=== PATIENT | female | born 1975 | race Caucasian/White ===

== ENCOUNTER 2017-05-15 10:04 | Inpatient (IN) | payer MEDICARE, OTHER ==
[2017-05-15 10:44] VITALS: BMI 33.0
[2017-05-15 11:36] LABS: BASO % 0.3 % (0.0-2.0); EOS # 0.1 K/uL (0.0-0.7); EOS % 0.9 % (0.0-4.0); HEMATOCRIT 27.9 % (34.0-47.0); LYMPH # 0.9 K/uL (1.0-4.3); LYMPH % 6.6 % (20.0-40.0); MEAN CELL VOLUME 84.8 fL (81.0-99.0); MEAN CORPUSCULAR HEMOGLOBIN 26.3 pg (27.0-31.0); MEAN CORPUSCULAR HGB CONC 31.1 g/dL (33.0-37.0); MEAN PLATELET VOLUME 9.5 fL (7.2-11.7); MONO # 1.3 K/uL (0.0-0.8); MONO % 10.2 % (0.0-10.0); PLATELET COUNT 256 K/uL (130-400); RED CELL DISTRIBUTION WIDTH 20.5 % (11.5-14.5); WHITE BLOOD COUNT 13.1 K/uL (4.8-10.8)
[2017-05-15 11:43] LABS: BILIRUBIN,TOTAL 3.9 mg/dL (0.2-1.3)
[2017-05-15 11:44] LABS: ALB/GLOB RATIO 0.7 (1.0-2.1); TOTAL PROTEIN 8.7 g/dL (6.3-8.3)
[2017-05-15 11:45] LABS: CALCIUM 9.1 mg/dl (8.6-10.4)
[2017-05-15 12:05] LABS: NEUTROPHIL 88 % (50-75); TOTAL CELLS COUNTED 100
[2017-05-15] MEDS ORDERED: Morphine 4 MG/ML VIAL ONE (12:30)
[2017-05-15] MEDS ORDERED: Vancomycin 1 gm/NS 200 ml 1 GM/200 ML BAG IVPB STA (12:32)
--- NOTE | 2017-05-15 12:39 | C.PDOC ---
History Of Present Illness 41 year old female with Hx of end stage renal disease presents to the ED referred by Dr. Malone for evaluation and possible admission. Patients PMD is Dr. Yoo who sent her to Dr. Malone, patient presents today with an infection of the lower abdominal wall. Patient is ESRD on HD, last HD was on Monday, next is to be done today. Time Seen by Provider: 05/15/17 10:42 Chief Complaint (Nursing): Abdominal Pain History Per: Patient History/Exam Limitations: no limitations Onset/Duration Of Symptoms: Hrs Current Symptoms Are (Timing): Still Present Location Of Pain/Discomfort: Other (Lower abdominal wall) Quality Of Discomfort: "Pain" Associated Symptoms: denies: Fever, Nausea, Vomiting, Diarrhea, Loss Of Appetite , Urinary Symptoms Exacerbating Factors: None Alleviating Factors: None Recent travel outside of the [place]: No Additional History Per: Patient Past Medical History Reviewed: Historical Data, Nursing Documentation, Vital Signs Vital Signs: Last Vital Signs Temp 97.8 F 05/15/17 10:32 Pulse 84 05/15/17 15:59 Resp 18 05/15/17 15:59 BP 181/99 H 05/15/17 15:59 Pulse Ox 100 05/15/17 17:18 - Medical History PMH: HTN, End Stage Renal Disease, Chronic Kidney Disease Surgical History: No Surg Hx Family History: States: Unknown Family Hx - Social History Hx Alcohol Use: No Hx Substance Use: No - Immunization History Hx Tetanus Toxoid Vaccination: No Hx Influenza Vaccination: Yes Hx Pneumococcal Vaccination: No Review Of Systems Constitutional: Negative for: Fever, Chills Cardiovascular: Negative for: Chest Pain Respiratory: Negative for: Shortness of Breath Gastrointestinal: Positive for: Abdominal Pain (Lower wall). Negative for: Nausea, Vomiting Genitourinary: Negative for: Frequency, Incontinence, Vaginal Discharge, Vaginal Bleeding Physical Exam - Physical Exam Appears: Non-toxic, No Acute Distress Skin: Normal Color, Warm, Dry Head: Atraumatic, Normacephalic Oral Mucosa: Moist Neck: Normal ROM, Supple Chest: Symmetrical Cardiovascular: Rhythm Regular, No Murmur Respiratory: Normal Breath Sounds, No Accessory Muscle Use, No Rales, No Rhonchi , No Wheezing Gastrointestinal/Abdominal: Tenderness (endured skin lower abdomen, no discharge ) Extremity: Normal ROM, No Pedal Edema, No Deformity, No Swelling ED Course And Treatment - Laboratory Results Result Diagrams: 05/15/17 11:30 05/15/17 11:30 O2 Sat by Pulse Oximetry: 100 (On RA) Pulse Ox Interpretation: Normal Progress Note: Plan: -Blood work, UA ordered. -Morphine 4 mg IVP, Vancomycin 1 gm in 200 mL given. -Blood culture collected Disposition - Disposition Disposition: HOSPITALIZED Disposition Time: 14:44 Condition: FAIR - Clinical Impression Clinical Impression: Panniculitis, unspecified, ESRD (end stage renal disease) on dialysis - PA / TEMPERER / Resident Statement MD/DO has reviewed & agrees with the documentation as recorded. - Scribe Statement The provider has reviewed the documentation as recorded by the Scribe Manuel Valero All medical record entries made by the Scribe were at my direction and personally dictated by me. I have reviewed the chart and agree that the record accurately reflects my personal performance of the history, physical exam, medical decision making, and the department course for this patient. I have also personally directed, reviewed, and agree with the discharge instructions and disposition. Decision To Admit - Pt Status Changed To: Hospital Disposition Of: Inpatient - Admit Certification Admit to Inpatient:: After my assessment, the patient will require hospitalization for at least two midnights. This is because of the severity of symptoms shown, intensity of services needed, and/or the medical risk in this patient being treated as an outpatient. - InPatient: Physician Admission Certification:: Most likely needs OR and IV antibiotics, will need more than 48 h. - . Bed Request Type: Regular Admitting Physician: Romulo Yoo Patient Diagnosis: Panniculitis, unspecified, ESRD (end stage renal disease) on dialysis
[2017-05-15] MEDS ORDERED: DiphenhydrAMINE 50 mg/ml Inj IVP STA (14:45)
[2017-05-15] MEDS ORDERED: HYDROmorphone 1 mg/ml ISec IVP STA (14:45)
[2017-05-15] MEDS ORDERED: Piperacill/Tazo 2.25gm in Dex 2.25 GM/50 ML BAG IVPB SCH (16:00)
[2017-05-15] MEDS ORDERED: DiphenhydrAMINE 50 mg/ml Inj ONE (16:04)
[2017-05-15] MEDS ORDERED: HYDROmorphone 0.5 mg/0.5 ml ISec ONE (16:04)
[2017-05-15] MEDS ORDERED: Paricalcitol 2 mcg/ml Inj IV SCH (16:16)
[2017-05-15] MEDS: (Novolog) Insulin Aspart, Recombinant 100 u/ml 10 ml vial SC SCH ×2 (16:30→22:00)
[2017-05-15] MEDS ORDERED: Ferric Sodium Gluconat Complex 62.5 mg/5 ml Vial IVPB ONE (17:00)
[2017-05-15] MEDS: Epoetin Alfa Dialysis 20000 UNIT/ML Inj IV SCH (17:06)
[2017-05-15] MEDS: Oxycodone/Acetaminophen 5/325 mg Tab PO PRN (18:30)
--- NOTE | 2017-05-15 19:36 | CP.PCM.CON ---
History of Present Illness - History of Present Illness History of Present Illness: pt is seen and examined during hd, full consult is dictated #[id number] stable hd tx Past Patient History - Past Social History Smoking Status: Never Smoked - CARDIAC Hx Hypertension: Yes - RENAL Hx Chronic Kidney Disease: Yes - ENDOCRINE/METABOLIC Hx Endocrine Disorders: Yes Hx Diabetes Mellitus Type 2: Yes - PSYCHIATRIC Hx Substance Use: No - SURGICAL HISTORY Hx Surgeries: Yes Hx Eye Surgery: Yes (R eye retinal detachment) Hx Gastric Bypass Surgery: Yes Hx Orthopedic Surgery: Yes (l 5th toe amputation) Meds Allergies/Adverse Reactions: Allergies Allergy/AdvReac Type Severity Reaction Status Date / Time acetaminophen [From Vicodin] Allergy Verified 05/15/17 10:59 hydrocodone [From Vicodin] Allergy Verified 05/15/17 10:59 - Medications Medications: Current Medications Aspirin (Aspirin Chewable) 81 mg PO DAILY [facility] Calcium Acetate (Phoslo) 1,134 mg PO TIDCC [facility] Cinacalcet (Sensipar) 30 mg PO DAILY [facility] Epoetin Loyd (Procrit) 20,000 unit IV MWF [facility] Stop: 05/19/17 09:01 Last Admin: 05/15/17 17:06 Dose: 20,000 unit Heparin Sodium (Porcine) (Heparin) 5,000 units SC Q8 [facility] Hydralazine HCl (Apresoline) 25 mg PO Q8 [facility] Piperacillin Sod/Tazobactam Sod (Zosyn 2.25 Gm Iv Premix) 2.25 gm in 50 mls @ 100 mls/hr IVPB Q8 [facility] Insulin Aspart (Novolog) 0 unit SC ACHS [facility] PRN Reason: Protocol Metoprolol Succinate (Toprol Xl) 50 mg PO DAILY [facility] Midodrine (Proamatine) 2.5 mg PO TID [facility] Oxycodone/Acetaminophen (Percocet 5/325 Mg Tab) 2 tab PO Q4H PRN PRN Reason: Pain, moderate (4-7) Stop: 05/18/17 15:34 Last Admin: 05/15/17 18:30 Dose: 2 tab Paricalcitol (Zemplar) 2 mcg IV MWF [facility] Stop: 05/19/17 09:01 Last Admin: 05/15/17 17:07 Dose: 2 mcg Rosuvastatin Calcium (Crestor) 10 mg PO HS [facility] Vitamin B Complex/Vit C/Folic Acid (Nephro-Mandy) 1 tab PO 0800 [facility] Results - Vital Signs Recent Vital Signs: Last Vital Signs Temp 98 F 05/15/17 16:30 Pulse 79 05/15/17 19:00 Resp 16 05/15/17 19:00 BP 186/90 H 05/15/17 19:00 Pulse Ox 96 05/15/17 19:00 - Labs Result Diagrams: 05/15/17 11:30 05/15/17 11:30 Labs: Laboratory Results - last 24 hr 05/15/17 05/15/17 11:30 11:30 WBC 13.1 H RBC 3.29 L Hgb 8.7 L Hct 27.9 L MCV 84.8 MCH 26.3 L MCHC 31.1 L RDW 20.5 H Plt Count 256 MPV 9.5 Neut % (Auto) 82.0 H Lymph % (Auto) 6.6 L [place] % (Auto) 10.2 H Eos % (Auto) 0.9 Baso % (Auto) 0.3 Neut # 10.8 H Lymph # 0.9 L [place] # 1.3 H Eos # 0.1 Baso # 0.0 Neutrophils % (Manual) 88 H Band Neutrophils % 2 Lymphocytes % (Manual) 9 L Monocytes % (Manual) 1 Platelet Estimate Normal Polychromasia Slight Hypochromasia (manual) Moderate Anisocytosis (manual) Slight Target Cells Slight Sodium 134 Potassium 5.0 Chloride 91 L Carbon Dioxide 21 L Anion Gap 27 H BUN 56 H Creatinine 6.3 H Est GFR ( Amer) 9 Est GFR (Non-Af Amer) 7 Random Glucose 99 Calcium 9.1 Total Bilirubin 3.9 H AST 28 ALT 34 Alkaline Phosphatase 271 H Total Protein 8.7 H Albumin 3.6 Globulin 5.1 H Albumin/Globulin Ratio 0.7 L
[2017-05-15] MEDS ORDERED: HYDROmorphone 1 mg/ml ISec IVP PRN (21:12)
[2017-05-15] MEDS ORDERED: Piperacillin/Tazobact 3.375 GM in Sodium Chloride 100 ML IVPB SCH (21:15)
[2017-05-15] MEDS: Piperacill/Tazo 2.25gm in Dex 2.25 GM/50 ML BAG IVPB SCH (22:05)
--- NOTE | 2017-05-15 22:34 | CP.PCM.HP ---
History of Present Illness - History of Present Illness History of Present Illness: CC: anterior lower abdominal pain HPI:Young female with h/o HTN, DM, Hyperlipdemia, CAD who is on HD Three times a week patient presents today with an infection of the lower abdominal wall. she has fever, chills and rigrs was seen by bonnie in [facility] with no response and now came here Patient is ESRD on HD, last HD was on Monday , next is to be done today. Present on Admission - Present on Admission Any Indicators Present on Admission: Yes Review of Systems - Review of Systems Systems not reviewed;Unavailable: Acuity of Condition - Constitutional Constitutional: Chills, Fever, Malaise, Weakness - EENT Eyes: absent: As Per HPI, Blind Spots, Blurred Vision, Change in Vision, Decreased Night Vision, Diplopia, Discharge, Dry Eye, Exophthalmos, Floaters, Irritation, Itchy Eyes, Loss of Peripheral Vision, Pain, Photophobia, Requires Corrective Lenses, Sees Flashes, Spots in Vision, Tunnel Vision, Other Visual Disturbances, Loss of Vision, Other Nose/Mouth/Throat: absent: As Per HPI, Epistaxis, Nasal Congestion, Nasal Discharge, Nasal Obstruction, Nasal Trauma, Nose Pain, Post Nasal Drip, Sinus Pain, Sinus Pressure, Bleeding Gums, Change in Voice, Dental Pain, Dry Mouth, Dysphagia, Halitosis, Hoarsness, Lip Swelling, Mouth Lesions, Mouth Pain, Odynophagia, Sore Throat, Throat Swelling, Tongue Swelling, Facial Pain, Neck Pain, Neck Mass, Other - Cardiovascular Cardiovascular: absent: As Per HPI, Acrocyanosis, Chest Pain, Chest Pain at Rest , Chest Pain with Activity, Claudication, Diaphoresis, Dyspnea, Dyspnea on Exertion, Edema, Irregular Heart Rhythm, Pain Radiating to Arm/Neck/Jaw, Leg Edema, Leg Ulcers, Lightheadedness, Orthopnea, Palpitations, Paroxysmal Nocturnal Dyspnea, Pedal Edema, Radiating Pain, Rapid Heart Rate, Slow Heart Rate, Syncope, Other - Respiratory Respiratory: absent: As Per HPI, Cough, Dyspnea, Hemoptysis, Dyspnea on Exertion , Wheezing, Snoring, Stridor, Pain on Inspiration, Chest Congestion, Excessive Mucous Production, Change in Mucous Color, Pain with Coughing, Other - Gastrointestinal Gastrointestinal: Abdominal Pain. absent: As Per HPI, Belching, Bloating, Change in Bowel Habits, Change in Stool Character, Coffee Ground Emesis, Constipation, Cramping, Diarrhea, Dyspepsia, Dysphagia, Early Satiety, Excessive Flatus, Fecal Incontinence, Heartburn, Hematemesis, Hematochezia, Loose Stools, Melena, Nausea, Odynophagia, Temesmus, Vomiting, Other - Genitourinary Genitourinary: absent: As Per HPI, Change in Urinary Stream, Difficulty Urinating, Dysuria, Flank Pain, Hematuria, Pyuria, Nocturia, Urinary Incontinence, Urinary Frequency, Urinary Hesitance, Urinary Urgency, Voiding Freq/Small Amts, Freq UTI, Hx Renal/Bladder Calculi, Hx /Renal Surgery, Bladder Distension, Other - Integumentary Integumentary: absent: As Per HPI, Acne, Alopecia, Bleeding Lesions, Change in Hair, Change in Nails, Change in Pigmentation, Changing Lesions, Dry Skin, Erythema, Furuncle, Hirsutism, Lesions, New Lesions, Non-Healing Lesions, Photosensitivity, Pruritus, Rash, Skin Pain, Skin Ulcer, Sores, Striae, Swelling , Unusual Bruising, Wounds, Jaundice, Other - Neurological Neurological: absent: As Per HPI, Abnormal Gait, Abnormal Hearing, Abnormal Movements, Abnormal Speech, Behavioral Changes, Burning Sensations, Confusion, Convulsions, Disequilibrium, Dizziness, Numbness, Focal Weakness, Frequent Falls , Headaches, Lack of Coordination, Loss of Vision, Memory Loss, Paresthesias, Radicular Pain, Restless Legs, Sensory Deficit, Syncope, Tingling, Tremor, Vertigo, Weakness, Other Visual Disturbances, Other - Psychiatric Psychiatric: absent: As Per HPI, Abnormal Sleep Pattern, Anhedonia, Anxiety, Auditory Hallucinations, Behavioral Changes, Change in Appetite, Change in Libido, Confusion, Depression, Difficulty Concentrating, Hallucinations, Homicidal Ideation, Hopelessness, Irritability, Memory Loss, Mood Swings, Panic Attacks, Paranoia, Suicidal Ideation, Visual Hallucinations, Tactile Hallucinations, Other - Endocrine Endocrine: absent: As Per HPI, Change in Body Appearance, Change in Libido, Cold Intolorance, Deepening of Voice, Excessive Sweating, Fatigue, Flushing, Heat Intolorance, Increase in Ring/Shoe/Hat Size, Palpitations, Polydipsia, Polyphagia, Polyuria, Other Past Patient History - Past Social History Smoking Status: Never Smoked - CARDIAC Hx Hypertension: Yes - RENAL Date of Last Dialysis Treatment: 05/15/17 - ENDOCRINE/METABOLIC Hx Endocrine Disorders: Yes Hx Diabetes Mellitus Type 2: Yes - INTEGUMENTARY Other/Comment: infection left lower abdomen - MUSCULOSKELETAL/RHEUMATOLOGICAL Hx Falls: No - PSYCHIATRIC Hx Substance Use: No - SURGICAL HISTORY Hx Surgeries: Yes Hx Eye Surgery: Yes (R eye retinal detachment) Hx Gastric Bypass Surgery: Yes (1 1/2 years ago) Hx Orthopedic Surgery: Yes (l 5th toe amputation) Other/Comment: I&D LEFT LOWER ABDOMEN. - ANESTHESIA Hx Anesthesia: Yes Hx Anesthesia Reactions: No Hx Malignant Hyperthermia: No Has any member of the family had a problem w/ anesthesia?: No Meds Allergies/Adverse Reactions: Allergies Allergy/AdvReac Type Severity Reaction Status Date / Time acetaminophen [From Vicodin] Allergy Verified 05/15/17 10:59 hydrocodone [From Vicodin] Allergy Verified 05/15/17 10:59 Physical Exam - Constitutional Appears: In Acute Distress Additional comments: extreme ant abdominal pain - Eye Exam Eye Exam: EOMI, Normal appearance, PERRL Pupil Exam: NORMAL ACCOMODATION, PERRL - ENT Exam ENT Exam: Mucous Membranes Moist, Normal Exam - Cardiovascular Exam Cardiovascular Exam: REGULAR RHYTHM, +S1, +S2 - GI/Abdominal Exam GI & Abdominal Exam: Tenderness Additional comments: ant abdomen below umbilicus is opn raw wound with discharge Results - Vital Signs Recent Vital Signs: Last Vital Signs Temp 98 F 05/15/17 16:30 Pulse 85 05/15/17 20:00 Resp 16 05/15/17 20:00 BP 178/68 H 05/15/17 20:00 Pulse Ox 95 05/15/17 20:00 - Labs Result Diagrams: 05/15/17 11:30 05/15/17 11:30 Labs: Laboratory Results - last 24 hr 05/15/17 05/15/17 05/15/17 11:30 11:30 21:32 WBC 13.1 H RBC 3.29 L Hgb 8.7 L Hct 27.9 L MCV 84.8 MCH 26.3 L MCHC 31.1 L RDW 20.5 H Plt Count 256 MPV 9.5 Neut % (Auto) 82.0 H Lymph % (Auto) 6.6 L [place] % (Auto) 10.2 H Eos % (Auto) 0.9 Baso % (Auto) 0.3 Neut # 10.8 H Lymph # 0.9 L [place] # 1.3 H Eos # 0.1 Baso # 0.0 Neutrophils % (Manual) 88 H Band Neutrophils % 2 Lymphocytes % (Manual) 9 L Monocytes % (Manual) 1 Platelet Estimate Normal Polychromasia Slight Hypochromasia (manual) Moderate Anisocytosis (manual) Slight Target Cells Slight Sodium 134 Potassium 5.0 Chloride 91 L Carbon Dioxide 21 L Anion Gap 27 H BUN 56 H Creatinine 6.3 H Est GFR ( Amer) 9 Est GFR (Non-Af Amer) 7 POC Glucose (mg/dL) 96 Random Glucose 99 Calcium 9.1 Total Bilirubin 3.9 H AST 28 ALT 34 Alkaline Phosphatase 271 H Total Protein 8.7 H Albumin 3.6 Globulin 5.1 H Albumin/Globulin Ratio 0.7 L Assessment & Plan (1) Type 2 diabetes mellitus Status: Acute (2) HTN (hypertension) Status: Acute (3) ESRD (end stage renal disease) on dialysis Status: Acute (4) Panniculitis, unspecified Status: Acute
[2017-05-16] MEDS: Piperacill/Tazo 2.25gm in Dex 2.25 GM/50 ML BAG IVPB SCH ×3 (06:41→21:56)
[2017-05-16] MEDS: (Novolog) Insulin Aspart, Recombinant 100 u/ml 10 ml vial SC SCH ×4 (08:30→21:53)
[2017-05-16] MEDS: Multivitamin Vitamin B Complex (Nephro-Vite) Tab PO SCH (08:50)
--- NOTE | 2017-05-16 09:10 | CON ---
DATE: RENAL CONSULTATION LOCATION: Patient is located in room 353, bed A. REQUESTED BY: Romulo Yoo MD HISTORY OF PRESENT ILLNESS: Ms. Schmitz is a 41-year-old female with a past medical history significant for longstanding hypertension, diabetes, end-stage renal disease, diabetic retinopathy with a poor vision in one eye, status post gastric bypass, who was recently admitted to [facility] few weeks ago with severe lower abdominal pain and back pain and patient was found to have pancolitis and status post surgery and subsequently discharged to home. Now the patient was admitted with persistent pain and getting worse and also pain in both upper thigh region and expanding slowly upward from the pelvic region. Severe tenderness. Denies any headache or dizziness. Denies any chest pain or palpitation. Denies any nausea, vomiting, or diarrhea. The patient claims decreased p.o. intake. PAST MEDICAL HISTORY: Significant for longstanding hypertension, diabetes, end-stage renal disease, diabetic retinopathy, severe secondary hyperparathyroidism, hyperphosphatemia, anemia, history of GI bleed. PAST SURGICAL HISTORY: Status post right upper extremity AV fistula, gastric bypass and questionable hysterectomy. ALLERGIES: ALLERGIC TO ACETAMINOPHEN AND HYDROCODONE. SOCIAL HISTORY: No smoking. No alcohol. No drugs. FAMILY HISTORY: Not significant. CURRENT MEDICATIONS: Include as follows, hydralazine 25 mg p.o. q. 8 hours, aspirin 81 mg daily, Crestor 10 mg at bedtime, Dilaudid 2 mg IV q. 4 hours p.r.n., subcu heparin q. 12 hours, Nephro-Mandy 1 tablet daily, NovoLog, Percocet 2 tablets q. 4 hours, PhosLo 667 mg 2 tablets p.o. t.i.d., midodrine 2.5 mg p.o. t.i.d., Procrit 20,000 units 3 times a week, Sensipar 30 mg p.o. daily, Toprol-XL 50 mg p.o. daily, Zemplar 2 mcg 3 times a week, Zosyn 2.25 g IV piggyback q. 8 hours. REVIEW OF SYSTEMS: Significant for lower abdominal pain and also mid abdomen pain, and also pain in both thigh region and palpable masses. All other review of systems reviewed as per HPI. PHYSICAL EXAMINATION: VITAL SIGNS: As follows, blood pressure 178/68, pulse 85, respirations 16, temperature 97.6, saturation 95%. Height is 5 feet and 6 inches and weight is 196 pounds. GENERAL: Ms. Schmitz is an 41-year-old female, moderately built, moderate nourished, not in distress, with moderate pain in both lower extremities and lower abdomen and mid abdomen on the left side. HEENT: Pupils are normal, reactive to light and accommodation. Conjunctivae pink. Sclerae anicteric. Tongue is moist. Trachea is midline. LUNGS: Symmetric on both sides. Bilateral breath sounds present. Clear on auscultation. CARDIOVASCULAR: [place] at the fifth intercostal space, midclavicular line. S1 and S2 audible. No murmur or gallop. ABDOMEN: The patient has severe tenderness in lower abdomen and also mid abdomen area also. Bowel sounds present. CENTRAL NERVOUS SYSTEM: The patient is alert, awake and oriented x3. Nonfocal on examination. Cranial nerves II through XII grossly intact. Sensory and motor system is within normal limits. EXTREMITIES: No cyanosis, no clubbing, no edema. LABORATORY DATA: Include as follows; as of 05/15/2017, WBC 13.1, hemoglobin 8.7, hematocrit is 27.9, platelets 256. Sodium 134, potassium is 5, chloride 91, CO2 of 21, BUN 56, creatinine 6.3, glucose 99, calcium 9.1. Total bilirubin AST 28, ALT 34, alkaline phosphatase 271, total protein 8.7, albumin is 3.6. ASSESSMENT: In summary, Ms. Schmitz is 41-year-old obese female with a history of hypertension, diabetes and diabetic retinopathy, pancolitis, status post surgery in medical center about few weeks ago, status post IV antibiotics, now admitted with worsening symptoms of lower abdominal pain and pain in both thigh region. 1. End-stage renal disease. Continue hemodialysis 3 times a week, Monday, Monday and Monday. 2. Anemia secondary to end-stage renal disease, rule out iron-deficiency anemia. 3. Pancolitis. 4. Rule out calciphylaxis, rule out uremic arteriopathy. PLAN: Follow up with surgery and continue IV antibiotics. Continue analgesics and also check PTH and phosphorus level in a.m. We will follow with you. Thank you for allowing me to participate in your patient's care. The patient was seen and examined during dialysis. Marc Jarrett MD
--- NOTE | 2017-05-16 09:57 | CP.PCM.PN ---
Subjective - Date & Time of Evaluation Date of Evaluation: 05/16/17 Time of Evaluation: 09:51 - Subjective Subjective: pt is seen and examined, follow up consult is dictated #[id number] 1. ESRD 2. sec. hpth 3. Calciphylaxsis/calcific uremic arteriopathy 4. Panniculitis check po4, pth intact d/zemplar and sensipar for now f/u with surgery Objective - Vital Signs/Intake and Output Vital Signs (last 24 hours): Temp Pulse Resp BP Pulse Ox 98.5 F 80 20 163/91 H 100 05/16/17 08:00 05/16/17 08:00 05/16/17 08:00 05/16/17 08:00 05/16/17 08:00 - Medications Medications: Current Medications Aspirin (Aspirin Chewable) 81 mg PO DAILY [facility] Calcium Acetate (Phoslo) 1,334 mg PO TIDCC [facility] Last Admin: 05/16/17 08:50 Dose: 1,334 mg Epoetin Loyd (Procrit) 20,000 unit IV MWF [facility] Stop: 05/19/17 09:01 Last Admin: 05/15/17 17:06 Dose: 20,000 unit Heparin Sodium (Porcine) (Heparin) 5,000 units SC Q12 [facility] Last Admin: 05/15/17 21:58 Dose: 5,000 units Hydralazine HCl (Apresoline) 25 mg PO Q8 [facility] Last Admin: 05/16/17 06:41 Dose: 25 mg Hydromorphone HCl (Dilaudid) 2 mg IVP Q4H PRN PRN Reason: pain Last Admin: 05/16/17 06:15 Dose: 2 mg Piperacillin Sod/Tazobactam Sod (Zosyn 2.25 Gm Iv Premix) 2.25 gm in 50 mls @ 100 mls/hr IVPB Q8 [facility] Last Admin: 05/16/17 06:41 Dose: 100 mls/hr Insulin Aspart (Novolog) 0 unit SC ACHS [facility] PRN Reason: Protocol Last Admin: 05/16/17 08:30 Dose: Not Given Metoprolol Succinate (Toprol Xl) 50 mg PO DAILY [facility] Midodrine (Proamatine) 2.5 mg PO TID [facility] Last Admin: 05/15/17 22:05 Dose: 2.5 mg Oxycodone/Acetaminophen (Percocet 5/325 Mg Tab) 2 tab PO Q4H PRN PRN Reason: Pain, moderate (4-7) Stop: 05/18/17 15:34 Last Admin: 05/15/17 18:30 Dose: 2 tab Pneumococcal Polyvalent Vaccine (Pneumovax 23 Vaccine) 0.5 ml IM .ONCE ONE Stop: 05/17/17 10:01 Rosuvastatin Calcium (Crestor) 10 mg PO HS [facility] Last Admin: 05/15/17 21:57 Dose: 10 mg Vitamin B Complex/Vit C/Folic Acid (Nephro-Mandy) 1 tab PO 0800 [facility] Last Admin: 05/16/17 08:50 Dose: 1 tab - Labs Labs: 05/15/17 11:30 05/15/17 11:30
[2017-05-16] MEDS: Metoprolol Succinate 50 mg XL Tab PO SCH (10:10)
--- NOTE | 2017-05-16 11:00 | CP.PCM.CON ---
History of Present Illness - History of Present Illness History of Present Illness: 41 year old female with Hx of end stage renal disease presents to the ED referred by Dr. Malone for evaluation and possible admission. Patients PMD is Dr. Yoo who sent her to Dr. Malone, patient presents today with an infection of the lower abdominal wall. Patient is ESRD on HD, last HD was on Monday, next is to be done today. Review of Systems - Review of Systems All systems: reviewed and no additional remarkable complaints except - Constitutional Constitutional: As Per HPI - EENT Eyes: absent: As Per HPI, Blind Spots, Blurred Vision, Change in Vision, Decreased Night Vision, Diplopia, Discharge, Dry Eye, Exophthalmos, Floaters, Irritation, Itchy Eyes, Loss of Peripheral Vision, Pain, Photophobia, Requires Corrective Lenses, Sees Flashes, Spots in Vision, Tunnel Vision, Other Visual Disturbances, Loss of Vision, Other Ears: absent: As Per HPI, Decreased Hearing, Ear Discharge, Ear Pain, Tinnitus, Abnormal Hearing, Disequilibrium, Dizziness, Other Nose/Mouth/Throat: absent: As Per HPI, Epistaxis, Nasal Congestion, Nasal Discharge, Nasal Obstruction, Nasal Trauma, Nose Pain, Post Nasal Drip, Sinus Pain, Sinus Pressure, Bleeding Gums, Change in Voice, Dental Pain, Dry Mouth, Dysphagia, Halitosis, Hoarsness, Lip Swelling, Mouth Lesions, Mouth Pain, Odynophagia, Sore Throat, Throat Swelling, Tongue Swelling, Facial Pain, Neck Pain, Neck Mass, Other - Breasts Breasts: absent: As Per HPI, Change in Shape, Mass, Pain, Nipple Discharge, Nipple Inversion, Skin Changes, Swelling, Other - Cardiovascular Cardiovascular: absent: As Per HPI, Acrocyanosis, Chest Pain, Chest Pain at Rest , Chest Pain with Activity, Claudication, Diaphoresis, Dyspnea, Dyspnea on Exertion, Edema, Irregular Heart Rhythm, Pain Radiating to Arm/Neck/Jaw, Leg Edema, Leg Ulcers, Lightheadedness, Orthopnea, Palpitations, Paroxysmal Nocturnal Dyspnea, Pedal Edema, Radiating Pain, Rapid Heart Rate, Slow Heart Rate, Syncope, Other - Respiratory Respiratory: absent: As Per HPI, Cough, Dyspnea, Hemoptysis, Dyspnea on Exertion , Wheezing, Snoring, Stridor, Pain on Inspiration, Chest Congestion, Excessive Mucous Production, Change in Mucous Color, Pain with Coughing, Other - Gastrointestinal Gastrointestinal: absent: As Per HPI, Abdominal Pain, Belching, Bloating, Change in Bowel Habits, Change in Stool Character, Coffee Ground Emesis, Constipation, Cramping, Diarrhea, Dyspepsia, Dysphagia, Early Satiety, Excessive Flatus, Fecal Incontinence, Heartburn, Hematemesis, Hematochezia, Loose Stools, Melena, Nausea, Odynophagia, Temesmus, Vomiting, Other - Genitourinary Genitourinary: absent: As Per HPI, Change in Urinary Stream, Difficulty Urinating, Dysuria, Flank Pain, Hematuria, Pyuria, Nocturia, Urinary Incontinence, Urinary Frequency, Urinary Hesitance, Urinary Urgency, Voiding Freq/Small Amts, Freq UTI, Hx Renal/Bladder Calculi, Hx /Renal Surgery, Bladder Distension, Other - Reproductive: Female Reproductive:Female: absent: As Per HPI, Amenorrhea, Amenorrhea/ Control, Currently Menstual, Cycle <21 Days, Cycle >35 Days, Cycle Variable, Menses 1-7 Days, Menses >/= 8 Days, Menses Variable, Cycle > 4 Weeks Between, No Menses for 6 Months, Heavy Menses, Light Menses, Normal Menses, Spotting Between Cycles , S/P Hysterectomy, Menopausal, Post Menopausal, Premenarche, Abnormal Vaginal Bleeding, Dysmenorrhea, Dyspareunia, Genital Lesions, Genital Pruritis, Pelvic Pain, Prolapse Symptoms, Sexual Dysfunction, Vaginal Discharge, Vaginal Dryness , Vaginal Odor, Vaginal Pruritis, Other - Menstruation Menstruation: absent: As Per HPI, Amenorrhea, Amenorrhea/ Control, Currently Menstual, Cycle <21 Days, Cycle >35 Days, Cycle Variable, Menses 1-7 Days, Menses >/= 8 Days, Menses Variable, Cycle > 4 Weeks Between, No Menses for 6 Months, Heavy Menses, Light Menses, Normal Menses, Spotting Between Cycles , S/P Hysterectomy, Menopausal, Post Menopausal, Premenarche, Abnormal Vaginal Bleeding, Dysmenorrhea, Other - Integumentary Integumentary: As Per HPI, Skin Pain, Wounds - Neurological Neurological: As Per HPI - Psychiatric Psychiatric: absent: As Per HPI, Abnormal Sleep Pattern, Anhedonia, Anxiety, Auditory Hallucinations, Behavioral Changes, Change in Appetite, Change in Libido, Confusion, Depression, Difficulty Concentrating, Hallucinations, Homicidal Ideation, Hopelessness, Irritability, Memory Loss, Mood Swings, Panic Attacks, Paranoia, Suicidal Ideation, Visual Hallucinations, Tactile Hallucinations, Other - Endocrine Endocrine: absent: As Per HPI, Change in Body Appearance, Change in Libido, Cold Intolorance, Deepening of Voice, Excessive Sweating, Fatigue, Flushing, Heat Intolorance, Increase in Ring/Shoe/Hat Size, Palpitations, Polydipsia, Polyphagia, Polyuria, Other - Hematologic/Lymphatic Hematologic: absent: As Per HPI, Easy Bleeding, Easy Bruising, Lymphadenopathy, Other Past Patient History - Past Social History Smoking Status: Never Smoked - CARDIAC Hx Hypertension: Yes - RENAL Date of Last Dialysis Treatment: 05/15/17 - ENDOCRINE/METABOLIC Hx Endocrine Disorders: Yes Hx Diabetes Mellitus Type 2: Yes - INTEGUMENTARY Other/Comment: infection left lower abdomen - MUSCULOSKELETAL/RHEUMATOLOGICAL Hx Falls: No - PSYCHIATRIC Hx Substance Use: No - SURGICAL HISTORY Hx Surgeries: Yes Hx Eye Surgery: Yes (R eye retinal detachment) Hx Gastric Bypass Surgery: Yes (1 1/2 years ago) Hx Orthopedic Surgery: Yes (l 5th toe amputation) Other/Comment: I&D LEFT LOWER ABDOMEN. - ANESTHESIA Hx Anesthesia: Yes Hx Anesthesia Reactions: No Hx Malignant Hyperthermia: No Has any member of the family had a problem w/ anesthesia?: No Meds Allergies/Adverse Reactions: Allergies Allergy/AdvReac Type Severity Reaction Status Date / Time acetaminophen [From Vicodin] Allergy Verified 05/15/17 10:59 hydrocodone [From Vicodin] Allergy Verified 05/15/17 10:59 - Medications Medications: Current Medications Aspirin (Aspirin Chewable) 81 mg PO DAILY [facility] Last Admin: 05/16/17 10:10 Dose: 81 mg Calcium Acetate (Phoslo) 1,334 mg PO TIDCC [facility] Last Admin: 05/16/17 08:50 Dose: 1,334 mg Epoetin Loyd (Procrit) 20,000 unit IV MWF [facility] Stop: 05/19/17 09:01 Last Admin: 05/15/17 17:06 Dose: 20,000 unit Heparin Sodium (Porcine) (Heparin) 5,000 units SC Q12 [facility] Last Admin: 05/16/17 10:10 Dose: 5,000 units Hydralazine HCl (Apresoline) 25 mg PO Q8 [facility] Last Admin: 05/16/17 06:41 Dose: 25 mg Hydromorphone HCl (Dilaudid) 2 mg IVP Q4H PRN PRN Reason: pain Last Admin: 05/16/17 10:25 Dose: 2 mg Piperacillin Sod/Tazobactam Sod (Zosyn 2.25 Gm Iv Premix) 2.25 gm in 50 mls @ 100 mls/hr IVPB Q8 [facility] Last Admin: 05/16/17 06:41 Dose: 100 mls/hr Insulin Aspart (Novolog) 0 unit SC ACHS [facility] PRN Reason: Protocol Last Admin: 05/16/17 08:30 Dose: Not Given Metoprolol Succinate (Toprol Xl) 50 mg PO DAILY [facility] Last Admin: 05/16/17 10:10 Dose: 50 mg Midodrine (Proamatine) 2.5 mg PO TID [facility] Last Admin: 05/16/17 10:14 Dose: Not Given Oxycodone/Acetaminophen (Percocet 5/325 Mg Tab) 2 tab PO Q4H PRN PRN Reason: Pain, moderate (4-7) Stop: 05/18/17 15:34 Last Admin: 05/15/17 18:30 Dose: 2 tab Pneumococcal Polyvalent Vaccine (Pneumovax 23 Vaccine) 0.5 ml IM .ONCE ONE Stop: 05/17/17 10:01 Rosuvastatin Calcium (Crestor) 10 mg PO HS [facility] Last Admin: 05/15/17 21:57 Dose: 10 mg Vitamin B Complex/Vit C/Folic Acid (Nephro-Mandy) 1 tab PO 0800 [facility] Last Admin: 05/16/17 08:50 Dose: 1 tab Physical Exam - Constitutional Appears: Non-toxic, Chronically Ill - Head Exam Head Exam: NORMOCEPHALIC - Eye Exam Eye Exam: PERRL. absent: Scleral icterus - ENT Exam ENT Exam: Mucous Membranes Dry, Normal External Ear Exam - Neck Exam Neck exam: Negative for: Lymphadenopathy - Respiratory Exam Respiratory Exam: Decreased Breath Sounds - Cardiovascular Exam Cardiovascular Exam: REGULAR RHYTHM, +S1, +S2 - GI/Abdominal Exam GI & Abdominal Exam: Diminished Bowel Sounds, Distended, Soft, Tenderness Additional comments: wiunds noted back lower abd and left thigh with induration - Rectal Exam Rectal Exam: Deferred - Exam Exam: NORMAL INSPECTION - Extremities Exam Extremities exam: Positive for: pedal pulses present. Negative for: calf tenderness, pedal edema - Back Exam Back exam: absent: CVA tenderness (L), CVA tenderness (R) - Neurological Exam Neurological exam: Alert, CN II-XII Intact, Oriented x3, Reflexes Normal - Psychiatric Exam Psychiatric exam: Depressed - Skin Skin Exam: Dry Results - Vital Signs Recent Vital Signs: Last Vital Signs Temp 98.5 F 05/16/17 08:00 Pulse 80 05/16/17 08:00 Resp 20 05/16/17 08:00 BP 163/91 H 05/16/17 08:00 Pulse Ox 100 05/16/17 08:00 - Labs Result Diagrams: 05/15/17 11:30 05/15/17 11:30 Labs: Laboratory Results - last 24 hr 05/15/17 05/15/17 05/15/17 11:30 11:30 21:32 WBC 13.1 H RBC 3.29 L Hgb 8.7 L Hct 27.9 L MCV 84.8 MCH 26.3 L MCHC 31.1 L RDW 20.5 H Plt Count 256 MPV 9.5 Neut % (Auto) 82.0 H Lymph % (Auto) 6.6 L Bonner % (Auto) 10.2 H Eos % (Auto) 0.9 Baso % (Auto) 0.3 Neut # 10.8 H Lymph # 0.9 L Bonner # 1.3 H Eos # 0.1 Baso # 0.0 Neutrophils % (Manual) 88 H Band Neutrophils % 2 Lymphocytes % (Manual) 9 L Monocytes % (Manual) 1 Platelet Estimate Normal Polychromasia Slight Hypochromasia (manual) Moderate Anisocytosis (manual) Slight Target Cells Slight Sodium 134 Potassium 5.0 Chloride 91 L Carbon Dioxide 21 L Anion Gap 27 H BUN 56 H Creatinine 6.3 H Est GFR ( Amer) 9 Est GFR (Non-Af Amer) 7 POC Glucose (mg/dL) 96 Random Glucose 99 Calcium 9.1 Total Bilirubin 3.9 H AST 28 ALT 34 Alkaline Phosphatase 271 H Total Protein 8.7 H Albumin 3.6 Globulin 5.1 H Albumin/Globulin Ratio 0.7 L 05/16/17 07:26 WBC RBC Hgb Hct MCV MCH MCHC RDW Plt Count MPV Neut % (Auto) Lymph % (Auto) Bonner % (Auto) Eos % (Auto) Baso % (Auto) Neut # Lymph # Bonner # Eos # Baso # Neutrophils % (Manual) Band Neutrophils % Lymphocytes % (Manual) Monocytes % (Manual) Platelet Estimate Polychromasia Hypochromasia (manual) Anisocytosis (manual) Target Cells Sodium Potassium Chloride Carbon Dioxide Anion Gap BUN Creatinine Est GFR ( Amer) Est GFR (Non-Af Amer) POC Glucose (mg/dL) 88 Random Glucose Calcium Total Bilirubin AST ALT Alkaline Phosphatase Total Protein Albumin Globulin Albumin/Globulin Ratio Assessment & Plan (1) Cellulitis Status: Acute (2) Cellulitis Status: Acute (3) ESRD (end stage renal disease) on dialysis Status: Acute (4) HTN (hypertension) Status: Acute (5) Panniculitis, unspecified Status: Acute (6) Type 2 diabetes mellitus Status: Acute - Assessment and Plan (Free Text) Assessment: cont wound care, debridement , gycemic control, IV antibiotics
[2017-05-16] MEDS ORDERED: Desmopressin 20 MCG in Sodium Chloride 0.9% 50 ML IV PRN (16:42)
[2017-05-16] MEDS: Oxycodone/Acetaminophen 5/325 mg Tab PO PRN (19:14)
--- NOTE | 2017-05-16 23:10 | CP.PCM.PN ---
Subjective - Date & Time of Evaluation Date of Evaluation: 05/16/17 Time of Evaluation: 20:00 - Subjective Subjective: Pt is for Or tommorow, still c/o extreme abdominal pain due to open wounds ( pannicullitis) Hb has been corrected pt is stable Objective - Vital Signs/Intake and Output Vital Signs (last 24 hours): Temp Pulse Resp BP Pulse Ox 98.4 F 82 20 168/72 H 100 05/16/17 23:00 05/16/17 23:00 05/16/17 22:05 05/16/17 23:00 05/16/17 15:00 Intake and Output: 05/16/17 05/17/17 18:59 06:59 Intake Total 450 50 Balance 450 50 - Medications Medications: Current Medications Aspirin (Aspirin Chewable) 81 mg PO DAILY [facility] Last Admin: 05/16/17 10:10 Dose: 81 mg Calcium Acetate (Phoslo) 1,334 mg PO TIDCC [facility] Last Admin: 05/16/17 17:23 Dose: 1,334 mg Epoetin Loyd (Procrit) 20,000 unit IV [facility] Stop: 05/19/17 09:01 Last Admin: 05/15/17 17:06 Dose: 20,000 unit Heparin Sodium (Porcine) (Heparin) 5,000 units SC Q12 [facility] Last Admin: 05/16/17 21:51 Dose: 5,000 units Hydralazine HCl (Apresoline) 25 mg PO Q8 [facility] Last Admin: 05/16/17 21:52 Dose: 25 mg Hydromorphone HCl (Dilaudid) 2 mg IVP Q4H PRN PRN Reason: pain Last Admin: 05/16/17 22:31 Dose: 2 mg Piperacillin Sod/Tazobactam Sod (Zosyn 2.25 Gm Iv Premix) 2.25 gm in 50 mls @ 100 mls/hr IVPB Q8 [facility] Last Admin: 05/16/17 21:56 Dose: 100 mls/hr Vancomycin/Sodium Chloride (Vancomycin 1 Gm/Ns 200 Ml) 1 gm in 200 mls @ 166.7 mls/hr IVPB [facility] Stop: 05/22/17 09:01 Desmopressin Acetate 20 mcg/ (Sodium Chloride) 55 mls @ 100 mls/hr IV ONCE PRN PRN 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 05/17 Insulin Aspart (Novolog) 0 unit SC ACHS [facility] PRN Reason: Protocol Last Admin: 05/16/17 21:53 Dose: Not Given Metoprolol Succinate (Toprol Xl) 50 mg PO DAILY [facility] Last Admin: 05/16/17 10:10 Dose: 50 mg Midodrine (Proamatine) 2.5 mg PO TID [facility] Last Admin: 05/16/17 17:24 Dose: 2.5 mg Oxycodone/Acetaminophen (Percocet 5/325 Mg Tab) 2 tab PO Q4H PRN PRN Reason: Pain, moderate (4-7) Stop: 05/18/17 15:34 Last Admin: 05/16/17 19:14 Dose: 2 tab Pneumococcal Polyvalent Vaccine (Pneumovax 23 Vaccine) 0.5 ml IM .ONCE ONE Stop: 05/17/17 10:01 Rosuvastatin Calcium (Crestor) 10 mg PO HS [facility] Last Admin: 05/16/17 21:52 Dose: 10 mg Sevelamer Carbonate (Renvela) 0.8 gm PO TIDCC [facility] Vitamin B Complex/Vit C/Folic Acid (Nephro-Mandy) 1 tab PO 0800 [facility] Last Admin: 05/16/17 08:50 Dose: 1 tab - Labs Labs: 05/15/17 11:30 05/15/17 11:30 - Constitutional Appears: No Acute Distress - Head Exam Head Exam: ATRAUMATIC, NORMAL INSPECTION, NORMOCEPHALIC - Eye Exam Eye Exam: EOMI, Normal appearance, PERRL Pupil Exam: NORMAL ACCOMODATION, PERRL - Respiratory Exam Respiratory Exam: Clear to Ausculation Bilateral, NORMAL BREATHING PATTERN - Cardiovascular Exam Cardiovascular Exam: REGULAR RHYTHM, +S1, +S2. absent: Murmur - GI/Abdominal Exam GI & Abdominal Exam: Tenderness Additional comments: open wound below umbilicius - Rectal Exam Rectal Exam: Deferred Assessment and Plan (1) Type 2 diabetes mellitus Status: Acute (2) HTN (hypertension) Status: Acute (3) ESRD (end stage renal disease) on dialysis Status: Acute (4) Panniculitis, unspecified Assessment & Plan: for OR debribement tommorow morning Status: Acute
--- NOTE | 2017-05-16 23:11 | CON ---
RENAL CONSULTATION LOCATION: Patient is located in room 353, bed #A. REQUESTED BY: Romulo Yoo MD REASON FOR FOLLOWUP: End-stage renal disease and for continuation of the hemodialysis. HISTORY OF PRESENT ILLNESS: Mrs. Schmitz is a 41-year-old young female with past medical history significant for longstanding hypertension, diabetes, diabetic retinopathy, end-stage renal disease on hemodialysis 3 times a week, hyperphosphatemia, noncompliance with phosphate binder, secondary hyperparathyroidism, who was recently [facility] to the [facility] with lower abdominal swelling and pain severe and patient was found to have pancolitis, status post surgery and then patient was discharged home. Now, the patient was admitted with lower abdominal pain and also extending from the lower abdomen and also pain in the both thigh region and swelling. The patient is scheduled for possible surgery tomorrow. The patient is not in distress. Denies any chest pain or palpitation. Denies any fever or cough. The patient does complains of lower abdominal pain and pain in the both thighs. PHYSICAL EXAMINATION: VITAL SIGNS: As follows: Blood pressure is 163/91, pulse 80, respirations 20, temperature 98.5 and saturation 100%. Height is 5 feet 6 inches and weight is 196 pounds. GENERAL: Mrs. Schmitz is a 41 years old female, moderately built, moderate nourished, not in distress. HEENT: Pupils are normal, reactive to light and accommodation. Conjunctivae pink. Sclerae anicteric. Tongue is moist. Trachea is midline. LUNGS: Symmetric on both sides. Bilateral breath sounds present. Clear on auscultation. CARDIOVASCULAR: [place] at the fifth intercostal space, midclavicular line. S1 and S2 audible. No murmur or gallop. ABDOMEN: Normal in appearance. The patient has a [id number] pain in lower abdomen and also left upper quadrant area. Bowel sounds present. No guarding. No rigidity. CENTRAL NERVOUS SYSTEM: The patient is alert, awake and oriented x3. Nonfocal on examination. Cranial nerves II through XII grossly intact. Sensory and motor system is within normal limits. EXTREMITIES: No cyanosis, no clubbing, no edema. CURRENT MEDICATIONS: Include as follows, hydralazine 25 mg p.o. q.8 hours; aspirin 81 mg daily; Crestor 10 mg p.o. at bedtime; desmopressin 20 mcg; IV piggyback x1 p.r.n.; Dilaudid 2 mg IV q.4 hours p.r.n.; Nephro-Mandy 1 tablet daily; NovoLog; Percocet 2 tablets p.o. q.4 hours p.r.n.; PhosLo 667 mg 2 tablets p.o. t.i.d.; midodrine 2.5 mg p.o. t.i.d. on hold; Procrit 20,000 units 3 times a week Monday, Monday, Monday; metoprolol 50 mg p.o. daily; vancomycin 1 g 3 times a week Monday, Monday and Monday and Zosyn 2.25 g IV q.8 hours. LABORATORY DATA: Include as follows; Accu-Cheks this morning 88 and 144 and phosphorus is 6.2. PTH is pending. ASSESSMENT: In summary, Mrs. Schmitz is a 41-year-old female with history of hypertension, diabetes, ends-stage renal disease, secondary hyperparathyroidism, hyperphosphatemia with severe lower abdominal pain and swelling and pain in thigh regions and pancolitis with worsening symptoms. 1. End-stage renal disease, continue hemodialysis 3 times a week Monday, Monday and Monday. 2. Hypertension. 3. Hyperphosphatemia secondary to secondary hyperparathyroidism, secondary to renal failure. PLAN: Continue hemodialysis 3 times a week, continue PhosLo 667 mg p.o. t.i.d. with food and we will also add Renvela powder 800 mg p.o. t.i.d. The patient claims she feels nauseous in the past with the tablet. Also, we will continue Procrit 20,000 units 3 times a week. We will hold Zemplar at this time. We will hold Sensipar at this time and wait for the PTH intact level. Follow with Surgery. We will follow with you. Thank you for allowing me to participate in your patient's care. Marc Jarrett MD
--- NOTE | 2017-05-17 00:31 | CON ---
DATE: 05/16/2017 REASON FOR CONSULTATION: Chronic panniculitis with intractable pain. HISTORY OF PRESENT ILLNESS: This is a 41-year-old female, dialysis dependent with end-stage renal failure with a history of having had weight loss surgery and 50 pounds weight loss. She developed panniculitis approximately one month ago, treated at [facility], underwent incision and drainage along with antibiotics treatment. She was discharged from the hospital and was seen here in the emergency room a few times and discharged with chronic pain recurrent infection. She was seen in my office last week where she was found to have basically resolved cellulitis, but intractable pain and tenderness of the lower abdominal area secondary to chronic panniculitis. Pain is gone worse and she is in need of narcotics to control her pain symptoms. Treatment options were discussed and it was felt that she could be admitted to the hospital and undergo lower abdominal panniculectomy for treatment of her chronic intractable pain and infection. PAST MEDICAL HISTORY: As noted above, it is also significant for hypertension and diabetes. PAST SURGICAL HISTORY: As noted above, and also significant for placement of an arteriovenous fistula. FAMILY HISTORY AND REVIEW OF SYSTEMS: Noncontributory. PHYSICAL EXAMINATION GENERAL: She is well developed female, in no acute distress. SKIN: Pertinent physical findings includes lower abdomen which revealed a 6 cm wide strip of panniculitis going from flank to flank. There is no redness or cellulitis, however, it is just chronically indurated, very tender to palpation, measures approximately 6 cm x 20 in size. The remainder of physical exam is unremarkable. Treatment options have been extensively discussed with the patient. Surgery is an option and the patient wishes to have this performed. Risk including excessive blood loss resulting in myocardial infarction, stroke or shock, have been discussed with the patient as well as chronic infection afterwards. The patient is aware of the risk of the surgery, but still wishes to undergo it. In my estimation, the benefits of this procedure outweighs the risk as the panniculitis appears to be intractable as the cellulitis has resolved, yet the pain continues to worsen. Also, despite being a dialysis dependent, she appears fairly healthy for her age. She will be typed and crossed 2 units of blood tonight to treat a hemoglobin of 8 preoperatively. She will have 2 units on hold for the OR. She will undergo a lower abdominal panniculectomy in the operating room tomorrow. Once again, thank you for this consultation. José Luis Holland MD
[2017-05-17] MEDS: Oxycodone/Acetaminophen 5/325 mg Tab PO PRN ×2 (00:47→05:18)
[2017-05-17] MEDS: Piperacill/Tazo 2.25gm in Dex 2.25 GM/50 ML BAG IVPB SCH ×3 (05:14→22:15)
[2017-05-17 07:16] LABS: HEMATOCRIT 28.3 % (34.0-47.0); MEAN CELL VOLUME 83.7 fL (81.0-99.0); MEAN CORPUSCULAR HEMOGLOBIN 27.2 pg (27.0-31.0); MEAN CORPUSCULAR HGB CONC 32.6 g/dL (33.0-37.0); MEAN PLATELET VOLUME 9.7 fL (7.2-11.7); RED CELL DISTRIBUTION WIDTH 19.1 % (11.5-14.5); WHITE BLOOD COUNT 19.3 K/uL (4.8-10.8)
[2017-05-17] MEDS ORDERED: Desmopressin 20 MCG in Sodium Chloride 0.9% 50 ML IV PRN (07:30)
[2017-05-17 07:41] LABS: ALB/GLOB RATIO 0.9 (1.0-2.1); BILIRUBIN,TOTAL 3.2 mg/dL (0.2-1.3); CALCIUM 9.3 mg/dl (8.6-10.4); POTASSIUM 4.5 mmol/L (3.6-5.2); TOTAL PROTEIN 7.6 g/dL (6.3-8.3)
[2017-05-17] MEDS: (Novolog) Insulin Aspart, Recombinant 100 u/ml 10 ml vial SC SCH ×4 (08:02→22:00)
[2017-05-17] MEDS: Multivitamin Vitamin B Complex (Nephro-Vite) Tab PO SCH (08:08)
[2017-05-17] MEDS: Sevelamer Carb 0.8 gm/Packet PO SCH ×3 (08:09→17:34)
[2017-05-17] MEDS ORDERED: HYDROmorphone 1 mg/ml ISec IVP STA (08:43)
[2017-05-17] MEDS ORDERED: Paricalcitol 2 mcg/ml Inj IV SCH (09:00)
[2017-05-17] MEDS ORDERED: Epoetin Alfa 20000 UNIT/ML Inj IV SCH (09:00)
[2017-05-17] MEDS: Metoprolol Succinate 50 mg XL Tab PO SCH ×2 (09:19→12:30)
[2017-05-17] MEDS ORDERED: Pneumococcal 23-Valent Vaccine IM ONE (10:00)
[2017-05-17] MEDS: Vancomycin 1 gm/NS 200 ml 1 GM/200 ML BAG IVPB SCH (12:31)
[2017-05-17] MEDS ORDERED: Lidocaine Hydrochloride 5 ML INJ ONE (14:22)
[2017-05-17] MEDS ORDERED: Propofol 10 mg/ml Inj (20 ML) ONE (14:22)
[2017-05-17] MEDS ORDERED: Midazolam 2 MG/2 ML VIAL ONE ×2 (14:22→15:57)
[2017-05-17] MEDS ORDERED: Etomidate 20 mg/10ml Inj IV ONE (14:28)
[2017-05-17 14:36] LABS: INR 1.4
[2017-05-17] MEDS ORDERED: HYDROmorphone 0.5 mg/0.5 ml ISec IVP PRN (14:56)
[2017-05-17] MEDS ORDERED: Neostigmine Methylsulfate 3mg/3ml Syringe IV ONE (15:43)
[2017-05-17] MEDS ORDERED: Bacitracin 500 Units/gm Oint Foilpak UD ONE (15:51)
[2017-05-17] MEDS ORDERED: Sodium Chloride 0.9% 1,000 ML IV ONE (17:10)
--- NOTE | 2017-05-17 17:33 | CP.PCM.CON ---
History of Present Illness - History of Present Illness History of Present Illness: Patient is a 41 y/o F with pmhx of HTN, DM, hyperlipidemia, CAD, ESRD on HD MWF who was admitted to the hospital for an infection of the lower abdominal wall. Patient taken to OR for panniculitis with Dr. Holland. Radical panniculectomy was performed with 100ml estimated blood loss. Patient admitted to ICU after surgery for monitoring. Past Patient History - Past Social History Smoking Status: Never Smoked - CARDIAC Hx Hypertension: Yes - RENAL Date of Last Dialysis Treatment: 05/15/17 - ENDOCRINE/METABOLIC Hx Endocrine Disorders: Yes Hx Diabetes Mellitus Type 2: Yes - INTEGUMENTARY Other/Comment: infection left lower abdomen - MUSCULOSKELETAL/RHEUMATOLOGICAL Hx Falls: No - PSYCHIATRIC Hx Substance Use: No - SURGICAL HISTORY Hx Surgeries: Yes Hx Eye Surgery: Yes (R eye retinal detachment) Hx Gastric Bypass Surgery: Yes (1 1/2 years ago) Hx Orthopedic Surgery: Yes (l 5th toe amputation) Other/Comment: I&D LEFT LOWER ABDOMEN. - ANESTHESIA Hx Anesthesia: Yes Hx Anesthesia Reactions: No Hx Malignant Hyperthermia: No Has any member of the family had a problem w/ anesthesia?: No Meds Allergies/Adverse Reactions: Allergies Allergy/AdvReac Type Severity Reaction Status Date / Time acetaminophen [From Vicodin] Allergy Verified 05/15/17 10:59 hydrocodone [From Vicodin] Allergy Verified 05/15/17 10:59 - Medications Medications: Current Medications Aspirin (Aspirin Chewable) 81 mg PO DAILY [facility] Last Admin: 05/17/17 09:19 Dose: Not Given Calcium Acetate (Phoslo) 1,334 mg PO TIDCC [facility] Last Admin: 05/17/17 12:25 Dose: Not Given Epoetin Loyd (Procrit) 20,000 unit IV MWF [facility] Stop: 05/19/17 09:01 Last Admin: 05/15/17 17:06 Dose: 20,000 unit Heparin Sodium (Porcine) (Heparin) 5,000 units SC Q12 [facility] Last Admin: 05/17/17 09:19 Dose: Not Given Hydralazine HCl (Apresoline) 25 mg PO Q8 [facility] Last Admin: 05/17/17 14:32 Dose: Not Given Hydromorphone HCl (Dilaudid) 2 mg IVP Q4H PRN PRN Reason: pain Last Admin: 05/17/17 08:25 Dose: 2 mg Piperacillin Sod/Tazobactam Sod (Zosyn 2.25 Gm Iv Premix) 2.25 gm in 50 mls @ 100 mls/hr IVPB Q8 [facility] Last Admin: 05/17/17 13:51 Dose: Not Given Vancomycin/Sodium Chloride (Vancomycin 1 Gm/Ns 200 Ml) 1 gm in 200 mls @ 166.7 mls/hr IVPB MWF [facility] Stop: 05/22/17 09:01 Last Admin: 05/17/17 12:31 Dose: 166.7 mls/hr Desmopressin Acetate 20 mcg/ (Sodium Chloride) 55 mls @ 100 mls/hr IV ONCE PRN PRN Reason: give compressor station engineer to OR 05/17 Last Admin: 05/17/17 13:39 Dose: 100 mls/hr Insulin Aspart (Novolog) 0 unit SC ACHS TG PRN Reason: Protocol Last Admin: 05/17/17 12:30 Dose: Not Given Metoprolol Succinate (Toprol Xl) 50 mg PO DAILY [facility] Last Admin: 05/17/17 12:30 Dose: 50 mg Midodrine (Proamatine) 2.5 mg PO TID [facility] Last Admin: 05/17/17 13:51 Dose: Not Given Oxycodone/Acetaminophen (Percocet 5/325 Mg Tab) 2 tab PO Q4H PRN PRN Reason: Pain, moderate (4-7) Stop: 05/18/17 15:34 Last Admin: 05/17/17 05:18 Dose: 2 tab Rosuvastatin Calcium (Crestor) 10 mg PO HS [facility] Last Admin: 05/16/17 21:52 Dose: 10 mg Sevelamer Carbonate (Renvela) 0.8 gm PO TIDCC [facility] Last Admin: 05/17/17 12:24 Dose: Not Given Vitamin B Complex/Vit C/Folic Acid (Nephro-Mandy) 1 tab PO 0800 [facility] Last Admin: 05/17/17 08:08 Dose: Not Given Results - Vital Signs Recent Vital Signs: Last Vital Signs Temp 98.9 F 05/17/17 16:12 Pulse 86 05/17/17 16:12 Resp 14 05/17/17 16:12 BP 185/95 H 05/17/17 16:12 Pulse Ox 100 05/17/17 16:12 - Labs Result Diagrams: 05/17/17 07:05 05/17/17 07:05 Labs: Laboratory Results - last 24 hr 05/16/17 05/16/17 05/16/17 11:09 16:43 21:00 WBC RBC Hgb Hct MCV MCH MCHC RDW Plt Count MPV PT INR APTT Sodium Potassium Chloride Carbon Dioxide Anion Gap BUN Creatinine Est GFR ( Amer) Est GFR (Non-Af Amer) POC Glucose (mg/dL) 120 H Random Glucose Calcium Total Bilirubin AST ALT Alkaline Phosphatase Total Protein Albumin Globulin Albumin/Globulin Ratio Beta HCG, Quant PTH Intact Whole Molec 163 H Blood Type O POSITIVE Blood Type Confirm O POSITIVE Antibody Screen Negative 05/17/17 05/17/17 05/17/17 01:55 07:05 07:05 WBC 19.3 H RBC 3.38 L Hgb 9.2 L Hct 28.3 L MCV 83.7 MCH 27.2 MCHC 32.6 L RDW 19.1 H Plt Count 247 MPV 9.7 PT INR APTT Sodium 133 Potassium 4.5 Chloride 90 L Carbon Dioxide 25 Anion Gap 22 H BUN 44 H Creatinine 5.5 H Est GFR ( Amer) 10 Est GFR (Non-Af Amer) 9 POC Glucose (mg/dL) 122 H Random Glucose 96 Calcium 9.3 Total Bilirubin 3.2 H AST 23 ALT 22 Alkaline Phosphatase 256 H Total Protein 7.6 Albumin 3.5 Globulin 4.0 H Albumin/Globulin Ratio 0.9 L Beta HCG, Quant PTH Intact Whole Molec Blood Type Blood Type Confirm Antibody Screen 05/17/17 05/17/17 05/17/17 07:05 07:14 14:10 WBC RBC Hgb Hct MCV MCH MCHC RDW Plt Count MPV PT 15.5 H INR 1.4 APTT 31 Sodium Potassium Chloride Carbon Dioxide Anion Gap BUN Creatinine Est GFR ( Amer) Est GFR (Non-Af Amer) POC Glucose (mg/dL) 103 Random Glucose Calcium Total Bilirubin AST ALT Alkaline Phosphatase Total Protein Albumin Globulin Albumin/Globulin Ratio Beta HCG, Quant < 2.39 PTH Intact Whole Molec Blood Type Blood Type Confirm Antibody Screen 05/17/17 16:45 WBC RBC Hgb Hct MCV MCH MCHC RDW Plt Count MPV PT INR APTT Sodium Potassium Chloride Carbon Dioxide Anion Gap BUN Creatinine Est GFR ( Amer) Est GFR (Non-Af Amer) POC Glucose (mg/dL) 95 Random Glucose Calcium Total Bilirubin AST ALT Alkaline Phosphatase Total Protein Albumin Globulin Albumin/Globulin Ratio Beta HCG, Quant PTH Intact Whole Molec Blood Type Blood Type Confirm Antibody Screen Assessment & Plan - Assessment and Plan (Free Text) Assessment: Patient is a 41 y/o F with pmhx of HTN, DM, hyperlipidemia, CAD, ESRD on HD MWF POD #0 s/p radical panniculectomy 2/2 panniculitis. Neuro: no acute issues at this time Cardio: ASA 81mg po daily Desmopressin Hydralazine 25mg po q8h Metoprolol 50 mg po daily Crestor 10 mg po HS on admission to ICU BP: 191/92, Hydralazine 5mg ivp - continue to monitor Nephro: ESRD on HD Dr. Jarrett consulted, help appreciated HD MWF Phoslo TIDCC Midodrine 2.5mg po TID Procrit 20,000 MWF Renvela .8gm po TIDCC Nephro Mandy 1 tab daily Endo: DM -ISS ACHS -accuchecks ID: POD # 0 s/p radical panniculectomy 2/[address] Gaffney consulted, help appreciated Zosyn 2.25gm ivpb q8h Vanco 1 gm MWF wound and blood cultures- negative Prophylaxis: DVT: SCDs, Heparin 5,000 u sc q12h
--- NOTE | 2017-05-17 18:05 | CP.PCM.PN ---
Subjective - Date & Time of Evaluation Date of Evaluation: 05/17/17 Time of Evaluation: 09:00 - Subjective Subjective: Patient taken to OR for panniculitis with Dr. Holland. Radical panniculectomy was performed with 100ml estimated blood loss. Patient admitted to ICU after surgery for monitoring. Objective - Vital Signs/Intake and Output Vital Signs (last 24 hours): Temp Pulse Resp BP Pulse Ox 97.7 F 79 21 191/92 H 95 05/17/17 17:40 05/17/17 17:30 05/17/17 17:30 05/17/17 17:19 05/17/17 17:30 Intake and Output: 05/17/17 05/17/17 06:59 18:59 Intake Total 775 1105 Output Total 50 Balance 775 1055 - Medications Medications: Current Medications Aspirin (Aspirin Chewable) 81 mg PO DAILY [facility] Last Admin: 05/17/17 09:19 Dose: Not Given Calcium Acetate (Phoslo) 1,334 mg PO TIDCC [facility] Last Admin: 05/17/17 17:33 Dose: Not Given Epoetin Loyd (Procrit) 20,000 unit IV [facility] [place] Stop: 05/19/17 09:01 Last Admin: 05/15/17 17:06 Dose: 20,000 unit Heparin Sodium (Porcine) (Heparin) 5,000 units SC Q12 [facility] Last Admin: 05/17/17 09:19 Dose: Not Given Hydralazine HCl (Apresoline) 25 mg PO Q8 [facility] Last Admin: 05/17/17 14:32 Dose: Not Given Hydromorphone HCl (Dilaudid) 2 mg IVP Q4H PRN PRN Reason: pain Last Admin: 05/17/17 08:25 Dose: 2 mg Piperacillin Sod/Tazobactam Sod (Zosyn 2.25 Gm Iv Premix) 2.25 gm in 50 mls @ 100 mls/hr IVPB Q8 [facility] Last Admin: 05/17/17 13:51 Dose: Not Given Vancomycin/Sodium Chloride (Vancomycin 1 Gm/Ns 200 Ml) 1 gm in 200 mls @ 166.7 mls/hr IVPB MWF [facility] Stop: 05/22/17 09:01 Last Admin: 05/17/17 12:31 Dose: 166.7 mls/hr Desmopressin Acetate 20 mcg/ (Sodium Chloride) 55 mls @ 100 mls/hr IV ONCE PRN PRN Reason: give adult education teacher to OR 05/17 Last Admin: 05/17/17 13:39 Dose: 100 mls/hr Insulin Aspart (Novolog) 0 unit SC ACHS [facility] PRN Reason: Protocol Last Admin: 05/17/17 17:32 Dose: Not Given Metoprolol Succinate (Toprol Xl) 50 mg PO DAILY [facility] Last Admin: 05/17/17 12:30 Dose: 50 mg Midodrine (Proamatine) 2.5 mg PO TID [facility] Last Admin: 05/17/17 17:34 Dose: Not Given Oxycodone/Acetaminophen (Percocet 5/325 Mg Tab) 2 tab PO Q4H PRN PRN Reason: Pain, moderate (4-7) Stop: 05/18/17 15:34 Last Admin: 05/17/17 05:18 Dose: 2 tab Rosuvastatin Calcium (Crestor) 10 mg PO HS [facility] Last Admin: 05/16/17 21:52 Dose: 10 mg Sevelamer Carbonate (Renvela) 0.8 gm PO TIDCC [facility] Last Admin: 05/17/17 17:34 Dose: Not Given Vitamin B Complex/Vit C/Folic Acid (Nephro-Mandy) 1 tab PO 0800 [facility] Last Admin: 05/17/17 08:08 Dose: Not Given - Labs Labs: 05/17/17 07:05 05/17/17 07:05 PT 15.5 SECONDS (9.7-12.2) H 05/17/17 14:10 INR 1.4 05/17/17 14:10 APTT 31 SECONDS (21-34) 05/17/17 14:10 - Constitutional Appears: Non-toxic - Head Exam Head Exam: NORMOCEPHALIC - Eye Exam Eye Exam: absent: Scleral icterus - ENT Exam ENT Exam: Normal External Ear Exam - Neck Exam Neck Exam: absent: Lymphadenopathy - Respiratory Exam Respiratory Exam: Decreased Breath Sounds, Rhonchi - Cardiovascular Exam Cardiovascular Exam: REGULAR RHYTHM, +S1, +S2 - GI/Abdominal Exam GI & Abdominal Exam: Distended Assessment and Plan (1) Cellulitis Status: Acute (2) Cellulitis Status: Acute (3) ESRD (end stage renal disease) on dialysis Status: Acute (4) HTN (hypertension) Status: Acute (5) Panniculitis, unspecified Status: Acute (6) Type 2 diabetes mellitus Status: Acute
--- NOTE | 2017-05-17 18:59 | CP.PCM.PN ---
Subjective - Date & Time of Evaluation Date of Evaluation: 05/17/17 Time of Evaluation: 18:58 - Subjective Subjective: pt is seen and examined, follow up consult is dictated #[id number] s/p hd today, uf about 1 .8 lit Objective - Vital Signs/Intake and Output Vital Signs (last 24 hours): Temp Pulse Resp BP Pulse Ox 97.7 F 77 23 174/72 H 92 L 05/17/17 17:40 05/17/17 18:00 05/17/17 18:00 05/17/17 18:49 05/17/17 18:00 Intake and Output: 05/17/17 05/17/17 06:59 18:59 Intake Total 775 1105 Output Total 70 Balance 775 1035 - Medications Medications: Current Medications Aspirin (Aspirin Chewable) 81 mg PO DAILY [facility] Last Admin: 05/17/17 09:19 Dose: Not Given Calcium Acetate (Phoslo) 1,334 mg PO TIDCC [facility] Last Admin: 05/17/17 17:33 Dose: Not Given Epoetin Loyd (Procrit) 20,000 unit IV [facility] [facility] Stop: 05/19/17 09:01 Last Admin: 05/15/17 17:06 Dose: 20,000 unit Heparin Sodium (Porcine) (Heparin) 5,000 units SC Q12 [facility] Last Admin: 05/17/17 09:19 Dose: Not Given Hydralazine HCl (Apresoline) 25 mg PO Q8 [facility] Last Admin: 05/17/17 14:32 Dose: Not Given Hydromorphone HCl (Dilaudid) 2 mg IVP Q4H PRN PRN Reason: pain Last Admin: 05/17/17 08:25 Dose: 2 mg Piperacillin Sod/Tazobactam Sod (Zosyn 2.25 Gm Iv Premix) 2.25 gm in 50 mls @ 100 mls/hr IVPB Q8 [facility] Last Admin: 05/17/17 13:51 Dose: Not Given Vancomycin/Sodium Chloride (Vancomycin 1 Gm/Ns 200 Ml) 1 gm in 200 mls @ 166.7 mls/hr IVPB [facility] Stop: 05/22/17 09:01 Last Admin: 05/17/17 12:31 Dose: 166.7 mls/hr Desmopressin Acetate 20 mcg/ (Sodium Chloride) 55 mls @ 100 mls/hr IV ONCE PRN PRN Reason: give classifications officer cc/cm to OR 05/17 Last Admin: 05/17/17 13:39 Dose: 100 mls/hr Gentamicin Sulfate/Sodium Chloride (Gentamicin Iv 80 Mg Premix) 80 mg in 100 mls @ 100 mls/hr IVPB ONCE ONE Stop: 05/17/17 19:59 Last Admin: 05/17/17 18:15 Dose: 100 mls/hr Insulin Aspart (Novolog) 0 unit SC ACHS TG PRN Reason: Protocol Last Admin: 05/17/17 17:32 Dose: Not Given Metoprolol Succinate (Toprol Xl) 50 mg PO DAILY [facility] Last Admin: 05/17/17 12:30 Dose: 50 mg Midodrine (Proamatine) 2.5 mg PO TID [facility] Last Admin: 05/17/17 17:34 Dose: Not Given Oxycodone/Acetaminophen (Percocet 5/325 Mg Tab) 2 tab PO Q4H PRN PRN Reason: Pain, moderate (4-7) Stop: 05/18/17 15:34 Last Admin: 05/17/17 05:18 Dose: 2 tab Rosuvastatin Calcium (Crestor) 10 mg PO HS [facility] Last Admin: 05/16/17 21:52 Dose: 10 mg Sevelamer Carbonate (Renvela) 0.8 gm PO TIDCC [facility] Last Admin: 05/17/17 17:34 Dose: Not Given Vitamin B Complex/Vit C/Folic Acid (Nephro-Mandy) 1 tab PO 0800 [facility] Last Admin: 05/17/17 08:08 Dose: Not Given - Labs Labs: 05/17/17 07:05 05/17/17 07:05 PT 15.5 SECONDS (9.7-12.2) H 05/17/17 14:10 INR 1.4 05/17/17 14:10 APTT 31 SECONDS (21-34) 05/17/17 14:10
[2017-05-17] MEDS ORDERED: Gentamicin 80 mg in 0.9% NS 80 MG/100 ML BAG IVPB ONE (19:00)
[2017-05-17 22:57] LABS: CALCIUM 8.3 mg/dl (8.6-10.4); POTASSIUM 4.7 mmol/L (3.6-5.2)
--- NOTE | 2017-05-17 23:10 | CP.PCM.PN ---
Subjective - Date & Time of Evaluation Date of Evaluation: 05/17/17 Time of Evaluation: 19:00 - Subjective Subjective: Patient seen and examined today, awake, more alert today , denies any chest pain , sob , abdominal pain, N/V/D less cough, less shortness of breath Objective - Vital Signs/Intake and Output Vital Signs (last 24 hours): Temp Pulse Resp BP Pulse Ox 98.3 F 80 17 158/78 H 99 05/17/17 20:00 05/17/17 22:01 05/17/17 22:01 05/17/17 22:01 05/17/17 22:01 Intake and Output: 05/17/17 05/18/17 18:59 06:59 Intake Total 1105 270 Output Total 151 Balance 954 270 - Medications Medications: Current Medications Aspirin (Aspirin Chewable) 81 mg PO DAILY [facility] Last Admin: 05/17/17 09:19 Dose: Not Given Calcium Acetate (Phoslo) 1,334 mg PO TIDCC [facility] Last Admin: 05/17/17 17:33 Dose: Not Given Epoetin Loyd (Procrit) 20,000 unit IV [facility] Stop: 05/19/17 09:01 Last Admin: 05/15/17 17:06 Dose: 20,000 unit Heparin Sodium (Porcine) (Heparin) 5,000 units SC Q12 [facility] Last Admin: 05/17/17 21:45 Dose: 5,000 units Hydralazine HCl (Apresoline) 25 mg PO Q8 [facility] Last Admin: 05/17/17 21:45 Dose: 25 mg Hydromorphone HCl (Dilaudid) 2 mg IVP Q4H PRN PRN Reason: pain Last Admin: 05/17/17 19:18 Dose: 2 mg Piperacillin Sod/Tazobactam Sod (Zosyn 2.25 Gm Iv Premix) 2.25 gm in 50 mls @ 100 mls/hr IVPB Q8 [facility] Last Admin: 05/17/17 22:15 Dose: 100 mls/hr Vancomycin/Sodium Chloride (Vancomycin 1 Gm/Ns 200 Ml) 1 gm in 200 mls @ 166.7 mls/hr IVPB [facility] Stop: 05/22/17 09:01 Last Admin: 05/17/17 12:31 Dose: 166.7 mls/hr Desmopressin Acetate 20 mcg/ (Sodium Chloride) 55 mls @ 100 mls/hr IV ONCE PRN PRN Reason: give curriculum consultant to OR 05/17 Last Admin: 05/17/17 13:39 Dose: 100 mls/hr Insulin Aspart (Novolog) 0 unit SC ACHS [facility] PRN Reason: Protocol Last Admin: 05/17/17 22:00 Dose: Not Given Metoprolol Succinate (Toprol Xl) 50 mg PO DAILY [facility] Last Admin: 05/17/17 12:30 Dose: 50 mg Midodrine (Proamatine) 2.5 mg PO TID [facility] Last Admin: 05/17/17 17:34 Dose: Not Given Oxycodone/Acetaminophen (Percocet 5/325 Mg Tab) 2 tab PO Q4H PRN PRN Reason: Pain, moderate (4-7) Stop: 05/18/17 15:34 Last Admin: 05/17/17 05:18 Dose: 2 tab Rosuvastatin Calcium (Crestor) 10 mg PO HS [facility] Last Admin: 05/17/17 21:45 Dose: 10 mg Sevelamer Carbonate (Renvela) 0.8 gm PO TIDCC [facility] Last Admin: 05/17/17 17:34 Dose: Not Given Vitamin B Complex/Vit C/Folic Acid (Nephro-Mandy) 1 tab PO 0800 [facility] Last Admin: 05/17/17 08:08 Dose: Not Given - Labs Labs: 05/17/17 07:05 05/17/17 22:22 PT 15.5 SECONDS (9.7-12.2) H 05/17/17 14:10 INR 1.4 05/17/17 14:10 APTT 31 SECONDS (21-34) 05/17/17 14:10 - Constitutional Appears: No Acute Distress - Head Exam Head Exam: ATRAUMATIC, NORMAL INSPECTION, NORMOCEPHALIC - Eye Exam Eye Exam: EOMI, Normal appearance, PERRL Pupil Exam: NORMAL ACCOMODATION, PERRL - Respiratory Exam Respiratory Exam: Decreased Breath Sounds, Rales, Rhonchi - Cardiovascular Exam Cardiovascular Exam: REGULAR RHYTHM, +S1, +S2. absent: Murmur Assessment and Plan (1) Type 2 diabetes mellitus Status: Acute (2) HTN (hypertension) Status: Acute (3) ESRD (end stage renal disease) on dialysis Status: Acute (4) Panniculitis, unspecified Status: Acute
[2017-05-18] MEDS: Piperacill/Tazo 2.25gm in Dex 2.25 GM/50 ML BAG IVPB SCH ×3 (05:30→21:45)
[2017-05-18 06:25] LABS: BASO # 0.1 K/uL (0.0-0.2); BASO % 0.4 % (0.0-2.0); EOS # 0.1 K/uL (0.0-0.7); EOS % 0.4 % (0.0-4.0); HEMATOCRIT 23.5 % (34.0-47.0); LYMPH # 3.5 K/uL (1.0-4.3); LYMPH % 17.1 % (20.0-40.0); MEAN CELL VOLUME 84.7 fL (81.0-99.0); MEAN CORPUSCULAR HEMOGLOBIN 26.8 pg (27.0-31.0); MEAN CORPUSCULAR HGB CONC 31.6 g/dL (33.0-37.0); MONO # 1.1 K/uL (0.0-0.8); MONO % 5.2 % (0.0-10.0); NRBC % 0.1 % (0.0-2.0); RED CELL DISTRIBUTION WIDTH 19.3 % (11.5-14.5); WHITE BLOOD COUNT 20.3 K/uL (4.8-10.8)
[2017-05-18 06:51] LABS: ALB/GLOB RATIO 0.7 (1.0-2.1); BILIRUBIN,TOTAL 1.6 mg/dL (0.2-1.3); CALCIUM 8.3 mg/dl (8.6-10.4); PHOSPHOROUS 6.7 mg/dL (2.5-4.5); POTASSIUM 4.5 mmol/L (3.6-5.2); TOTAL PROTEIN 7.2 g/dL (6.3-8.3)
[2017-05-18] MEDS: (Novolog) Insulin Aspart, Recombinant 100 u/ml 10 ml vial SC SCH ×5 (07:48→23:42)
[2017-05-18] MEDS: Multivitamin Vitamin B Complex (Nephro-Vite) Tab PO SCH (07:48)
[2017-05-18] MEDS: Sevelamer Carb 0.8 gm/Packet PO SCH ×3 (07:49→17:26)
--- NOTE | 2017-05-18 09:15 | CP.PCM.PN ---
Subjective - Date & Time of Evaluation Date of Evaluation: 05/18/17 Time of Evaluation: 09:15 - Subjective Subjective: pt is seen and examined, follow up consult is dictated #[id number] Objective - Vital Signs/Intake and Output Vital Signs (last 24 hours): Temp Pulse Resp BP Pulse Ox 98.5 F 82 16 144/72 98 05/18/17 08:00 05/18/17 08:01 05/18/17 08:01 05/18/17 08:01 05/18/17 08:01 Intake and Output: 05/18/17 05/18/17 06:59 18:59 Intake Total 440 0 Output Total 50 0 Balance 390 0 - Medications Medications: Current Medications Aspirin (Aspirin Chewable) 81 mg PO DAILY [facility] Last Admin: 05/17/17 09:19 Dose: Not Given Calcium Acetate (Phoslo) 1,334 mg PO TIDCC [facility] Last Admin: 05/18/17 07:49 Dose: Not Given Epoetin Loyd (Procrit) 20,000 unit IV [facility] Stop: 05/19/17 09:01 Last Admin: 05/15/17 17:06 Dose: 20,000 unit Heparin Sodium (Porcine) (Heparin) 5,000 units SC Q12 [facility] Last Admin: 05/17/17 21:45 Dose: 5,000 units Hydralazine HCl (Apresoline) 25 mg PO Q8 [facility] Last Admin: 05/18/17 06:00 Dose: Not Given Hydromorphone HCl (Dilaudid) 2 mg IVP Q4H PRN PRN Reason: pain Last Admin: 05/18/17 06:05 Dose: 2 mg Piperacillin Sod/Tazobactam Sod (Zosyn 2.25 Gm Iv Premix) 2.25 gm in 50 mls @ 100 mls/hr IVPB Q8 [facility] Last Admin: 05/18/17 05:30 Dose: 100 mls/hr Vancomycin/Sodium Chloride (Vancomycin 1 Gm/Ns 200 Ml) 1 gm in 200 mls @ 166.7 mls/hr IVPB [facility] Stop: 05/22/17 09:01 Last Admin: 05/17/17 12:31 Dose: 166.7 mls/hr Desmopressin Acetate 20 mcg/ (Sodium Chloride) 55 mls @ 100 mls/hr IV ONCE PRN PRN Reason: give procurement professional logistics to OR 05/17 Last Admin: 05/17/17 13:39 Dose: 100 mls/hr Insulin Aspart (Novolog) 0 unit SC Q6 [facility] PRN Reason: Protocol Last Admin: 05/18/17 08:25 Dose: Not Given Metoprolol Succinate (Toprol Xl) 50 mg PO DAILY [facility] Last Admin: 05/17/17 12:30 Dose: 50 mg Midodrine (Proamatine) 2.5 mg PO TID [facility] Last Admin: 05/17/17 17:34 Dose: Not Given Oxycodone/Acetaminophen (Percocet 5/325 Mg Tab) 2 tab PO Q4H PRN PRN Reason: Pain, moderate (4-7) Stop: 05/18/17 15:34 Last Admin: 05/17/17 05:18 Dose: 2 tab Rosuvastatin Calcium (Crestor) 10 mg PO HS [facility] Last Admin: 05/17/17 21:45 Dose: 10 mg Sevelamer Carbonate (Renvela) 0.8 gm PO TIDCC [facility] Last Admin: 05/18/17 07:49 Dose: Not Given Vitamin B Complex/Vit C/Folic Acid (Nephro-Mandy) 1 tab PO 0800 [facility] Last Admin: 05/18/17 07:48 Dose: Not Given - Labs Labs: 05/18/17 06:15 05/18/17 06:15 PT 15.5 SECONDS (9.7-12.2) H 05/17/17 14:10 INR 1.4 05/17/17 14:10 APTT 31 SECONDS (21-34) 05/17/17 14:10
[2017-05-18] MEDS: Metoprolol Succinate 50 mg XL Tab PO SCH (09:23)
[2017-05-18] MEDS ORDERED: Metoprolol 1 mg/ml Inj IVP ONE (09:50)
--- NOTE | 2017-05-18 12:36 | CP.CCUPN ---
<Arcelia Rockwell - Last Filed: 05/18/17 12:33> CCU Subjective - Physician Review Subjective (Free Text): Patient seen and examined at bedside. Patient still having lower abdominal pain POD#1 s/p radical panniculectomy. Patient denies shortness of breath, chest pain , nausea, vomiting. Patient NPO for debridement of left thigh wound. CCU Objective - Vital Signs / Intake & Output Vital Signs (Last 4 hours): Vital Signs Pulse Resp BP Pulse Ox 05/18/17 11:01 134/77 05/18/17 11:00 84 8 L 05/18/17 10:01 85 13 138/72 96 05/18/17 10:00 86 16 97 05/18/17 09:01 85 22 143/77 94 L 05/18/17 09:00 86 17 92 L Intake and Output (Last 8hrs): Intake & Output 05/17/17 05/18/17 05/18/17 22:59 06:59 14:59 Intake Total 620 170 0 Output Total 151 50 10 Balance 469 120 -10 Weight 212 lb 212 lb Intake: IV 350 Intake, IV Amount 150 50 0 Left Forearm 150 50 0 Oral 120 120 0 Output: Drainage 151 30 10 Left Abdomen 43 15 5 Right Abdomen 38 15 5 Urine 20 0 Urethral (Amezquita) 20 0 Other: # Voids Urine, Voided 0 # Bowel Movements 0 0 - Physical Exam Head: Positive for: Atraumatic, Normocephalic Pupils: Positive for: PERRL Extroacular Muscles: Positive for: EOMI Conjunctiva: Positive for: Normal Mouth: Positive for: Dry Respiratory/Chest: Positive for: Clear to Auscultation, Good Air Exchange Cardiovascular: Positive for: Normal S1, S2 Upper Extremity: Positive for: Normal Inspection Lower Extremity: Positive for: Edema, Other (left thigh necrotic wound ) Psychiatric: Positive for: Alert, Oriented x 3 - Medications Active Medications: Active Medications Generic Name Dose Route Start Last Admin Trade Name Freq PRN Reason Stop Dose Admin Aspirin 81 mg 05/16/17 10:00 05/18/17 09:23 Aspirin Chewable PO Not Given DAILY [facility] Calcium Acetate 1,334 mg 05/16/17 08:00 05/18/17 11:32 Phoslo PO Not Given TIDCC [facility] Epoetin Loyd 20,000 unit 05/15/17 16:15 05/15/17 17:06 Procrit IV 05/19/17 09:01 20,000 unit [facility] [place] Administration Heparin Sodium (Porcine) 5,000 units 05/15/17 22:00 05/18/17 09:23 Heparin SC Not Given Q12 [facility] Hydralazine HCl 25 mg 05/15/17 22:00 05/18/17 06:00 Apresoline PO Not Given Q8 [facility] Hydromorphone HCl 2 mg 05/15/17 21:30 05/18/17 06:05 Dilaudid IVP 2 mg Q4H PRN Administration pain Piperacillin Sod/Tazobactam Sod 2.25 gm in 50 mls @ 100 mls/hr 05/15/17 22:00 05/18/17 05:30 Zosyn 2.25 Gm Iv Premix IVPB 100 mls/hr Q8 [facility] Administration Vancomycin/Sodium Chloride 1 gm in 200 mls @ 166.7 mls/hr 05/17/17 09:00 12:31 Vancomycin 1 Gm/Ns 200 Ml IVPB 05/22/17 09:01 166.7 mls/hr [facility] [place] Administration Desmopressin Acetate 20 mcg/ 55 mls @ 100 mls/hr 05/17/17 07:30 05/17/17 13: 39 Sodium Chloride IV 100 mls/hr ONCE PRN Administration give information systems auditor to OR 05/17 Insulin Aspart 0 unit 05/18/17 08:30 05/18/17 08:25 Novolog SC Not Given Q6 [facility] Protocol Metoprolol Succinate 50 mg 05/16/17 10:00 05/18/17 09:23 Toprol Xl PO Not Given DAILY [facility] Oxycodone/Acetaminophen 2 tab 05/15/17 15:33 05/17/17 05:18 Percocet 5/325 Mg Tab PO 05/18/17 15:34 2 tab Q4H PRN Administration Pain, moderate (4-7) Rosuvastatin Calcium 10 mg 05/15/17 22:00 05/17/17 21:45 Crestor PO 10 mg HS [facility] Administration Sevelamer Carbonate 0.8 gm 05/17/17 08:00 05/18/17 11:32 Renvela PO Not Given TIDCC [facility] Vitamin B Complex/Vit C/Folic Acid 1 tab 05/16/17 08:00 05/18/17 07:48 Nephro-Mandy PO Not Given 0800 TG - Patient Studies Lab Studies: Microbiology Studies 05/15/17 22:41 Gram Stain - Final Back Wound Culture - Preliminary 05/17/17 16:00 Gram Stain - Final Abdomen Wound Culture - Preliminary NO GROWTH AFTER 24 HOURS 05/15/17 11:00 Blood Culture - Preliminary Blood NO GROWTH AFTER 48 HOURS 05/15/17 11:30 Blood Culture - Preliminary Blood NO GROWTH AFTER 48 HOURS Lab Studies 05/18/17 05/18/17 05/18/17 Range/Units 11:57 07:27 06:15 WBC (4.8-10.8) K/uL RBC (3.80-5.20) Mil/uL Hgb (11.0-16.0) g/dL Hct (34.0-47.0) % MCV (81.0-99.0) fL MCH (27.0-31.0) pg MCHC (33.0-37.0) g/dL RDW (11.5-14.5) % Plt Count (130-400) K/uL MPV (7.2-11.7) fL Neut % (Auto) (50.0-75.0) % Lymph % (Auto) (20.0-40.0) % Randall % (Auto) (0.0-10.0) % Eos % (Auto) (0.0-4.0) % Baso % (Auto) (0.0-2.0) % Neut # (1.8-7.0) K/uL Lymph # (1.0-4.3) K/uL Randall # (0.0-0.8) K/uL Eos # (0.0-0.7) K/uL Baso # (0.0-0.2) K/uL PT (9.7-12.2) SECONDS INR APTT (21-34) SECONDS Sodium (132-148) mmol/L Potassium (3.6-5.2) mmol/L Chloride (98-107) mmol/L Carbon Dioxide (22-30) mmol/L Anion Gap (10-20) BUN (7-17) mg/dL Creatinine (0.7-1.2) mg/dL Est GFR ( Amer) Est GFR (Non-Af Amer) POC Glucose (mg/dL) 105 94 (65-110) mg/dL Random Glucose (65-105) mg/dL Lactic Acid (0.7-2.1) mmol/L Calcium (8.6-10.4) mg/dl Phosphorus (2.5-4.5) mg/dL Magnesium (1.6-2.3) mg/dL Total Bilirubin (0.2-1.3) mg/dL AST (14-36) U/L ALT (9-52) U/L Alkaline Phosphatase (38-126) U/L Total Protein (6.3-8.3) g/dL Albumin (3.5-5.0) g/dL Globulin (2.2-3.9) gm/dL Albumin/Globulin Ratio (1.0-2.1) PTH Intact Whole Molec (14-64) pg/mL Random Vancomycin 14.28 ug/mL 05/18/17 05/18/17 05/17/17 Range/Units 06:15 06:15 22:22 WBC 20.3 H (4.8-10.8) K/uL RBC 2.77 L (3.80-5.20) Mil/uL Hgb 7.4 L (11.0-16.0) g/dL Hct 23.5 L (34.0-47.0) % MCV 84.7 (81.0-99.0) fL MCH 26.8 L (27.0-31.0) pg MCHC 31.6 L (33.0-37.0) g/dL RDW 19.3 H (11.5-14.5) % Plt Count 279 (130-400) K/uL MPV 10.0 (7.2-11.7) fL Neut % (Auto) 76.9 H (50.0-75.0) % Lymph % (Auto) 17.1 L (20.0-40.0) % Randall % (Auto) 5.2 (0.0-10.0) % Eos % (Auto) 0.4 (0.0-4.0) % Baso % (Auto) 0.4 (0.0-2.0) % Neut # 15.6 H (1.8-7.0) K/uL Lymph # 3.5 (1.0-4.3) K/uL Randall # 1.1 H (0.0-0.8) K/uL Eos # 0.1 (0.0-0.7) K/uL Baso # 0.1 (0.0-0.2) K/uL PT (9.7-12.2) SECONDS INR APTT (21-34) SECONDS Sodium 136 133 (132-148) mmol/L Potassium 4.5 4.7 (3.6-5.2) mmol/L Chloride 94 L 94 L (98-107) mmol/L Carbon Dioxide 27 26 (22-30) mmol/L Anion Gap 20 18 (10-20) BUN 33 H 33 H (7-17) mg/dL Creatinine 4.5 H 3.8 H (0.7-1.2) mg/dL Est GFR ( Amer) 13 16 Est GFR (Non-Af Amer) 11 13 POC Glucose (mg/dL) (65-110) mg/dL Random Glucose 89 90 (65-105) mg/dL Lactic Acid (0.7-2.1) mmol/L Calcium 8.3 L 8.3 L (8.6-10.4) mg/dl Phosphorus 6.7 H (2.5-4.5) mg/dL Magnesium 2.0 (1.6-2.3) mg/dL Total Bilirubin 1.6 H (0.2-1.3) mg/dL AST 23 (14-36) U/L ALT 28 (9-52) U/L Alkaline Phosphatase 186 H D (38-126) U/L Total Protein 7.2 (6.3-8.3) g/dL Albumin 2.9 L (3.5-5.0) g/dL Globulin 4.3 H (2.2-3.9) gm/dL Albumin/Globulin Ratio 0.7 L (1.0-2.1) PTH Intact Whole Molec (14-64) pg/mL Random Vancomycin ug/mL 05/17/17 05/17/17 05/17/17 Range/Units 21:17 18:34 16:45 WBC (4.8-10.8) K/uL RBC (3.80-5.20) Mil/uL Hgb (11.0-16.0) g/dL Hct (34.0-47.0) % MCV (81.0-99.0) fL MCH (27.0-31.0) pg MCHC (33.0-37.0) g/dL RDW (11.5-14.5) % Plt Count (130-400) K/uL MPV (7.2-11.7) fL Neut % (Auto) (50.0-75.0) % Lymph % (Auto) (20.0-40.0) % Randall % (Auto) (0.0-10.0) % Eos % (Auto) (0.0-4.0) % Baso % (Auto) (0.0-2.0) % Neut # (1.8-7.0) K/uL Lymph # (1.0-4.3) K/uL Randall # (0.0-0.8) K/uL Eos # (0.0-0.7) K/uL Baso # (0.0-0.2) K/uL PT (9.7-12.2) SECONDS INR APTT (21-34) SECONDS Sodium (132-148) mmol/L Potassium (3.6-5.2) mmol/L Chloride (98-107) mmol/L Carbon Dioxide (22-30) mmol/L Anion Gap (10-20) BUN (7-17) mg/dL Creatinine (0.7-1.2) mg/dL Est GFR ( Amer) Est GFR (Non-Af Amer) POC Glucose (mg/dL) 71 95 (65-110) mg/dL Random Glucose (65-105) mg/dL Lactic Acid 0.7 (0.7-2.1) mmol/L Calcium (8.6-10.4) mg/dl Phosphorus (2.5-4.5) mg/dL Magnesium (1.6-2.3) mg/dL Total Bilirubin (0.2-1.3) mg/dL AST (14-36) U/L ALT (9-52) U/L Alkaline Phosphatase (38-126) U/L Total Protein (6.3-8.3) g/dL Albumin (3.5-5.0) g/dL Globulin (2.2-3.9) gm/dL Albumin/Globulin Ratio (1.0-2.1) PTH Intact Whole Molec (14-64) pg/mL Random Vancomycin ug/mL 05/17/17 05/17/17 05/16/17 Range/Units 14:10 11:27 11:09 WBC (4.8-10.8) K/uL RBC (3.80-5.20) Mil/uL Hgb (11.0-16.0) g/dL Hct (34.0-47.0) % MCV (81.0-99.0) fL MCH (27.0-31.0) pg MCHC (33.0-37.0) g/dL RDW (11.5-14.5) % Plt Count (130-400) K/uL MPV (7.2-11.7) fL Neut % (Auto) (50.0-75.0) % Lymph % (Auto) (20.0-40.0) % Randall % (Auto) (0.0-10.0) % Eos % (Auto) (0.0-4.0) % Baso % (Auto) (0.0-2.0) % Neut # (1.8-7.0) K/uL Lymph # (1.0-4.3) K/uL Randall # (0.0-0.8) K/uL Eos # (0.0-0.7) K/uL Baso # (0.0-0.2) K/uL PT 15.5 H (9.7-12.2) SECONDS INR 1.4 APTT 31 (21-34) SECONDS Sodium (132-148) mmol/L Potassium (3.6-5.2) mmol/L Chloride (98-107) mmol/L Carbon Dioxide (22-30) mmol/L Anion Gap (10-20) BUN (7-17) mg/dL Creatinine (0.7-1.2) mg/dL Est GFR ( Amer) Est GFR (Non-Af Amer) POC Glucose (mg/dL) 89 (65-110) mg/dL Random Glucose (65-105) mg/dL Lactic Acid (0.7-2.1) mmol/L Calcium (8.6-10.4) mg/dl Phosphorus (2.5-4.5) mg/dL Magnesium (1.6-2.3) mg/dL Total Bilirubin (0.2-1.3) mg/dL AST (14-36) U/L ALT (9-52) U/L Alkaline Phosphatase (38-126) U/L Total Protein (6.3-8.3) g/dL Albumin (3.5-5.0) g/dL Globulin (2.2-3.9) gm/dL Albumin/Globulin Ratio (1.0-2.1) PTH Intact Whole Molec 163 H (14-64) pg/mL Random Vancomycin ug/mL Laboratory Results - last 24 hr 05/16/17 05/17/17 05/17/17 11:09 11:27 14:10 WBC RBC Hgb Hct MCV MCH MCHC RDW Plt Count MPV Neut % (Auto) Lymph % (Auto) Randall % (Auto) Eos % (Auto) Baso % (Auto) Neut # Lymph # Randall # Eos # Baso # PT 15.5 H INR 1.4 APTT 31 Sodium Potassium Chloride Carbon Dioxide Anion Gap BUN Creatinine Est GFR ( Amer) Est GFR (Non-Af Amer) POC Glucose (mg/dL) 89 Random Glucose Lactic Acid Calcium Phosphorus Magnesium Total Bilirubin AST ALT Alkaline Phosphatase Total Protein Albumin Globulin Albumin/Globulin Ratio PTH Intact Whole Molec 163 H Random Vancomycin 05/17/17 05/17/17 05/17/17 16:45 18:34 21:17 WBC RBC Hgb Hct MCV MCH MCHC RDW Plt Count MPV Neut % (Auto) Lymph % (Auto) Randall % (Auto) Eos % (Auto) Baso % (Auto) Neut # Lymph # Randall # Eos # Baso # PT INR APTT Sodium Potassium Chloride Carbon Dioxide Anion Gap BUN Creatinine Est GFR ( Amer) Est GFR (Non-Af Amer) POC Glucose (mg/dL) 95 71 Random Glucose Lactic Acid 0.7 Calcium Phosphorus Magnesium Total Bilirubin AST ALT Alkaline Phosphatase Total Protein Albumin Globulin Albumin/Globulin Ratio PTH Intact Whole Molec Random Vancomycin 05/17/17 05/18/17 05/18/17 22:22 06:15 06:15 WBC 20.3 H RBC 2.77 L Hgb 7.4 L Hct 23.5 L MCV 84.7 MCH 26.8 L MCHC 31.6 L RDW 19.3 H Plt Count 279 MPV 10.0 Neut % (Auto) 76.9 H Lymph % (Auto) 17.1 L Randall % (Auto) 5.2 Eos % (Auto) 0.4 Baso % (Auto) 0.4 Neut # 15.6 H Lymph # 3.5 Randall # 1.1 H Eos # 0.1 Baso # 0.1 PT INR APTT Sodium 133 136 Potassium 4.7 4.5 Chloride 94 L 94 L Carbon Dioxide 26 27 Anion Gap 18 20 BUN 33 H 33 H Creatinine 3.8 H 4.5 H Est GFR ( Amer) 16 13 Est GFR (Non-Af Amer) 13 11 POC Glucose (mg/dL) Random Glucose 90 89 Lactic Acid Calcium 8.3 L 8.3 L Phosphorus 6.7 H Magnesium 2.0 Total Bilirubin 1.6 H AST 23 ALT 28 Alkaline Phosphatase 186 H D Total Protein 7.2 Albumin 2.9 L Globulin 4.3 H Albumin/Globulin Ratio 0.7 L PTH Intact Whole Molec Random Vancomycin 05/18/17 05/18/17 05/18/17 06:15 07:27 11:57 WBC RBC Hgb Hct MCV MCH MCHC RDW Plt Count MPV Neut % (Auto) Lymph % (Auto) Randall % (Auto) Eos % (Auto) Baso % (Auto) Neut # Lymph # Randall # Eos # Baso # PT INR APTT Sodium Potassium Chloride Carbon Dioxide Anion Gap BUN Creatinine Est GFR ( Amer) Est GFR (Non-Af Amer) POC Glucose (mg/dL) 94 105 Random Glucose Lactic Acid Calcium Phosphorus Magnesium Total Bilirubin AST ALT Alkaline Phosphatase Total Protein Albumin Globulin Albumin/Globulin Ratio PTH Intact Whole Molec Random Vancomycin 14.28 Fingerstick Blood Sugar Results: 94 Review of Systems - Constitutional Constitutional: absent: Fever, Chills, Sweats, Weakness - Cardiovascular Cardiovascular: Leg Edema. absent: Chest Pain, Dyspnea - Respiratory Respiratory: absent: Dyspnea, Wheezing - Gastrointestinal Gastrointestinal: Abdominal Pain. absent: Nausea, Vomiting Critical Care Progress Note - Nutrition Nutrition: Nutrition Category Date Time Status NPO Diet [DIET] Diets 05/18/17 Breakfast Active Assessment/Plan - Assessment and Plan (Free Text) Assessment: Patient is a 41 y/o F with pmhx of HTN, DM, hyperlipidemia, CAD, ESRD on HD MWF POD #0 s/p radical panniculectomy 2/2 panniculitis. Neuro: no acute issues at this time Cardio: ASA 81mg po daily Desmopressin Hydralazine 25mg po q8h Metoprolol 50 mg po daily Crestor 10 mg po HS on admission to ICU BP: 191/92, Hydralazine 5mg ivp - continue to monitor Metoprolol 5mg ivp given on 05/18 since patient NPO for wound debridement Nephro: ESRD on HD Dr. Jarrett consulted, help appreciated HD MWF Phoslo TIDCC Midodrine 2.5mg po TID Procrit 20,000 MWF Renvela .8gm po TIDCC Nephro Mandy 1 tab daily Endo: DM -ISS ACHS -accuchecks Skin: left thigh wound -Patient to go for debridement today ID: POD # 0 s/p radical panniculectomy 2/[address] Gaffney consulted, help appreciated Zosyn 2.25gm ivpb q8h Vanco 1 gm MWF wound and blood cultures- negative Prophylaxis: DVT: SCDs, Heparin 5,000 u sc q12h <Jason Ziegler - Last Filed: 05/18/17 14:22> CCU Objective - Vital Signs / Intake & Output Vital Signs (Last 4 hours): Vital Signs Temp Pulse Resp BP Pulse Ox 05/18/17 13:01 88 15 130/70 96 05/18/17 13:00 90 16 96 05/18/17 12:01 90 11 L 130/67 91 L 05/18/17 12:00 98.3 F 90 12 73 L 05/18/17 11:01 84 8 L 134/77 100 05/18/17 11:00 84 8 L Intake and Output (Last 8hrs): Intake & Output 05/17/17 05/18/17 05/18/17 22:59 06:59 14:59 Intake Total 620 170 0 Output Total 151 50 10 Balance 469 120 -10 Weight 212 lb 212 lb Intake: IV 350 Intake, IV Amount 150 50 0 Left Forearm 150 50 0 Oral 120 120 0 Output: Drainage 151 30 10 Left Abdomen 43 15 5 Right Abdomen 38 15 5 Urine 20 0 Urethral (Amezquita) 20 0 Other: # Voids Urine, Voided 0 # Bowel Movements 0 0 - Medications Active Medications: Active Medications Generic Name Dose Route Start Last Admin Trade Name Freq PRN Reason Stop Dose Admin Aspirin 81 mg 05/16/17 10:00 05/18/17 09:23 Aspirin Chewable PO Not Given DAILY [facility] Calcium Acetate 1,334 mg 05/16/17 08:00 05/18/17 11:32 Phoslo PO Not Given TIDCC [facility] Epoetin Loyd 20,000 unit 05/15/17 16:15 05/15/17 17:06 Procrit IV 05/19/17 09:01 20,000 unit [facility] [place] Administration Heparin Sodium (Porcine) 5,000 units 05/15/17 22:00 05/18/17 09:23 Heparin SC Not Given Q12 [facility] Hydralazine HCl 25 mg 05/15/17 22:00 05/18/17 13:33 Apresoline PO Not Given Q8 [facility] Hydromorphone HCl 2 mg 05/15/17 21:30 05/18/17 06:05 Dilaudid IVP 2 mg Q4H PRN Administration pain Piperacillin Sod/Tazobactam Sod 2.25 gm in 50 mls @ 100 mls/hr 05/15/17 22:00 05/18/17 13:32 Zosyn 2.25 Gm Iv Premix IVPB 100 mls/hr Q8 [facility] Administration Vancomycin/Sodium Chloride 1 gm in 200 mls @ 166.7 mls/hr 05/17/17 09:00 12:31 Vancomycin 1 Gm/Ns 200 Ml IVPB 05/22/17 09:01 166.7 mls/hr [facility] [place] Administration Desmopressin Acetate 20 mcg/ 55 mls @ 100 mls/hr 05/17/17 07:30 05/17/17 13: 39 Sodium Chloride IV 100 mls/hr ONCE PRN Administration give information systems auditor to OR 05/17 Insulin Aspart 0 unit 05/18/17 08:30 05/18/17 12:30 Novolog SC Not Given Q6 [facility] Protocol Metoprolol Succinate 50 mg 05/16/17 10:00 05/18/17 09:23 Toprol Xl PO Not Given DAILY [facility] Oxycodone/Acetaminophen 2 tab 05/15/17 15:33 05/17/17 05:18 Percocet 5/325 Mg Tab PO 05/18/17 15:34 2 tab Q4H PRN Administration Pain, moderate (4-7) Rosuvastatin Calcium 10 mg 05/15/17 22:00 05/17/17 21:45 Crestor PO 10 mg HS TG Administration Sevelamer Carbonate 0.8 gm 05/17/17 08:00 05/18/17 11:32 Renvela PO Not Given TIDCC TG Vitamin B Complex/Vit C/Folic Acid 1 tab 05/16/17 08:00 05/18/17 07:48 Nephro-Mandy PO Not Given 0800 [facility] - Patient Studies Lab Studies: Microbiology Studies 05/15/17 22:41 Gram Stain - Final Back Wound Culture - Preliminary 05/17/17 16:00 Gram Stain - Final Abdomen Wound Culture - Preliminary NO GROWTH AFTER 24 HOURS 05/15/17 11:00 Blood Culture - Preliminary Blood NO GROWTH AFTER 48 HOURS 05/15/17 11:30 Blood Culture - Preliminary Blood NO GROWTH AFTER 48 HOURS Lab Studies 05/18/17 05/18/17 05/18/17 Range/Units 11:57 07:27 06:15 WBC (4.8-10.8) K/uL RBC (3.80-5.20) Mil/uL Hgb (11.0-16.0) g/dL Hct (34.0-47.0) % MCV (81.0-99.0) fL MCH (27.0-31.0) pg MCHC (33.0-37.0) g/dL RDW (11.5-14.5) % Plt Count (130-400) K/uL MPV (7.2-11.7) fL Neut % (Auto) (50.0-75.0) % Lymph % (Auto) (20.0-40.0) % Randall % (Auto) (0.0-10.0) % Eos % (Auto) (0.0-4.0) % Baso % (Auto) (0.0-2.0) % Neut # (1.8-7.0) K/uL Lymph # (1.0-4.3) K/uL Randall # (0.0-0.8) K/uL Eos # (0.0-0.7) K/uL Baso # (0.0-0.2) K/uL PT (9.7-12.2) SECONDS INR APTT (21-34) SECONDS Sodium (132-148) mmol/L Potassium (3.6-5.2) mmol/L Chloride (98-107) mmol/L Carbon Dioxide (22-30) mmol/L Anion Gap (10-20) BUN (7-17) mg/dL Creatinine (0.7-1.2) mg/dL Est GFR ( Amer) Est GFR (Non-Af Amer) POC Glucose (mg/dL) 105 94 (65-110) mg/dL Random Glucose (65-105) mg/dL Lactic Acid (0.7-2.1) mmol/L Calcium (8.6-10.4) mg/dl Phosphorus (2.5-4.5) mg/dL Magnesium (1.6-2.3) mg/dL Total Bilirubin (0.2-1.3) mg/dL AST (14-36) U/L ALT (9-52) U/L Alkaline Phosphatase (38-126) U/L Total Protein (6.3-8.3) g/dL Albumin (3.5-5.0) g/dL Globulin (2.2-3.9) gm/dL Albumin/Globulin Ratio (1.0-2.1) Procalcitonin (0.19-0.49) NG/ML PTH Intact Whole Molec (14-64) pg/mL Random Vancomycin 14.28 ug/mL 05/18/17 05/18/17 05/18/17 Range/Units 06:15 06:15 06:15 WBC 20.3 H (4.8-10.8) K/uL RBC 2.77 L (3.80-5.20) Mil/uL Hgb 7.4 L (11.0-16.0) g/dL Hct 23.5 L (34.0-47.0) % MCV 84.7 (81.0-99.0) fL MCH 26.8 L (27.0-31.0) pg MCHC 31.6 L (33.0-37.0) g/dL RDW 19.3 H (11.5-14.5) % Plt Count 279 (130-400) K/uL MPV 10.0 (7.2-11.7) fL Neut % (Auto) 76.9 H (50.0-75.0) % Lymph % (Auto) 17.1 L (20.0-40.0) % Randall % (Auto) 5.2 (0.0-10.0) % Eos % (Auto) 0.4 (0.0-4.0) % Baso % (Auto) 0.4 (0.0-2.0) % Neut # 15.6 H (1.8-7.0) K/uL Lymph # 3.5 (1.0-4.3) K/uL Randall # 1.1 H (0.0-0.8) K/uL Eos # 0.1 (0.0-0.7) K/uL Baso # 0.1 (0.0-0.2) K/uL PT (9.7-12.2) SECONDS INR APTT (21-34) SECONDS Sodium 136 (132-148) mmol/L Potassium 4.5 (3.6-5.2) mmol/L Chloride 94 L (98-107) mmol/L Carbon Dioxide 27 (22-30) mmol/L Anion Gap 20 (10-20) BUN 33 H (7-17) mg/dL Creatinine 4.5 H (0.7-1.2) mg/dL Est GFR ( Amer) 13 Est GFR (Non-Af Amer) 11 POC Glucose (mg/dL) (65-110) mg/dL Random Glucose 89 (65-105) mg/dL Lactic Acid (0.7-2.1) mmol/L Calcium 8.3 L (8.6-10.4) mg/dl Phosphorus 6.7 H (2.5-4.5) mg/dL Magnesium 2.0 (1.6-2.3) mg/dL Total Bilirubin 1.6 H (0.2-1.3) mg/dL AST 23 (14-36) U/L ALT 28 (9-52) U/L Alkaline Phosphatase 186 H D (38-126) U/L Total Protein 7.2 (6.3-8.3) g/dL Albumin 2.9 L (3.5-5.0) g/dL Globulin 4.3 H (2.2-3.9) gm/dL Albumin/Globulin Ratio 0.7 L (1.0-2.1) Procalcitonin 5.70 H (0.19-0.49) NG/ML PTH Intact Whole Molec (14-64) pg/mL Random Vancomycin ug/mL 05/17/17 05/17/17 05/17/17 Range/Units 22:22 21:17 18:34 WBC (4.8-10.8) K/uL RBC (3.80-5.20) Mil/uL Hgb (11.0-16.0) g/dL Hct (34.0-47.0) % MCV (81.0-99.0) fL MCH (27.0-31.0) pg MCHC (33.0-37.0) g/dL RDW (11.5-14.5) % Plt Count (130-400) K/uL MPV (7.2-11.7) fL Neut % (Auto) (50.0-75.0) % Lymph % (Auto) (20.0-40.0) % Randall % (Auto) (0.0-10.0) % Eos % (Auto) (0.0-4.0) % Baso % (Auto) (0.0-2.0) % Neut # (1.8-7.0) K/uL Lymph # (1.0-4.3) K/uL Randall # (0.0-0.8) K/uL Eos # (0.0-0.7) K/uL Baso # (0.0-0.2) K/uL PT (9.7-12.2) SECONDS INR APTT (21-34) SECONDS Sodium 133 (132-148) mmol/L Potassium 4.7 (3.6-5.2) mmol/L Chloride 94 L (98-107) mmol/L Carbon Dioxide 26 (22-30) mmol/L Anion Gap 18 (10-20) BUN 33 H (7-17) mg/dL Creatinine 3.8 H (0.7-1.2) mg/dL Est GFR ( Amer) 16 Est GFR (Non-Af Amer) 13 POC Glucose (mg/dL) 71 (65-110) mg/dL Random Glucose 90 (65-105) mg/dL Lactic Acid 0.7 (0.7-2.1) mmol/L Calcium 8.3 L (8.6-10.4) mg/dl Phosphorus (2.5-4.5) mg/dL Magnesium (1.6-2.3) mg/dL Total Bilirubin (0.2-1.3) mg/dL AST (14-36) U/L ALT (9-52) U/L Alkaline Phosphatase (38-126) U/L Total Protein (6.3-8.3) g/dL Albumin (3.5-5.0) g/dL Globulin (2.2-3.9) gm/dL Albumin/Globulin Ratio (1.0-2.1) Procalcitonin (0.19-0.49) NG/ML PTH Intact Whole Molec (14-64) pg/mL Random Vancomycin ug/mL 05/17/17 05/17/17 05/17/17 Range/Units 16:45 14:10 11:27 WBC (4.8-10.8) K/uL RBC (3.80-5.20) Mil/uL Hgb (11.0-16.0) g/dL Hct (34.0-47.0) % MCV (81.0-99.0) fL MCH (27.0-31.0) pg MCHC (33.0-37.0) g/dL RDW (11.5-14.5) % Plt Count (130-400) K/uL MPV (7.2-11.7) fL Neut % (Auto) (50.0-75.0) % Lymph % (Auto) (20.0-40.0) % Randall % (Auto) (0.0-10.0) % Eos % (Auto) (0.0-4.0) % Baso % (Auto) (0.0-2.0) % Neut # (1.8-7.0) K/uL Lymph # (1.0-4.3) K/uL Randall # (0.0-0.8) K/uL Eos # (0.0-0.7) K/uL Baso # (0.0-0.2) K/uL PT 15.5 H (9.7-12.2) SECONDS INR 1.4 APTT 31 (21-34) SECONDS Sodium (132-148) mmol/L Potassium (3.6-5.2) mmol/L Chloride (98-107) mmol/L Carbon Dioxide (22-30) mmol/L Anion Gap (10-20) BUN (7-17) mg/dL Creatinine (0.7-1.2) mg/dL Est GFR ( Amer) Est GFR (Non-Af Amer) POC Glucose (mg/dL) 95 89 (65-110) mg/dL Random Glucose (65-105) mg/dL Lactic Acid (0.7-2.1) mmol/L Calcium (8.6-10.4) mg/dl Phosphorus (2.5-4.5) mg/dL Magnesium (1.6-2.3) mg/dL Total Bilirubin (0.2-1.3) mg/dL AST (14-36) U/L ALT (9-52) U/L Alkaline Phosphatase (38-126) U/L Total Protein (6.3-8.3) g/dL Albumin (3.5-5.0) g/dL Globulin (2.2-3.9) gm/dL Albumin/Globulin Ratio (1.0-2.1) Procalcitonin (0.19-0.49) NG/ML PTH Intact Whole Molec (14-64) pg/mL Random Vancomycin ug/mL 05/16/17 Range/Units 11:09 WBC (4.8-10.8) K/uL RBC (3.80-5.20) Mil/uL Hgb (11.0-16.0) g/dL Hct (34.0-47.0) % MCV (81.0-99.0) fL MCH (27.0-31.0) pg MCHC (33.0-37.0) g/dL RDW (11.5-14.5) % Plt Count (130-400) K/uL MPV (7.2-11.7) fL Neut % (Auto) (50.0-75.0) % Lymph % (Auto) (20.0-40.0) % Randall % (Auto) (0.0-10.0) % Eos % (Auto) (0.0-4.0) % Baso % (Auto) (0.0-2.0) % Neut # (1.8-7.0) K/uL Lymph # (1.0-4.3) K/uL Randall # (0.0-0.8) K/uL Eos # (0.0-0.7) K/uL Baso # (0.0-0.2) K/uL PT (9.7-12.2) SECONDS INR APTT (21-34) SECONDS Sodium (132-148) mmol/L Potassium (3.6-5.2) mmol/L Chloride (98-107) mmol/L Carbon Dioxide (22-30) mmol/L Anion Gap (10-20) BUN (7-17) mg/dL Creatinine (0.7-1.2) mg/dL Est GFR ( Amer) Est GFR (Non-Af Amer) POC Glucose (mg/dL) (65-110) mg/dL Random Glucose (65-105) mg/dL Lactic Acid (0.7-2.1) mmol/L Calcium (8.6-10.4) mg/dl Phosphorus (2.5-4.5) mg/dL Magnesium (1.6-2.3) mg/dL Total Bilirubin (0.2-1.3) mg/dL AST (14-36) U/L ALT (9-52) U/L Alkaline Phosphatase (38-126) U/L Total Protein (6.3-8.3) g/dL Albumin (3.5-5.0) g/dL Globulin (2.2-3.9) gm/dL Albumin/Globulin Ratio (1.0-2.1) Procalcitonin (0.19-0.49) NG/ML PTH Intact Whole Molec 163 H (14-64) pg/mL Random Vancomycin ug/mL Laboratory Results - last 24 hr 05/16/17 05/17/17 05/17/17 11:09 11:27 14:10 WBC RBC Hgb Hct MCV MCH MCHC RDW Plt Count MPV Neut % (Auto) Lymph % (Auto) Randall % (Auto) Eos % (Auto) Baso % (Auto) Neut # Lymph # Randall # Eos # Baso # PT 15.5 H INR 1.4 APTT 31 Sodium Potassium Chloride Carbon Dioxide Anion Gap BUN Creatinine Est GFR ( Amer) Est GFR (Non-Af Amer) POC Glucose (mg/dL) 89 Random Glucose Lactic Acid Calcium Phosphorus Magnesium Total Bilirubin AST ALT Alkaline Phosphatase Total Protein Albumin Globulin Albumin/Globulin Ratio Procalcitonin PTH Intact Whole Molec 163 H Random Vancomycin 05/17/17 05/17/17 05/17/17 16:45 18:34 21:17 WBC RBC Hgb Hct MCV MCH MCHC RDW Plt Count MPV Neut % (Auto) Lymph % (Auto) Randall % (Auto) Eos % (Auto) Baso % (Auto) Neut # Lymph # Randall # Eos # Baso # PT INR APTT Sodium Potassium Chloride Carbon Dioxide Anion Gap BUN Creatinine Est GFR ( Amer) Est GFR (Non-Af Amer) POC Glucose (mg/dL) 95 71 Random Glucose Lactic Acid 0.7 Calcium Phosphorus Magnesium Total Bilirubin AST ALT Alkaline Phosphatase Total Protein Albumin Globulin Albumin/Globulin Ratio Procalcitonin PTH Intact Whole Molec Random Vancomycin 05/17/17 05/18/17 05/18/17 22:22 06:15 06:15 WBC 20.3 H RBC 2.77 L Hgb 7.4 L Hct 23.5 L MCV 84.7 MCH 26.8 L MCHC 31.6 L RDW 19.3 H Plt Count 279 MPV 10.0 Neut % (Auto) 76.9 H Lymph % (Auto) 17.1 L Randall % (Auto) 5.2 Eos % (Auto) 0.4 Baso % (Auto) 0.4 Neut # 15.6 H Lymph # 3.5 Randall # 1.1 H Eos # 0.1 Baso # 0.1 PT INR APTT Sodium 133 136 Potassium 4.7 4.5 Chloride 94 L 94 L Carbon Dioxide 26 27 Anion Gap 18 20 BUN 33 H 33 H Creatinine 3.8 H 4.5 H Est GFR ( Amer) 16 13 Est GFR (Non-Af Amer) 13 11 POC Glucose (mg/dL) Random Glucose 90 89 Lactic Acid Calcium 8.3 L 8.3 L Phosphorus 6.7 H Magnesium 2.0 Total Bilirubin 1.6 H AST 23 ALT 28 Alkaline Phosphatase 186 H D Total Protein 7.2 Albumin 2.9 L Globulin 4.3 H Albumin/Globulin Ratio 0.7 L Procalcitonin PTH Intact Whole Molec Random Vancomycin 05/18/17 05/18/17 05/18/17 06:15 06:15 07:27 WBC RBC Hgb Hct MCV MCH MCHC RDW Plt Count MPV Neut % (Auto) Lymph % (Auto) Randall % (Auto) Eos % (Auto) Baso % (Auto) Neut # Lymph # Randall # Eos # Baso # PT INR APTT Sodium Potassium Chloride Carbon Dioxide Anion Gap BUN Creatinine Est GFR ( Amer) Est GFR (Non-Af Amer) POC Glucose (mg/dL) 94 Random Glucose Lactic Acid Calcium Phosphorus Magnesium Total Bilirubin AST ALT Alkaline Phosphatase Total Protein Albumin Globulin Albumin/Globulin Ratio Procalcitonin 5.70 H PTH Intact Whole Molec Random Vancomycin 14.28 05/18/17 11:57 WBC RBC Hgb Hct MCV MCH MCHC RDW Plt Count MPV Neut % (Auto) Lymph % (Auto) Randall % (Auto) Eos % (Auto) Baso % (Auto) Neut # Lymph # Randall # Eos # Baso # PT INR APTT Sodium Potassium Chloride Carbon Dioxide Anion Gap BUN Creatinine Est GFR ( Amer) Est GFR (Non-Af Amer) POC Glucose (mg/dL) 105 Random Glucose Lactic Acid Calcium Phosphorus Magnesium Total Bilirubin AST ALT Alkaline Phosphatase Total Protein Albumin Globulin Albumin/Globulin Ratio Procalcitonin PTH Intact Whole Molec Random Vancomycin Critical Care Progress Note - Nutrition Nutrition: Nutrition Category Date Time Status NPO Diet [DIET] Diets 05/18/17 Breakfast Active Assessment/Plan - Assessment and Plan (Free Text) Plan: Addendum: 41 y/o F with pmhx of HTN, DM, hyperlipidemia, CAD, ESRD on HD MWF s/p radical panniculectomy 2/2 panniculitis -My clinical findings and management are are documented by above resident. I have reviewed her note and agree with her documentation. -Patient remains hemodynamically stable.
--- NOTE | 2017-05-18 13:03 | OP ---
PROCEDURE DATE: 05/15/2017 PREOPERATIVE DIAGNOSIS: Chronic lower abdominal panniculitis and intractable pain. POSTOPERATIVE DIAGNOSIS: Chronic lower abdominal panniculitis and intractable pain. PROCEDURE PERFORMED: Radical panniculectomy. SURGEON: Dr. José Luis Holland. ANESTHESIA: General. ESTIMATED BLOOD LOSS: 150 mL. POSTOPERATIVE CONDITION: Stable. INDICATIONS FOR SURGERY: A 41-year-old female with history of diabetes, hypertension and chronic renal failure who is currently on hemodialysis. She underwent weight loss surgery and has developed a lower abdominal panniculitis which has been intractable and not responding to antibiotics. She is now in need of narcotics due to the severe pain and was seen in a surgical consultation. After exam and treatment options were discussed, she elected to undergo a panniculectomy. Please refer to my hospital consultation as to my reasons for performing this. GROSS FINDING: The affected portion of the panniculus, mentioned approximately 20 x 20 x 5 cm. A wide and excision of this area was performed where a large advancement flap closure of greater then a 100 sq cm. The wound was able to be closed primarily by loosely in some areas of chronic infection. Small abscesses was encountered during the procedure and small abdominal abscesses were drained and cultured. PROCEDURE: The patient was taken to the operating room, general anesthesia was administered and the abdomen was prepped and draped. A generous elliptical incision was made surrounding the indurated area of the panniculus and careful dissection was carried out superiorly and inferiorly in the subcutaneous space. Bleeders were encountered and either ligated between clamps or controlled using the Bovie. A large epigastric blood vessel was repaired with Prolene. Once the specimen had been completely excised using the Bovie, generous tissue flaps were raised both superiorly and inferiorly. The wound was aggressively irrigated using saline and Kantrex solution and also a special new product the name of which escapes me. The advancement flap closure of greater then 100 sq cm was performed using multiple layers heavy Vicryl, subcuticular Vicryl and clips. The area overlying the mons pubis was closed closely due to some induration within the mons pubis. The wound was dressed sterilely. Prior to closure Harvey drains were laid in the wound and brought out through lateral stab wounds bilaterally. The patient tolerated the procedure well and returned to the recovery room in stable condition. José Luis Holland MD
[2017-05-18] MEDS ORDERED: Bupivacaine HCl 0.25% PF (10 ml) Inj ONE (13:51)
[2017-05-18] MEDS ORDERED: Lidocaine 1% Inj (20ml) ONE (13:51)
[2017-05-18] MEDS ORDERED: Midazolam 2 MG/2 ML VIAL ONE (14:16)
[2017-05-18] MEDS ORDERED: Propofol 10 mg/ml Inj (20 ML) ONE (14:16)
[2017-05-18] MEDS ORDERED: Sodium Chloride 0.9% 500 ML IV ONE (14:16)
--- NOTE | 2017-05-18 15:23 | CON ---
FOLLOWUP RENAL CONSULTATION DATE: LOCATION: The patient is located in ICU, bed 2. REQUESTED BY: Romulo Yoo MD REASON FOR FOLLOWUP: End-stage renal disease, continuation of hemodialysis. SUBJECTIVE: Mrs. Schmitz is a 41 years old female, obese, with a past medical history significant for longstanding hypertension, diabetes, diabetic retinopathy, end-stage renal disease status post gastric bypass, who was recently admitted to [facility] for lower abdominal panniculitis and also the bilateral thigh status post surgery. Now, the patient was admitted again to [facility] with a similar complaint with worsening symptoms of abdominal pain, which is gradually getting worse and pain in the right and left hypochondriac area also. Patient underwent hemodialysis today and had ultrafiltration about 1.8 liters status post transfusion of packed RBC of 2 units last night and patient was examined in the ICU status post radical panniculectomy this afternoon, patient is complaining of severe abdominal pain. PHYSICAL EXAMINATION: GENERAL: Mrs. Schmitz is 41 years old obese female with hypertension and diabetes, moderately built, moderately nourished, not in any distress. VITAL SIGNS: Blood pressure 159/76, pulse 75, respirations 19, saturation 97% and temperature is 97.7. HEENT: Pupils are normal and reactive to light and accommodation. Conjunctivae are pink. Sclerae are anicteric. Tongue is moist. Trachea is midline. LUNGS: Symmetric on both sides. Bilateral breath sounds present. Clear on auscultation. CARDIOVASCULAR SYSTEM: [place] at the fifth intercostal space, midclavicular line. S1 and S2 audible. No murmur or gallop. ABDOMEN: Normal in appearance. Complaining of lower abdominal pain. Abdomen is soft and tympanic. Bowel sounds present. No guarding. No rigidity. The patient has a dressing to the lower abdomen. CENTRAL NERVOUS SYSTEM: Patient is arousable, following commands appropriately. EXTREMITIES: No cyanosis, no clubbing, no edema. Swelling and redness of both thighs. CURRENT MEDICATIONS: Include hydralazine 25 mg p.o. q.8 hours, aspirin 81 mg daily, Crestor 10 mg at bedtime, and Dilaudid 2 mg IV q.4 hours p.r.n. subcutaneous heparin 5000 q.12 hours, Nephro-Mandy 1 tablet daily, insulin per sliding scale, Percocet 2 tablets p.o. q.4 hours p.r.n., PhosLo 667 mg two tablets p.o. t.i.d. and midodrine 2.5 mg p.o. t.i.d., Epogen 20,000 three times a week and Renvela 0.8 gm p.o. t.i.d. and metoprolol 50 mg p.o. daily, vancomycin 1 gm three times a week and Zosyn 2.25 gm IV q.8 hours. LABORATORY DATA: As of 05/17/2017; WBC 19.3, hemoglobin 9.0, hematocrit 28.3, platelets 247. Sodium 133, potassium 4.5, chloride 90, CO2 of 25, BUN 44, creatinine 5.5, glucose 96, calcium 9.3, total bili 3.2. AST 23, ALT 22, alkaline phosphatase 256, total protein 7.6, albumin is 3.5 and beta-hCG is less than 2.39. PT 15.5, INR is 1.4, PTT 31. As of 05/16/2017; phosphorus level is 6.2 and PTH intact level is 163 now. ASSESSMENT: In summary, Mrs. Schmitz is 41 years old obese female with a history of hypertension, diabetes, diabetic retinopathy, end-stage renal disease, status post gastric bypass, was admitted with lower abdominal pain and swelling in the lower abdomen and also bilateral thighs pain and swelling, found to have severe panniculitis and patient underwent transfusion of 2 units of packed RBC and underwent hemodialysis this morning and then underwent surgery, radical panniculectomy this afternoon by Dr. Holland. 1. End-stage renal disease. Continue hemodialysis 3 times a week, Monday, Monday and Monday. Patient underwent hemodialysis this morning and had ultrafiltration about 1.8 liters with early termination with the patient's request. 2. Hypertension. Continue her current medications and discontinue midodrine. 3. Diabetes. 4. Panniculitis. 5. Anemia secondary to renal failure. I will continue her current medications and analgesics as needed. Overall prognosis is guarded. We will follow with you. Thank you for allowing me to participate in your patient's care. Marc Jarrett MD [facility] # [id number]
--- NOTE | 2017-05-18 17:27 | OP ---
PROCEDURE DATE: 05/15/2017 PREOPERATIVE DIAGNOSIS: Left thigh and pelvic abscess. POSTOPERATIVE DIAGNOSIS: Left thigh and pelvic abscess. PROCEDURE PERFORMED: Wide and deep excision of a 6 cm inflammatory mass of the pelvis with drainage of deep pelvic abscess and debridement. SURGEON: José Luis Holland MD ANESTHESIA: General. ESTIMATED BLOOD LOSS: 50 mL. POSTOPERATIVE CONDITION: Stable. INDICATIONS FOR SURGERY: A 41-year-old female with multiple soft tissue issues including a severe panniculitis when she underwent panniculectomy yesterday. She also has a severe soft tissue infection on the left groin and thigh area which she now want to go debridement today. PROCEDURE: The patient was taken to the operating room, general anesthesia was administered in left thigh. The left thigh and pelvis were prepped and draped. A generous elliptical incision was made surrounding the inflammatory infection. It was dissected into the fascia layer and removed, any pus was drained, was cultured. A pelvic blood vessel was repaired. The wound was irrigated with copious amounts of saline solution. A partial adjacent tissue transfer closure was performed by widely using multiple layers of Monocryl. Central portion of the wound was packed open with wet saline gauze and dressed sterilely. The patient tolerated procedure well. Returned to recovery room in stable condition. José Luis Holland MD
--- NOTE | 2017-05-18 17:49 | CP.PCM.PN ---
Subjective - Date & Time of Evaluation Date of Evaluation: 05/18/17 Time of Evaluation: 07:00 - Subjective Subjective: Patient still having lower abdominal pain POD#1 s/p radical panniculectomy denies fever cough or chest pain Objective - Vital Signs/Intake and Output Vital Signs (last 24 hours): Temp Pulse Resp BP Pulse Ox 97.6 F 87 16 129/71 99 05/18/17 16:00 05/18/17 17:02 05/18/17 17:02 05/18/17 17:02 05/18/17 16:50 Intake and Output: 05/18/17 05/18/17 06:59 18:59 Intake Total 440 170 Output Total 50 10 Balance 390 160 - Medications Medications: Current Medications Aspirin (Aspirin Chewable) 81 mg PO DAILY [facility] Last Admin: 05/18/17 09:23 Dose: Not Given Calcium Acetate (Phoslo) 1,334 mg PO TIDCC [facility] Last Admin: 05/18/17 17:26 Dose: Not Given Epoetin Loyd (Procrit) 20,000 unit IV [facility] Stop: 05/19/17 09:01 Last Admin: 05/15/17 17:06 Dose: 20,000 unit Heparin Sodium (Porcine) (Heparin) 5,000 units SC Q12 [facility] Last Admin: 05/18/17 09:23 Dose: Not Given Hydralazine HCl (Apresoline) 25 mg PO Q8 [facility] Last Admin: 05/18/17 13:33 Dose: Not Given Hydralazine HCl (Apresoline) 10 mg IVP Q6 PRN PRN Reason: Systolic Blood Pressure Last Admin: 05/18/17 15:33 Dose: 10 mg Hydromorphone HCl (Dilaudid) 2 mg IVP Q4H PRN PRN Reason: pain Last Admin: 05/18/17 15:36 Dose: 2 mg Piperacillin Sod/Tazobactam Sod (Zosyn 2.25 Gm Iv Premix) 2.25 gm in 50 mls @ 100 mls/hr IVPB Q8 [facility] Last Admin: 05/18/17 13:32 Dose: 100 mls/hr Vancomycin/Sodium Chloride (Vancomycin 1 Gm/Ns 200 Ml) 1 gm in 200 mls @ 166.7 mls/hr IVPB MWF [facility] Stop: 05/22/17 09:01 Last Admin: 05/17/17 12:31 Dose: 166.7 mls/hr Desmopressin Acetate 20 mcg/ (Sodium Chloride) 55 mls @ 100 mls/hr IV ONCE PRN PRN 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 05/17 Last Admin: 05/17/17 13:39 Dose: 100 mls/hr Insulin Aspart (Novolog) 0 unit SC Q6 TG PRN Reason: Protocol Last Admin: 05/18/17 17:27 Dose: Not Given Metoprolol Succinate (Toprol Xl) 50 mg PO DAILY [facility] Last Admin: 05/18/17 09:23 Dose: Not Given Rosuvastatin Calcium (Crestor) 10 mg PO HS [facility] Last Admin: 05/17/17 21:45 Dose: 10 mg Sevelamer Carbonate (Renvela) 0.8 gm PO TIDCC [facility] Last Admin: 05/18/17 17:26 Dose: Not Given Vitamin B Complex/Vit C/Folic Acid (Nephro-Mandy) 1 tab PO 0800 [facility] Last Admin: 05/18/17 07:48 Dose: Not Given - Labs Labs: 05/18/17 06:15 05/18/17 06:15 PT 15.5 SECONDS (9.7-12.2) H 05/17/17 14:10 INR 1.4 05/17/17 14:10 APTT 31 SECONDS (21-34) 05/17/17 14:10 - Constitutional Appears: Non-toxic, Chronically Ill - Head Exam Head Exam: NORMOCEPHALIC - Eye Exam Eye Exam: PERRL - ENT Exam ENT Exam: Mucous Membranes Dry - Neck Exam Neck Exam: absent: Lymphadenopathy - Respiratory Exam Respiratory Exam: Decreased Breath Sounds - Cardiovascular Exam Cardiovascular Exam: REGULAR RHYTHM - GI/Abdominal Exam GI & Abdominal Exam: Distended, Soft - Rectal Exam Rectal Exam: Deferred - Exam Exam: NORMAL INSPECTION - Back Exam Back Exam: absent: CVA tenderness (L), CVA tenderness (R) - Neurological Exam Neurological Exam: Alert, Awake, Oriented x3 - Psychiatric Exam Psychiatric exam: Normal Mood - Skin Skin Exam: Dry Assessment and Plan (1) Cellulitis Status: Acute (2) Cellulitis Status: Acute (3) ESRD (end stage renal disease) on dialysis Status: Acute (4) HTN (hypertension) Status: Acute (5) Panniculitis, unspecified Status: Acute (6) Type 2 diabetes mellitus Status: Acute
--- NOTE | 2017-05-18 22:45 | CP.PCM.PN ---
Subjective - Date & Time of Evaluation Date of Evaluation: 05/18/17 Time of Evaluation: 17:40 - Subjective Subjective: Pt is improving. c/o pain but decreased s/p surgery Objective - Vital Signs/Intake and Output Vital Signs (last 24 hours): Temp Pulse Resp BP Pulse Ox 98.2 F 97 H 16 136/69 98 05/18/17 20:00 05/18/17 20:00 05/18/17 20:00 05/18/17 19:02 05/18/17 19:34 Intake and Output: 05/18/17 05/19/17 18:59 06:59 Intake Total 170 150 Output Total 20 Balance 150 150 - Medications Medications: Current Medications Aspirin (Aspirin Chewable) 81 mg PO DAILY [facility] Last Admin: 05/18/17 09:23 Dose: Not Given Calcium Acetate (Phoslo) 1,334 mg PO TIDCC [facility] Last Admin: 05/18/17 17:26 Dose: Not Given Epoetin Loyd (Procrit) 20,000 unit IV [facility] Stop: 05/19/17 09:01 Last Admin: 05/15/17 17:06 Dose: 20,000 unit Heparin Sodium (Porcine) (Heparin) 5,000 units SC Q12 [facility] Last Admin: 05/18/17 21:45 Dose: 5,000 units Hydralazine HCl (Apresoline) 25 mg PO Q8 [facility] Last Admin: 05/18/17 21:45 Dose: 25 mg Hydralazine HCl (Apresoline) 10 mg IVP Q6 PRN PRN Reason: Systolic Blood Pressure Last Admin: 05/18/17 15:33 Dose: 10 mg Hydromorphone HCl (Dilaudid) 2 mg IVP Q4H PRN PRN Reason: pain Last Admin: 05/18/17 19:58 Dose: 2 mg Piperacillin Sod/Tazobactam Sod (Zosyn 2.25 Gm Iv Premix) 2.25 gm in 50 mls @ 100 mls/hr IVPB Q8 [facility] Last Admin: 05/18/17 21:45 Dose: 100 mls/hr Vancomycin/Sodium Chloride (Vancomycin 1 Gm/Ns 200 Ml) 1 gm in 200 mls @ 166.7 mls/hr IVPB [facility] Stop: 05/22/17 09:01 Last Admin: 05/17/17 12:31 Dose: 166.7 mls/hr Desmopressin Acetate 20 mcg/ (Sodium Chloride) 55 mls @ 100 mls/hr IV ONCE PRN PRN 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: 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 05/17 Last Admin: 05/17/17 13:39 Dose: 100 mls/hr Insulin Aspart (Novolog) 0 unit SC Q6 TG PRN Reason: Protocol Last Admin: 05/18/17 17:27 Dose: Not Given Metoprolol Succinate (Toprol Xl) 50 mg PO DAILY [facility] Last Admin: 05/18/17 09:23 Dose: Not Given Rosuvastatin Calcium (Crestor) 10 mg PO HS [facility] Last Admin: 05/18/17 21:45 Dose: 10 mg Sevelamer Carbonate (Renvela) 0.8 gm PO TIDCC [facility] Last Admin: 05/18/17 17:26 Dose: Not Given Vitamin B Complex/Vit C/Folic Acid (Nephro-Mandy) 1 tab PO 0800 [facility] Last Admin: 05/18/17 07:48 Dose: Not Given - Labs Labs: 05/18/17 06:15 05/18/17 06:15 PT 15.5 SECONDS (9.7-12.2) H 05/17/17 14:10 INR 1.4 05/17/17 14:10 APTT 31 SECONDS (21-34) 05/17/17 14:10 - Constitutional Appears: No Acute Distress - Head Exam Head Exam: ATRAUMATIC, NORMAL INSPECTION, NORMOCEPHALIC - Eye Exam Eye Exam: EOMI, Normal appearance, PERRL Pupil Exam: NORMAL ACCOMODATION, PERRL - Respiratory Exam Respiratory Exam: Clear to Ausculation Bilateral, NORMAL BREATHING PATTERN - Cardiovascular Exam Cardiovascular Exam: REGULAR RHYTHM, +S1, +S2. absent: Murmur - GI/Abdominal Exam GI & Abdominal Exam: Tenderness Assessment and Plan (1) Type 2 diabetes mellitus Status: Acute (2) HTN (hypertension) Status: Acute (3) ESRD (end stage renal disease) on dialysis Status: Acute (4) Panniculitis, unspecified Status: Acute
[2017-05-19] MEDS: (Novolog) Insulin Aspart, Recombinant 100 u/ml 10 ml vial SC SCH ×3 (06:17→20:00)
[2017-05-19] MEDS: Piperacill/Tazo 2.25gm in Dex 2.25 GM/50 ML BAG IVPB SCH ×3 (06:33→22:24)
[2017-05-19 06:56] LABS: BASO # 0.1 K/uL (0.0-0.2); BASO % 0.2 % (0.0-2.0); EOS % 0.1 % (0.0-4.0); HEMATOCRIT 18.3 % (34.0-47.0); LYMPH # 2.4 K/uL (1.0-4.3); LYMPH % 10.9 % (20.0-40.0); MEAN CELL VOLUME 85.7 fL (81.0-99.0); MEAN CORPUSCULAR HGB CONC 31.5 g/dL (33.0-37.0); MEAN PLATELET VOLUME 10.2 fL (7.2-11.7); MONO # 1.5 K/uL (0.0-0.8); MONO % 7.1 % (0.0-10.0); NRBC % 0.2 % (0.0-2.0); RED CELL DISTRIBUTION WIDTH 19.1 % (11.5-14.5); WHITE BLOOD COUNT 21.9 K/uL (4.8-10.8)
[2017-05-19 07:02] LABS: ALB/GLOB RATIO 0.7 (1.0-2.1); BILIRUBIN,TOTAL 1.5 mg/dL (0.2-1.3); CALCIUM 7.7 mg/dl (8.6-10.4); MAGNESIUM 1.9 mg/dL (1.6-2.3); PHOSPHOROUS 6.9 mg/dL (2.5-4.5); POTASSIUM 4.3 mmol/L (3.6-5.2); TOTAL PROTEIN 6.7 g/dL (6.3-8.3)
[2017-05-19] MEDS: Multivitamin Vitamin B Complex (Nephro-Vite) Tab PO SCH (07:40)
[2017-05-19] MEDS: Sevelamer Carb 0.8 gm/Packet PO SCH ×3 (07:40→17:10)
--- NOTE | 2017-05-19 08:33 | PN ---
DATE: LOCATION: Patient is located in ICU bed 2. REQUESTED BY: Dr. Romulo Yoo. REASON FOR FOLLOWUP: End-stage renal disease, continuation of hemodialysis. HISTORY OF PRESENT ILLNESS: This is a 41 years old female, , with a past medical history significant for longstanding hypertension, diabetes, end-stage renal disease, status post gastric bypass, who was admitted with severe panniculitis. The patient underwent radical panniculectomy yesterday by Dr. Holland. The patient is feeling better today, still complains of pain. No shortness of breath. No nausea, vomiting, diarrhea. PHYSICAL EXAMINATION: VITAL SIGNS: This morning as follows. Blood pressure 144/72, pulse 82, respirations 16, temperature 98.5, saturation 98%. Height 5 feet 6 inches, weight is 212 pounds. GENERAL: Ms. Schmitz is a 41 years young female, moderately built, moderately nourished, not in acute distress. HEENT: Pupils normal, and reactive to light and accommodation. Conjunctivae pink. Sclerae anicteric. Tongue is moist. Trachea is midline. LUNGS: Symmetric on both sides. Bilateral breath sounds present. Clear on auscultation. CARDIOVASCULAR: [place] at the fifth intercostal space, midclavicular line. S1 and S2 audible. No murmur or gallop. ABDOMEN: Normal in appearance, status post surgery. Bowel sounds present. No guarding. No rigidity. CENTRAL NERVOUS SYSTEM: The patient is alert, awake and oriented x3. Nonfocal neuro examination. Cranial nerves II through XII grossly intact. Sensory and motor system is within normal limits. EXTREMITIES: No cyanosis, no clubbing, no edema. The patient has tenderness in both thigh regions and also some slight swelling present. CURRENT MEDICATIONS: Include as follows, hydralazine 25 mg p.o. q. 8 hours, aspirin 81 mg daily, Crestor 10 mg at bedtime, Dilaudid 2 mg IV q. 4 hours p.r.n., subcu heparin 5000 units q. 12 hours, Nephro-Mandy 1 tablet daily, NovoLog insulin per sliding scale, PhosLo 667 mg p.o. t.i.d., Procrit 20,000 units 3 times a week, Renvela 800 mg p.o. t.i.d., Toprol-XL 50 mg p.o. daily, vancomycin 1 g 3 times a week, and Zosyn 2.25 g IV q. 8 hours. LABORATORY DATA: Include as follows; as of 05/18/2017, WBC 20.3; hemoglobin 7.4, hematocrit is 23.5, platelets 279. Sodium 136, potassium 4.5, chloride 94, CO2 of 27, BUN 33, creatinine 4.5, glucose 89, calcium is 8.3, phosphorus 6.7, magnesium is 2, total bili 1.6, AST 23, ALT 28, alkaline phosphatase 186, total protein 7.2, albumin is 2.9, and procalcitonin is 5.7. Vancomycin level is 14.28. Blood cultures as of 05/15/2017, negative day three x2. Wound cultures, no growth after 48 hours from 05/15/2017, and abdominal wound culture no growth after 24 hours. MRSA screening negative, and wound culture from the left thigh is pending. ASSESSMENT AND PLAN: In summary, Ms. Schmitz is a 41 years old female with history of hypertension, diabetes, end-stage renal disease, status post gastric bypass few years ago status post D&C who was admitted with panniculitis and severe abdominal pain, and pain in both thighs, status post radical panniculectomy done yesterday, that is on 05/17/2017. 1. End-stage renal disease, continue hemodialysis 3 times a week, Monday, Monday, and Monday. 2. Anemia secondary to postop bleeding. 3. Hypertension. 4. Diabetes. 5. Panniculitis status post surgery yesterday. Continue antibiotics as per infectious disease recommendations and also continue Epogen during dialysis. Continue phosphate binders, Renvela and PhosLo, and Nephro-Mandy. We will check iron, TIBC, ferritin level during dialysis in the a.m. and also we will give Ferrlecit 125 mg IV piggyback x1 dose during dialysis. Continue analgesics as needed. Discontinue midodrine. Thank you for allowing me to participate in your patient's care. Marc Jarrett MD [facility] # [phone]
--- NOTE | 2017-05-19 10:29 | CP.CCUPN ---
<MoizArcelia L. - Last Filed: 05/19/17 10:26> CCU Subjective - Physician Review Subjective (Free Text): Patient seen and examined at bedside. Patient still having lower abdominal pain POD#2 s/p radical panniculectomy. Patient POD#1 s/p excision of left thigh mass and debridement of thigh abscess. Patient says she is having lower abdominal pain. Patient denies shortness of breath, chest pain, nausea, vomiting. Patient has had no BM for 2 days but is passing gas. Patient to go to OR today for packing change of left thigh. CCU Objective - Vital Signs / Intake & Output Vital Signs (Last 4 hours): Vital Signs Temp Pulse Pulse Resp BP BP Pulse Ox 05/19/17 10:05 137/72 05/19/17 09:50 140/77 05/19/17 09:35 140/75 05/19/17 09:20 97.4 F L 80 13 135/70 100 05/19/17 09:15 97.4 F L 80 13 137/75 05/19/17 09:02 85 11 L 137/75 93 L 05/19/17 09:00 85 9 L 97 05/19/17 08:02 84 17 134/74 100 05/19/17 08:00 97.4 F L 81 23 100 05/19/17 07:02 83 25 H 134/65 05/19/17 07:00 81 29 H Intake and Output (Last 8hrs): Intake & Output 05/18/17 05/19/17 05/19/17 22:59 06:59 14:59 Intake Total 320 100 50 Output Total 10 5 Balance 310 95 50 Intake: Intake, IV Amount 50 Left Forearm 50 Oral 270 100 0 Blood Product 0 Red Blood Cells Cpd As1 0 Lr Unit [id number] Other 50 Red Blood Cells Cpd As1 50 Lr Unit [id number] Output: Drainage 10 5 Left Abdomen 5 3 Right Abdomen 5 2 Other: # Voids Urine, Voided 0 0 0 # Bowel Movements 0 0 - Physical Exam Head: Positive for: Atraumatic, Normocephalic Pupils: Positive for: PERRL Extroacular Muscles: Positive for: EOMI Conjunctiva: Positive for: Normal Mouth: Positive for: Dry Respiratory/Chest: Positive for: Clear to Auscultation, Good Air Exchange Cardiovascular: Positive for: Normal S1, S2 Upper Extremity: Positive for: Normal Inspection Lower Extremity: Positive for: Edema, Other (left thigh necrotic wound ) Psychiatric: Positive for: Alert, Oriented x 3 - Medications Active Medications: Active Medications Generic Name Dose Route Start Last Admin Trade Name Freq PRN Reason Stop Dose Admin Aspirin 81 mg 05/16/17 10:00 05/18/17 09:23 Aspirin Chewable PO Not Given DAILY [facility] Calcium Acetate 1,334 mg 05/16/17 08:00 05/19/17 07:40 Phoslo PO Not Given TIDCC [facility] Heparin Sodium (Porcine) 5,000 units 05/15/17 22:00 05/18/17 21:45 Heparin SC 5,000 units Q12 TG Administration Hydralazine HCl 25 mg 05/15/17 22:00 05/19/17 06:17 Apresoline PO Not Given Q8 TG Hydralazine HCl 10 mg 05/18/17 15:31 05/18/17 15:33 Apresoline IVP 10 mg Q6 PRN Administration Systolic Blood Pressure Hydromorphone HCl 2 mg 05/18/17 23:25 05/19/17 09:33 Dilaudid IVP 2 mg Q3H PRN Administration pain Piperacillin Sod/Tazobactam Sod 2.25 gm in 50 mls @ 100 mls/hr 05/15/17 22:00 05/19/17 06:33 Zosyn 2.25 Gm Iv Premix IVPB 100 mls/hr Q8 TG Administration Vancomycin/Sodium Chloride 1 gm in 200 mls @ 166.7 mls/hr 05/17/17 09:00 12:31 Vancomycin 1 Gm/Ns 200 Ml IVPB 05/22/17 09:01 166.7 mls/hr MWF TG Administration Desmopressin Acetate 20 mcg/ 55 mls @ 100 mls/hr 05/17/17 07:30 05/17/17 13: 39 Sodium Chloride IV 100 mls/hr ONCE PRN Administration give contract associate to OR 05/17 Insulin Aspart 0 unit 05/18/17 08:30 05/19/17 06:17 Novolog SC Not Given Q6 [facility] Protocol Metoprolol Succinate 50 mg 05/16/17 10:00 05/18/17 09:23 Toprol Xl PO Not Given DAILY TG Rosuvastatin Calcium 10 mg 05/15/17 22:00 05/18/17 21:45 Crestor PO 10 mg HS TG Administration Sevelamer Carbonate 0.8 gm 05/17/17 08:00 05/19/17 07:40 Renvela PO Not Given TIDCC TG Vitamin B Complex/Vit C/Folic Acid 1 tab 05/16/17 08:00 05/19/17 07:40 Nephro-Mandy PO Not Given 0800 TG - Patient Studies Lab Studies: Microbiology Studies 05/18/17 15:32 Gram Stain - Final Thigh - Left 05/15/17 11:00 Blood Culture - Preliminary Blood NO GROWTH AFTER 3 DAYS 05/15/17 11:30 Blood Culture - Preliminary Blood NO GROWTH AFTER 3 DAYS 05/17/17 20:00 MRSA Culture (Admit) - Final Naris MRSA NOT DETECTED 05/15/17 22:41 Gram Stain - Final Back Wound Culture - Preliminary 05/17/17 16:00 Gram Stain - Final Abdomen Wound Culture - Preliminary NO GROWTH AFTER 24 HOURS Lab Studies 05/19/17 05/19/17 05/19/17 Range/Units 06:44 06:44 05:53 WBC 21.9 H (4.8-10.8) K/uL RBC 2.14 L (3.80-5.20) Mil/uL Hgb 5.8 L* (11.0-16.0) g/dL Hct 18.3 L (34.0-47.0) % MCV 85.7 (81.0-99.0) fL MCH 27.0 (27.0-31.0) pg MCHC 31.5 L (33.0-37.0) g/dL RDW 19.1 H (11.5-14.5) % Plt Count 274 (130-400) K/uL MPV 10.2 (7.2-11.7) fL Neut % (Auto) 81.7 H (50.0-75.0) % Lymph % (Auto) 10.9 L (20.0-40.0) % Bandera % (Auto) 7.1 (0.0-10.0) % Eos % (Auto) 0.1 (0.0-4.0) % Baso % (Auto) 0.2 (0.0-2.0) % Neut # 17.8 H (1.8-7.0) K/uL Lymph # 2.4 (1.0-4.3) K/uL Bandera # 1.5 H (0.0-0.8) K/uL Eos # 0.0 (0.0-0.7) K/uL Baso # 0.1 (0.0-0.2) K/uL Sodium 136 (132-148) mmol/L Potassium 4.3 (3.6-5.2) mmol/L Chloride 96 L (98-107) mmol/L Carbon Dioxide 25 (22-30) mmol/L Anion Gap 19 (10-20) BUN 40 H (7-17) mg/dL Creatinine 5.2 H (0.7-1.2) mg/dL Est GFR ( Amer) 11 Est GFR (Non-Af Amer) 9 POC Glucose (mg/dL) 139 H (65-110) mg/dL Random Glucose 95 (65-105) mg/dL Calcium 7.7 L (8.6-10.4) mg/dl Phosphorus 6.9 H (2.5-4.5) mg/dL Magnesium 1.9 (1.6-2.3) mg/dL Total Bilirubin 1.5 H (0.2-1.3) mg/dL AST 20 (14-36) U/L ALT 26 (9-52) U/L Alkaline Phosphatase 150 H (38-126) U/L Total Protein 6.7 (6.3-8.3) g/dL Albumin 2.7 L (3.5-5.0) g/dL Globulin 4.1 H (2.2-3.9) gm/dL Albumin/Globulin Ratio 0.7 L (1.0-2.1) Procalcitonin (0.19-0.49) NG/ML Blood Type Blood Type Confirm Antibody Screen 05/18/17 05/18/17 05/18/17 Range/Units 23:40 17:27 11:57 WBC (4.8-10.8) K/uL RBC (3.80-5.20) Mil/uL Hgb (11.0-16.0) g/dL Hct (34.0-47.0) % MCV (81.0-99.0) fL MCH (27.0-31.0) pg MCHC (33.0-37.0) g/dL RDW (11.5-14.5) % Plt Count (130-400) K/uL MPV (7.2-11.7) fL Neut % (Auto) (50.0-75.0) % Lymph % (Auto) (20.0-40.0) % Band[place] % (Auto) (0.0-10.0) % Eos % (Auto) (0.0-4.0) % Baso % (Auto) (0.0-2.0) % Neut # (1.8-7.0) K/uL Lymph # (1.0-4.3) K/uL Bandera # (0.0-0.8) K/uL Eos # (0.0-0.7) K/uL Baso # (0.0-0.2) K/uL Sodium (132-148) mmol/L Potassium (3.6-5.2) mmol/L Chloride (98-107) mmol/L Carbon Dioxide (22-30) mmol/L Anion Gap (10-20) BUN (7-17) mg/dL Creatinine (0.7-1.2) mg/dL Est GFR ( Amer) Est GFR (Non-Af Amer) POC Glucose (mg/dL) 295 H 128 H 105 (65-110) mg/dL Random Glucose (65-105) mg/dL Calcium (8.6-10.4) mg/dl Phosphorus (2.5-4.5) mg/dL Magnesium (1.6-2.3) mg/dL Total Bilirubin (0.2-1.3) mg/dL AST (14-36) U/L ALT (9-52) U/L Alkaline Phosphatase (38-126) U/L Total Protein (6.3-8.3) g/dL Albumin (3.5-5.0) g/dL Globulin (2.2-3.9) gm/dL Albumin/Globulin Ratio (1.0-2.1) Procalcitonin (0.19-0.49) NG/ML Blood Type Blood Type Confirm Antibody Screen 05/18/17 05/17/17 05/16/17 Range/Units 06:15 11:27 16:43 WBC (4.8-10.8) K/uL RBC (3.80-5.20) Mil/uL Hgb (11.0-16.0) g/dL Hct (34.0-47.0) % MCV (81.0-99.0) fL MCH (27.0-31.0) pg MCHC (33.0-37.0) g/dL RDW (11.5-14.5) % Plt Count (130-400) K/uL MPV (7.2-11.7) fL Neut % (Auto) (50.0-75.0) % Lymph % (Auto) (20.0-40.0) % Bandera % (Auto) (0.0-10.0) % Eos % (Auto) (0.0-4.0) % Baso % (Auto) (0.0-2.0) % Neut # (1.8-7.0) K/uL Lymph # (1.0-4.3) K/uL Bandera # (0.0-0.8) K/uL Eos # (0.0-0.7) K/uL Baso # (0.0-0.2) K/uL Sodium (132-148) mmol/L Potassium (3.6-5.2) mmol/L Chloride (98-107) mmol/L Carbon Dioxide (22-30) mmol/L Anion Gap (10-20) BUN (7-17) mg/dL Creatinine (0.7-1.2) mg/dL Est GFR ( Amer) Est GFR (Non-Af Amer) POC Glucose (mg/dL) 89 (65-110) mg/dL Random Glucose (65-105) mg/dL Calcium (8.6-10.4) mg/dl Phosphorus (2.5-4.5) mg/dL Magnesium (1.6-2.3) mg/dL Total Bilirubin (0.2-1.3) mg/dL AST (14-36) U/L ALT (9-52) U/L Alkaline Phosphatase (38-126) U/L Total Protein (6.3-8.3) g/dL Albumin (3.5-5.0) g/dL Globulin (2.2-3.9) gm/dL Albumin/Globulin Ratio (1.0-2.1) Procalcitonin 5.70 H (0.19-0.49) NG/ML Blood Type O POSITIVE Blood Type Confirm O POSITIVE Antibody Screen Negative Laboratory Results - last 24 hr 05/16/17 05/17/17 05/18/17 16:43 11:27 06:15 WBC RBC Hgb Hct MCV MCH MCHC RDW Plt Count MPV Neut % (Auto) Lymph % (Auto) Bandera % (Auto) Eos % (Auto) Baso % (Auto) Neut # Lymph # Bandera # Eos # Baso # Sodium Potassium Chloride Carbon Dioxide Anion Gap BUN Creatinine Est GFR ( Amer) Est GFR (Non-Af Amer) POC Glucose (mg/dL) 89 Random Glucose Calcium Phosphorus Magnesium Total Bilirubin AST ALT Alkaline Phosphatase Total Protein Albumin Globulin Albumin/Globulin Ratio Procalcitonin 5.70 H Blood Type O POSITIVE Blood Type Confirm O POSITIVE Antibody Screen Negative 05/18/17 05/18/17 05/18/17 11:57 17:27 23:40 WBC RBC Hgb Hct MCV MCH MCHC RDW Plt Count MPV Neut % (Auto) Lymph % (Auto) Bandera % (Auto) Eos % (Auto) Baso % (Auto) Neut # Lymph # Bandera # Eos # Baso # Sodium Potassium Chloride Carbon Dioxide Anion Gap BUN Creatinine Est GFR ( Amer) Est GFR (Non-Af Amer) POC Glucose (mg/dL) 105 128 H 295 H Random Glucose Calcium Phosphorus Magnesium Total Bilirubin AST ALT Alkaline Phosphatase Total Protein Albumin Globulin Albumin/Globulin Ratio Procalcitonin Blood Type Blood Type Confirm Antibody Screen 05/19/17 05/19/17 05/19/17 05:53 06:44 06:44 WBC 21.9 H RBC 2.14 L Hgb 5.8 L* Hct 18.3 L MCV 85.7 MCH 27.0 MCHC 31.5 L RDW 19.1 H Plt Count 274 MPV 10.2 Neut % (Auto) 81.7 H Lymph % (Auto) 10.9 L Bandera % (Auto) 7.1 Eos % (Auto) 0.1 Baso % (Auto) 0.2 Neut # 17.8 H Lymph # 2.4 Bandera # 1.5 H Eos # 0.0 Baso # 0.1 Sodium 136 Potassium 4.3 Chloride 96 L Carbon Dioxide 25 Anion Gap 19 BUN 40 H Creatinine 5.2 H Est GFR ( Amer) 11 Est GFR (Non-Af Amer) 9 POC Glucose (mg/dL) 139 H Random Glucose 95 Calcium 7.7 L Phosphorus 6.9 H Magnesium 1.9 Total Bilirubin 1.5 H AST 20 ALT 26 Alkaline Phosphatase 150 H Total Protein 6.7 Albumin 2.7 L Globulin 4.1 H Albumin/Globulin Ratio 0.7 L Procalcitonin Blood Type Blood Type Confirm Antibody Screen Fingerstick Blood Sugar Results: 139 Review of Systems - Constitutional Constitutional: absent: Fever, Chills, Sweats - Cardiovascular Cardiovascular: Leg Edema. absent: Chest Pain, Dyspnea - Respiratory Respiratory: absent: Cough, Dyspnea, Wheezing - Gastrointestinal Gastrointestinal: absent: Abdominal Pain, Constipation, Diarrhea, Nausea, Vomiting - Genitourinary Genitourinary: absent: Difficulty Urinating - Integumentary Integumentary: absent: Rash Additional comments: left leg wound with dressing c/d/i Critical Care Progress Note - Nutrition Nutrition: Nutrition Category Date Time Status NPO Diet [DIET] Diets 05/19/17 Breakfast Active Assessment/Plan - Assessment and Plan (Free Text) Assessment: Patient is a 41 y/o F with pmhx of HTN, DM, hyperlipidemia, CAD, ESRD on HD MWF POD #2s/p radical panniculectomy 2/2 panniculitis, POD#1 s/p excision of left thigh mass and debridement of thigh abscess. Neuro: no acute issues at this time Cardio: ASA 81mg po daily, hold due to decreased hemoglobin Desmopressin Hydralazine 25mg po q8h Hydralazine 10mg ivp q6h prn Metoprolol 50 mg po daily Crestor 10 mg po HS on admission to ICU BP: 191/92, Hydralazine 5mg ivp - continue to monitor Metoprolol 5mg ivp given on 05/18 since patient NPO for wound debridement Nephro: ESRD on HD Dr. Jarrett consulted, help appreciated HD MWF Phoslo TIDCC Midodrine 2.5mg po TID Procrit 20,000 MWF Renvela .8gm po TIDCC Nephro Mandy 1 tab daily Dialysis today Endo: DM -ISS ACHS -accuchecks Heme: acute anemia 05/19: H/H: 5.8/18.3 patient to be transfused 2 u prbc during hemodialysis Skin: s/p excision of left thigh mass and debridement of thigh abscess -Patient to go to OR for wound packing change today ID: POD # 2 s/p radical panniculectomy 08/[address] Gaffney consulted, help appreciated Zosyn 2.25gm ivpb q8h Vanco 1 gm MWF wound and blood cultures- negative Prophylaxis: DVT: SCDs, Heparin 5,000 u sc q12h held due to decreased hemoglobin <Jason Ziegler M - Last Filed: 05/19/17 13:50> CCU Objective - Vital Signs / Intake & Output Vital Signs (Last 4 hours): Vital Signs Temp Pulse Pulse Resp BP BP Pulse Ox 05/19/17 13:31 156/61 H 05/19/17 13:10 169/84 H 05/19/17 13:09 95 H 11 L 05/19/17 13:00 107 H 19 05/19/17 12:55 99 H 12 161/83 H 05/19/17 12:43 112 H 17 149/84 05/19/17 12:40 97.6 F 112 H 108 H 12 119/79 119/79 98 05/19/17 12:26 111 H 11 L 118/65 05/19/17 12:25 118/65 05/19/17 12:10 97.5 F L 96 H 96 H 8 L 154/84 H 154/84 H 05/19/17 12:00 97.5 F L 94 H 13 05/19/17 11:55 103 H 16 161/86 H 161/86 H 05/19/17 11:47 97.6 F 96 H 96 H 18 166/84 H 166/84 H 98 05/19/17 11:40 96 H 15 159/80 H 100 05/19/17 11:32 97.5 F L 93 H 93 H 16 155/84 H 155/84 H 100 05/19/17 11:25 93 H 16 159/84 H 97 05/19/17 11:17 97.6 F 92 H 94 H 10 L 175/84 H 175/84 H 100 05/19/17 11:10 92 H 11 L 162/82 H 05/19/17 11:05 97.6 F 91 H 89 12 173/88 H 173/88 H 100 05/19/17 11:00 93 H 13 100 05/19/17 10:55 91 H 17 167/79 H 100 05/19/17 10:49 97.6 F 91 H 89 14 158/82 H 158/82 H 100 05/19/17 10:40 93 H 13 157/72 H 05/19/17 10:34 97.8 F 90 91 H 18 148/78 148/78 100 05/19/17 10:25 89 17 150/76 99 05/19/17 10:19 97.3 F L 89 89 15 151/74 H 151/74 H 100 05/19/17 10:10 87 15 137/72 100 05/19/17 10:05 137/72 05/19/17 10:00 86 16 99 05/19/17 09:55 86 16 140/77 97 05/19/17 09:50 140/77 Intake and Output (Last 8hrs): Intake & Output 05/18/17 05/19/17 05/19/17 22:59 06:59 14:59 Intake Total 320 100 975 Output Total 10 5 Balance 310 95 975 Weight 209 lb Intake: Intake, IV Amount 50 200 Left Forearm 50 200 Oral 270 100 0 Blood Product 650 Red Blood Cells Cpd As1 325 Lr Unit [id number] Red Blood Cells Cpd As1 325 Lr Unit [id number] Other 125 Red Blood Cells Cpd As1 100 Lr Unit [id number] Red Blood Cells Cpd As1 25 Lr Unit [id number] Output: Drainage 10 5 Left Abdomen 5 3 Right Abdomen 5 2 Other: # Voids Urine, Voided 0 0 0 # Bowel Movements 0 0 - Medications Active Medications: Active Medications Generic Name Dose Route Start Last Admin Trade Name Freq PRN Reason Stop Dose Admin Aspirin 81 mg 05/16/17 10:00 05/18/17 09:23 Aspirin Chewable PO Not Given DAILY [facility] Calcium Acetate 1,334 mg 05/16/17 08:00 05/19/17 12:34 Phoslo PO Not Given TIDCC [facility] Heparin Sodium (Porcine) 5,000 units 05/15/17 22:00 05/18/17 21:45 Heparin SC 5,000 units Q12 [facility] Administration Hydralazine HCl 25 mg 05/15/17 22:00 05/19/17 06:17 Apresoline PO Not Given Q8 TG Hydralazine HCl 10 mg 05/18/17 15:31 05/18/17 15:33 Apresoline IVP 10 mg Q6 PRN Administration Systolic Blood Pressure Hydromorphone HCl 2 mg 05/18/17 23:25 05/19/17 12:31 Dilaudid IVP 2 mg Q3H PRN Administration pain Hydromorphone/Sodium Chloride 6 mg 05/19/17 12:25 Dilaudid Dipper And Drier IV Q4H PRN Pain, severe (8-10) Protocol Piperacillin Sod/Tazobactam Sod 2.25 gm in 50 mls @ 100 mls/hr 05/15/17 22:00 05/19/17 13:36 Zosyn 2.25 Gm Iv Premix IVPB 100 mls/hr Q8 TG Administration Vancomycin/Sodium Chloride 1 gm in 200 mls @ 166.7 mls/hr 05/17/17 09:00 12:46 Vancomycin 1 Gm/Ns 200 Ml IVPB 05/22/17 09:01 166.7 mls/hr MWF [facility] Administration Desmopressin Acetate 20 mcg/ 55 mls @ 100 mls/hr 05/17/17 07:30 05/17/17 13: 39 Sodium Chloride IV 100 mls/hr ONCE PRN Administration give contract associate to OR 05/17 Insulin Aspart 0 unit 05/18/17 08:30 05/19/17 11:58 Novolog SC Not Given Q6 [facility] Protocol Metoprolol Succinate 50 mg 05/16/17 10:00 05/18/17 09:23 Toprol Xl PO Not Given DAILY [facility] Rosuvastatin Calcium 10 mg 05/15/17 22:00 05/18/17 21:45 Crestor PO 10 mg HS [facility] Administration Sevelamer Carbonate 0.8 gm 05/17/17 08:00 05/19/17 12:34 Renvela PO Not Given TIDCC [facility] Vitamin B Complex/Vit C/Folic Acid 1 tab 05/16/17 08:00 05/19/17 07:40 Nephro-Mandy PO Not Given 0800 [facility] - Patient Studies Lab Studies: Microbiology Studies 05/17/17 16:00 Gram Stain - Final Abdomen Wound Culture - Preliminary No growth. 05/15/17 22:41 Gram Stain - Final Back Wound Culture - Final No growth. 05/18/17 15:32 Gram Stain - Final Thigh - Left Wound Culture - Preliminary NO GROWTH AFTER 24 HOURS 05/15/17 11:00 Blood Culture - Preliminary Blood NO GROWTH AFTER 3 DAYS 05/15/17 11:30 Blood Culture - Preliminary Blood NO GROWTH AFTER 3 DAYS 05/17/17 20:00 MRSA Culture (Admit) - Final Naris MRSA NOT DETECTED Lab Studies 05/19/17 05/19/17 05/19/17 Range/Units 11:35 06:44 06:44 WBC 21.9 H (4.8-10.8) K/uL RBC 2.14 L (3.80-5.20) Mil/uL Hgb 5.8 L* (11.0-16.0) g/dL Hct 18.3 L (34.0-47.0) % MCV 85.7 (81.0-99.0) fL MCH 27.0 (27.0-31.0) pg MCHC 31.5 L (33.0-37.0) g/dL RDW 19.1 H (11.5-14.5) % Plt Count 274 (130-400) K/uL MPV 10.2 (7.2-11.7) fL Neut % (Auto) 81.7 H (50.0-75.0) % Lymph % (Auto) 10.9 L (20.0-40.0) % Band[place] % (Auto) 7.1 (0.0-10.0) % Eos % (Auto) 0.1 (0.0-4.0) % Baso % (Auto) 0.2 (0.0-2.0) % Neut # 17.8 H (1.8-7.0) K/uL Lymph # 2.4 (1.0-4.3) K/uL Bandera # 1.5 H (0.0-0.8) K/uL Eos # 0.0 (0.0-0.7) K/uL Baso # 0.1 (0.0-0.2) K/uL Sodium 136 (132-148) mmol/L Potassium 4.3 (3.6-5.2) mmol/L Chloride 96 L (98-107) mmol/L Carbon Dioxide 25 (22-30) mmol/L Anion Gap 19 (10-20) BUN 40 H (7-17) mg/dL Creatinine 5.2 H (0.7-1.2) mg/dL Est GFR ( Amer) 11 Est GFR (Non-Af Amer) 9 POC Glucose (mg/dL) 100 (65-110) mg/dL Random Glucose 95 (65-105) mg/dL Calcium 7.7 L (8.6-10.4) mg/dl Phosphorus 6.9 H (2.5-4.5) mg/dL Magnesium 1.9 (1.6-2.3) mg/dL Total Bilirubin 1.5 H (0.2-1.3) mg/dL AST 20 (14-36) U/L ALT 26 (9-52) U/L Alkaline Phosphatase 150 H (38-126) U/L Total Protein 6.7 (6.3-8.3) g/dL Albumin 2.7 L (3.5-5.0) g/dL Globulin 4.1 H (2.2-3.9) gm/dL Albumin/Globulin Ratio 0.7 L (1.0-2.1) Procalcitonin (0.19-0.49) NG/ML Blood Type Blood Type Confirm Antibody Screen 05/19/17 05/18/17 05/18/17 Range/Units 05:53 23:40 17:27 WBC (4.8-10.8) K/uL RBC (3.80-5.20) Mil/uL Hgb (11.0-16.0) g/dL Hct (34.0-47.0) % MCV (81.0-99.0) fL MCH (27.0-31.0) pg MCHC (33.0-37.0) g/dL RDW (11.5-14.5) % Plt Count (130-400) K/uL MPV (7.2-11.7) fL Neut % (Auto) (50.0-75.0) % Lymph % (Auto) (20.0-40.0) % Bandera % (Auto) (0.0-10.0) % Eos % (Auto) (0.0-4.0) % Baso % (Auto) (0.0-2.0) % Neut # (1.8-7.0) K/uL Lymph # (1.0-4.3) K/uL Band[place] # (0.0-0.8) K/uL Eos # (0.0-0.7) K/uL Baso # (0.0-0.2) K/uL Sodium (132-148) mmol/L Potassium (3.6-5.2) mmol/L Chloride (98-107) mmol/L Carbon Dioxide (22-30) mmol/L Anion Gap (10-20) BUN (7-17) mg/dL Creatinine (0.7-1.2) mg/dL Est GFR ( Amer) Est GFR (Non-Af Amer) POC Glucose (mg/dL) 139 H 295 H 128 H (65-110) mg/dL Random Glucose (65-105) mg/dL Calcium (8.6-10.4) mg/dl Phosphorus (2.5-4.5) mg/dL Magnesium (1.6-2.3) mg/dL Total Bilirubin (0.2-1.3) mg/dL AST (14-36) U/L ALT (9-52) U/L Alkaline Phosphatase (38-126) U/L Total Protein (6.3-8.3) g/dL Albumin (3.5-5.0) g/dL Globulin (2.2-3.9) gm/dL Albumin/Globulin Ratio (1.0-2.1) Procalcitonin (0.19-0.49) NG/ML Blood Type Blood Type Confirm Antibody Screen 05/18/17 05/16/17 Range/Units 06:15 16:43 WBC (4.8-10.8) K/uL RBC (3.80-5.20) Mil/uL Hgb (11.0-16.0) g/dL Hct (34.0-47.0) % MCV (81.0-99.0) fL MCH (27.0-31.0) pg MCHC (33.0-37.0) g/dL RDW (11.5-14.5) % Plt Count (130-400) K/uL MPV (7.2-11.7) fL Neut % (Auto) (50.0-75.0) % Lymph % (Auto) (20.0-40.0) % Bandera % (Auto) (0.0-10.0) % Eos % (Auto) (0.0-4.0) % Baso % (Auto) (0.0-2.0) % Neut # (1.8-7.0) K/uL Lymph # (1.0-4.3) K/uL Bandera # (0.0-0.8) K/uL Eos # (0.0-0.7) K/uL Baso # (0.0-0.2) K/uL Sodium (132-148) mmol/L Potassium (3.6-5.2) mmol/L Chloride (98-107) mmol/L Carbon Dioxide (22-30) mmol/L Anion Gap (10-20) BUN (7-17) mg/dL Creatinine (0.7-1.2) mg/dL Est GFR ( Amer) Est GFR (Non-Af Amer) POC Glucose (mg/dL) (65-110) mg/dL Random Glucose (65-105) mg/dL Calcium (8.6-10.4) mg/dl Phosphorus (2.5-4.5) mg/dL Magnesium (1.6-2.3) mg/dL Total Bilirubin (0.2-1.3) mg/dL AST (14-36) U/L ALT (9-52) U/L Alkaline Phosphatase (38-126) U/L Total Protein (6.3-8.3) g/dL Albumin (3.5-5.0) g/dL Globulin (2.2-3.9) gm/dL Albumin/Globulin Ratio (1.0-2.1) Procalcitonin 5.70 H (0.19-0.49) NG/ML Blood Type O POSITIVE Blood Type Confirm O POSITIVE Antibody Screen Negative Laboratory Results - last 24 hr 05/16/17 05/18/17 05/18/17 16:43 06:15 17:27 WBC RBC Hgb Hct MCV MCH MCHC RDW Plt Count MPV Neut % (Auto) Lymph % (Auto) [place] % (Auto) Eos % (Auto) Baso % (Auto) Neut # Lymph # [place] # Eos # Baso # Sodium Potassium Chloride Carbon Dioxide Anion Gap BUN Creatinine Est GFR ( Amer) Est GFR (Non-Af Amer) POC Glucose (mg/dL) 128 H Random Glucose Calcium Phosphorus Magnesium Total Bilirubin AST ALT Alkaline Phosphatase Total Protein Albumin Globulin Albumin/Globulin Ratio Procalcitonin 5.70 H Blood Type O POSITIVE Blood Type Confirm O POSITIVE Antibody Screen Negative 05/18/17 05/19/17 05/19/17 23:40 05:53 06:44 WBC 21.9 H RBC 2.14 L Hgb 5.8 L* Hct 18.3 L MCV 85.7 MCH 27.0 MCHC 31.5 L RDW 19.1 H Plt Count 274 MPV 10.2 Neut % (Auto) 81.7 H Lymph % (Auto) 10.9 L [place] % (Auto) 7.1 Eos % (Auto) 0.1 Baso % (Auto) 0.2 Neut # 17.8 H Lymph # 2.4 [place] # 1.5 H Eos # 0.0 Baso # 0.1 Sodium Potassium Chloride Carbon Dioxide Anion Gap BUN Creatinine Est GFR ( Amer) Est GFR (Non-Af Amer) POC Glucose (mg/dL) 295 H 139 H Random Glucose Calcium Phosphorus Magnesium Total Bilirubin AST ALT Alkaline Phosphatase Total Protein Albumin Globulin Albumin/Globulin Ratio Procalcitonin Blood Type Blood Type Confirm Antibody Screen 05/19/17 05/19/17 06:44 11:35 WBC RBC Hgb Hct MCV MCH MCHC RDW Plt Count MPV Neut % (Auto) Lymph % (Auto) [place] % (Auto) Eos % (Auto) Baso % (Auto) Neut # Lymph # [place] # Eos # Baso # Sodium 136 Potassium 4.3 Chloride 96 L Carbon Dioxide 25 Anion Gap 19 BUN 40 H Creatinine 5.2 H Est GFR ( Amer) 11 Est GFR (Non-Af Amer) 9 POC Glucose (mg/dL) 100 Random Glucose 95 Calcium 7.7 L Phosphorus 6.9 H Magnesium 1.9 Total Bilirubin 1.5 H AST 20 ALT 26 Alkaline Phosphatase 150 H Total Protein 6.7 Albumin 2.7 L Globulin 4.1 H Albumin/Globulin Ratio 0.7 L Procalcitonin Blood Type Blood Type Confirm Antibody Screen Critical Care Progress Note - Nutrition Nutrition: Nutrition Category Date Time Status NPO Diet [DIET] Diets 05/19/17 Breakfast Active Assessment/Plan - Assessment and Plan (Free Text) Assessment: Patient seen and examine at bedside. My clinical findings and managment are documeted above by above resident. I have reviewed and verififed above note. Patient awaiting HD today with 2 units of blood transfusion. Patient c/o pain at site, will continue opoids [employer] if available. -Soft tissue infection -cultures pending -currently on vanco + zosyn -ESR on HD continue HD -Patient remains hemodynamically stable.
--- NOTE | 2017-05-19 11:19 | CP.PCM.PN ---
Subjective - Date & Time of Evaluation Date of Evaluation: 05/19/17 Time of Evaluation: 11:18 - Subjective Subjective: seen in hd uf goal is increased to 3. 5 lit but pt could not tolerate, uf is 2400 ml receiving 2 units prbc follow up consult is dictated #[phone] Objective - Vital Signs/Intake and Output Vital Signs (last 24 hours): Temp Pulse Resp BP Pulse Ox 97.6 F 89 12 173/88 H 100 05/19/17 11:05 05/19/17 11:05 05/19/17 11:05 05/19/17 11:05 05/19/17 09:20 Intake and Output: 05/19/17 05/19/17 06:59 18:59 Intake Total 300 425 Output Total 5 Balance 295 425 - Medications Medications: Current Medications Aspirin (Aspirin Chewable) 81 mg PO DAILY [facility] Last Admin: 05/18/17 09:23 Dose: Not Given Calcium Acetate (Phoslo) 1,334 mg PO TIDCC [facility] Last Admin: 05/19/17 07:40 Dose: Not Given Heparin Sodium (Porcine) (Heparin) 5,000 units SC Q12 [facility] Last Admin: 05/18/17 21:45 Dose: 5,000 units Hydralazine HCl (Apresoline) 25 mg PO Q8 [facility] Last Admin: 05/19/17 06:17 Dose: Not Given Hydralazine HCl (Apresoline) 10 mg IVP Q6 PRN PRN Reason: Systolic Blood Pressure Last Admin: 05/18/17 15:33 Dose: 10 mg Hydromorphone HCl (Dilaudid) 2 mg IVP Q3H PRN PRN Reason: pain Last Admin: 05/19/17 09:33 Dose: 2 mg Piperacillin Sod/Tazobactam Sod (Zosyn 2.25 Gm Iv Premix) 2.25 gm in 50 mls @ 100 mls/hr IVPB Q8 [facility] Last Admin: 05/19/17 06:33 Dose: 100 mls/hr Vancomycin/Sodium Chloride (Vancomycin 1 Gm/Ns 200 Ml) 1 gm in 200 mls @ 166.7 mls/hr IVPB MWF [facility] Stop: 05/22/17 09:01 Last Admin: 05/17/17 12:31 Dose: 166.7 mls/hr Desmopressin Acetate 20 mcg/ (Sodium Chloride) 55 mls @ 100 mls/hr IV ONCE PRN PRN Reason: give sonography technologist to OR 05/17 Last Admin: 05/17/17 13:39 Dose: 100 mls/hr Insulin Aspart (Novolog) 0 unit SC Q6 [facility] PRN Reason: Protocol Last Admin: 05/19/17 06:17 Dose: Not Given Metoprolol Succinate (Toprol Xl) 50 mg PO DAILY [facility] Last Admin: 05/18/17 09:23 Dose: Not Given Rosuvastatin Calcium (Crestor) 10 mg PO HS [facility] Last Admin: 05/18/17 21:45 Dose: 10 mg Sevelamer Carbonate (Renvela) 0.8 gm PO TIDCC [facility] Last Admin: 05/19/17 07:40 Dose: Not Given Vitamin B Complex/Vit C/Folic Acid (Nephro-Mandy) 1 tab PO 0800 [facility] Last Admin: 05/19/17 07:40 Dose: Not Given - Labs Labs: 05/19/17 06:44 05/19/17 06:44 PT 15.5 SECONDS (9.7-12.2) H 05/17/17 14:10 INR 1.4 05/17/17 14:10 APTT 31 SECONDS (21-34) 05/17/17 14:10
[2017-05-19] MEDS ORDERED: Epoetin Alfa Dialysis 20000 UNIT/ML Inj IV SCH (12:30)
[2017-05-19] MEDS: Vancomycin 1 gm/NS 200 ml 1 GM/200 ML BAG IVPB SCH (12:46)
[2017-05-19] MEDS: Epoetin Alfa Dialysis 20000 UNIT/ML Inj IV SCH (13:03)
[2017-05-19] MEDS: Metoprolol Succinate 50 mg XL Tab PO SCH (14:11)
--- NOTE | 2017-05-19 14:50 | CP.PCM.PN ---
Subjective - Date & Time of Evaluation Date of Evaluation: 05/19/17 Time of Evaluation: 09:00 - Subjective Subjective: events noted iv rx in progress Objective - Vital Signs/Intake and Output Vital Signs (last 24 hours): Temp Pulse Resp BP Pulse Ox 97.6 F 94 H 18 155/77 H 98 05/19/17 12:40 05/19/17 14:09 05/19/17 14:09 05/19/17 14:10 05/19/17 14:09 Intake and Output: 05/19/17 05/19/17 06:59 18:59 Intake Total 300 975 Output Total 5 Balance 295 975 - Medications Medications: Current Medications Aspirin (Aspirin Chewable) 81 mg PO DAILY [facility] Last Admin: 05/18/17 09:23 Dose: Not Given Calcium Acetate (Phoslo) 1,334 mg PO TIDCC [facility] Last Admin: 05/19/17 12:34 Dose: Not Given Heparin Sodium (Porcine) (Heparin) 5,000 units SC Q12 [facility] Last Admin: 05/18/17 21:45 Dose: 5,000 units Hydralazine HCl (Apresoline) 25 mg PO Q8 [facility] Last Admin: 05/19/17 14:10 Dose: Not Given Hydralazine HCl (Apresoline) 10 mg IVP Q6 PRN PRN Reason: Systolic Blood Pressure Last Admin: 05/18/17 15:33 Dose: 10 mg Hydromorphone HCl (Dilaudid) 2 mg IVP Q3H PRN PRN Reason: pain Last Admin: 05/19/17 12:31 Dose: 2 mg Hydromorphone/Sodium Chloride (Dilaudid Equity Structurer) 6 mg IV Q4H PRN; Protocol PRN Reason: Pain, severe (8-10) Piperacillin Sod/Tazobactam Sod (Zosyn 2.25 Gm Iv Premix) 2.25 gm in 50 mls @ 100 mls/hr IVPB Q8 [facility] Last Admin: 05/19/17 13:36 Dose: 100 mls/hr Vancomycin/Sodium Chloride (Vancomycin 1 Gm/Ns 200 Ml) 1 gm in 200 mls @ 166.7 mls/hr IVPB MWF [facility] Stop: 05/22/17 09:01 Last Admin: 05/19/17 12:46 Dose: 166.7 mls/hr Desmopressin Acetate 20 mcg/ (Sodium Chloride) 55 mls @ 100 mls/hr IV ONCE PRN PRN Reason: give scientific publications editor to OR 05/17 Last Admin: 05/17/17 13:39 Dose: 100 mls/hr Insulin Aspart (Novolog) 0 unit SC Q6 [facility] PRN Reason: Protocol Last Admin: 05/19/17 11:58 Dose: Not Given Metoprolol Succinate (Toprol Xl) 50 mg PO DAILY [facility] Last Admin: 05/19/17 14:11 Dose: Not Given Rosuvastatin Calcium (Crestor) 10 mg PO HS [facility] Last Admin: 05/18/17 21:45 Dose: 10 mg Sevelamer Carbonate (Renvela) 0.8 gm PO TIDCC [facility] Last Admin: 05/19/17 12:34 Dose: Not Given Vitamin B Complex/Vit C/Folic Acid (Nephro-Mandy) 1 tab PO 0800 [facility] Last Admin: 05/19/17 07:40 Dose: Not Given - Labs Labs: 05/19/17 06:44 05/19/17 06:44 PT 15.5 SECONDS (9.7-12.2) H 05/17/17 14:10 INR 1.4 05/17/17 14:10 APTT 31 SECONDS (21-34) 05/17/17 14:10 - Constitutional Appears: Non-toxic, Chronically Ill - Head Exam Head Exam: NORMOCEPHALIC - Eye Exam Eye Exam: PERRL - ENT Exam ENT Exam: Mucous Membranes Dry - Neck Exam Neck Exam: absent: Lymphadenopathy - Respiratory Exam Respiratory Exam: Decreased Breath Sounds - Cardiovascular Exam Cardiovascular Exam: REGULAR RHYTHM - GI/Abdominal Exam GI & Abdominal Exam: Distended, Soft - Rectal Exam Rectal Exam: Deferred - Exam Exam: NORMAL INSPECTION Assessment and Plan (1) Cellulitis Status: Acute (2) Cellulitis Status: Acute (3) ESRD (end stage renal disease) on dialysis Status: Acute (4) HTN (hypertension) Status: Acute (5) Panniculitis, unspecified Status: Acute (6) Type 2 diabetes mellitus Status: Acute
[2017-05-19] MEDS ORDERED: Lactated Ringer's 1,000 ML IV ONE (17:07)
[2017-05-19] MEDS ORDERED: Propofol 10 mg/ml Inj (20 ML) ONE (17:20)
[2017-05-19] MEDS ORDERED: Midazolam 2 MG/2 ML VIAL ONE (17:20)
[2017-05-19] MEDS ORDERED: Lidocaine Hydrochloride 5 ML INJ ONE (17:33)
[2017-05-19 20:01] LABS: BASO % 0.1 % (0.0-2.0); HEMATOCRIT 26.4 % (34.0-47.0); LYMPH # 1.9 K/uL (1.0-4.3); LYMPH % 6.2 % (20.0-40.0); MEAN CELL VOLUME 84.9 fL (81.0-99.0); MEAN CORPUSCULAR HEMOGLOBIN 27.6 pg (27.0-31.0); MEAN CORPUSCULAR HGB CONC 32.5 g/dL (33.0-37.0); MEAN PLATELET VOLUME 9.7 fL (7.2-11.7); MONO % 6.4 % (0.0-10.0); NRBC % 0.1 % (0.0-2.0); PLATELET COUNT 323 K/uL (130-400); RED CELL DISTRIBUTION WIDTH 17.4 % (11.5-14.5)
[2017-05-19 21:34] LABS: NEUTROPHIL 93 % (50-75); TOTAL CELLS COUNTED 100
[2017-05-19 21:35] LABS: LARGE PLATELETS PRESENT
--- NOTE | 2017-05-19 22:03 | OP ---
PROCEDURE DATE: 05/19/2017 PREOPERATIVE DIAGNOSES: A large open wound and abscess in the left pelvic region. POSTOPERATIVE DIAGNOSES: A large open wound and abscess in the left pelvic region. PROCEDURE PERFORMED: Re-drainage of pelvic abscess with debridement, partial closure and repair of blood vessel. SURGEON: José Luis Holland MD. TYPE OF ANESTHESIA: General. ESTIMATED BLOOD LOSS: 40 mL. POSTOPERATIVE CONDITION: Stable. INDICATIONS FOR SURGERY: This is a 41-year-old female who is status post a radical panniculectomy for a necrotic panniculus, which was causing her sepsis. She also underwent removal of a necrotic mass of her pelvic area, which also is associated with an abscess portion. The wound was then left open. Seen back to the OR for pulse irrigation, change of packing and possible closure. DESCRIPTION OF PROCEDURE: The patient was taken to the operating room. General anesthesia was administered and the left pelvic and groin area were prepped and draped. The wound was explored, aggressively debrided and any remaining collections were drained. A bleeding pelvic vessel was repaired. The wound was pulse irrigated with saline and Kantrex solution. Partial tissue transfer closure was performed of the periphery. Central portion was packed open with wet saline gauze. The patient tolerated the procedure well, returned to recovery room in stable condition. José Luis Holland MD
--- NOTE | 2017-05-19 23:37 | CP.PCM.PN ---
Subjective - Date & Time of Evaluation Date of Evaluation: 05/19/17 Time of Evaluation: 18:35 - Subjective Subjective: pt seen and examined at bedside, is improving Objective - Vital Signs/Intake and Output Vital Signs (last 24 hours): Temp Pulse Resp BP Pulse Ox 98.7 F 91 H 19 145/77 100 05/19/17 22:00 05/19/17 23:10 05/19/17 23:10 05/19/17 23:10 05/19/17 23:10 Intake and Output: 05/19/17 05/20/17 18:59 06:59 Intake Total 1150 70 Output Total 2426 0 Balance -1276 70 - Medications Medications: Current Medications Aspirin (Aspirin Chewable) 81 mg PO DAILY [facility] Last Admin: 05/18/17 09:23 Dose: Not Given Calcium Acetate (Phoslo) 1,334 mg PO TIDCC [facility] Last Admin: 05/19/17 17:09 Dose: Not Given Heparin Sodium (Porcine) (Heparin) 5,000 units SC Q12 [facility] Last Admin: 05/18/17 21:45 Dose: 5,000 units Hydralazine HCl (Apresoline) 25 mg PO Q8 [facility] Last Admin: 05/19/17 14:10 Dose: Not Given Hydralazine HCl (Apresoline) 10 mg IVP Q6 PRN PRN Reason: Systolic Blood Pressure Last Admin: 05/19/17 19:13 Dose: 10 mg Hydromorphone HCl (Dilaudid) 2 mg IVP Q3H PRN PRN Reason: pain Last Admin: 05/19/17 15:17 Dose: 2 mg Hydromorphone/Sodium Chloride (Dilaudid Help Desk Engineer) 6 mg IV Q4H PRN; Protocol PRN Reason: Pain, severe (8-10) Last Admin: 05/19/17 18:45 Dose: 6 mg Piperacillin Sod/Tazobactam Sod (Zosyn 2.25 Gm Iv Premix) 2.25 gm in 50 mls @ 100 mls/hr IVPB Q8 [facility] Last Admin: 05/19/17 22:24 Dose: 100 mls/hr Vancomycin/Sodium Chloride (Vancomycin 1 Gm/Ns 200 Ml) 1 gm in 200 mls @ 166.7 mls/hr IVPB MWF [facility] Stop: 05/22/17 09:01 Last Admin: 05/19/17 12:46 Dose: 166.7 mls/hr Desmopressin Acetate 20 mcg/ (Sodium Chloride) 55 mls @ 100 mls/hr IV ONCE PRN PRN Reason: give slot key person to OR 05/17 Last Admin: 05/17/17 13:39 Dose: 100 mls/hr Insulin Aspart (Novolog) 0 unit SC Q6 [facility] PRN Reason: Protocol Last Admin: 05/19/17 20:00 Dose: Not Given Metoprolol Succinate (Toprol Xl) 50 mg PO DAILY [facility] Last Admin: 05/19/17 14:11 Dose: Not Given Rosuvastatin Calcium (Crestor) 10 mg PO HS [facility] Last Admin: 05/19/17 22:23 Dose: 10 mg Sevelamer Carbonate (Renvela) 0.8 gm PO TIDCC [facility] Last Admin: 05/19/17 17:10 Dose: Not Given Vitamin B Complex/Vit C/Folic Acid (Nephro-Mandy) 1 tab PO 0800 [facility] Last Admin: 05/19/17 07:40 Dose: Not Given - Labs Labs: 05/19/17 19:57 05/19/17 06:44 PT 15.5 SECONDS (9.7-12.2) H 05/17/17 14:10 INR 1.4 05/17/17 14:10 APTT 31 SECONDS (21-34) 05/17/17 14:10 Assessment and Plan (1) Type 2 diabetes mellitus Status: Acute (2) HTN (hypertension) Status: Acute (3) ESRD (end stage renal disease) on dialysis Status: Acute (4) Panniculitis, unspecified Status: Acute - Assessment and Plan (Free Text) Plan: Patient in no distress and able to tolerate feeding.
--- NOTE | 2017-05-19 23:53 | PN ---
FOLLOWUP RENAL CONSULTATION LOCATION: The patient is located in ICU, bed 2. REQUESTING PHYSICIAN: Romulo Yoo MD REASON FOR FOLLOWUP: End-stage renal disease, continuation of hemodialysis. HISTORY OF PRESENT ILLNESS: Mrs. Schmitz is a 41 years old young female obese with history of hypertension, diabetes, end-stage renal disease, diabetic retinopathy, status post gastric bypass who was admitted recently to [place] with panic colitis of the lower abdomen and both eyes, subsequently the patient underwent panniculectomy and subsequently discharged home. Now, the patient was readmitted with worsening symptoms and extending panic colitis and the patient underwent surgery on 05/17 and 05/18. The patient was seen and examined during dialysis this morning, still complains of severe pain in both legs and also in the lower abdomen. The patient is also receiving 2 units of packed RBC during hemodialysis. No nausea, no vomiting. PHYSICAL EXAMINATION: GENERAL: Mrs. Schmitz is 41 years old obese female, well-built, well-nourished, not in distress. VITAL SIGNS: This morning as follows; blood pressure 155/84, pulse 93, respirations 16, temperature 97.5, saturation 100%. Height 5 feet 6 inches and weight is 209 pounds. HEENT: Pupils normal, reactive to light and accommodation. Conjunctivae slightly pale. Sclerae anicteric. Tongue is moist. Trachea is midline. LUNGS: Symmetric on both sides. Bilateral breath sounds present. Clear on auscultation. CARDIOVASCULAR SYSTEM: [place] at the fifth intercostal space, midclavicular line. S1 and S2 audible. No murmur or gallop. ABDOMEN: Severe lower abdominal tenderness present. Bowel sounds present. Mild guarding. No rigidity. CENTRAL NERVOUS SYSTEM: The patient is alert, awake, oriented x3. Nonfocal neuro examination. Cranial nerves II through XII grossly intact. Sensory and motor system is within normal limits. EXTREMITIES: No cyanosis, no clubbing. Trace edema in both lower extremities. CURRENT MEDICATIONS: Include as follows; hydralazine 25 mg p.o. q.8 hours, 10 mg IV push q.6 hours p.r.n., aspirin on hold, Crestor 10 mg at bedtime, Dilaudid 2 mg IV q.3 hours. p.r.n., also Dilaudid 6 mg q.4 hours p.r.n., heparin on hold, Nephro-Mandy 1 tablet daily, NovoLog for sliding scale, PhosLo 667 mg 2 tablets t.i.d., Renvela 800 mg p.o. t.i.d., metoprolol 50 mg p.o. daily, vancomycin 1 g three times a week and Zosyn 2.25 g IV q.8 hours. LABORATORY DATA: Include as follows as of 05/19/2017; WBC 21.9, hemoglobin 5.8, hematocrit is 18.3, platelets 274. Sodium 136, potassium 4.3, chloride 96, CO2 of 25, BUN 40, creatinine 5.2, glucose 139, calcium 7.7, phosphorus 6.9 and magnesium 1.9. Total bili 1.5, AST 20, ALT 26, alkaline phosphatase 150, total protein 6.7, albumin is 2.7. Wound culture of left thigh as of 05/18/2017, no growth after 24 hours and MRSA screening was negative. Abdominal wound culture as of 05/17/2017, no growth. As of 05/15/2017 back wound culture, no growth. Blood culture x2 negative day four. ASSESSMENT: In summary, Mrs. Schmitz is a 41 years old young female, obese with history of hypertension, diabetes, diabetic retinopathy, end-stage renal disease, status post gastric bypass, was admitted recently few weeks ago with lower abdominal pain and found to have a panic [facility] in [facility] status post surgery, subsequently discharged home. Now, the patient was readmitted to [facility] with similar complaints and severe abdominal pain and worsening symptoms and increasing panic colitis. The patient underwent surgery on 05/17 and 05/18. Severe panic pancolitis status post panniculectomy. Status post surgery yesterday, the patient was found to have anemia and received 2 units of packed RBC during hemodialysis. 1. End-stage renal disease. Continue hemodialysis 3 times a week. The patient underwent hemodialysis this morning and ultrafiltration about 2.4 L and also received 2 units of packed RBC during dialysis. 2. Hypertension. 3. Anemia secondary to recent surgery yesterday and also on , cannot rule out blood loss during surgery and also dilution, rule out gastrointestinal loss. 3. Status post panniculectomy for severe panniculitis and drainage of questionable pelvic abscess. PLAN: Repeat CBC tonight and continue analgesics as per the surgery and continue antihypertensive medication, continue PhosLo and Renvela. We will follow with you. Thank you for allowing me to participate in your patient's care. Marc Jarrett MD
[2017-05-20] MEDS: (Novolog) Insulin Aspart, Recombinant 100 u/ml 10 ml vial SC SCH ×4 (06:02→18:21)
[2017-05-20] MEDS: Piperacill/Tazo 2.25gm in Dex 2.25 GM/50 ML BAG IVPB SCH ×3 (06:12→21:37)
[2017-05-20 06:40] LABS: BASO # 0.1 K/uL (0.0-0.2); BASO % 0.2 % (0.0-2.0); EOS % 0.1 % (0.0-4.0); HEMATOCRIT 24.3 % (34.0-47.0); LYMPH % 6.8 % (20.0-40.0); MEAN CELL VOLUME 85.2 fL (81.0-99.0); MEAN CORPUSCULAR HEMOGLOBIN 27.8 pg (27.0-31.0); MEAN CORPUSCULAR HGB CONC 32.7 g/dL (33.0-37.0); MEAN PLATELET VOLUME 9.9 fL (7.2-11.7); MONO # 2.1 K/uL (0.0-0.8); MONO % 7.3 % (0.0-10.0); NRBC % 0.1 % (0.0-2.0); PLATELET COUNT 322 K/uL (130-400); RED CELL DISTRIBUTION WIDTH 17.8 % (11.5-14.5)
[2017-05-20 07:23] LABS: CALCIUM 8.6 mg/dl (8.6-10.4); POTASSIUM 4.2 mmol/L (3.6-5.2)
[2017-05-20 07:24] LABS: ALB/GLOB RATIO 0.8 (1.0-2.1); PHOSPHOROUS 6.6 mg/dL (2.5-4.5); TOTAL PROTEIN 6.8 g/dL (6.3-8.3)
[2017-05-20] MEDS: Sevelamer Carb 0.8 gm/Packet PO SCH ×3 (08:00→18:21)
[2017-05-20] MEDS: Multivitamin Vitamin B Complex (Nephro-Vite) Tab PO SCH ×3 (08:00→14:15)
[2017-05-20 08:40] LABS: NEUTROPHIL 88 % (50-75); TOTAL CELLS COUNTED 100
[2017-05-20 08:41] LABS: GIANT PLATELETS PRESENT; LARGE PLATELETS PRESENT
--- NOTE | 2017-05-20 09:54 | CP.CCUPN ---
CCU Subjective - Physician Review Events Since Last Encounter (Free Text): 05/20/17 09:51 41-year-old female end-stage renal disease on dialysis. Patient is having right-sided hemodialysis access. The right upper extremity. Admitted to the hospital with diffuse infected, bleeding necrotic fatty tissueinvolving the lower abdomen, bilateral thigh, as well as left leg extended. Patient underwent multiple intervention. Today she is also going for IND. Patient is in increasing pain. iV diludid Vital signs stable otherwise. Blood pressure stable Temp Pulse Resp BP Pulse Ox 97.8 F 95 H 17 160/69 H 100 05/20/17 08:00 05/20/17 09:00 05/20/17 09:00 05/20/17 09:00 05/20/17 09:00 Vital signs reviewed No neck vein distention noted Chest good air entry bilaterally, no wheezing or rales noted CVS regular heart sound, no murmur noted lower abdominal tenderness, involving the subcutaneous tissue, indurated skin involving the upper study bilaterally, and the lower abdomen area. 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 patient is currently on multiple antibiotic Assessment and recommendation: 41-year-old female with a history of end-stage renal disease on dialysis, necrotic subcutaneous skin tissue, bleeding, and panniculitis infected. on antibiotic. Please continue to monitor in the intensive care unit. patient at high risk for sepsis. follow-up the patient CCU Objective - Vital Signs / Intake & Output Vital Signs (Last 4 hours): Vital Signs Temp Pulse Resp BP BP Pulse Ox 05/20/17 09:00 95 H 17 160/69 H 100 05/20/17 08:00 97.8 F 89 18 169/62 H 169/62 H 100 05/20/17 06:00 80 18 162/84 H 100 Intake and Output (Last 8hrs): Intake & Output 05/19/17 05/20/17 05/20/17 22:59 06:59 14:59 Intake Total 145 135 15 Output Total 2426 107 Balance -2281 28 15 Intake: Intake, IV Amount 25 85 15 Left Forearm 55 Left Hand 25 30 15 Oral 120 50 Output: Drainage 1 7 Left Abdomen 0 5 Right Abdomen 1 2 Urine 0 100 Urine, Voided 0 100 Other 2425 Other: # Voids Urine, Voided 0 # Bowel Movements 0 - Physical Exam Head: Positive for: Atraumatic, Normocephalic Pupils: Positive for: PERRL Extroacular Muscles: Positive for: EOMI Conjunctiva: Positive for: Normal Mouth: Positive for: Dry Respiratory/Chest: Positive for: Clear to Auscultation, Good Air Exchange Cardiovascular: Positive for: Normal S1, S2 Upper Extremity: Positive for: Normal Inspection Lower Extremity: Positive for: Edema, Other (left thigh necrotic wound ) Psychiatric: Positive for: Alert, Oriented x 3 - Medications Active Medications: Active Medications Generic Name Dose Route Start Last Admin Trade Name Freq PRN Reason Stop Dose Admin Aspirin 81 mg 05/16/17 10:00 05/18/17 09:23 Aspirin Chewable PO Not Given DAILY [facility] Calcium Acetate 1,334 mg 05/16/17 08:00 05/19/17 17:09 Phoslo PO Not Given TIDCC [facility] Heparin Sodium (Porcine) 5,000 units 05/15/17 22:00 05/18/17 21:45 Heparin SC 5,000 units Q12 TG Administration Hydralazine HCl 25 mg 05/15/17 22:00 05/20/17 07:35 Apresoline PO Not Given Q8 [facility] Hydralazine HCl 10 mg 05/18/17 15:31 05/20/17 06:05 Apresoline IVP 10 mg Q6 PRN Administration Systolic Blood Pressure Hydromorphone HCl 2 mg 05/18/17 23:25 05/19/17 15:17 Dilaudid IVP 2 mg Q3H PRN Administration pain Hydromorphone/Sodium Chloride 6 mg 05/19/17 18:54 05/20/17 06:00 Dilaudid Cathode Builder IV 6 mg Q4H PRN Administration Pain, severe (8-10) Protocol Piperacillin Sod/Tazobactam Sod 2.25 gm in 50 mls @ 100 mls/hr 05/15/17 22:00 05/20/17 06:12 Zosyn 2.25 Gm Iv Premix IVPB 100 mls/hr Q8 TG Administration Vancomycin/Sodium Chloride 1 gm in 200 mls @ 166.7 mls/hr 05/17/17 09:00 12:46 Vancomycin 1 Gm/Ns 200 Ml IVPB 05/22/17 09:01 166.7 mls/hr MWF TG Administration Desmopressin Acetate 20 mcg/ 55 mls @ 100 mls/hr 05/17/17 07:30 05/17/17 13: 39 Sodium Chloride IV 100 mls/hr ONCE PRN Administration 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 05/17 Insulin Aspart 0 unit 05/18/17 08:30 05/20/17 06:12 Novolog SC Not Given Q6 [facility] Protocol Metoprolol Succinate 50 mg 05/16/17 10:00 05/19/17 14:11 Toprol Xl PO Not Given DAILY [facility] Rosuvastatin Calcium 10 mg 05/15/17 22:00 05/19/17 22:23 Crestor PO 10 mg HS [facility] Administration Sevelamer Carbonate 0.8 gm 05/17/17 08:00 05/19/17 17:10 Renvela PO Not Given TIDCC [facility] Vitamin B Complex/Vit C/Folic Acid 1 tab 05/16/17 08:00 05/19/17 07:40 Nephro-Mandy PO Not Given 0800 [facility] - Patient Studies Lab Studies: Microbiology Studies 05/15/17 11:00 Blood Culture - Preliminary Blood NO GROWTH AFTER 4 DAYS 05/15/17 11:30 Blood Culture - Preliminary Blood NO GROWTH AFTER 4 DAYS 05/17/17 16:00 Gram Stain - Final Abdomen Wound Culture - Preliminary No growth. 05/15/17 22:41 Gram Stain - Final Back Wound Culture - Final No growth. 05/18/17 15:32 Gram Stain - Final Thigh - Left Wound Culture - Preliminary NO GROWTH AFTER 24 HOURS Lab Studies 05/20/17 05/20/17 05/20/17 Range/Units 06:35 06:35 06:35 WBC 29.0 H (4.8-10.8) K/uL RBC 2.86 L (3.80-5.20) Mil/uL Hgb 8.0 L (11.0-16.0) g/dL Hct 24.3 L (34.0-47.0) % MCV 85.2 (81.0-99.0) fL MCH 27.8 (27.0-31.0) pg MCHC 32.7 L (33.0-37.0) g/dL RDW 17.8 H (11.5-14.5) % Plt Count 322 (130-400) K/uL MPV 9.9 (7.2-11.7) fL Neut % (Auto) 85.6 H (50.0-75.0) % Lymph % (Auto) 6.8 L (20.0-40.0) % Banner % (Auto) 7.3 (0.0-10.0) % Eos % (Auto) 0.1 (0.0-4.0) % Baso % (Auto) 0.2 (0.0-2.0) % Neut # 24.8 H (1.8-7.0) K/uL Lymph # 2.0 (1.0-4.3) K/uL Banner # 2.1 H (0.0-0.8) K/uL Eos # 0.0 (0.0-0.7) K/uL Baso # 0.1 (0.0-0.2) K/uL Neutrophils % (Manual) 88 H (50-75) % Lymphocytes % (Manual) 5 L (20-40) % Monocytes % (Manual) 7 (0-10) % Toxic Granulation Present Platelet Estimate Normal (NORMAL) Large Platelets Present Giant Platelets Present Polychromasia Slight Hypochromasia (manual) Slight Poikilocytosis (manual Anisocytosis (manual) Slight Ovalocytes Sodium 134 (132-148) mmol/L Potassium 4.2 (3.6-5.2) mmol/L Chloride 93 L (98-107) mmol/L Carbon Dioxide 25 (22-30) mmol/L Anion Gap 20 (10-20) BUN 29 H (7-17) mg/dL Creatinine 4.2 H (0.7-1.2) mg/dL Est GFR ( Amer) 14 Est GFR (Non-Af Amer) 12 POC Glucose (mg/dL) (65-110) mg/dL Random Glucose 117 H (65-105) mg/dL Calcium 8.6 (8.6-10.4) mg/dl Phosphorus 6.6 H (2.5-4.5) mg/dL Magnesium 2.0 (1.6-2.3) mg/dL Total Bilirubin 2.0 H (0.2-1.3) mg/dL AST 27 (14-36) U/L ALT 23 (9-52) U/L Alkaline Phosphatase 203 H D (38-126) U/L Total Protein 6.8 (6.3-8.3) g/dL Albumin 3.1 L (3.5-5.0) g/dL Globulin 3.7 (2.2-3.9) gm/dL Albumin/Globulin Ratio 0.8 L (1.0-2.1) Random Vancomycin 17.86 ug/mL Blood Type Blood Type Confirm Antibody Screen 05/19/17 05/19/17 05/19/17 Range/Units 23:49 21:33 19:57 WBC 31.0 H (4.8-10.8) K/uL RBC 3.11 L (3.80-5.20) Mil/uL Hgb 8.6 L D (11.0-16.0) g/dL Hct 26.4 L (34.0-47.0) % MCV 84.9 (81.0-99.0) fL MCH 27.6 (27.0-31.0) pg MCHC 32.5 L (33.0-37.0) g/dL RDW 17.4 H (11.5-14.5) % Plt Count 323 (130-400) K/uL MPV 9.7 (7.2-11.7) fL Neut % (Auto) 87.3 H (50.0-75.0) % Lymph % (Auto) 6.2 L (20.0-40.0) % Banner % (Auto) 6.4 (0.0-10.0) % Eos % (Auto) 0.0 (0.0-4.0) % Baso % (Auto) 0.1 (0.0-2.0) % Neut # 27.1 H (1.8-7.0) K/uL Lymph # 1.9 (1.0-4.3) K/uL Banner # 2.0 H (0.0-0.8) K/uL Eos # 0.0 (0.0-0.7) K/uL Baso # 0.0 (0.0-0.2) K/uL Neutrophils % (Manual) 93 H (50-75) % Lymphocytes % (Manual) 4 L (20-40) % Monocytes % (Manual) 3 (0-10) % Toxic Granulation Platelet Estimate Normal (NORMAL) Large Platelets Present Giant Platelets Polychromasia Hypochromasia (manual) Poikilocytosis (manual Slight Anisocytosis (manual) Slight Ovalocytes Slight Sodium (132-148) mmol/L Potassium (3.6-5.2) mmol/L Chloride (98-107) mmol/L Carbon Dioxide (22-30) mmol/L Anion Gap (10-20) BUN (7-17) mg/dL Creatinine (0.7-1.2) mg/dL Est GFR ( Amer) Est GFR (Non-Af Amer) POC Glucose (mg/dL) 139 H 169 H (65-110) mg/dL Random Glucose (65-105) mg/dL Calcium (8.6-10.4) mg/dl Phosphorus (2.5-4.5) mg/dL Magnesium (1.6-2.3) mg/dL Total Bilirubin (0.2-1.3) mg/dL AST (14-36) U/L ALT (9-52) U/L Alkaline Phosphatase (38-126) U/L Total Protein (6.3-8.3) g/dL Albumin (3.5-5.0) g/dL Globulin (2.2-3.9) gm/dL Albumin/Globulin Ratio (1.0-2.1) Random Vancomycin ug/mL Blood Type Blood Type Confirm Antibody Screen 05/19/17 05/19/17 05/16/17 Range/Units 18:11 11:35 16:43 WBC (4.8-10.8) K/uL RBC (3.80-5.20) Mil/uL Hgb (11.0-16.0) g/dL Hct (34.0-47.0) % MCV (81.0-99.0) fL MCH (27.0-31.0) pg MCHC (33.0-37.0) g/dL RDW (11.5-14.5) % Plt Count (130-400) K/uL MPV (7.2-11.7) fL Neut % (Auto) (50.0-75.0) % Lymph % (Auto) (20.0-40.0) % Banner % (Auto) (0.0-10.0) % Eos % (Auto) (0.0-4.0) % Baso % (Auto) (0.0-2.0) % Neut # (1.8-7.0) K/uL Lymph # (1.0-4.3) K/uL Banner # (0.0-0.8) K/uL Eos # (0.0-0.7) K/uL Baso # (0.0-0.2) K/uL Neutrophils % (Manual) (50-75) % Lymphocytes % (Manual) (20-40) % Monocytes % (Manual) (0-10) % Toxic Granulation Platelet Estimate (NORMAL) Large Platelets Giant Platelets Polychromasia Hypochromasia (manual) Poikilocytosis (manual Anisocytosis (manual) Ovalocytes Sodium (132-148) mmol/L Potassium (3.6-5.2) mmol/L Chloride (98-107) mmol/L Carbon Dioxide (22-30) mmol/L Anion Gap (10-20) BUN (7-17) mg/dL Creatinine (0.7-1.2) mg/dL Est GFR ( Amer) Est GFR (Non-Af Amer) POC Glucose (mg/dL) 104 100 (65-110) mg/dL Random Glucose (65-105) mg/dL Calcium (8.6-10.4) mg/dl Phosphorus (2.5-4.5) mg/dL Magnesium (1.6-2.3) mg/dL Total Bilirubin (0.2-1.3) mg/dL AST (14-36) U/L ALT (9-52) U/L Alkaline Phosphatase (38-126) U/L Total Protein (6.3-8.3) g/dL Albumin (3.5-5.0) g/dL Globulin (2.2-3.9) gm/dL Albumin/Globulin Ratio (1.0-2.1) Random Vancomycin ug/mL Blood Type O POSITIVE Blood Type Confirm O POSITIVE Antibody Screen Negative Laboratory Results - last 24 hr 05/16/17 05/19/17 05/19/17 16:43 11:35 18:11 WBC RBC Hgb Hct MCV MCH MCHC RDW Plt Count MPV Neut % (Auto) Lymph % (Auto) Banner % (Auto) Eos % (Auto) Baso % (Auto) Neut # Lymph # Banner # Eos # Baso # Neutrophils % (Manual) Lymphocytes % (Manual) Monocytes % (Manual) Toxic Granulation Platelet Estimate Large Platelets Giant Platelets Polychromasia Hypochromasia (manual) Poikilocytosis (manual Anisocytosis (manual) Ovalocytes Sodium Potassium Chloride Carbon Dioxide Anion Gap BUN Creatinine Est GFR ( Amer) Est GFR (Non-Af Amer) POC Glucose (mg/dL) 100 104 Random Glucose Calcium Phosphorus Magnesium Total Bilirubin AST ALT Alkaline Phosphatase Total Protein Albumin Globulin Albumin/Globulin Ratio Random Vancomycin Blood Type O POSITIVE Blood Type Confirm O POSITIVE Antibody Screen Negative 05/19/17 05/19/17 05/19/17 19:57 21:33 23:49 WBC 31.0 H RBC 3.11 L Hgb 8.6 L D Hct 26.4 L MCV 84.9 MCH 27.6 MCHC 32.5 L RDW 17.4 H Plt Count 323 MPV 9.7 Neut % (Auto) 87.3 H Lymph % (Auto) 6.2 L Banner % (Auto) 6.4 Eos % (Auto) 0.0 Baso % (Auto) 0.1 Neut # 27.1 H Lymph # 1.9 Banner # 2.0 H Eos # 0.0 Baso # 0.0 Neutrophils % (Manual) 93 H Lymphocytes % (Manual) 4 L Monocytes % (Manual) 3 Toxic Granulation Platelet Estimate Normal Large Platelets Present Giant Platelets Polychromasia Hypochromasia (manual) Poikilocytosis (manual Slight Anisocytosis (manual) Slight Ovalocytes Slight Sodium Potassium Chloride Carbon Dioxide Anion Gap BUN Creatinine Est GFR ( Amer) Est GFR (Non-Af Amer) POC Glucose (mg/dL) 169 H 139 H Random Glucose Calcium Phosphorus Magnesium Total Bilirubin AST ALT Alkaline Phosphatase Total Protein Albumin Globulin Albumin/Globulin Ratio Random Vancomycin Blood Type Blood Type Confirm Antibody Screen 05/20/17 05/20/17 05/20/17 06:35 06:35 06:35 WBC 29.0 H RBC 2.86 L Hgb 8.0 L Hct 24.3 L MCV 85.2 MCH 27.8 MCHC 32.7 L RDW 17.8 H Plt Count 322 MPV 9.9 Neut % (Auto) 85.6 H Lymph % (Auto) 6.8 L Banner % (Auto) 7.3 Eos % (Auto) 0.1 Baso % (Auto) 0.2 Neut # 24.8 H Lymph # 2.0 Banner # 2.1 H Eos # 0.0 Baso # 0.1 Neutrophils % (Manual) 88 H Lymphocytes % (Manual) 5 L Monocytes % (Manual) 7 Toxic Granulation Present Platelet Estimate Normal Large Platelets Present Giant Platelets Present Polychromasia Slight Hypochromasia (manual) Slight Poikilocytosis (manual Anisocytosis (manual) Slight Ovalocytes Sodium 134 Potassium 4.2 Chloride 93 L Carbon Dioxide 25 Anion Gap 20 BUN 29 H Creatinine 4.2 H Est GFR ( Amer) 14 Est GFR (Non-Af Amer) 12 POC Glucose (mg/dL) Random Glucose 117 H Calcium 8.6 Phosphorus 6.6 H Magnesium 2.0 Total Bilirubin 2.0 H AST 27 ALT 23 Alkaline Phosphatase 203 H D Total Protein 6.8 Albumin 3.1 L Globulin 3.7 Albumin/Globulin Ratio 0.8 L Random Vancomycin 17.86 Blood Type Blood Type Confirm Antibody Screen Fingerstick Blood Sugar Results: 100 Critical Care Progress Note - Nutrition Nutrition: Nutrition Category Date Time Status NPO Diet [DIET] Diets 05/20/17 Breakfast Active
[2017-05-20] MEDS: Metoprolol Succinate 50 mg XL Tab PO SCH ×2 (10:18→13:58)
[2017-05-20] MEDS ORDERED: Sodium Chloride 0.9% 500 ML IV ONE ×2 (10:54)
[2017-05-20] MEDS ORDERED: Propofol 10 mg/ml Inj (20 ML) ONE (12:03)
[2017-05-20] MEDS ORDERED: Midazolam 2 MG/2 ML VIAL ONE (12:03)
--- NOTE | 2017-05-20 14:45 | CP.PCM.PN ---
Subjective - Date & Time of Evaluation Date of Evaluation: 05/20/17 Time of Evaluation: 14:44 - Subjective Subjective: pt is seen and examined, follow up consult is dictated #[id number] Objective - Vital Signs/Intake and Output Vital Signs (last 24 hours): Temp Pulse Resp BP Pulse Ox 97.8 F 82 18 153/57 H 100 05/20/17 08:00 05/20/17 10:00 05/20/17 10:00 05/20/17 10:00 05/20/17 10:00 Intake and Output: 05/20/17 05/20/17 06:59 18:59 Intake Total 155 20 Output Total 107 Balance 48 20 - Medications Medications: Current Medications Aspirin (Aspirin Chewable) 81 mg PO DAILY [facility] Last Admin: 05/18/17 09:23 Dose: Not Given Calcium Acetate (Phoslo) 1,334 mg PO TIDCC [facility] Last Admin: 05/20/17 13:55 Dose: 1,334 mg Heparin Sodium (Porcine) (Heparin) 5,000 units SC Q12 [facility] Last Admin: 05/18/17 21:45 Dose: 5,000 units Hydralazine HCl (Apresoline) 25 mg PO Q8 [facility] Last Admin: 05/20/17 13:56 Dose: 25 mg Hydralazine HCl (Apresoline) 10 mg IVP Q6 PRN PRN Reason: Systolic Blood Pressure Last Admin: 05/20/17 06:05 Dose: 10 mg Hydromorphone HCl (Dilaudid) 2 mg IVP Q3H PRN PRN Reason: pain Last Admin: 05/19/17 15:17 Dose: 2 mg Hydromorphone/Sodium Chloride (Dilaudid [employer]) 6 mg IV Q4H PRN; Protocol PRN Reason: Pain, severe (8-10) Last Admin: 05/20/17 06:00 Dose: 6 mg Piperacillin Sod/Tazobactam Sod (Zosyn 2.25 Gm Iv Premix) 2.25 gm in 50 mls @ 100 mls/hr IVPB Q8 [facility] Last Admin: 05/20/17 13:58 Dose: 100 mls/hr Vancomycin/Sodium Chloride (Vancomycin 1 Gm/Ns 200 Ml) 1 gm in 200 mls @ 166.7 mls/hr IVPB MWF [facility] Stop: 05/22/17 09:01 Last Admin: 05/19/17 12:46 Dose: 166.7 mls/hr Desmopressin Acetate 20 mcg/ (Sodium Chloride) 55 mls @ 100 mls/hr IV ONCE PRN PRN Reason: give personal care aide to OR 05/17 Last Admin: 05/17/17 13:39 Dose: 100 mls/hr Insulin Aspart (Novolog) 0 unit SC Q6 TG PRN Reason: Protocol Last Admin: 05/20/17 13:56 Dose: 1 unit Metoprolol Succinate (Toprol Xl) 50 mg PO DAILY [facility] Last Admin: 05/20/17 13:58 Dose: 50 mg Rosuvastatin Calcium (Crestor) 10 mg PO HS [facility] Last Admin: 05/19/17 22:23 Dose: 10 mg Sevelamer Carbonate (Renvela) 0.8 gm PO TIDCC [facility] Last Admin: 05/20/17 13:55 Dose: 0.8 gm Vitamin B Complex/Vit C/Folic Acid (Nephro-Mandy) 1 tab PO 0800 [facility] Last Admin: 05/20/17 14:15 Dose: Not Given - Labs Labs: 05/20/17 06:35 05/20/17 06:35 PT 15.5 SECONDS (9.7-12.2) H 05/17/17 14:10 INR 1.4 05/17/17 14:10 APTT 31 SECONDS (21-34) 05/17/17 14:10
--- NOTE | 2017-05-20 21:55 | PN ---
FOLLOWUP RENAL CONSULTATION LOCATION: The patient is located in ICU, bed 2. REQUESTING PHYSICIAN: Romulo Yoo MD REASON FOR FOLLOWUP: End-stage renal disease, continuation of hemodialysis. HISTORY OF PRESENT ILLNESS: Mrs. Schmitz is a 41 years old female with history of longstanding hypertension, diabetes, obesity, end-stage renal disease, diabetic retinopathy with gastric bypass who was admitted recently to [facility] [place] with lower abdominal pain and found to have a panic colitis and underwent surgery, subsequently the patient was admitted to [facility] after evaluated by Dr. Holland for worsening panic colitis and the patient underwent surgery x2 since admission and also underwent again surgery this morning and also removal of the drains. The patient is feeling slightly better, not in acute distress. Denies any abdominal pain. Denies any chest pain or palpitation. Denies any fever, cough. The patient has complaints of abdominal pain. Tolerating p.o. intake. PHYSICAL EXAMINATION: VITAL SIGNS: As follows; blood pressure 172/75, pulse 91, respirations 18, saturation 100% and temperature 97.9. Height 5 feet 6 inches, weight is 209 pounds. GENERAL: Mrs. Schmitz is a 41 years old female, moderately-built, moderately-nourished, not in acute distress. HEENT: Pupils normal, reactive to light and accommodation. Conjunctivae pink. Sclerae anicteric. Tongue is moist, trachea is midline. LUNGS: Symmetric on both sides. Bilateral breath sounds present. Clear on auscultation. CARDIOVASCULAR SYSTEM: [place] at the fifth intercostal space, midclavicular line. S1 and S2 audible. No murmur or gallop. ABDOMEN: Normal in appearance, soft, tympanic. The patient has moderate tenderness in lower abdomen and also dressing present. Bowel sounds present. No guarding, no rigidity. CENTRAL NERVOUS SYSTEM: The patient is alert, awake and oriented x3. Nonfocal neuro examination. Cranial nerves II through XII grossly intact. Sensory and motor system is within normal limits. EXTREMITIES: No cyanosis, no clubbing, no edema. CURRENT MEDICATIONS: Include as follows; hydralazine 25 mg p.o. q.8 hours, 10 mg IV q.6 hours, aspirin on hold, Crestor 10 mg p.o. at bedtime, Dilaudid 2 mg IV q.3 hours p.r.n., 6 mg IV q.4 hours p.r.n., Nephro-Mandy 1 tablet p.o. daily, NovoLog for sliding scale, calcium acetate 667 mg 2 tablets p.o. t.i.d. with food, Renvela 800 mg p.o. t.i.d., metoprolol 50 mg p.o. daily, vancomycin 1 g three times a week and Zosyn 2.25 g IV q.8 hours. LABORATORY DATA: Include as follows as of 05/20/2017; WBC 29, hemoglobin 8, hematocrit is 24.3, platelets 322, neutrophils 88, lymph is 5, monos 7. Sodium 134, potassium 4.2, chloride 93, CO2 of 25, BUN is 29, creatinine 4.2, glucose is 117, calcium 8.6, phosphorus is 6.6, magnesium 2. Total bili is 2, AST 27, ALT 23, alkaline phosphatase 203, total protein 6.8, albumin is 3.1. Vancomycin random level is 17.8. Microbiology; blood cultures as of 05/15/2017 x2 negative day 5. Wound cultures from the back and abdomen and also from the left thigh are negative, and MRSA screening was negative. ASSESSMENT: In summary, Mrs. Schmitz is a 41 years old female with history of hypertension, diabetes, obesity, status post gastric bypass, end-stage renal disease who was admitted with lower abdominal pain, panic colitis status post surgery about few weeks ago, was admitted with worsening symptoms and underwent panniculectomy again and also incision and drainage of the left thigh and drainage of the pelvic abscess with questionable multiple surgeries since admission x3, and anemia status post transfusion of 3 units of packed red blood cells. 1. End-stage renal disease. Continue hemodialysis three times a week Monday, Monday, Monday. 2. Hypertension, most likely secondary to pain. Continue her current medications hydralazine and metoprolol. 3. Secondary hyperparathyroidism, continue Renvela and calcium acetate. 4. Panic colitis, status post multiple surgeries, continue to follow with Dr. Holland. We will follow with you. Thank you for allowing me to participate in your patient's care and continue analgesics as needed. Marc Jarrett MD
--- NOTE | 2017-05-20 21:56 | OP ---
PROCEDURE DATE: 05/15/2017 PREOPERATIVE DIAGNOSES: An open wound abscess cavity in the left pelvis and thigh. POSTOPERATIVE DIAGNOSES: An open wound and abscess cavity in the left pelvis and thigh. PROCEDURE PERFORMED: Redebridement and redrainage of left pelvic abscess with adjacent tissue transfer closure wound. SURGEON: José Luis Holland MD ANESTHESIA: General. ESTIMATED BLOOD LOSS: 30 mL. POSTOPERATIVE CONDITION: Stable. INDICATIONS FOR SURGERY: A 41-year-old female, taken back to the operating room today with an open wound in her left pelvic and thigh region, which resulted from excision of an infected phlegmon in this area. She was scheduled for possible placement of a wound VAC. DESCRIPTION OF PROCEDURE: The patient was taken to the operating room. The previous dressings were removed. General anesthesia was administered, and the left pelvis and thigh were prepped and draped. The large open wound was again aggressively bleeding. Bleeding was controlled using the Bovie and remaining collections were drained. The larger blood vessel was repaired. It was felt that the wound was pliable enough to perform a tissue transfer closure and also an advancement flap closure was performed by widely undermining and using heavy Monocryl. Remaining open area of the wound was packed with saline-soaked Kerlix gauze and dressed sterilely. The Wellington-Pandya drain which were in the abdomen were noted not to be draining much and they also were removed at the time of surgery. The patient tolerated the procedure well, returned to recovery room in stable condition. José Luis Holland MD
--- NOTE | 2017-05-20 23:14 | CP.PCM.PN ---
Subjective - Date & Time of Evaluation Date of Evaluation: 05/20/17 Time of Evaluation: 18:05 - Subjective Subjective: Pt seen and evaluated at bedside, she is cormfortable with BUSINESS UNIT DIRECTOR pump, she has decreased abdominal pain, i disciiussed the case at large with , pt received blood transfusion, her H and H are stable. she is cormfortable, afebrile, no shortness of breath Objective - Vital Signs/Intake and Output Vital Signs (last 24 hours): Temp Pulse Resp BP Pulse Ox 98.6 F 82 19 145/74 100 05/20/17 19:52 05/20/17 23:00 05/20/17 23:00 05/20/17 23:00 05/20/17 23:00 Intake and Output: 05/20/17 05/21/17 18:59 06:59 Intake Total 1065 20 Output Total 50 Balance 1065 -30 - Medications Medications: Current Medications Aspirin (Aspirin Chewable) 81 mg PO DAILY [facility] Last Admin: 05/18/17 09:23 Dose: Not Given Calcium Acetate (Phoslo) 1,334 mg PO TIDCC [facility] Last Admin: 05/20/17 18:21 Dose: 1,334 mg Heparin Sodium (Porcine) (Heparin) 5,000 units SC Q12 [facility] Last Admin: 05/18/17 21:45 Dose: 5,000 units Hydralazine HCl (Apresoline) 25 mg PO Q8 [facility] Last Admin: 05/20/17 13:56 Dose: 25 mg Hydralazine HCl (Apresoline) 10 mg IVP Q6 PRN PRN Reason: Systolic Blood Pressure Last Admin: 05/20/17 06:05 Dose: 10 mg Hydromorphone HCl (Dilaudid) 2 mg IVP Q3H PRN PRN Reason: pain Last Admin: 05/19/17 15:17 Dose: 2 mg Hydromorphone/Sodium Chloride (Dilaudid Senior Sharepoint Developer) 6 mg IV Q4H PRN; Protocol PRN Reason: Pain, severe (8-10) Last Admin: 05/20/17 15:43 Dose: 6 mg Piperacillin Sod/Tazobactam Sod (Zosyn 2.25 Gm Iv Premix) 2.25 gm in 50 mls @ 100 mls/hr IVPB Q8 [facility] Last Admin: 05/20/17 21:37 Dose: 100 mls/hr Vancomycin/Sodium Chloride (Vancomycin 1 Gm/Ns 200 Ml) 1 gm in 200 mls @ 166.7 mls/hr IVPB MWF [facility] Stop: 05/22/17 09:01 Last Admin: 05/19/17 12:46 Dose: 166.7 mls/hr Desmopressin Acetate 20 mcg/ (Sodium Chloride) 55 mls @ 100 mls/hr IV ONCE PRN PRN Reason: give contractor broomcorn threshing to OR 05/17 Last Admin: 05/17/17 13:39 Dose: 100 mls/hr Insulin Aspart (Novolog) 0 unit SC Q6 [facility] PRN Reason: Protocol Last Admin: 05/20/17 18:21 Dose: 2 unit Metoprolol Succinate (Toprol Xl) 50 mg PO DAILY [facility] Last Admin: 05/20/17 13:58 Dose: 50 mg Rosuvastatin Calcium (Crestor) 10 mg PO HS [facility] Last Admin: 05/19/17 22:23 Dose: 10 mg Sevelamer Carbonate (Renvela) 0.8 gm PO TIDCC [facility] Last Admin: 05/20/17 18:21 Dose: 0.8 gm Vitamin B Complex/Vit C/Folic Acid (Nephro-Mandy) 1 tab PO 0800 [facility] Last Admin: 05/20/17 14:15 Dose: Not Given - Labs Labs: 05/20/17 06:35 05/20/17 06:35 PT 15.5 SECONDS (9.7-12.2) H 05/17/17 14:10 INR 1.4 05/17/17 14:10 APTT 31 SECONDS (21-34) 05/17/17 14:10 - Constitutional Appears: No Acute Distress - Head Exam Head Exam: ATRAUMATIC, NORMAL INSPECTION, NORMOCEPHALIC - Eye Exam Eye Exam: EOMI, Normal appearance, PERRL Pupil Exam: NORMAL ACCOMODATION, PERRL - Cardiovascular Exam Cardiovascular Exam: REGULAR RHYTHM, +S1, +S2. absent: Murmur - GI/Abdominal Exam GI & Abdominal Exam: Soft, Normal Bowel Sounds Additional comments: post op Assessment and Plan (1) Type 2 diabetes mellitus Status: Acute (2) HTN (hypertension) Status: Acute (3) ESRD (end stage renal disease) on dialysis Status: Acute (4) Panniculitis, unspecified Status: Acute
[2017-05-21] MEDS: (Novolog) Insulin Aspart, Recombinant 100 u/ml 10 ml vial SC SCH ×4 (01:01→18:30)
[2017-05-21] MEDS: Piperacill/Tazo 2.25gm in Dex 2.25 GM/50 ML BAG IVPB SCH ×3 (05:39→21:50)
[2017-05-21 06:36] LABS: BASO % 0.2 % (0.0-2.0); EOS # 0.4 K/uL (0.0-0.7); EOS % 1.2 % (0.0-4.0); HEMATOCRIT 23.2 % (34.0-47.0); LYMPH # 1.6 K/uL (1.0-4.3); LYMPH % 5.6 % (20.0-40.0); MEAN CELL VOLUME 87.7 fL (81.0-99.0); MEAN CORPUSCULAR HEMOGLOBIN 26.8 pg (27.0-31.0); MEAN CORPUSCULAR HGB CONC 30.5 g/dL (33.0-37.0); MEAN PLATELET VOLUME 9.7 fL (7.2-11.7); MONO # 1.9 K/uL (0.0-0.8); MONO % 6.7 % (0.0-10.0); PLATELET COUNT 347 K/uL (130-400); WHITE BLOOD COUNT 28.7 K/uL (4.8-10.8)
[2017-05-21 06:48] LABS: ALB/GLOB RATIO 0.7 (1.0-2.1); BILIRUBIN,TOTAL 1.6 mg/dL (0.2-1.3); MAGNESIUM 2.2 mg/dL (1.6-2.3); PHOSPHOROUS 6.2 mg/dL (2.5-4.5); POTASSIUM 4.7 mmol/L (3.6-5.2); TOTAL PROTEIN 7.8 g/dL (6.3-8.3)
[2017-05-21] MEDS: Sevelamer Carb 0.8 gm/Packet PO SCH ×3 (08:32→18:30)
[2017-05-21] MEDS: Multivitamin Vitamin B Complex (Nephro-Vite) Tab PO SCH ×2 (08:41→08:44)
[2017-05-21 08:57] LABS: NEUTROPHIL 90 % (50-75); TOTAL CELLS COUNTED 100
[2017-05-21 08:58] LABS: LARGE PLATELETS PRESENT
[2017-05-21 08:59] LABS: GIANT PLATELETS PRESENT
[2017-05-21] MEDS: Metoprolol Succinate 50 mg XL Tab PO SCH (12:19)
--- NOTE | 2017-05-21 12:51 | CP.PCM.PN ---
Subjective - Date & Time of Evaluation Date of Evaluation: 05/21/17 Time of Evaluation: 08:00 - Subjective Subjective: denies fever or chills sitting up in bed in NAD IV antibiotics renewed Objective - Vital Signs/Intake and Output Vital Signs (last 24 hours): Temp Pulse Resp BP Pulse Ox 98.3 F 79 16 149/77 98 05/21/17 00:00 05/21/17 12:00 05/21/17 12:00 05/21/17 11:59 05/21/17 12:00 Intake and Output: 05/21/17 05/21/17 06:59 18:59 Intake Total 110 38 Output Total 50 Balance 60 38 - Medications Medications: Current Medications Aspirin (Aspirin Chewable) 81 mg PO DAILY [facility] Last Admin: 05/18/17 09:23 Dose: Not Given Calcium Acetate (Phoslo) 1,334 mg PO TIDCC [facility] Last Admin: 05/21/17 12:19 Dose: 1,334 mg Heparin Sodium (Porcine) (Heparin) 5,000 units SC Q12 [facility] Last Admin: 05/18/17 21:45 Dose: 5,000 units Hydralazine HCl (Apresoline) 25 mg PO Q8 [facility] Last Admin: 05/21/17 05:39 Dose: 25 mg Hydralazine HCl (Apresoline) 10 mg IVP Q6 PRN PRN Reason: Systolic Blood Pressure Last Admin: 05/20/17 06:05 Dose: 10 mg Hydromorphone HCl (Dilaudid) 2 mg IVP Q3H PRN PRN Reason: pain Last Admin: 05/19/17 15:17 Dose: 2 mg Hydromorphone/Sodium Chloride (Dilaudid Lead Web Developer) 6 mg IV Q4H PRN; Protocol PRN Reason: Pain, severe (8-10) Last Admin: 05/21/17 10:23 Dose: 6 mg Piperacillin Sod/Tazobactam Sod (Zosyn 2.25 Gm Iv Premix) 2.25 gm in 50 mls @ 100 mls/hr IVPB Q8 [facility] Last Admin: 05/21/17 05:39 Dose: 100 mls/hr Vancomycin/Sodium Chloride (Vancomycin 1 Gm/Ns 200 Ml) 1 gm in 200 mls @ 166.7 mls/hr IVPB MWF [facility] Stop: 05/22/17 09:01 Last Admin: 05/19/17 12:46 Dose: 166.7 mls/hr Desmopressin Acetate 20 mcg/ (Sodium Chloride) 55 mls @ 100 mls/hr IV ONCE PRN PRN Reason: give pupil personnel services director to OR 05/17 Last Admin: 05/17/17 13:39 Dose: 100 mls/hr Insulin Aspart (Novolog) 0 unit SC Q6 [facility] PRN Reason: Protocol Last Admin: 05/21/17 12:19 Dose: 2 unit Metoprolol Succinate (Toprol Xl) 50 mg PO DAILY [facility] Last Admin: 05/21/17 12:19 Dose: 50 mg Rosuvastatin Calcium (Crestor) 10 mg PO HS [facility] Last Admin: 05/20/17 22:00 Dose: 10 mg Sevelamer Carbonate (Renvela) 0.8 gm PO TIDCC [facility] Last Admin: 05/21/17 12:18 Dose: 0.8 gm Vitamin B Complex/Vit C/Folic Acid (Nephro-Mandy) 1 tab PO 0800 [facility] Last Admin: 05/21/17 08:44 Dose: Not Given - Labs Labs: 05/21/17 06:24 05/21/17 06:24 PT 15.5 SECONDS (9.7-12.2) H 05/17/17 14:10 INR 1.4 05/17/17 14:10 APTT 31 SECONDS (21-34) 05/17/17 14:10 - Constitutional Appears: Well - Head Exam Head Exam: ATRAUMATIC, NORMAL INSPECTION, NORMOCEPHALIC - Eye Exam Eye Exam: EOMI, Normal appearance, PERRL Pupil Exam: NORMAL ACCOMODATION, PERRL - ENT Exam ENT Exam: Mucous Membranes Moist, Normal Exam - Neck Exam Neck Exam: Full ROM, Normal Inspection. absent: Lymphadenopathy - Respiratory Exam Respiratory Exam: Clear to Ausculation Bilateral, NORMAL BREATHING PATTERN - Cardiovascular Exam Cardiovascular Exam: REGULAR RHYTHM, +S1, +S2. absent: Murmur - GI/Abdominal Exam GI & Abdominal Exam: Soft, Diminished Bowel Sounds, Normal Bowel Sounds. absent : Organomegaly - Rectal Exam Rectal Exam: NORMAL INSPECTION - Exam Exam: Circumcision, NORMAL INSPECTION External exam: NORMAL EXTERNAL EXAM Speculum exam: NORMAL SPECULUM EXAM Bimanual exam: NORMAL BIMANUAL EXAM - Extremities Exam Extremities Exam: Full ROM, Normal Capillary Refill, Normal Inspection. absent : Joint Swelling, Pedal Edema - Back Exam Back Exam: NORMAL INSPECTION - Neurological Exam Neurological Exam: Alert, Awake, CN II-XII Intact, Normal Gait, Oriented x3 - Psychiatric Exam Psychiatric exam: Normal Affect, Normal Mood - Skin Skin Exam: Dry, Intact, Normal Color, Warm Assessment and Plan (1) Cellulitis Status: Acute (2) Cellulitis Status: Acute (3) ESRD (end stage renal disease) on dialysis Status: Acute (4) HTN (hypertension) Status: Acute (5) Panniculitis, unspecified Status: Acute (6) Type 2 diabetes mellitus Status: Acute - Assessment and Plan (Free Text) Assessment: cont iv rx for panniculitis await final culture reports
--- NOTE | 2017-05-21 16:56 | CP.CCUPN ---
CCU Subjective - Physician Review Events Since Last Encounter (Free Text): 05/21/17 16:54 Patient seen and examined. 41-year-old female with end-stage renal disease on hemodialysis was admitted with infected, bleeding necrotic tissue involving the lower abdomen status post panniculectomy. Patient in no distress and able to tolerate feeding. CCU Objective - Vital Signs / Intake & Output Vital Signs (Last 4 hours): Vital Signs Temp Pulse Resp BP Pulse Ox 05/21/17 13:00 98.2 F 82 19 100 05/21/17 12:59 83 20 137/72 100 Intake and Output (Last 8hrs): Intake & Output 05/21/17 05/21/17 05/21/17 06:59 14:59 22:59 Intake Total 90 543 Balance 90 543 Weight 212 lb 210 lb Intake: Intake, IV Amount 90 43 Left Antecubital 13 Left Hand 90 30 Oral 500 - Physical Exam Head: Positive for: Atraumatic, Normocephalic Pupils: Positive for: PERRL Extroacular Muscles: Positive for: EOMI Conjunctiva: Positive for: Normal Mouth: Positive for: Dry Respiratory/Chest: Positive for: Clear to Auscultation, Good Air Exchange Cardiovascular: Positive for: Normal S1, S2 Upper Extremity: Positive for: Normal Inspection Lower Extremity: Positive for: Edema, Other (left thigh necrotic wound ) Psychiatric: Positive for: Alert, Oriented x 3 - Medications Active Medications: Active Medications Generic Name Dose Route Start Last Admin Trade Name Freq PRN Reason Stop Dose Admin Aspirin 81 mg 05/16/17 10:00 05/18/17 09:23 Aspirin Chewable PO Not Given DAILY [facility] Calcium Acetate 1,334 mg 05/16/17 08:00 05/21/17 12:19 Phoslo PO 1,334 mg TIDCC [facility] Administration Heparin Sodium (Porcine) 5,000 units 05/15/17 22:00 05/18/17 21:45 Heparin SC 5,000 units Q12 [facility] Administration Hydralazine HCl 25 mg 05/15/17 22:00 05/21/17 14:18 Apresoline PO 25 mg Q8 [facility] Administration Hydralazine HCl 10 mg 05/18/17 15:31 05/20/17 06:05 Apresoline IVP 10 mg Q6 PRN Administration Systolic Blood Pressure Hydromorphone HCl 2 mg 05/18/17 23:25 05/19/17 15:17 Dilaudid IVP 2 mg Q3H PRN Administration pain Hydromorphone/Sodium Chloride 6 mg 05/19/17 18:54 05/21/17 10:23 Dilaudid Shelving Supervisor IV 6 mg Q4H PRN Administration Pain, severe (8-10) Protocol Piperacillin Sod/Tazobactam Sod 2.25 gm in 50 mls @ 100 mls/hr 05/15/17 22:00 05/21/17 14:17 Zosyn 2.25 Gm Iv Premix IVPB 100 mls/hr Q8 [facility] Administration Vancomycin/Sodium Chloride 1 gm in 200 mls @ 166.7 mls/hr 05/17/17 09:00 12:46 Vancomycin 1 Gm/Ns 200 Ml IVPB 05/22/17 09:01 166.7 mls/hr MWF [facility] Administration Desmopressin Acetate 20 mcg/ 55 mls @ 100 mls/hr 05/17/17 07:30 05/17/17 13: 39 Sodium Chloride IV 100 mls/hr ONCE PRN Administration give recreation therapy teacher to OR 05/17 Insulin Aspart 0 unit 05/18/17 08:30 05/21/17 12:19 Novolog SC 2 unit Q6 [facility] Administration Protocol Metoprolol Succinate 50 mg 05/16/17 10:00 05/21/17 12:19 Toprol Xl PO 50 mg DAILY [facility] Administration Rosuvastatin Calcium 10 mg 05/15/17 22:00 05/20/17 22:00 Crestor PO 10 mg HS [facility] Administration Sevelamer Carbonate 0.8 gm 05/17/17 08:00 05/21/17 12:18 Renvela PO 0.8 gm TIDCC [facility] Administration Vitamin B Complex/Vit C/Folic Acid 1 tab 05/16/17 08:00 05/21/17 08:44 Nephro-Mandy PO Not Given 0800 [facility] - Patient Studies Lab Studies: Microbiology Studies 05/18/17 15:32 Gram Stain - Final Thigh - Left Wound Culture - Preliminary No growth. 05/17/17 16:00 Gram Stain - Final Abdomen Wound Culture - Final No growth. 05/20/17 12:46 Gram Stain - Final Thigh - Left Wound Culture - Preliminary NO GROWTH AFTER 24 HOURS 05/15/17 11:00 Blood Culture - Final Blood NO GROWTH AFTER 5 DAYS Gram Stain - Final TEST NOT PERFORMED 05/15/17 11:30 Blood Culture - Final Blood NO GROWTH AFTER 5 DAYS Gram Stain - Final TEST NOT PERFORMED Lab Studies 05/21/17 05/21/17 05/21/17 Range/Units 11:34 06:24 06:24 WBC 28.7 H (4.8-10.8) K/uL RBC 2.64 L (3.80-5.20) Mil/uL Hgb 7.1 L (11.0-16.0) g/dL Hct 23.2 L (34.0-47.0) % MCV 87.7 D (81.0-99.0) fL MCH 26.8 L (27.0-31.0) pg MCHC 30.5 L (33.0-37.0) g/dL RDW 19.0 H (11.5-14.5) % Plt Count 347 (130-400) K/uL MPV 9.7 (7.2-11.7) fL Neut % (Auto) 86.3 H (50.0-75.0) % Lymph % (Auto) 5.6 L (20.0-40.0) % Wilkinson % (Auto) 6.7 (0.0-10.0) % Eos % (Auto) 1.2 (0.0-4.0) % Baso % (Auto) 0.2 (0.0-2.0) % Neut # 24.8 H (1.8-7.0) K/uL Lymph # 1.6 (1.0-4.3) K/uL Wilkinson # 1.9 H (0.0-0.8) K/uL Eos # 0.4 (0.0-0.7) K/uL Baso # 0.0 (0.0-0.2) K/uL Neutrophils % (Manual) 90 H (50-75) % Lymphocytes % (Manual) 5 L (20-40) % Monocytes % (Manual) 5 (0-10) % Toxic Granulation Present Platelet Estimate Normal (NORMAL) Large Platelets Present Giant Platelets Present Polychromasia Slight Hypochromasia (manual) Moderate Anisocytosis (manual) Moderate Sodium 131 L (132-148) mmol/L Potassium 4.7 (3.6-5.2) mmol/L Chloride 94 L (98-107) mmol/L Carbon Dioxide 22 (22-30) mmol/L Anion Gap 20 (10-20) BUN 43 H (7-17) mg/dL Creatinine 4.9 H (0.7-1.2) mg/dL Est GFR ( Amer) 12 Est GFR (Non-Af Amer) 10 POC Glucose (mg/dL) 208 H (65-110) mg/dL Random Glucose 121 H (65-105) mg/dL Calcium 8.0 L (8.6-10.4) mg/dl Phosphorus 6.2 H (2.5-4.5) mg/dL Magnesium 2.2 (1.6-2.3) mg/dL Total Bilirubin 1.6 H (0.2-1.3) mg/dL AST 32 (14-36) U/L ALT 34 (9-52) U/L Alkaline Phosphatase 169 H (38-126) U/L Total Protein 7.8 (6.3-8.3) g/dL Albumin 3.1 L (3.5-5.0) g/dL Globulin 4.6 H (2.2-3.9) gm/dL Albumin/Globulin Ratio 0.7 L (1.0-2.1) 05/21/17 05/21/17 05/20/17 Range/Units 05:36 00:05 17:52 WBC (4.8-10.8) K/uL RBC (3.80-5.20) Mil/uL Hgb (11.0-16.0) g/dL Hct (34.0-47.0) % MCV (81.0-99.0) fL MCH (27.0-31.0) pg MCHC (33.0-37.0) g/dL RDW (11.5-14.5) % Plt Count (130-400) K/uL MPV (7.2-11.7) fL Neut % (Auto) (50.0-75.0) % Lymph % (Auto) (20.0-40.0) % Wilkinson % (Auto) (0.0-10.0) % Eos % (Auto) (0.0-4.0) % Baso % (Auto) (0.0-2.0) % Neut # (1.8-7.0) K/uL Lymph # (1.0-4.3) K/uL Wilkinson # (0.0-0.8) K/uL Eos # (0.0-0.7) K/uL Baso # (0.0-0.2) K/uL Neutrophils % (Manual) (50-75) % Lymphocytes % (Manual) (20-40) % Monocytes % (Manual) (0-10) % Toxic Granulation Platelet Estimate (NORMAL) Large Platelets Giant Platelets Polychromasia Hypochromasia (manual) Anisocytosis (manual) Sodium (132-148) mmol/L Potassium (3.6-5.2) mmol/L Chloride (98-107) mmol/L Carbon Dioxide (22-30) mmol/L Anion Gap (10-20) BUN (7-17) mg/dL Creatinine (0.7-1.2) mg/dL Est GFR ( Amer) Est GFR (Non-Af Amer) POC Glucose (mg/dL) 171 H 139 H 232 H (65-110) mg/dL Random Glucose (65-105) mg/dL Calcium (8.6-10.4) mg/dl Phosphorus (2.5-4.5) mg/dL Magnesium (1.6-2.3) mg/dL Total Bilirubin (0.2-1.3) mg/dL AST (14-36) U/L ALT (9-52) U/L Alkaline Phosphatase (38-126) U/L Total Protein (6.3-8.3) g/dL Albumin (3.5-5.0) g/dL Globulin (2.2-3.9) gm/dL Albumin/Globulin Ratio (1.0-2.1) Laboratory Results - last 24 hr 05/20/17 05/21/17 05/21/17 17:52 00:05 05:36 WBC RBC Hgb Hct MCV MCH MCHC RDW Plt Count MPV Neut % (Auto) Lymph % (Auto) Wilkinson % (Auto) Eos % (Auto) Baso % (Auto) Neut # Lymph # Wilkinson # Eos # Baso # Neutrophils % (Manual) Lymphocytes % (Manual) Monocytes % (Manual) Toxic Granulation Platelet Estimate Large Platelets Giant Platelets Polychromasia Hypochromasia (manual) Anisocytosis (manual) Sodium Potassium Chloride Carbon Dioxide Anion Gap BUN Creatinine Est GFR ( Amer) Est GFR (Non-Af Amer) POC Glucose (mg/dL) 232 H 139 H 171 H Random Glucose Calcium Phosphorus Magnesium Total Bilirubin AST ALT Alkaline Phosphatase Total Protein Albumin Globulin Albumin/Globulin Ratio 05/21/17 05/21/17 05/21/17 06:24 06:24 11:34 WBC 28.7 H RBC 2.64 L Hgb 7.1 L Hct 23.2 L MCV 87.7 D MCH 26.8 L MCHC 30.5 L RDW 19.0 H Plt Count 347 MPV 9.7 Neut % (Auto) 86.3 H Lymph % (Auto) 5.6 L Wilkinson % (Auto) 6.7 Eos % (Auto) 1.2 Baso % (Auto) 0.2 Neut # 24.8 H Lymph # 1.6 Wilkinson # 1.9 H Eos # 0.4 Baso # 0.0 Neutrophils % (Manual) 90 H Lymphocytes % (Manual) 5 L Monocytes % (Manual) 5 Toxic Granulation Present Platelet Estimate Normal Large Platelets Present Giant Platelets Present Polychromasia Slight Hypochromasia (manual) Moderate Anisocytosis (manual) Moderate Sodium 131 L Potassium 4.7 Chloride 94 L Carbon Dioxide 22 Anion Gap 20 BUN 43 H Creatinine 4.9 H Est GFR ( Amer) 12 Est GFR (Non-Af Amer) 10 POC Glucose (mg/dL) 208 H Random Glucose 121 H Calcium 8.0 L Phosphorus 6.2 H Magnesium 2.2 Total Bilirubin 1.6 H AST 32 ALT 34 Alkaline Phosphatase 169 H Total Protein 7.8 Albumin 3.1 L Globulin 4.6 H Albumin/Globulin Ratio 0.7 L Fingerstick Blood Sugar Results: 208 Critical Care Progress Note - Nutrition Nutrition: Nutrition Category Date Time Status Renal Diet [DIET] Diets 05/20/17 Lunch Active Assessment/Plan (1) Panniculitis, unspecified Current Visit: Yes Status: Acute Comment: Continue IV antibiotics as per infectious disease (2) ESRD (end stage renal disease) on dialysis Current Visit: Yes Status: Acute
--- NOTE | 2017-05-21 18:10 | CP.PCM.PN ---
Subjective - Date & Time of Evaluation Date of Evaluation: 05/21/17 Time of Evaluation: 18:09 - Subjective Subjective: pt is seen and examined, follow up consult is dictated #[id number] Objective - Vital Signs/Intake and Output Vital Signs (last 24 hours): Temp Pulse Resp BP Pulse Ox 98.3 F 96 H 19 197/90 H 100 05/21/17 17:00 05/21/17 17:04 05/21/17 17:04 05/21/17 17:04 05/21/17 16:00 Intake and Output: 05/21/17 05/21/17 06:59 18:59 Intake Total 110 813 Output Total 50 50 Balance 60 763 - Medications Medications: Current Medications Aspirin (Aspirin Chewable) 81 mg PO DAILY [facility] Last Admin: 05/18/17 09:23 Dose: Not Given Calcium Acetate (Phoslo) 1,334 mg PO TIDCC [facility] Last Admin: 05/21/17 12:19 Dose: 1,334 mg Heparin Sodium (Porcine) (Heparin) 5,000 units SC Q12 [facility] Last Admin: 05/18/17 21:45 Dose: 5,000 units Hydralazine HCl (Apresoline) 25 mg PO Q8 [facility] Last Admin: 05/21/17 14:18 Dose: 25 mg Hydralazine HCl (Apresoline) 10 mg IVP Q6 PRN PRN Reason: Systolic Blood Pressure Last Admin: 05/20/17 06:05 Dose: 10 mg Hydromorphone HCl (Dilaudid) 2 mg IVP Q3H PRN PRN Reason: pain Last Admin: 05/19/17 15:17 Dose: 2 mg Hydromorphone/Sodium Chloride (Dilaudid Lay Out Inspector) 6 mg IV Q4H PRN; Protocol PRN Reason: Pain, severe (8-10) Last Admin: 05/21/17 10:23 Dose: 6 mg Piperacillin Sod/Tazobactam Sod (Zosyn 2.25 Gm Iv Premix) 2.25 gm in 50 mls @ 100 mls/hr IVPB Q8 [facility] Last Admin: 05/21/17 14:17 Dose: 100 mls/hr Vancomycin/Sodium Chloride (Vancomycin 1 Gm/Ns 200 Ml) 1 gm in 200 mls @ 166.7 mls/hr [facility] Stop: 05/22/17 09:01 Last Admin: 05/19/17 12:46 Dose: 166.7 mls/hr Desmopressin Acetate 20 mcg/ (Sodium Chloride) 55 mls @ 100 mls/hr IV ONCE PRN PRN Reason: give international coordinator to [place] 05/17 Last Admin: 05/17/17 13:39 Dose: 100 mls/hr Insulin Aspart (Novolog) 0 unit SC Q6 TG PRN Reason: Protocol Last Admin: 05/21/17 12:19 Dose: 2 unit Metoprolol Succinate (Toprol Xl) 50 mg PO DAILY [facility] Last Admin: 05/21/17 12:19 Dose: 50 mg Rosuvastatin Calcium (Crestor) 10 mg PO HS [facility] Last Admin: 05/20/17 22:00 Dose: 10 mg Sevelamer Carbonate (Renvela) 0.8 gm PO TIDCC [facility] Last Admin: 05/21/17 12:18 Dose: 0.8 gm Vitamin B Complex/Vit C/Folic Acid (Nephro-Mandy) 1 tab PO 0800 [facility] Last Admin: 05/21/17 08:44 Dose: Not Given - Labs Labs: 05/21/17 06:24 05/21/17 06:24 PT 15.5 SECONDS (9.7-12.2) H 05/17/17 14:10 INR 1.4 05/17/17 14:10 APTT 31 SECONDS (21-34) 05/17/17 14:10
--- NOTE | 2017-05-21 20:32 | CP.PCM.PN ---
Subjective - Date & Time of Evaluation Date of Evaluation: 05/21/17 Time of Evaluation: 18:20 - Subjective Subjective: pt seen and examined, sitting in chair, in no distress and able to tolerate feeding.Pt with end-stage renal disease on hemodialysis was admitted with infected, bleeding necrotic tissue involving the lower abdomen status post panniculectomy. Objective - Vital Signs/Intake and Output Vital Signs (last 24 hours): Temp Pulse Resp BP Pulse Ox 98.3 F 83 17 161/76 H 100 05/21/17 17:00 05/21/17 19:00 05/21/17 19:00 05/21/17 18:59 05/21/17 18:00 Intake and Output: 05/21/17 05/22/17 18:59 06:59 Intake Total 1018 10 Output Total 50 50 Balance 968 -40 - Medications Medications: Current Medications Aspirin (Aspirin Chewable) 81 mg PO DAILY [facility] Last Admin: 05/18/17 09:23 Dose: Not Given Calcium Acetate (Phoslo) 1,334 mg PO TIDCC [facility] Last Admin: 05/21/17 18:30 Dose: 1,334 mg Heparin Sodium (Porcine) (Heparin) 5,000 units SC Q12 [facility] Last Admin: 05/18/17 21:45 Dose: 5,000 units Hydralazine HCl (Apresoline) 25 mg PO Q8 [facility] Last Admin: 05/21/17 14:18 Dose: 25 mg Hydralazine HCl (Apresoline) 10 mg IVP Q6 PRN PRN Reason: Systolic Blood Pressure Last Admin: 05/20/17 06:05 Dose: 10 mg Hydromorphone HCl (Dilaudid) 2 mg IVP Q3H PRN PRN Reason: pain Last Admin: 05/19/17 15:17 Dose: 2 mg Hydromorphone/Sodium Chloride (Dilaudid Stained Glass Artist) 6 mg IV Q4H PRN; Protocol PRN Reason: Pain, severe (8-10) Last Admin: 05/21/17 20:05 Dose: 6 mg Piperacillin Sod/Tazobactam Sod (Zosyn 2.25 Gm Iv Premix) 2.25 gm in 50 mls @ 100 mls/hr IVPB Q8 [facility] Last Admin: 05/21/17 14:17 Dose: 100 mls/hr Vancomycin/Sodium Chloride (Vancomycin 1 Gm/Ns 200 Ml) 1 gm in 200 mls @ 166.7 mls/hr IVPB MWF [facility] Stop: 05/22/17 09:01 Last Admin: 05/19/17 12:46 Dose: 166.7 mls/hr Desmopressin Acetate 20 mcg/ (Sodium Chloride) 55 mls @ 100 mls/hr IV ONCE PRN PRN Reason: give propulsion systems engineer to [place] 05/17 Last Admin: 05/17/17 13:39 Dose: 100 mls/hr Insulin Aspart (Novolog) 0 unit SC Q6 [facility] PRN Reason: Protocol Last Admin: 05/21/17 18:30 Dose: 2 unit Metoprolol Succinate (Toprol Xl) 50 mg PO DAILY [facility] Last Admin: 05/21/17 12:19 Dose: 50 mg Rosuvastatin Calcium (Crestor) 10 mg PO HS [facility] Last Admin: 05/20/17 22:00 Dose: 10 mg Sevelamer Carbonate (Renvela) 0.8 gm PO TIDCC [facility] Last Admin: 05/21/17 18:30 Dose: 0.8 gm Vitamin B Complex/Vit C/Folic Acid (Nephro-Mandy) 1 tab PO 0800 [facility] Last Admin: 05/21/17 08:44 Dose: Not Given - Labs Labs: 05/21/17 06:24 05/21/17 06:24 PT 15.5 SECONDS (9.7-12.2) H 05/17/17 14:10 INR 1.4 05/17/17 14:10 APTT 31 SECONDS (21-34) 05/17/17 14:10 - Constitutional Appears: No Acute Distress - Head Exam Head Exam: ATRAUMATIC, NORMAL INSPECTION, NORMOCEPHALIC - Eye Exam Eye Exam: EOMI, Normal appearance, PERRL Pupil Exam: NORMAL ACCOMODATION, PERRL - Respiratory Exam Respiratory Exam: Clear to Ausculation Bilateral, NORMAL BREATHING PATTERN - Cardiovascular Exam Cardiovascular Exam: REGULAR RHYTHM, +S1, +S2. absent: Murmur - GI/Abdominal Exam GI & Abdominal Exam: Soft, Normal Bowel Sounds. absent: Tenderness Assessment and Plan (1) Type 2 diabetes mellitus Status: Acute (2) HTN (hypertension) Status: Acute (3) ESRD (end stage renal disease) on dialysis Status: Acute (4) Panniculitis, unspecified Status: Acute
--- NOTE | 2017-05-22 01:43 | PN ---
DATE: FOLLOWUP RENAL CONSULTATION LOCATION: The patient is located in ICU bed 2. REQUESTED BY: Romulo Yoo MD REASON FOR FOLLOWUP: End-stage renal disease, for continuation of hemodialysis, panniculitis. HISTORY OF PRESENT ILLNESS: Ms. Schmitz is a 41 years old young obese female with a past medical history significant for longstanding hypertension, diabetes, end-stage renal disease, status post gastric bypass, secondary hyperparathyroidism, was admitted recently to the [facility] about 3 to 4 weeks ago with severe lower abdominal pain and lower extremity pain mostly in the thigh region and found to have panniculitis status post panniculectomy and now the patient was admitted with worsening symptoms and the patient underwent panniculectomy again by Dr. Holland. The patient is out of bed to chair, feeling slightly better today. Less abdominal pain. No fever. No cough. No chest pain. No nausea, vomiting, diarrhea. PHYSICAL EXAMINATION: VITAL SIGNS: As follows, blood pressure 162/79, pulse 78, respirations 14, temperature 98.2, saturation 100%. Height 5 feet 6 inches, weight is 210 pounds. GENERAL: Ms. Schmitz is a 41 years old female, moderately built, moderate nourished, not in acute distress. HEENT: Pupils normal, reactive to light and accommodation. Conjunctivae pink. Sclerae anicteric. Tongue is moist. Trachea is midline. LUNGS: Symmetric on both sides. Bilateral breath sounds present. Clear on auscultation. CARDIOVASCULAR: [place] at the fifth intercostal space, midclavicular line. S1 and S2 audible. No murmur or gallop. ABDOMEN: Soft, tympanic, [id number] tenderness in the lower abdomen. Bowel sounds present. No guarding. No rigidity. CENTRAL NERVOUS SYSTEMS: The patient is alert, awake and oriented x3. Nonfocal neuro examination. Cranial nerves II through XII grossly intact. Sensory and motor system is within normal limits. EXTREMITIES: No cyanosis, no clubbing, no edema. MEDICATIONS: Include as follows, hydralazine 25 mg p.o. q. 8 hours, hydralazine 10 mg IV q. 6 hours, aspirin 81 mg daily on hold, Crestor 10 mg at bedtime, hydromorphone PATIENT CARRIER, Nephro-Mandy 1 tablet daily, insulin Novolin R for sliding scale and calcium acetate 667 mg 2 tablets p.o. t.i.d., Renvela 800 mg p.o. t.i.d., metoprolol 50 mg p.o. daily, and vancomycin 1 g 3 times a week, and Zosyn 2.25 g IV q. 8 hours. LABORATORY DATA: Include as follows; as of 05/21/2017, WBC 28.7, hemoglobin 7.1, hematocrit 23.2, and platelets 347. Sodium 131, potassium 4.7, chloride 94, CO2 of 22, BUN 43, creatinine 4.9, glucose 171, calcium 8.0, phosphorus 6.2, magnesium 2.2. Total bili 1.6. AST 32, ALT 34, alkaline phosphatase 169. Total protein 7.8, albumin is 3.1. ASSESSMENT AND PLAN: In summary, Ms. Schmitz is 41 years old female with a history of hypertension, diabetes and diabetic retinopathy, end-stage renal disease, obesity, status post gastric bypass, was admitted with severe panniculitis status post surgery, and status post multiple transfusions, about 4 packed RBC transfusions since admission. 1. End-stage renal disease. Continue hemodialysis 3 times a week, Monday, Monday, and Monday. 2. Severe panniculitis status post panniculectomy, continue to follow up with surgery. 3. Hypertension. Blood pressure is improving. Continue her current medication and will titrate as needed. 4. Secondary hyperparathyroidism. Continue phosphate binders. We will follow with you. Thank you for allowing me to participate in your patient's care. Follow up BMP in a.m. and CBC in a.m. Marc Jarrett MD
[2017-05-22] MEDS: Piperacill/Tazo 2.25gm in Dex 2.25 GM/50 ML BAG IVPB SCH (05:48)
[2017-05-22 06:32] LABS: BASO % 0.1 % (0.0-2.0); EOS # 0.7 K/uL (0.0-0.7); EOS % 2.2 % (0.0-4.0); LYMPH # 1.6 K/uL (1.0-4.3); LYMPH % 5.5 % (20.0-40.0); MEAN CELL VOLUME 88.3 fL (81.0-99.0); MEAN CORPUSCULAR HEMOGLOBIN 27.9 pg (27.0-31.0); MEAN CORPUSCULAR HGB CONC 31.6 g/dL (33.0-37.0); MEAN PLATELET VOLUME 9.8 fL (7.2-11.7); MONO # 2.1 K/uL (0.0-0.8); MONO % 7.1 % (0.0-10.0); NRBC % 0.1 % (0.0-2.0); PLATELET COUNT 407 K/uL (130-400); RED CELL DISTRIBUTION WIDTH 18.5 % (11.5-14.5); WHITE BLOOD COUNT 29.2 K/uL (4.8-10.8)
[2017-05-22 06:50] LABS: ALB/GLOB RATIO 0.8 (1.0-2.1); BILIRUBIN,TOTAL 1.8 mg/dL (0.2-1.3); CALCIUM 7.9 mg/dl (8.6-10.4); MAGNESIUM 2.1 mg/dL (1.6-2.3); POTASSIUM 4.9 mmol/L (3.6-5.2); TOTAL PROTEIN 7.1 g/dL (6.3-8.3)
[2017-05-22] MEDS: Multivitamin Vitamin B Complex (Nephro-Vite) Tab PO SCH (08:23)
[2017-05-22] MEDS: (Novolin R) Insulin Human Regular 100 units/ml vial SC SCH ×4 (08:24→21:39)
[2017-05-22] MEDS: Sevelamer Carb 0.8 gm/Packet PO SCH ×3 (08:24→16:38)
[2017-05-22] MEDS: Vancomycin 1 gm/NS 200 ml 1 GM/200 ML BAG IVPB SCH (08:27)
[2017-05-22 08:30] LABS: EOSINOPHIL 4 % (0-4); NEUTROPHIL 83 % (50-75); TOTAL CELLS COUNTED 100
[2017-05-22 08:32] LABS: GIANT PLATELETS PRESENT; LARGE PLATELETS PRESENT
--- NOTE | 2017-05-22 10:54 | CP.CCUPN ---
CCU Subjective - Physician Review Subjective (Free Text): 05/22/17 10:46 Patient seen and examined at bedside this morning. Patient is sitting up in the chair next to her bed. She states that her pain is currently well controlled. She is able to eat but has a decreased appetite. She does not get nauseous or vomit, she just does not feel hungry. Surgery had just seen the patient and changed her dressing. Patient reports two normal BMs yesterday. Denies fevers, chills, diarrhea, constipation, shortness of breath or chest pain. CCU Objective - Vital Signs / Intake & Output Vital Signs (Last 4 hours): Vital Signs Pulse Resp BP Pulse Ox 05/22/17 07:00 79 15 100 05/22/17 06:59 82 9 L 156/80 H 100 Intake and Output (Last 8hrs): Intake & Output 05/21/17 05/22/17 05/22/17 22:59 06:59 14:59 Intake Total 490 210 450 Output Total 100 0 Balance 390 210 450 Intake: Intake, IV Amount 40 90 200 Left Hand 40 90 200 Oral 450 120 250 Output: Urine 100 Urine, Voided 100 Stool 0 Other: # Bowel Movements 1 - Physical Exam Head: Positive for: Atraumatic, Normocephalic Pupils: Positive for: PERRL Extroacular Muscles: Positive for: EOMI Conjunctiva: Positive for: Normal Mouth: Positive for: Dry Respiratory/Chest: Positive for: Clear to Auscultation, Good Air Exchange Cardiovascular: Positive for: Regular Rate and Rhythm, Normal S1, S2 Abdomen: Positive for: Tenderness (diffuse), Other (dried blood accross lower abdomen. New dressing placed by surgery, c/d/i) Upper Extremity: Positive for: Normal Inspection Lower Extremity: Positive for: Edema, Other (left thigh necrotic wound ). Negative for: CALF TENDERNESS Neurological: Positive for: Speech Normal Psychiatric: Positive for: Alert, Oriented x 3 - Medications Active Medications: Active Medications Generic Name Dose Route Start Last Admin Trade Name Freq PRN Reason Stop Dose Admin Aspirin 81 mg 05/16/17 10:00 05/18/17 09:23 Aspirin Chewable PO Not Given DAILY TG Calcium Acetate 1,334 mg 05/16/17 08:00 05/22/17 08:23 Phoslo PO 1,334 mg TIDCC TG Administration Heparin Sodium (Porcine) 5,000 units 05/15/17 22:00 05/18/17 21:45 Heparin SC 5,000 units Q12 TG Administration Hydralazine HCl 25 mg 05/15/17 22:00 05/22/17 05:48 Apresoline PO 25 mg Q8 TG Administration Hydralazine HCl 10 mg 05/18/17 15:31 05/22/17 02:42 Apresoline IVP 10 mg Q6 PRN Administration Systolic Blood Pressure Hydromorphone HCl 2 mg 05/18/17 23:25 05/21/17 22:59 Dilaudid IVP 2 mg Q3H PRN Administration pain Hydromorphone/Sodium Chloride 6 mg 05/19/17 18:54 05/22/17 04:37 Dilaudid Dress Finisher IV 6 mg Q4H PRN Administration Pain, severe (8-10) Protocol Piperacillin Sod/Tazobactam Sod 2.25 gm in 50 mls @ 100 mls/hr 05/15/17 22:00 05/22/17 05:48 Zosyn 2.25 Gm Iv Premix IVPB 100 mls/hr Q8 [facility] Administration Desmopressin Acetate 20 mcg/ 55 mls @ 100 mls/hr 05/17/17 07:30 05/17/17 13: 39 Sodium Chloride IV 100 mls/hr ONCE PRN Administration give pss delivery professional to OR 05/17 Insulin Human Regular 0 unit 05/22/17 07:30 05/22/17 08:24 Novolin R SC Not Given ACHS [facility] Protocol Metoprolol Succinate 50 mg 05/16/17 10:00 05/21/17 12:19 Toprol Xl PO 50 mg DAILY TG Administration Rosuvastatin Calcium 10 mg 05/15/17 22:00 05/21/17 21:49 Crestor PO 10 mg HS TG Administration Sevelamer Carbonate 0.8 gm 05/17/17 08:00 05/22/17 08:24 Renvela PO 0.8 gm TIDCC TG Administration Vitamin B Complex/Vit C/Folic Acid 1 tab 05/16/17 08:00 05/22/17 08:23 Nephro-Mandy PO 1 tab 0800 TG Administration - Patient Studies Lab Studies: Microbiology Studies 05/18/17 15:32 Gram Stain - Final Thigh - Left Wound Culture - Preliminary No growth. 05/17/17 16:00 Gram Stain - Final Abdomen Wound Culture - Final No growth. 05/20/17 12:46 Gram Stain - Final Thigh - Left Wound Culture - Preliminary NO GROWTH AFTER 24 HOURS Lab Studies 05/22/17 05/22/17 05/22/17 Range/Units 07:29 06:24 06:23 WBC 29.2 H (4.8-10.8) K/uL RBC 2.72 L (3.80-5.20) Mil/uL Hgb 7.6 L (11.0-16.0) g/dL Hct 24.0 L (34.0-47.0) % MCV 88.3 (81.0-99.0) fL MCH 27.9 (27.0-31.0) pg MCHC 31.6 L (33.0-37.0) g/dL RDW 18.5 H (11.5-14.5) % Plt Count 407 H (130-400) K/uL MPV 9.8 (7.2-11.7) fL Neut % (Auto) 85.1 H (50.0-75.0) % Lymph % (Auto) 5.5 L (20.0-40.0) % Mellette % (Auto) 7.1 (0.0-10.0) % Eos % (Auto) 2.2 (0.0-4.0) % Baso % (Auto) 0.1 (0.0-2.0) % Neut # 24.8 H (1.8-7.0) K/uL Lymph # 1.6 (1.0-4.3) K/uL Mellette # 2.1 H (0.0-0.8) K/uL Eos # 0.7 (0.0-0.7) K/uL Baso # 0.0 (0.0-0.2) K/uL Neutrophils % (Manual) 83 H (50-75) % Lymphocytes % (Manual) 6 L (20-40) % Monocytes % (Manual) 7 (0-10) % Eosinophils % (Manual) 4 (0-4) % Toxic Granulation Present Platelet Estimate Normal (NORMAL) Large Platelets Present Giant Platelets Present Hypochromasia (manual) Moderate Poikilocytosis (manual Slight Anisocytosis (manual) Slight Microcytosis (manual) Slight Macrocytosis (manual) Slight Target Cells Slight Tear Drop Cells Slight Sodium 131 L (132-148) mmol/L Potassium 4.9 (3.6-5.2) mmol/L Chloride 91 L (98-107) mmol/L Carbon Dioxide 21 L (22-30) mmol/L Anion Gap 23 H (10-20) BUN 55 H (7-17) mg/dL Creatinine 5.7 H (0.7-1.2) mg/dL Est GFR ( Amer) 10 Est GFR (Non-Af Amer) 8 POC Glucose (mg/dL) 149 H (65-110) mg/dL Random Glucose 149 H (65-105) mg/dL Calcium 7.9 L (8.6-10.4) mg/dl Phosphorus 6.0 H (2.5-4.5) mg/dL Magnesium 2.1 (1.6-2.3) mg/dL Total Bilirubin 1.8 H (0.2-1.3) mg/dL AST 33 (14-36) U/L ALT 27 (9-52) U/L Alkaline Phosphatase 209 H D (38-126) U/L Total Protein 7.1 (6.3-8.3) g/dL Albumin 3.3 L (3.5-5.0) g/dL Globulin 3.9 (2.2-3.9) gm/dL Albumin/Globulin Ratio 0.8 L (1.0-2.1) 05/21/17 05/21/17 Range/Units 17:51 11:34 WBC (4.8-10.8) K/uL RBC (3.80-5.20) Mil/uL Hgb (11.0-16.0) g/dL Hct (34.0-47.0) % MCV (81.0-99.0) fL MCH (27.0-31.0) pg MCHC (33.0-37.0) g/dL RDW (11.5-14.5) % Plt Count (130-400) K/uL MPV (7.2-11.7) fL Neut % (Auto) (50.0-75.0) % Lymph % (Auto) (20.0-40.0) % Mellette % (Auto) (0.0-10.0) % Eos % (Auto) (0.0-4.0) % Baso % (Auto) (0.0-2.0) % Neut # (1.8-7.0) K/uL Lymph # (1.0-4.3) K/uL Mellette # (0.0-0.8) K/uL Eos # (0.0-0.7) K/uL Baso # (0.0-0.2) K/uL Neutrophils % (Manual) (50-75) % Lymphocytes % (Manual) (20-40) % Monocytes % (Manual) (0-10) % Eosinophils % (Manual) (0-4) % Toxic Granulation Platelet Estimate (NORMAL) Large Platelets Giant Platelets Hypochromasia (manual) Poikilocytosis (manual Anisocytosis (manual) Microcytosis (manual) Macrocytosis (manual) Target Cells Tear Drop Cells Sodium (132-148) mmol/L Potassium (3.6-5.2) mmol/L Chloride (98-107) mmol/L Carbon Dioxide (22-30) mmol/L Anion Gap (10-20) BUN (7-17) mg/dL Creatinine (0.7-1.2) mg/dL Est GFR ( Amer) Est GFR (Non-Af Amer) POC Glucose (mg/dL) 205 H 208 H (65-110) mg/dL Random Glucose (65-105) mg/dL Calcium (8.6-10.4) mg/dl Phosphorus (2.5-4.5) mg/dL Magnesium (1.6-2.3) mg/dL Total Bilirubin (0.2-1.3) mg/dL AST (14-36) U/L ALT (9-52) U/L Alkaline Phosphatase (38-126) U/L Total Protein (6.3-8.3) g/dL Albumin (3.5-5.0) g/dL Globulin (2.2-3.9) gm/dL Albumin/Globulin Ratio (1.0-2.1) Laboratory Results - last 24 hr 05/21/17 05/21/17 05/22/17 11:34 17:51 06:23 WBC 29.2 H RBC 2.72 L Hgb 7.6 L Hct 24.0 L MCV 88.3 MCH 27.9 MCHC 31.6 L RDW 18.5 H Plt Count 407 H MPV 9.8 Neut % (Auto) 85.1 H Lymph % (Auto) 5.5 L Mellette % (Auto) 7.1 Eos % (Auto) 2.2 Baso % (Auto) 0.1 Neut # 24.8 H Lymph # 1.6 Mellette # 2.1 H Eos # 0.7 Baso # 0.0 Neutrophils % (Manual) 83 H Lymphocytes % (Manual) 6 L Monocytes % (Manual) 7 Eosinophils % (Manual) 4 Toxic Granulation Present Platelet Estimate Normal Large Platelets Present Giant Platelets Present Hypochromasia (manual) Moderate Poikilocytosis (manual Slight Anisocytosis (manual) Slight Microcytosis (manual) Slight Macrocytosis (manual) Slight Target Cells Slight Tear Drop Cells Slight Sodium Potassium Chloride Carbon Dioxide Anion Gap BUN Creatinine Est GFR ( Amer) Est GFR (Non-Af Amer) POC Glucose (mg/dL) 208 H 205 H Random Glucose Calcium Phosphorus Magnesium Total Bilirubin AST ALT Alkaline Phosphatase Total Protein Albumin Globulin Albumin/Globulin Ratio 05/22/17 05/22/17 06:24 07:29 WBC RBC Hgb Hct MCV MCH MCHC RDW Plt Count MPV Neut % (Auto) Lymph % (Auto) Mellette % (Auto) Eos % (Auto) Baso % (Auto) Neut # Lymph # Mellette # Eos # Baso # Neutrophils % (Manual) Lymphocytes % (Manual) Monocytes % (Manual) Eosinophils % (Manual) Toxic Granulation Platelet Estimate Large Platelets Giant Platelets Hypochromasia (manual) Poikilocytosis (manual Anisocytosis (manual) Microcytosis (manual) Macrocytosis (manual) Target Cells Tear Drop Cells Sodium 131 L Potassium 4.9 Chloride 91 L Carbon Dioxide 21 L Anion Gap 23 H BUN 55 H Creatinine 5.7 H Est GFR ( Amer) 10 Est GFR (Non-Af Amer) 8 POC Glucose (mg/dL) 149 H Random Glucose 149 H Calcium 7.9 L Phosphorus 6.0 H Magnesium 2.1 Total Bilirubin 1.8 H AST 33 ALT 27 Alkaline Phosphatase 209 H D Total Protein 7.1 Albumin 3.3 L Globulin 3.9 Albumin/Globulin Ratio 0.8 L Fingerstick Blood Sugar Results: 145 Review of Systems - Constitutional Constitutional: absent: Fever, Chills - EENT Nose/Mouth/Throat: UNREMARKABLE. absent: Nasal Congestion, Nasal Discharge, Sore Throat - Cardiovascular Cardiovascular: absent: Chest Pain, Chest Pain at Rest, Diaphoresis, Palpitations - Respiratory Respiratory: absent: Cough, Dyspnea - Gastrointestinal Gastrointestinal: Abdominal Pain (pain with movement). absent: Constipation, Diarrhea, Loose Stools, Melena, Nausea, Vomiting - Genitourinary Genitourinary: absent: Dysuria - Neurological Neurological: UNREMARKABLE - Psychiatric Psychiatric: UNREMARKABLE - Endocrine Endocrine: UNREMARKABLE Critical Care Progress Note - Nutrition Nutrition: Nutrition Category Date Time Status Renal Diet [DIET] Diets 05/20/17 Lunch Active Assessment/Plan - Assessment and Plan (Free Text) Assessment: 41 year old female with ESRD and Panniculitis s/p radical panniculectomy POD#2 Plan: Skin: Panniculitis - dressings changes per surgery, on Zosyn 2.25 Left thigh wound - packing changes per surgery, no growth on wound cultures. Abx per ID Renal: ESRD on HD, continue HD MWF HTN - Metoprolol Succ 50mg PO daily, hydralazine 25mg PO q8 Endo: DM2 - ISS Secondary Hyperparathyroidism - continue phosphate binders Case discussed with Dr. Lucho Gutiérrez Francisco PGY1
[2017-05-22] MEDS: Metoprolol Succinate 50 mg XL Tab PO SCH (11:42)
--- NOTE | 2017-05-22 12:52 | CP.PCM.PN ---
Subjective - Date & Time of Evaluation Date of Evaluation: 05/22/17 Time of Evaluation: 12:51 - Subjective Subjective: pt is seen and examined, follow up consult is dictated #[id number] s/p hd today, uf 2.6 lit Objective - Vital Signs/Intake and Output Vital Signs (last 24 hours): Temp Pulse Resp BP Pulse Ox 98.2 F 77 17 167/80 H 100 05/22/17 01:00 05/22/17 11:00 05/22/17 11:00 05/22/17 10:59 05/22/17 11:00 Intake and Output: 05/22/17 05/22/17 06:59 18:59 Intake Total 230 570 Output Total 50 0 Balance 180 570 - Medications Medications: Current Medications Aspirin (Aspirin Chewable) 81 mg PO DAILY [facility] Last Admin: 05/18/17 09:23 Dose: Not Given Calcium Acetate (Phoslo) 1,334 mg PO TIDCC [facility] Last Admin: 05/22/17 11:43 Dose: 1,334 mg Heparin Sodium (Porcine) (Heparin) 5,000 units SC Q12 [facility] Last Admin: 05/18/17 21:45 Dose: 5,000 units Hydralazine HCl (Apresoline) 25 mg PO Q8 [facility] Last Admin: 05/22/17 05:48 Dose: 25 mg Hydralazine HCl (Apresoline) 10 mg IVP Q6 PRN PRN Reason: Systolic Blood Pressure Last Admin: 05/22/17 02:42 Dose: 10 mg Hydromorphone HCl (Dilaudid) 2 mg IVP Q3H PRN PRN Reason: pain Last Admin: 05/21/17 22:59 Dose: 2 mg Hydromorphone/Sodium Chloride (Dilaudid 7Th Grade Teacher) 6 mg IV Q4H PRN; Protocol PRN Reason: Pain, severe (8-10) Last Admin: 05/22/17 04:37 Dose: 6 mg Piperacillin Sod/Tazobactam Sod (Zosyn 2.25 Gm Iv Premix) 2.25 gm in 50 mls @ 100 mls/hr IVPB Q8 [facility] Last Admin: 05/22/17 05:48 Dose: 100 mls/hr Desmopressin Acetate 20 mcg/ (Sodium Chloride) 55 mls @ 100 mls/hr IV ONCE PRN PRN Reason: give fiction writer to OR 05/17 Last Admin: 05/17/17 13:39 Dose: 100 mls/hr Insulin Human Regular (Novolin R) 0 unit SC ACHS [facility] PRN Reason: Protocol Last Admin: 05/22/17 11:42 Dose: 3 unit Metoprolol Succinate (Toprol Xl) 50 mg PO DAILY [facility] Last Admin: 05/22/17 11:42 Dose: 50 mg Rosuvastatin Calcium (Crestor) 10 mg PO HS [facility] Last Admin: 05/21/17 21:49 Dose: 10 mg Sevelamer Carbonate (Renvela) 0.8 gm PO TIDCC [facility] Last Admin: 05/22/17 11:43 Dose: 0.8 gm Vitamin B Complex/Vit C/Folic Acid (Nephro-Mandy) 1 tab PO 0800 [facility] Last Admin: 05/22/17 08:23 Dose: 1 tab - Labs Labs: 05/22/17 06:23 05/22/17 06:24 PT 15.5 SECONDS (9.7-12.2) H 05/17/17 14:10 INR 1.4 05/17/17 14:10 APTT 31 SECONDS (21-34) 05/17/17 14:10
--- NOTE | 2017-05-22 13:35 | CP.PCM.PN ---
Subjective - Date & Time of Evaluation Date of Evaluation: 05/22/17 Time of Evaluation: 05:00 - Subjective Subjective: awake alert oob to chair no fever WBC elevated- reactive ? Objective - Vital Signs/Intake and Output Vital Signs (last 24 hours): Temp Pulse Resp BP Pulse Ox 98.2 F 77 17 167/80 H 100 05/22/17 01:00 05/22/17 11:00 05/22/17 11:00 05/22/17 10:59 05/22/17 11:00 Intake and Output: 05/22/17 05/22/17 06:59 18:59 Intake Total 230 570 Output Total 50 0 Balance 180 570 - Medications Medications: Current Medications Aspirin (Aspirin Chewable) 81 mg PO DAILY [facility] Last Admin: 05/18/17 09:23 Dose: Not Given Calcium Acetate (Phoslo) 1,334 mg PO TIDCC [facility] Last Admin: 05/22/17 11:43 Dose: 1,334 mg Heparin Sodium (Porcine) (Heparin) 5,000 units SC Q12 [facility] Last Admin: 05/18/17 21:45 Dose: 5,000 units Hydralazine HCl (Apresoline) 25 mg PO Q8 [facility] Last Admin: 05/22/17 05:48 Dose: 25 mg Hydralazine HCl (Apresoline) 10 mg IVP Q6 PRN PRN Reason: Systolic Blood Pressure Last Admin: 05/22/17 02:42 Dose: 10 mg Hydromorphone HCl (Dilaudid) 2 mg IVP Q3H PRN PRN Reason: pain Last Admin: 05/21/17 22:59 Dose: 2 mg Hydromorphone/Sodium Chloride (Dilaudid Natural Gas Basis Trader) 6 mg IV Q4H PRN; Protocol PRN Reason: Pain, severe (8-10) Last Admin: 05/22/17 04:37 Dose: 6 mg Piperacillin Sod/Tazobactam Sod (Zosyn 2.25 Gm Iv Premix) 2.25 gm in 50 mls @ 100 mls/hr IVPB Q8 [facility] Last Admin: 05/22/17 05:48 Dose: 100 mls/hr Desmopressin Acetate 20 mcg/ (Sodium Chloride) 55 mls @ 100 mls/hr IV ONCE PRN PRN Reason: give sap payroll consultant to OR 05/17 Last Admin: 05/17/17 13:39 Dose: 100 mls/hr Insulin Human Regular (Novolin R) 0 unit SC ACHS [facility] PRN Reason: Protocol Last Admin: 05/22/17 11:42 Dose: 3 unit Metoprolol Succinate (Toprol Xl) 50 mg PO DAILY [facility] Last Admin: 05/22/17 11:42 Dose: 50 mg Rosuvastatin Calcium (Crestor) 10 mg PO HS [facility] Last Admin: 05/21/17 21:49 Dose: 10 mg Sevelamer Carbonate (Renvela) 0.8 gm PO TIDCC [facility] Last Admin: 05/22/17 11:43 Dose: 0.8 gm Vitamin B Complex/Vit C/Folic Acid (Nephro-Mandy) 1 tab PO 0800 [facility] Last Admin: 05/22/17 08:23 Dose: 1 tab - Labs Labs: 05/22/17 06:23 05/22/17 06:24 PT 15.5 SECONDS (9.7-12.2) H 05/17/17 14:10 INR 1.4 05/17/17 14:10 APTT 31 SECONDS (21-34) 05/17/17 14:10 - Constitutional Appears: Non-toxic, Chronically Ill - Head Exam Head Exam: NORMOCEPHALIC - Eye Exam Eye Exam: PERRL - ENT Exam ENT Exam: Mucous Membranes Dry - Cardiovascular Exam Cardiovascular Exam: absent: REGULAR RHYTHM Assessment and Plan (1) Cellulitis Status: Acute (2) Cellulitis Status: Acute (3) ESRD (end stage renal disease) on dialysis Status: Acute (4) HTN (hypertension) Status: Acute (5) Panniculitis, unspecified Status: Acute (6) Type 2 diabetes mellitus Status: Acute
[2017-05-22] MEDS ORDERED: Cefepime IV 1 gm in Dextrose 1 GM/50 ML BAG IVPB SCH (13:45)
[2017-05-22] MEDS: Cefepime IV 1 gm in Dextrose 1 GM/50 ML BAG IVPB SCH (16:39)
--- NOTE | 2017-05-22 23:36 | CP.PCM.PN ---
Subjective - Date & Time of Evaluation Date of Evaluation: 05/22/17 Time of Evaluation: 17:50 - Subjective Subjective: Pt seen and examined at bedside, she is improving, wound is undergoing daily irrigation and debribement, pt is able to stand and walk, nutritional stats are better Objective - Vital Signs/Intake and Output Vital Signs (last 24 hours): Temp Pulse Resp BP Pulse Ox 97.8 F 86 15 181/122 H 84 L 05/22/17 20:43 05/22/17 23:17 05/22/17 23:17 05/22/17 23:17 05/22/17 23:17 Intake and Output: 05/22/17 05/23/17 18:59 06:59 Intake Total 885 35.0 Output Total 2600 Balance -1715 35.0 - Medications Medications: Current Medications Aspirin (Aspirin Chewable) 81 mg PO DAILY [facility] Last Admin: 05/18/17 09:23 Dose: Not Given Calcium Acetate (Phoslo) 1,334 mg PO TIDCC [facility] Last Admin: 05/22/17 16:38 Dose: 1,334 mg Heparin Sodium (Porcine) (Heparin) 5,000 units SC Q12 [facility] Last Admin: 05/18/17 21:45 Dose: 5,000 units Hydralazine HCl (Apresoline) 25 mg PO Q8 [facility] Last Admin: 05/22/17 21:37 Dose: 25 mg Hydralazine HCl (Apresoline) 10 mg IVP Q6 PRN PRN Reason: Systolic Blood Pressure Last Admin: 05/22/17 02:42 Dose: 10 mg Hydromorphone HCl (Dilaudid) 2 mg IVP Q3H PRN PRN Reason: pain Last Admin: 05/22/17 22:05 Dose: 2 mg Hydromorphone/Sodium Chloride (Dilaudid Medical Research Assistant) 6 mg IV Q4H PRN; Protocol PRN Reason: pain,severe(8-10) Last Admin: 05/22/17 22:24 Dose: 6 mg Desmopressin Acetate 20 mcg/ (Sodium Chloride) 55 mls @ 100 mls/hr IV ONCE PRN PRN Reason: give industrial education teacher to OR 05/17 Last Admin: 05/17/17 13:39 Dose: 100 mls/hr Vancomycin HCl 500 mg/ Sodium (Chloride) 100 mls @ 100 mls/hr IVPB [place] Cefepime HCl (Maxipime Iv 1 Gm Premix) 1 gm in 50 mls @ 100 mls/hr IVPB 1700 [facility] Last Admin: 05/22/17 16:39 Dose: 100 mls/hr Insulin Human Regular (Novolin R) 0 unit SC ACHS [facility] PRN Reason: Protocol Last Admin: 05/22/17 21:39 Dose: Not Given Metoprolol Succinate (Toprol Xl) 50 mg PO DAILY [facility] Last Admin: 05/22/17 11:42 Dose: 50 mg Rosuvastatin Calcium (Crestor) 10 mg PO HS [facility] Last Admin: 05/22/17 21:37 Dose: 10 mg Sevelamer Carbonate (Renvela) 0.8 gm PO TIDCC [facility] Last Admin: 05/22/17 16:38 Dose: 0.8 gm Vitamin B Complex/Vit C/Folic Acid (Nephro-Mandy) 1 tab PO 0800 [facility] Last Admin: 05/22/17 08:23 Dose: 1 tab - Labs Labs: 05/22/17 06:23 05/22/17 06:24 PT 15.5 SECONDS (9.7-12.2) H 05/17/17 14:10 INR 1.4 05/17/17 14:10 APTT 31 SECONDS (21-34) 05/17/17 14:10 Assessment and Plan (1) Type 2 diabetes mellitus Status: Acute (2) HTN (hypertension) Status: Acute (3) ESRD (end stage renal disease) on dialysis Status: Acute (4) Panniculitis, unspecified Status: Acute
--- NOTE | 2017-05-23 03:26 | PN ---
DATE: FOLLOWUP RENAL CONSULTATION LOCATION: The patient is located in ICU bed 2. REQUESTED BY: Dr. Romulo Yoo. REASON FOR FOLLOWUP: End-stage renal disease, for continuation of hemodialysis, and panniculitis status post panniculectomy and anemia. HISTORY OF PRESENT ILLNESS: Ms. Schmitz is a 41 years old obese female with a past medical history significant for longstanding hypertension, diabetes, obesity, hyperlipidemia and status post gastric bypass, who was admitted to [facility] about few weeks ago with severe panniculitis, abdominal pain, sepsis. Subsequently the patient underwent panniculectomy and discharged home. Subsequently after a few weeks, the patient admitted to [facility] with severe abdominal pain, panniculitis, worsening symptoms and the patient underwent surgery by Dr. Hollnad. The patient still complains of moderate lower abdominal pain. No chest pain, no palpitation. No fever. No cough. The patient is being dialyzed, UF goal is 2 to 3 L as tolerated. PHYSICAL EXAMINATION: VITAL SIGNS: This morning as follows: blood pressure 166/77, pulse 78, respirations 13, temperature 97.4, saturation 100%. Height 5 feet 6 inches, weight is 210 pounds. GENERAL: Ms. Schmitz is a 41 years old obese female, moderately built, moderate nourished, not in acute distress. HEENT: Pupils normal, reactive to light and accommodation. Conjunctivae slightly pale. Sclerae anicteric. Tongue is moist. Trachea is midline. LUNGS: Symmetric on both sides. Bilateral breath sounds present. Clear on auscultation. CARDIOVASCULAR: [place] at the fifth intercostal space, midclavicular line. S1 and S2 audible. No murmur or gallop. ABDOMEN: Normal in appearance, status post surgery in the lower abdomen for panniculitis, status post panniculectomy. No guarding. No rigidity. No abdominal bruit. No hepatosplenomegaly. CENTRAL NERVOUS SYSTEMS: The patient is alert, awake and oriented x3, nonfocal neuro examination. Cranial nerves II through XII grossly intact. Sensory and motor system is within normal limits. EXTREMITIES: No cyanosis, no clubbing, no edema. CURRENT MEDICATIONS: Include as follows, hydralazine 25 mg p.o. q. 8 hours, hydralazine 10 mg IV q. 6 hours p.r.n., Crestor 10 mg at bedtime, hydromorphone p.r.n., cefepime 1 g daily, Nephro-Mandy 1 tablet daily, PhosLo 667 mg 2 tablets p.o. t.i.d., Renvela 800 mg p.o. t.i.d., Toprol XL 50 mg p.o. daily, and vancomycin 1 g 3 times a week. LABORATORY DATA: Include as follows; as of 05/22/2017, WBC 29.2, hemoglobin 7.6, hematocrit is 24, platelets 407. Sodium 131, potassium 4.9, chloride 91, CO2 of 21, BUN 55, creatinine 5.7, glucose 149, calcium 7.9, phosphorus 6.0, magnesium 2.1. Total bilirubin 1.8, AST 33, ALT 27, alkaline phosphatase 209. Total protein 7.1, albumin is 3.3, and procalcitonin is 6.97. Blood culture x2 negative from 05/15/2017. Wound cultures are negative x4. MRSA screening was negative. ASSESSMENT AND PLAN: In summary, Ms. Schmitz is a 41 years old obese female with a history of hypertension, diabetes, end-stage renal disease, obesity, status post gastric bypass, panniculitis, was admitted with severe abdominal pain and bilateral thigh pain, and status post panniculectomy, status post incision and drainage of the pelvic abscess and multiple blood transfusions, about 4 units since admission with low H and H seen in dialysis. 1. End-stage renal disease. Continue hemodialysis 3 times a week, Monday, Monday, Monday. 2. Hypertension. 3. Diabetes. 4. Anemia secondary to multiple surgeries. 5. Panniculitis status post panniculectomy and incision and drainage of the left thigh swelling. Continue analgesics as per surgery and continue antibiotics as per ID recommendations. Stable hemodialysis, had ultrafiltration about 2.6 L and the patient terminated early dialysis due to abdominal pain. Check iron, TIBC, ferritin in a.m. Follow up electrolytes and follow up CBC. Continue Epogen during dialysis. Continue Renvela and PhosLo. We will follow with you. Thank you for allowing me to participate in your patient's care. Marc Jarrett MD
[2017-05-23 06:50] LABS: BASO # 0.1 K/uL (0.0-0.2); BASO % 0.3 % (0.0-2.0); EOS # 0.4 K/uL (0.0-0.7); EOS % 1.7 % (0.0-4.0); HEMATOCRIT 24.9 % (34.0-47.0); LYMPH % 4.3 % (20.0-40.0); MEAN CELL VOLUME 86.9 fL (81.0-99.0); MEAN CORPUSCULAR HEMOGLOBIN 28.1 pg (27.0-31.0); MEAN CORPUSCULAR HGB CONC 32.3 g/dL (33.0-37.0); MEAN PLATELET VOLUME 9.6 fL (7.2-11.7); MONO # 1.9 K/uL (0.0-0.8); MONO % 8.3 % (0.0-10.0); PLATELET COUNT 429 K/uL (130-400); RED CELL DISTRIBUTION WIDTH 18.9 % (11.5-14.5); WHITE BLOOD COUNT 23.3 K/uL (4.8-10.8)
[2017-05-23 06:59] LABS: ALB/GLOB RATIO 0.7 (1.0-2.1); BILIRUBIN,TOTAL 1.2 mg/dL (0.2-1.3); CALCIUM 8.7 mg/dl (8.6-10.4); MAGNESIUM 2.1 mg/dL (1.6-2.3); PHOSPHOROUS 5.7 mg/dL (2.5-4.5); POTASSIUM 4.4 mmol/L (3.6-5.2); TOTAL PROTEIN 8.5 g/dL (6.3-8.3)
[2017-05-23] MEDS: Multivitamin Vitamin B Complex (Nephro-Vite) Tab PO SCH ×2 (08:00→08:12)
[2017-05-23] MEDS: Sevelamer Carb 0.8 gm/Packet PO SCH ×3 (08:12→16:37)
[2017-05-23] MEDS: (Novolin R) Insulin Human Regular 100 units/ml vial SC SCH ×4 (08:12→21:24)
[2017-05-23 08:32] LABS: EOSINOPHIL 1 % (0-4); GIANT PLATELETS PRESENT; LARGE PLATELETS PRESENT; MYELOCYTE 1 % (0-0); NEUTROPHIL 86 % (50-75); TOTAL CELLS COUNTED 100
--- NOTE | 2017-05-23 08:36 | CP.CCUPN ---
CCU Objective - Vital Signs / Intake & Output Vital Signs (Last 4 hours): Vital Signs Temp Pulse Resp BP Pulse Ox 05/23/17 08:00 97.7 F 90 14 99 05/23/17 07:44 83 12 156/78 H 99 05/23/17 07:00 84 7 L 99 05/23/17 06:44 81 18 149/77 99 05/23/17 06:00 82 13 99 05/23/17 05:44 105 H 17 167/78 H 05/23/17 05:00 86 17 100 05/23/17 04:44 84 11 L 160/80 H 100 Intake and Output (Last 8hrs): Intake & Output 05/22/17 05/23/17 05/23/17 22:59 06:59 14:59 Intake Total 247.5 450.0 7.5 Output Total 2600 0 Balance -2352.5 450.0 7.5 Intake: Intake, IV Amount 97.5 60.0 7.5 Left Antecubital 50 Left Hand 47.5 60.0 7.5 Oral 150 390 Output: Stool 0 Other 2600 - Physical Exam Head: Positive for: Atraumatic, Normocephalic Pupils: Positive for: PERRL Extroacular Muscles: Positive for: EOMI Conjunctiva: Positive for: Normal Mouth: Positive for: Dry Respiratory/Chest: Positive for: Clear to Auscultation, Good Air Exchange Cardiovascular: Positive for: Regular Rate and Rhythm, Normal S1, S2 Abdomen: Positive for: Tenderness (diffuse), Other (dried blood accross lower abdomen. New dressing placed by surgery, c/d/i) Upper Extremity: Positive for: Normal Inspection Lower Extremity: Positive for: Edema, Other (left thigh necrotic wound ). Negative for: CALF TENDERNESS Neurological: Positive for: Speech Normal Psychiatric: Positive for: Alert, Oriented x 3 - Medications Active Medications: Active Medications Generic Name Dose Route Start Last Admin Trade Name Freq PRN Reason Stop Dose Admin Aspirin 81 mg 05/16/17 10:00 05/18/17 09:23 Aspirin Chewable PO Not Given DAILY TG Calcium Acetate 1,334 mg 05/16/17 08:00 05/23/17 08:12 Phoslo PO 1,334 mg TIDCC TG Administration Heparin Sodium (Porcine) 5,000 units 05/15/17 22:00 05/18/17 21:45 Heparin SC 5,000 units Q12 TG Administration Hydralazine HCl 25 mg 05/15/17 22:00 05/23/17 05:32 Apresoline PO 25 mg Q8 TG Administration Hydralazine HCl 10 mg 05/18/17 15:31 05/23/17 02:53 Apresoline IVP 10 mg Q6 PRN Administration Systolic Blood Pressure Hydromorphone HCl 2 mg 05/18/17 23:25 05/22/17 22:05 Dilaudid IVP 2 mg Q3H PRN Administration pain Hydromorphone/Sodium Chloride 6 mg 05/22/17 22:17 05/23/17 06:29 Dilaudid House Parent IV 6 mg Q4H PRN Administration pain,severe(8-10) Protocol Desmopressin Acetate 20 mcg/ 55 mls @ 100 mls/hr 05/17/17 07:30 05/17/17 13: 39 Sodium Chloride IV 100 mls/hr ONCE PRN Administration give neurological surgeon to OR 05/17 Vancomycin HCl 500 mg/ Sodium 100 mls @ 100 mls/hr 05/24/17 09:00 Chloride IVPB MWF TG Cefepime HCl 1 gm in 50 mls @ 100 mls/hr 05/22/17 17:00 05/22/17 16:39 Maxipime Iv 1 Gm Premix IVPB 100 mls/hr 1700 TG Administration Insulin Human Regular 0 unit 05/22/17 07:30 05/23/17 08:12 Novolin R SC 2 unit ACHS TG Administration Protocol Metoprolol Succinate 50 mg 05/16/17 10:00 05/22/17 11:42 Toprol Xl PO 50 mg DAILY TG Administration Rosuvastatin Calcium 10 mg 05/15/17 22:00 05/22/17 21:37 Crestor PO 10 mg HS TG Administration Sevelamer Carbonate 0.8 gm 05/17/17 08:00 05/23/17 08:12 Renvela PO 0.8 gm TIDCC TG Administration Vitamin B Complex/Vit C/Folic Acid 1 tab 05/16/17 08:00 05/23/17 08:12 Nephro-Mandy PO 1 tab 0800 TG Administration - Patient Studies Lab Studies: Microbiology Studies 05/20/17 12:46 Gram Stain - Final Thigh - Left Wound Culture - Preliminary No growth. 05/18/17 15:32 Gram Stain - Final Thigh - Left Wound Culture - Final No growth. Lab Studies 05/23/17 05/23/17 05/23/17 Range/Units 07:15 06:43 06:36 WBC 23.3 H (4.8-10.8) K/uL RBC 2.86 L (3.80-5.20) Mil/uL Hgb 8.0 L (11.0-16.0) g/dL Hct 24.9 L (34.0-47.0) % MCV 86.9 (81.0-99.0) fL MCH 28.1 (27.0-31.0) pg MCHC 32.3 L (33.0-37.0) g/dL RDW 18.9 H (11.5-14.5) % Plt Count 429 H (130-400) K/uL MPV 9.6 (7.2-11.7) fL Neut % (Auto) 85.4 H (50.0-75.0) % Lymph % (Auto) 4.3 L (20.0-40.0) % [place] % (Auto) 8.3 (0.0-10.0) % Eos % (Auto) 1.7 (0.0-4.0) % Baso % (Auto) 0.3 (0.0-2.0) % Neut # 19.9 H (1.8-7.0) K/uL Lymph # 1.0 (1.0-4.3) K/uL [place] # 1.9 H (0.0-0.8) K/uL Eos # 0.4 (0.0-0.7) K/uL Baso # 0.1 (0.0-0.2) K/uL Neutrophils % (Manual) 86 H (50-75) % Band Neutrophils % 1 (0-2) % Lymphocytes % (Manual) 8 L (20-40) % Monocytes % (Manual) 3 (0-10) % Eosinophils % (Manual) 1 (0-4) % Myelocytes % 1 H (0-0) % Toxic Granulation Present Platelet Estimate Slightly increased H (NORMAL) Large Platelets Present Giant Platelets Present Hypochromasia (manual) Slight Anisocytosis (manual) Moderate Sodium 130 L (132-148) mmol/L Potassium 4.4 (3.6-5.2) mmol/L Chloride 90 L (98-107) mmol/L Carbon Dioxide 27 (22-30) mmol/L Anion Gap 17 (10-20) BUN 38 H (7-17) mg/dL Creatinine 4.5 H (0.7-1.2) mg/dL Est GFR ( Amer) 13 Est GFR (Non-Af Amer) 11 POC Glucose (mg/dL) 167 H (65-110) mg/dL Random Glucose 146 H (65-105) mg/dL Calcium 8.7 (8.6-10.4) mg/dl Phosphorus 5.7 H (2.5-4.5) mg/dL Magnesium 2.1 (1.6-2.3) mg/dL Total Bilirubin 1.2 (0.2-1.3) mg/dL AST 22 (14-36) U/L ALT 24 (9-52) U/L Alkaline Phosphatase 196 H (38-126) U/L Total Protein 8.5 H (6.3-8.3) g/dL Albumin 3.4 L (3.5-5.0) g/dL Globulin 5.1 H (2.2-3.9) gm/dL Albumin/Globulin Ratio 0.7 L (1.0-2.1) Procalcitonin (0.19-0.49) NG/ML 05/22/17 05/22/17 05/22/17 Range/Units 21:28 16:20 15:53 WBC (4.8-10.8) K/uL RBC (3.80-5.20) Mil/uL Hgb (11.0-16.0) g/dL Hct (34.0-47.0) % MCV (81.0-99.0) fL MCH (27.0-31.0) pg MCHC (33.0-37.0) g/dL RDW (11.5-14.5) % Plt Count (130-400) K/uL MPV (7.2-11.7) fL Neut % (Auto) (50.0-75.0) % Lymph % (Auto) (20.0-40.0) % [place] % (Auto) (0.0-10.0) % Eos % (Auto) (0.0-4.0) % Baso % (Auto) (0.0-2.0) % Neut # (1.8-7.0) K/uL Lymph # (1.0-4.3) K/uL [place] # (0.0-0.8) K/uL Eos # (0.0-0.7) K/uL Baso # (0.0-0.2) K/uL Neutrophils % (Manual) (50-75) % Band Neutrophils % (0-2) % Lymphocytes % (Manual) (20-40) % Monocytes % (Manual) (0-10) % Eosinophils % (Manual) (0-4) % Myelocytes % (0-0) % Toxic Granulation Platelet Estimate (NORMAL) Large Platelets Giant Platelets Hypochromasia (manual) Anisocytosis (manual) Sodium (132-148) mmol/L Potassium (3.6-5.2) mmol/L Chloride (98-107) mmol/L Carbon Dioxide (22-30) mmol/L Anion Gap (10-20) BUN (7-17) mg/dL Creatinine (0.7-1.2) mg/dL Est GFR ( Amer) Est GFR (Non-Af Amer) POC Glucose (mg/dL) 173 H 94 (65-110) mg/dL Random Glucose (65-105) mg/dL Calcium (8.6-10.4) mg/dl Phosphorus (2.5-4.5) mg/dL Magnesium (1.6-2.3) mg/dL Total Bilirubin (0.2-1.3) mg/dL AST (14-36) U/L ALT (9-52) U/L Alkaline Phosphatase (38-126) U/L Total Protein (6.3-8.3) g/dL Albumin (3.5-5.0) g/dL Globulin (2.2-3.9) gm/dL Albumin/Globulin Ratio (1.0-2.1) Procalcitonin 6.97 H (0.19-0.49) NG/ML 05/22/17 Range/Units 11:38 WBC (4.8-10.8) K/uL RBC (3.80-5.20) Mil/uL Hgb (11.0-16.0) g/dL Hct (34.0-47.0) % MCV (81.0-99.0) fL MCH (27.0-31.0) pg MCHC (33.0-37.0) g/dL RDW (11.5-14.5) % Plt Count (130-400) K/uL MPV (7.2-11.7) fL Neut % (Auto) (50.0-75.0) % Lymph % (Auto) (20.0-40.0) % [place] % (Auto) (0.0-10.0) % Eos % (Auto) (0.0-4.0) % Baso % (Auto) (0.0-2.0) % Neut # (1.8-7.0) K/uL Lymph # (1.0-4.3) K/uL [place] # (0.0-0.8) K/uL Eos # (0.0-0.7) K/uL Baso # (0.0-0.2) K/uL Neutrophils % (Manual) (50-75) % Band Neutrophils % (0-2) % Lymphocytes % (Manual) (20-40) % Monocytes % (Manual) (0-10) % Eosinophils % (Manual) (0-4) % Myelocytes % (0-0) % Toxic Granulation Platelet Estimate (NORMAL) Large Platelets Giant Platelets Hypochromasia (manual) Anisocytosis (manual) Sodium (132-148) mmol/L Potassium (3.6-5.2) mmol/L Chloride (98-107) mmol/L Carbon Dioxide (22-30) mmol/L Anion Gap (10-20) BUN (7-17) mg/dL Creatinine (0.7-1.2) mg/dL Est GFR ( Amer) Est GFR (Non-Af Amer) POC Glucose (mg/dL) 248 H (65-110) mg/dL Random Glucose (65-105) mg/dL Calcium (8.6-10.4) mg/dl Phosphorus (2.5-4.5) mg/dL Magnesium (1.6-2.3) mg/dL Total Bilirubin (0.2-1.3) mg/dL AST (14-36) U/L ALT (9-52) U/L Alkaline Phosphatase (38-126) U/L Total Protein (6.3-8.3) g/dL Albumin (3.5-5.0) g/dL Globulin (2.2-3.9) gm/dL Albumin/Globulin Ratio (1.0-2.1) Procalcitonin (0.19-0.49) NG/ML Laboratory Results - last 24 hr 05/22/17 05/22/17 05/22/17 11:38 15:53 16:20 WBC RBC Hgb Hct MCV MCH MCHC RDW Plt Count MPV Neut % (Auto) Lymph % (Auto) [place] % (Auto) Eos % (Auto) Baso % (Auto) Neut # Lymph # [place] # Eos # Baso # Neutrophils % (Manual) Band Neutrophils % Lymphocytes % (Manual) Monocytes % (Manual) Eosinophils % (Manual) Myelocytes % Toxic Granulation Platelet Estimate Large Platelets Giant Platelets Hypochromasia (manual) Anisocytosis (manual) Sodium Potassium Chloride Carbon Dioxide Anion Gap BUN Creatinine Est GFR ( Amer) Est GFR (Non-Af Amer) POC Glucose (mg/dL) 248 H 94 Random Glucose Calcium Phosphorus Magnesium Total Bilirubin AST ALT Alkaline Phosphatase Total Protein Albumin Globulin Albumin/Globulin Ratio Procalcitonin 6.97 H 05/22/17 05/23/17 05/23/17 21:28 06:36 06:43 WBC 23.3 H RBC 2.86 L Hgb 8.0 L Hct 24.9 L MCV 86.9 MCH 28.1 MCHC 32.3 L RDW 18.9 H Plt Count 429 H MPV 9.6 Neut % (Auto) 85.4 H Lymph % (Auto) 4.3 L [place] % (Auto) 8.3 Eos % (Auto) 1.7 Baso % (Auto) 0.3 Neut # 19.9 H Lymph # 1.0 [place] # 1.9 H Eos # 0.4 Baso # 0.1 Neutrophils % (Manual) 86 H Band Neutrophils % 1 Lymphocytes % (Manual) 8 L Monocytes % (Manual) 3 Eosinophils % (Manual) 1 Myelocytes % 1 H Toxic Granulation Present Platelet Estimate Slightly increased H Large Platelets Present Giant Platelets Present Hypochromasia (manual) Slight Anisocytosis (manual) Moderate Sodium 130 L Potassium 4.4 Chloride 90 L Carbon Dioxide 27 Anion Gap 17 BUN 38 H Creatinine 4.5 H Est GFR ( Amer) 13 Est GFR (Non-Af Amer) 11 POC Glucose (mg/dL) 173 H Random Glucose 146 H Calcium 8.7 Phosphorus 5.7 H Magnesium 2.1 Total Bilirubin 1.2 AST 22 ALT 24 Alkaline Phosphatase 196 H Total Protein 8.5 H Albumin 3.4 L Globulin 5.1 H Albumin/Globulin Ratio 0.7 L Procalcitonin 05/23/17 07:15 WBC RBC Hgb Hct MCV MCH MCHC RDW Plt Count MPV Neut % (Auto) Lymph % (Auto) [place] % (Auto) Eos % (Auto) Baso % (Auto) Neut # Lymph # [place] # Eos # Baso # Neutrophils % (Manual) Band Neutrophils % Lymphocytes % (Manual) Monocytes % (Manual) Eosinophils % (Manual) Myelocytes % Toxic Granulation Platelet Estimate Large Platelets Giant Platelets Hypochromasia (manual) Anisocytosis (manual) Sodium Potassium Chloride Carbon Dioxide Anion Gap BUN Creatinine Est GFR ( Amer) Est GFR (Non-Af Amer) POC Glucose (mg/dL) 167 H Random Glucose Calcium Phosphorus Magnesium Total Bilirubin AST ALT Alkaline Phosphatase Total Protein Albumin Globulin Albumin/Globulin Ratio Procalcitonin Fingerstick Blood Sugar Results: 167 Critical Care Progress Note - Nutrition Nutrition: Nutrition Category Date Time Status Renal Diet [DIET] Diets 05/20/17 Lunch Active
[2017-05-23] MEDS: Metoprolol Succinate 50 mg XL Tab PO SCH (09:56)
--- NOTE | 2017-05-23 10:17 | CP.PCM.PN ---
Subjective - Date & Time of Evaluation Date of Evaluation: 05/23/17 Time of Evaluation: 10:16 - Subjective Subjective: pt is seen and examined, follow up consult is dictated #[id number] Objective - Vital Signs/Intake and Output Vital Signs (last 24 hours): Temp Pulse Resp BP Pulse Ox 97.7 F 90 14 156/78 H 98 05/23/17 08:00 05/23/17 08:00 05/23/17 08:00 05/23/17 07:44 05/23/17 08:00 Intake and Output: 05/23/17 05/23/17 06:59 18:59 Intake Total 477.5 7.5 Output Total 0 Balance 477.5 7.5 - Medications Medications: Current Medications Aspirin (Aspirin Chewable) 81 mg PO DAILY [facility] Last Admin: 05/18/17 09:23 Dose: Not Given Calcium Acetate (Phoslo) 1,334 mg PO TIDCC [facility] Last Admin: 05/23/17 08:12 Dose: 1,334 mg Heparin Sodium (Porcine) (Heparin) 5,000 units SC Q12 [facility] Last Admin: 05/18/17 21:45 Dose: 5,000 units Hydralazine HCl (Apresoline) 25 mg PO Q8 [facility] Last Admin: 05/23/17 05:32 Dose: 25 mg Hydralazine HCl (Apresoline) 10 mg IVP Q6 PRN PRN Reason: Systolic Blood Pressure Last Admin: 05/23/17 02:53 Dose: 10 mg Hydromorphone HCl (Dilaudid) 2 mg IVP Q3H PRN PRN Reason: pain Last Admin: 05/22/17 22:05 Dose: 2 mg Hydromorphone/Sodium Chloride (Dilaudid [employer]) 6 mg IV Q4H PRN; Protocol PRN Reason: pain,severe(8-10) Last Admin: 05/23/17 06:29 Dose: 6 mg Desmopressin Acetate 20 mcg/ (Sodium Chloride) 55 mls @ 100 mls/hr IV ONCE PRN PRN Reason: give nurse practitioner to OR 05/17 Last Admin: 05/17/17 13:39 Dose: 100 mls/hr Vancomycin HCl 500 mg/ Sodium (Chloride) 100 [facility]ls [facility] (Maxipime Iv 1 Gm Premix) 1 gm in 50 mls @ 100 mls/hr IVPB 1700 [facility] Last Admin: 05/22/17 16:39 Dose: 100 mls/hr Insulin Human Regular (Novolin R) 0 unit SC ACHS [facility] PRN Reason: Protocol Last Admin: 05/23/17 08:12 Dose: 2 unit Metoprolol Succinate (Toprol Xl) 50 mg PO DAILY [facility] Last Admin: 05/23/17 09:56 Dose: 50 mg Rosuvastatin Calcium (Crestor) 10 mg PO HS [facility] Last Admin: 05/22/17 21:37 Dose: 10 mg Sevelamer Carbonate (Renvela) 0.8 gm PO TIDCC [facility] Last Admin: 05/23/17 08:12 Dose: 0.8 gm Vitamin B Complex/Vit C/Folic Acid (Nephro-Mandy) 1 tab PO 0800 [facility] Last Admin: 05/23/17 08:12 Dose: 1 tab - Labs Labs: 05/23/17 06:43 05/23/17 06:36 PT 15.5 SECONDS (9.7-12.2) H 05/17/17 14:10 INR 1.4 05/17/17 14:10 APTT 31 SECONDS (21-34) 05/17/17 14:10
--- NOTE | 2017-05-23 11:43 | CP.PCM.PN ---
Subjective - Date & Time of Evaluation Date of Evaluation: 05/23/17 Time of Evaluation: 09:00 - Subjective Subjective: iv rx in progress c/o epistaxis rx in pprogress Objective - Vital Signs/Intake and Output Vital Signs (last 24 hours): Temp Pulse Resp BP Pulse Ox 97.7 F 81 14 161/79 H 100 05/23/17 08:00 05/23/17 11:00 05/23/17 11:00 05/23/17 10:44 05/23/17 11:00 Intake and Output: 05/23/17 05/23/17 06:59 18:59 Intake Total 477.5 142.5 Output Total 0 50 Balance 477.5 92.5 - Medications Medications: Current Medications Aspirin (Aspirin Chewable) 81 mg PO DAILY [facility] Last Admin: 05/18/17 09:23 Dose: Not Given Calcium Acetate (Phoslo) 1,334 mg PO TIDCC [facility] Last Admin: 05/23/17 11:18 Dose: 1,334 mg Heparin Sodium (Porcine) (Heparin) 5,000 units SC Q12 [facility] Last Admin: 05/18/17 21:45 Dose: 5,000 units Hydralazine HCl (Apresoline) 25 mg PO Q8 [facility] Last Admin: 05/23/17 05:32 Dose: 25 mg Hydralazine HCl (Apresoline) 10 mg IVP Q6 PRN PRN Reason: Systolic Blood Pressure Last Admin: 05/23/17 02:53 Dose: 10 mg Hydromorphone HCl (Dilaudid) 2 mg IVP Q3H PRN PRN Reason: pain Last Admin: 05/22/17 22:05 Dose: 2 mg Hydromorphone/Sodium Chloride (Dilaudid [employer]) 6 mg IV Q4H PRN; Protocol PRN Reason: pain,severe(8-10) Last Admin: 05/23/17 06:29 Dose: 6 mg Desmopressin Acetate 20 mcg/ (Sodium Chloride) 55 mls @ 100 mls/hr IV ONCE PRN PRN Reason: give pony ride attendant to OR 05/17 Last Admin: 05/17/17 13:39 Dose: 100 mls/hr Vancomycin HCl 500 mg/ Sodium (Chloride) 100 mls [facility] (Maxipime Iv 1 Gm Premix) 1 gm in 50 mls @ 100 mls/hr IVPB 1700 [facility] Last Admin: 05/22/17 16:39 Dose: 100 mls/hr Insulin Human Regular (Novolin R) 0 unit SC ACHS [facility] PRN Reason: Protocol Last Admin: 05/23/17 11:18 Dose: 2 unit Metoprolol Succinate (Toprol Xl) 50 mg PO DAILY [facility] Last Admin: 05/23/17 09:56 Dose: 50 mg Rosuvastatin Calcium (Crestor) 10 mg PO HS [facility] Last Admin: 05/22/17 21:37 Dose: 10 mg Sevelamer Carbonate (Renvela) 0.8 gm PO TIDCC [facility] Last Admin: 05/23/17 11:18 Dose: 0.8 gm Vitamin B Complex/Vit C/Folic Acid (Nephro-Mandy) 1 tab PO 0800 [facility] Last Admin: 05/23/17 08:00 Dose: Not Given - Labs Labs: 05/23/17 06:43 05/23/17 06:36 PT 15.5 SECONDS (9.7-12.2) H 05/17/17 14:10 INR 1.4 05/17/17 14:10 APTT 31 SECONDS (21-34) 05/17/17 14:10 - Constitutional Appears: Non-toxic, Chronically Ill - Head Exam Head Exam: NORMOCEPHALIC - Eye Exam Eye Exam: PERRL - ENT Exam ENT Exam: Mucous Membranes Dry - Neck Exam Neck Exam: absent: Lymphadenopathy - Respiratory Exam Respiratory Exam: Decreased Breath Sounds - Cardiovascular Exam Cardiovascular Exam: REGULAR RHYTHM - GI/Abdominal Exam GI & Abdominal Exam: Distended - Rectal Exam Rectal Exam: Deferred - Exam Exam: NORMAL INSPECTION - Extremities Exam Extremities Exam: absent: Pedal Edema - Back Exam Back Exam: absent: CVA tenderness (L), CVA tenderness (R) - Neurological Exam Neurological Exam: Alert, Awake, Oriented x3 - Psychiatric Exam Psychiatric exam: Depressed Assessment and Plan (1) Cellulitis Status: Acute (2) Cellulitis Status: Acute (3) ESRD (end stage renal disease) on dialysis Status: Acute (4) HTN (hypertension) Status: Acute (5) Panniculitis, unspecified Status: Acute (6) Type 2 diabetes mellitus Status: Acute
[2017-05-23] MEDS: Cefepime IV 1 gm in Dextrose 1 GM/50 ML BAG IVPB SCH (16:37)
--- NOTE | 2017-05-23 23:15 | CP.PCM.PN ---
Subjective - Date & Time of Evaluation Date of Evaluation: 05/23/17 Time of Evaluation: 09:30 - Subjective Subjective: Pt was seen and evaluated at bedside this morning, s/p surgery panniculitis, improving, she is afebrile, standing, having irrigation of wound daily Objective - Vital Signs/Intake and Output Vital Signs (last 24 hours): Temp Pulse Resp BP Pulse Ox 97.3 F L 75 17 171/75 H 98 05/23/17 20:00 05/23/17 20:00 05/23/17 20:00 05/23/17 20:00 05/23/17 20:00 Intake and Output: 05/23/17 05/24/17 18:59 06:59 Intake Total 512.5 7.5 Output Total 200 Balance 312.5 7.5 - Medications Medications: Current Medications Aspirin (Aspirin Chewable) 81 mg PO DAILY [facility] Last Admin: 05/18/17 09:23 Dose: Not Given Calcium Acetate (Phoslo) 1,334 mg PO TIDCC [facility] Last Admin: 05/23/17 16:37 Dose: 1,334 mg Heparin Sodium (Porcine) (Heparin) 5,000 units SC Q12 [facility] Last Admin: 05/18/17 21:45 Dose: 5,000 units Hydralazine HCl (Apresoline) 25 mg PO Q8 [facility] Last Admin: 05/23/17 21:35 Dose: 25 mg Hydralazine HCl (Apresoline) 10 mg IVP Q6 PRN PRN Reason: Systolic Blood Pressure Last Admin: 05/23/17 02:53 Dose: 10 mg Hydromorphone HCl (Dilaudid) 2 mg IVP Q3H PRN PRN Reason: pain Last Admin: 05/22/17 22:05 Dose: 2 mg Hydromorphone/Sodium Chloride (Dilaudid Tire Sorter) 6 mg IV Q4H PRN; Protocol PRN Reason: pain,severe(8-10) Last Admin: 05/23/17 14:42 Dose: 6 mg Desmopressin Acetate 20 mcg/ (Sodium Chloride) 55 mls @ 100 mls/hr IV ONCE PRN PRN Reason: give adoption counselor to OR 05/17 Last Admin: 05/17/17 13:39 Dose: 100 mls/hr Vancomycin HCl 500 mg/ Sodium (Chloride) 100 mls @ 100 mls/hr IVPB MWF [facility] Cefepime HCl (Maxipime Iv 1 Gm Premix) 1 gm in 50 mls @ 100 mls/hr IVPB 1700 [facility] Last Admin: 05/23/17 16:37 Dose: 100 mls/hr Insulin Human Regular (Novolin R) 0 unit SC ACHS [facility] PRN Reason: Protocol Last Admin: 05/23/17 21:24 Dose: Not Given Metoprolol Succinate (Toprol Xl) 50 mg PO DAILY [facility] Last Admin: 05/23/17 09:56 Dose: 50 mg Rosuvastatin Calcium (Crestor) 10 mg PO HS [facility] Last Admin: 05/23/17 21:35 Dose: 10 mg Sevelamer Carbonate (Renvela) 0.8 gm PO TIDCC [facility] Last Admin: 05/23/17 16:37 Dose: 0.8 gm Vitamin B Complex/Vit C/Folic Acid (Nephro-Mandy) 1 tab PO 0800 [facility] Last Admin: 05/23/17 08:00 Dose: Not Given - Labs Labs: 05/23/17 06:43 05/23/17 06:36 PT 15.5 SECONDS (9.7-12.2) H 05/17/17 14:10 INR 1.4 05/17/17 14:10 APTT 31 SECONDS (21-34) 05/17/17 14:10 - Constitutional Appears: No Acute Distress - Head Exam Head Exam: ATRAUMATIC, NORMAL INSPECTION, NORMOCEPHALIC - Eye Exam Eye Exam: EOMI, Normal appearance, PERRL Pupil Exam: NORMAL ACCOMODATION, PERRL - Respiratory Exam Respiratory Exam: Clear to Ausculation Bilateral, NORMAL BREATHING PATTERN - Cardiovascular Exam Cardiovascular Exam: REGULAR RHYTHM, +S1, +S2. absent: Murmur - GI/Abdominal Exam GI & Abdominal Exam: Soft, Normal Bowel Sounds. absent: Tenderness Assessment and Plan (1) Type 2 diabetes mellitus Status: Acute (2) HTN (hypertension) Status: Acute (3) ESRD (end stage renal disease) on dialysis Status: Acute (4) Panniculitis, unspecified Status: Acute
--- NOTE | 2017-05-24 04:15 | PN ---
LOCATION: Patient is located in ICU bed 2. REQUESTED BY: Romulo Yoo MD REASON FOR FOLLOWUP: End-stage renal disease, poor condition of the hemodialysis, pancolitis. SUBJECTIVE: Mrs. Schmitz is a 41 years old obese female with a past medical history significant for longstanding hypertension, diabetes and diabetic retinopathy, end-stage renal disease, secondary hyperparathyroidism, noncompliance with phosphate binders and also status post gastric bypass, who was admitted with chief complaints of lower abdominal pain and bilateral thigh pain about 3-4 weeks ago [facility]. The patient was found to have a pancolitis, status post panniculectomy and subsequently discharged home and then patient was admitted to [facility] on 05/15/2017 with severe abdominal pain, worsening symptoms and also both thigh pain. The patient was found to have worsening pancolitis, status post surgery by Dr. Holland. The patient is on pain medication and C++ PROFESSOR pump. The patient is not in distress. Denies any chest pain, palpitation. Denies any fever or cough. Less abdominal pain. OBJECTIVE: VITAL SIGNS: This morning; blood pressure 166/86, pulse 91, respirations 16, saturation 100% and temperature 97.7. Height 5 feet 6 inches, weight is 212 pounds. GENERAL: Mrs. Schmitz is a 41 years old obese female, well built, well-nourished, not in distress. HEENT: Pupils are normal, reactive to light and accommodation. Conjunctivae slightly pale. Sclerae anicteric. Tongue is moist. Trachea is midline. LUNGS: Symmetric on both sides. Bilateral breath sounds present. Clear on auscultation. CVS: [place] at the fifth intercostal space, midclavicular area. S1 and S2 audible. No murmur or gallop. ABDOMEN: Soft. [id number] tenderness in the lower abdomen. Bowel sounds present. No guarding. No rigidity. REPLENISHMENT SPECIALIST: The patient is alert, awake, oriented x3. Nonfocal examination. Cranial nerves II through XII grossly intact. Sensory and motor system is within normal limits. EXTREMITIES: No cyanosis, no clubbing, no edema. CURRENT MEDICATIONS: Include as follows; hydralazine 25 mg p.o. q.8 hours and aspirin 81 mg daily on hold and Crestor 10 mg at bedtime and hydromorphone C++ PROFESSOR pump and heparin on hold and cefepime 1 g q.d. and Nephro-Mandy one tablet daily and the patient is refusing this morning, insulin regular for sliding scale, calcium acetate 667 mg two tablets t.i.d., Renvela 800 mg p.o. t.i.d., metoprolol 50 mg p.o. daily, vancomycin 500 mg three times a week. LABORATORY DATA: Include as follows as of 05/23/2017; WBC 23.3, hemoglobin 8, hematocrit is 24.9, platelets 429. Sodium 130, potassium 4.4, chloride 97, CO2 of 27, BUN 35, creatinine 4.5, glucose 146, calcium 8.7, phosphorus , magnesium 2.1, total bili 1.3, AST 22, ALT 24, alkaline phosphatase 196, total protein 8.4, and albumin is 3.4. IMPRESSION: In summary, Mrs. Schmitz is a 41 years old obese female with a history of hypertension, diabetes and diabetic retinopathy, secondary hyperparathyroidism, end-stage renal disease, who was admitted with severe pancolitis, status post panniculectomy about 3 weeks ago and also on 05/17/2017 status post transfusion of 4 units of packed RBC during an admission. Since admission; 1. End-stage renal disease. Continue hemodialysis three times a week Monday, Monday and Monday. The patient was noncompliant with a treatment as scheduled time in the last two sessions. Admitted the patient to continue full treatment. 2. Anemia secondary to recent surgery. Continue Procrit three times a week 20,000 units and also we will give IV iron, Ferrlecit 125 mg IV piggyback x1 dose during dialysis. 3. Uncontrolled hypertension. Increase metoprolol 200 mg p.o. daily and also increase hydralazine 250 mg q.8 hours and hold for systolic blood pressure less than 120 and heart rate more than 120. The patient denies Nephro-Mandy. We will add multivitamin tablet if the patient can tolerate. We will follow with you. Thank you for allowing me to participate in your patient's care. Marc Jarrett MD
[2017-05-24] MEDS: Sevelamer Carb 0.8 gm/Packet PO SCH ×3 (07:55→17:14)
[2017-05-24] MEDS: Multivitamin Vitamin B Complex (Nephro-Vite) Tab PO SCH (08:00)
[2017-05-24] MEDS: (Novolin R) Insulin Human Regular 100 units/ml vial SC SCH ×3 (08:22→17:15)
[2017-05-24] MEDS: Metoprolol Succinate 50 mg XL Tab PO SCH (13:54)
--- NOTE | 2017-05-24 16:03 | CP.PCM.PN ---
Subjective - Date & Time of Evaluation Date of Evaluation: 05/24/17 Time of Evaluation: 08:00 - Subjective Subjective: no new complaints Objective - Vital Signs/Intake and Output Vital Signs (last 24 hours): Temp Pulse Resp BP Pulse Ox 97.8 F 80 16 168/82 H 100 05/24/17 12:30 05/24/17 14:00 05/24/17 14:00 05/24/17 14:00 05/24/17 08:00 Intake and Output: 05/24/17 05/24/17 06:59 18:59 Intake Total 7.5 7.5 Balance 7.5 7.5 - Medications Medications: Current Medications Aspirin (Aspirin Chewable) 81 mg PO DAILY [facility] Last Admin: 05/18/17 09:23 Dose: Not Given Calcium Acetate (Phoslo) 1,334 mg PO TIDCC [facility] Last Admin: 05/24/17 13:05 Dose: 1,334 mg Heparin Sodium (Porcine) (Heparin) 5,000 units SC Q12 [facility] Last Admin: 05/18/17 21:45 Dose: 5,000 units Hydralazine HCl (Apresoline) 25 mg PO Q8 [facility] Last Admin: 05/24/17 13:54 Dose: 25 mg Hydralazine HCl (Apresoline) 10 mg IVP Q6 PRN PRN Reason: Systolic Blood Pressure Last Admin: 05/23/17 02:53 Dose: 10 mg Hydromorphone HCl (Dilaudid) 2 mg IVP Q3H PRN PRN Reason: pain Last Admin: 05/24/17 11:44 Dose: 2 mg Hydromorphone/Sodium Chloride (Dilaudid Import/Export Freight Forwarder) 6 mg IV Q4H PRN; Protocol PRN Reason: pain,severe(8-10) Last Admin: 05/24/17 13:03 Dose: 6 mg Desmopressin Acetate 20 mcg/ (Sodium Chloride) 55 mls @ 100 mls/hr IV ONCE PRN PRN Reason: give geothermal operations engineer to OR 05/17 Last Admin: 05/17/17 13:39 Dose: 100 mls/hr Vancomycin HCl 500 mg/ Sodium (Chloride) 100 mls @ 100 mls/hr IVPB MWF [facility] Last Admin: 05/24/17 13:04 Dose: 100 mls/hr Cefepime HCl (Maxipime Iv 1 Gm Premix) 1 gm in 50 mls @ 100 mls/hr IVPB 1700 [facility] Last Admin: 05/23/17 16:37 Dose: 100 mls/hr Insulin Human Regular (Novolin R) 0 unit SC ACHS [facility] PRN Reason: Protocol Last Admin: 05/24/17 11:38 Dose: Not Given Metoprolol Succinate (Toprol Xl) 50 mg PO DAILY [facility] Last Admin: 05/24/17 13:54 Dose: 50 mg Rosuvastatin Calcium (Crestor) 10 mg PO HS [facility] Last Admin: 05/23/17 21:35 Dose: 10 mg Sevelamer Carbonate (Renvela) 0.8 gm PO TIDCC [facility] Last Admin: 05/24/17 13:05 Dose: 0.8 gm Vitamin B Complex/Vit C/Folic Acid (Nephro-Mandy) 1 tab PO 0800 [facility] Last Admin: 05/24/17 08:00 Dose: Not Given - Labs Labs: 05/23/17 06:43 05/23/17 06:36 PT 15.5 SECONDS (9.7-12.2) H 05/17/17 14:10 INR 1.4 05/17/17 14:10 APTT 31 SECONDS (21-34) 05/17/17 14:10 - Constitutional Appears: Non-toxic, Chronically Ill - Head Exam Head Exam: NORMOCEPHALIC - Eye Exam Eye Exam: PERRL - ENT Exam ENT Exam: Mucous Membranes Dry - Neck Exam Neck Exam: absent: Lymphadenopathy - Respiratory Exam Respiratory Exam: Decreased Breath Sounds, Clear to Ausculation Bilateral - Cardiovascular Exam Cardiovascular Exam: REGULAR RHYTHM - GI/Abdominal Exam GI & Abdominal Exam: Distended, Soft - Rectal Exam Rectal Exam: Deferred - Exam Exam: NORMAL INSPECTION Assessment and Plan (1) Cellulitis Status: Acute (2) Cellulitis Status: Acute (3) ESRD (end stage renal disease) on dialysis Status: Acute (4) HTN (hypertension) Status: Acute (5) Panniculitis, unspecified Status: Acute (6) Type 2 diabetes mellitus Status: Acute
[2017-05-24 16:05] LABS: ALB/GLOB RATIO 0.7 (1.0-2.1); BASO # 0.1 K/uL (0.0-0.2); BASO % 0.2 % (0.0-2.0); BILIRUBIN,TOTAL 1.1 mg/dL (0.2-1.3); CALCIUM 8.5 mg/dl (8.6-10.4); EOS # 0.3 K/uL (0.0-0.7); EOS % 1.5 % (0.0-4.0); HEMATOCRIT 25.8 % (34.0-47.0); LYMPH # 0.8 K/uL (1.0-4.3); LYMPH % 3.5 % (20.0-40.0); MEAN CELL VOLUME 88.4 fL (81.0-99.0); MEAN CORPUSCULAR HEMOGLOBIN 27.5 pg (27.0-31.0); MEAN CORPUSCULAR HGB CONC 31.1 g/dL (33.0-37.0); MEAN PLATELET VOLUME 9.1 fL (7.2-11.7); MONO # 1.5 K/uL (0.0-0.8); MONO % 6.8 % (0.0-10.0); NRBC % 0.1 % (0.0-2.0); PLATELET COUNT 459 K/uL (130-400); POTASSIUM 3.9 mmol/L (3.6-5.2); RED CELL DISTRIBUTION WIDTH 19.3 % (11.5-14.5); TOTAL PROTEIN 8.4 g/dL (6.3-8.3); WHITE BLOOD COUNT 22.1 K/uL (4.8-10.8)
[2017-05-24 16:07] LABS: TRANSFERRIN 126.86 mg/dL (206-381)
[2017-05-24 16:59] LABS: NEUTROPHIL 94 % (50-75); TOTAL CELLS COUNTED 100
[2017-05-24] MEDS: Cefepime IV 1 gm in Dextrose 1 GM/50 ML BAG IVPB SCH (17:14)
--- NOTE | 2017-05-24 17:27 | PN ---
DATE: 05/24/2017 ICU VISIT NOTE SUBJECTIVE: I had been away for 3 days and the patient had been managed by the ICU staff. Patient is resting comfortably in bed. Today, she states that her pain has decreased dramatically. PHYSICAL EXAMINATION: VITAL SIGNS: Temperature is 97.8, pulse is 86, BP is 162/83. Pertinent physical findings include lower abdomen, which revealed the suture line to be intact. There is some bloody drainage from the lower portion of wound, however. There is no noted hematoma. In the left thigh, the wound is granulating and appears to have early healing. LABORATORY DATA: Revealed her white count to be 23.3 and this is noted to be down from 29.2 the previous day. Her electrolytes are generally okay and her albumin is noted to be 3.4. IMPRESSION: She is slowly recovering nicely from her radical panniculectomy from having a necrotic panniculus. She is going to be transferred to regular floor today. We will continue with nutritional supplement as I feel her main issue right now is nutrition and healing. There were no signs of infection, however, despite the elevated white count, which has been coming down. José Luis Holland MD
--- NOTE | 2017-05-24 18:00 | CP.PCM.PN ---
Subjective - Date & Time of Evaluation Date of Evaluation: 05/24/17 Time of Evaluation: 17:59 - Subjective Subjective: pt is seen and examined, follow up consult is dictated #[id number] s/p hd today, uf about 1.8 lit Objective - Vital Signs/Intake and Output Vital Signs (last 24 hours): Temp Pulse Resp BP Pulse Ox 97.2 F L 76 16 152/72 H 100 05/24/17 16:00 05/24/17 16:00 05/24/17 16:00 05/24/17 16:00 05/24/17 08:00 Intake and Output: 05/24/17 05/24/17 06:59 18:59 Intake Total 7.5 487.5 Balance 7.5 487.5 - Medications Medications: Current Medications Aspirin (Aspirin Chewable) 81 mg PO DAILY [facility] Last Admin: 05/18/17 09:23 Dose: Not Given Calcium Acetate (Phoslo) 1,334 mg PO TIDCC [facility] Last Admin: 05/24/17 17:14 Dose: 1,334 mg Heparin Sodium (Porcine) (Heparin) 5,000 units SC Q12 [facility] Last Admin: 05/18/17 21:45 Dose: 5,000 units Hydralazine HCl (Apresoline) 25 mg PO Q8 [facility] Last Admin: 05/24/17 13:54 Dose: 25 mg Hydralazine HCl (Apresoline) 10 mg IVP Q6 PRN PRN Reason: Systolic Blood Pressure Last Admin: 05/23/17 02:53 Dose: 10 mg Hydromorphone HCl (Dilaudid) 2 mg IVP Q3H PRN PRN Reason: pain Last Admin: 05/24/17 11:44 Dose: 2 mg Hydromorphone/Sodium Chloride (Dilaudid Steam Room Attendant) 6 mg IV Q4H PRN; Protocol PRN Reason: pain,severe(8-10) Last Admin: 05/24/17 13:03 Dose: 6 mg Desmopressin Acetate 20 mcg/ (Sodium Chloride) 55 mls @ 100 mls/hr IV ONCE PRN PRN Reason: give science and operations officer to OR 05/17 Last Admin: 05/17/17 13:39 Dose: 100 mls/hr Vancomycin HCl 500 mg/ Sodium (Chloride) 100 mls @ 100 mls/hr IVPB MWF [facility] Last Admin: 05/24/17 13:04 Dose: 100 mls/hr Cefepime HCl (Maxipime Iv 1 Gm Premix) 1 gm in 50 mls @ 100 mls/hr IVPB 1700 [facility] Last Admin: 05/24/17 17:14 Dose: 100 mls/hr Insulin Human Regular (Novolin R) 0 unit SC ACHS [facility] PRN Reason: Protocol Last Admin: 05/24/17 17:15 Dose: 3 unit Metoprolol Succinate (Toprol Xl) 50 mg PO DAILY [facility] Last Admin: 05/24/17 13:54 Dose: 50 mg Rosuvastatin Calcium (Crestor) 10 mg PO HS [facility] Last Admin: 05/23/17 21:35 Dose: 10 mg Sevelamer Carbonate (Renvela) 0.8 gm PO TIDCC [facility] Last Admin: 05/24/17 17:14 Dose: 0.8 gm Vitamin B Complex/Vit C/Folic Acid (Nephro-Mandy) 1 tab PO 0800 [facility] Last Admin: 05/24/17 08:00 Dose: Not Given - Labs Labs: 05/24/17 15:35 05/24/17 15:35 PT 15.5 SECONDS (9.7-12.2) H 05/17/17 14:10 INR 1.4 05/17/17 14:10 APTT 31 SECONDS (21-34) 05/17/17 14:10
--- NOTE | 2017-05-24 22:14 | PN ---
DATE: FOLLOWUP RENAL CONSULTATION LOCATION: Patient is located in ICU bed 2. REQUESTING PHYSICIAN: Romulo Yoo MD REASON FOR FOLLOWUP: End-stage renal disease, panniculitis, hypertension, for continuation of hemodialysis. SUBJECTIVE: Mrs. Schmitz is a 41 years old obese female with a past medical history significant for long-standing hypertension, diabetes, status post gastric bypass, end-stage renal disease, status post surgery for panniculitis about 3 to 4 weeks ago in [facility]. Subsequently, patient was admitted with worsening symptoms and patient underwent panniculectomy by Dr. Holland. The patient is feeling slightly better, not in distress. The patient underwent hemodialysis today, terminated early due to abdominal pain, had ultrafiltration of about 1.8 liters. Patient is not in acute distress. Patient is on SUB ASSEMBLY TEAM WORKER pump. PHYSICAL EXAMINATION: VITAL SIGNS: As follows: Blood pressure 152/72, pulse 76, respirations 16, temperature 97.2, saturation 98 to 100%. Height 5 feet 6 inches, weight is 212 pounds. GENERAL: Mrs. Schmitz is a 41 years old obese female, moderately built, moderately nourished, not in distress. HEENT: Pupils normal and reactive to light and accommodation. Conjunctivae pink. Sclerae anicteric. Tongue is moist. Trachea is midline. LUNGS: Symmetric on both sides. Bilateral breath sounds present. Clear on auscultation. CARDIOVASCULAR SYSTEM: [place] at the fifth intercostal space, midclavicular line. S1 and S1 are audible. No murmur or gallop. ABDOMEN: Normal in appearance, soft, tympanic. No guarding. No rigidity. No hepatosplenomegaly. Moderate tenderness in the lower abdomen status post panniculectomy. CENTRAL NERVOUS SYSEM: The patient is alert, awake, oriented x 3. Nonfocal neuro examination. Sensory and motor system is grossly within normal limits. EXTREMITIES: No cyanosis. No clubbing. No edema. Status post incision and drainage of the left thigh of panniculitis and inflammation of the thigh. CURRENT MEDICATIONS: Include as follows: Hydralazine 25 mg p.o. q. 8 hours, aspirin on hold, Crestor 10 mg at bedtime, Dilaudid 6 mg IV q. 4 hours p.r.n., subcu heparin on hold, Maxipime 1 g every day, Nephro-Mandy 1 tablet daily, PhosLo 667mg two tablets t.i.d., Renvela 800 mg p.o. t.i.d., metoprolol 50 mg p.o. daily, and vancomycin 500 mg three times a week. LABORATORY DATA: Include as follows: As of 05/24/2017, WBC 22.1, hemoglobin 8.0, hematocrit is 25.8, platelets 459. Sodium 133, potassium 3.9, chloride 93, CO2 of 27, BUN 28, creatinine 3.6, glucose 250, calcium 8.5, and transferrin is 126 and total bili 1.1, AST 18, ALT 24, alk phos is 184, total protein 8.4, albumin is 3.4, and prealbumin is 14.3. Microbiology: Wound culture is negative as of 05/20/2017. ASSESSMENT AND PLAN: In summary, Mrs. Schmitz is a 41 years old obese female with history of long-standing hypertension, diabetes, end-stage renal disease, diabetic retinopathy, status post gastric bypass, was admitted with worsening panniculitis and status post panniculectomy, status post transfusion of 4 units of packed RBC during this hospitalization with [id number] abdominal pain, on SUB ASSEMBLY TEAM WORKER pump. 1. End-stage renal disease. Continue hemodialysis three times a week; Monday, Monday and Monday. The patient terminated early the treatment because of the abdominal pain and refused to continue. Had ultrafiltration of about 1.8 liters. 2. Hypertension. Blood pressure is still high. Increase hydralazine to 50 mg q. 8 hours and increase metoprolol to 100 every day as needed. Continue Renvela and PhosLo. Continue Nephro-Mandy. Analgesics as per the surgery recommendation. We will follow with you. Thank you for allowing me to participate in your patient's care. Marc Jarrett MD
--- NOTE | 2017-05-24 23:24 | CP.PCM.PN ---
Subjective - Date & Time of Evaluation Date of Evaluation: 05/24/17 Time of Evaluation: 19:00 - Subjective Subjective: Pt seen and evaluated , pt is improving, nutritional status has improved Objective - Vital Signs/Intake and Output Vital Signs (last 24 hours): Temp Pulse Resp BP Pulse Ox 99 F 92 H 18 167/78 H 100 05/24/17 20:00 05/24/17 20:00 05/24/17 20:00 05/24/17 20:00 05/24/17 20:00 Intake and Output: 05/24/17 05/25/17 18:59 06:59 Intake Total 757.5 Balance 757.5 - Medications Medications: Current Medications Aspirin (Aspirin Chewable) 81 mg PO DAILY [facility] Last Admin: 05/18/17 09:23 Dose: Not Given Calcium Acetate (Phoslo) 1,334 mg PO TIDCC [facility] Last Admin: 05/24/17 17:14 Dose: 1,334 mg Heparin Sodium (Porcine) (Heparin) 5,000 units SC Q12 [facility] Last Admin: 05/18/17 21:45 Dose: 5,000 units Hydralazine HCl (Apresoline) 25 mg PO Q8 [facility] Last Admin: 05/24/17 21:21 Dose: 25 mg Hydralazine HCl (Apresoline) 10 mg IVP Q6 PRN PRN Reason: Systolic Blood Pressure Last Admin: 05/23/17 02:53 Dose: 10 mg Hydromorphone HCl (Dilaudid) 2 mg IVP Q3H PRN PRN Reason: pain Last Admin: 05/24/17 11:44 Dose: 2 mg Desmopressin Acetate 20 mcg/ (Sodium Chloride) 55 mls @ 100 mls/hr IV ONCE PRN PRN Reason: give train electronic technician to OR 05/17 Last Admin: 05/17/17 13:39 Dose: 100 mls/hr Vancomycin HCl 500 mg/ Sodium (Chloride) 100 mls @ 100 mls/hr IVPB MWF [facility] Last Admin: 05/24/17 13:04 Dose: 100 mls/hr Cefepime HCl (Maxipime Iv 1 Gm Premix) 1 gm in 50 mls @ 100 mls/hr IVPB 1700 [facility] Last Admin: 05/24/17 17:14 Dose: 100 mls/hr Insulin Human Regular (Novolin R) 0 unit SC ACHS [facility] PRN Reason: Protocol Last Admin: 05/24/17 17:15 Dose: 3 unit Metoprolol Succinate (Toprol Xl) 50 mg PO DAILY [facility] Last Admin: 05/24/17 13:54 Dose: 50 mg Rosuvastatin Calcium (Crestor) 10 mg PO HS [facility] Last Admin: 05/24/17 21:20 Dose: 10 mg Sevelamer Carbonate (Renvela) 0.8 gm PO TIDCC [facility] Last Admin: 05/24/17 17:14 Dose: 0.8 gm Vitamin B Complex/Vit C/Folic Acid (Nephro-Mandy) 1 tab PO 0800 [facility] Last Admin: 05/24/17 08:00 Dose: Not Given - Labs Labs: 05/24/17 15:35 05/24/17 15:35 PT 15.5 SECONDS (9.7-12.2) H 05/17/17 14:10 INR 1.4 05/17/17 14:10 APTT 31 SECONDS (21-34) 05/17/17 14:10 - Constitutional Appears: No Acute Distress - Head Exam Head Exam: ATRAUMATIC, NORMAL INSPECTION, NORMOCEPHALIC - Eye Exam Eye Exam: EOMI, Normal appearance, PERRL Pupil Exam: NORMAL ACCOMODATION, PERRL - Respiratory Exam Respiratory Exam: Clear to Ausculation Bilateral, NORMAL BREATHING PATTERN - Cardiovascular Exam Cardiovascular Exam: REGULAR RHYTHM, +S1, +S2. absent: Murmur - GI/Abdominal Exam GI & Abdominal Exam: Soft, Normal Bowel Sounds. absent: Tenderness Assessment and Plan (1) Type 2 diabetes mellitus Status: Acute (2) HTN (hypertension) Status: Acute (3) ESRD (end stage renal disease) on dialysis Status: Acute (4) Panniculitis, unspecified Status: Acute
[2017-05-25] MEDS: (Novolin R) Insulin Human Regular 100 units/ml vial SC SCH ×4 (07:57→22:21)
[2017-05-25] MEDS: Sevelamer Carb 0.8 gm/Packet PO SCH ×3 (07:58→16:30)
[2017-05-25] MEDS: Multivitamin Vitamin B Complex (Nephro-Vite) Tab PO SCH ×2 (07:58→07:59)
[2017-05-25] MEDS: Metoprolol Succinate 50 mg XL Tab PO SCH (09:00)
[2017-05-25] MEDS ORDERED: oxyCODONE 20 mg ER Tab (oxyCONTIN) PO ONE (13:30)
[2017-05-25] MEDS: Cefepime IV 1 gm in Dextrose 1 GM/50 ML BAG IVPB SCH (16:26)
--- NOTE | 2017-05-25 16:32 | CP.PCM.PN ---
Subjective - Date & Time of Evaluation Date of Evaluation: 05/25/17 Time of Evaluation: 16:27 - Subjective Subjective: pt is seen and examined by me for hd in am, follow up consult is dictated #[id number] Objective - Vital Signs/Intake and Output Vital Signs (last 24 hours): Temp Pulse Resp BP Pulse Ox 97.2 F L 90 21 175/83 H 100 05/25/17 08:39 05/25/17 08:39 05/25/17 08:39 05/25/17 08:39 05/25/17 08:39 Intake and Output: 05/25/17 05/25/17 06:59 18:59 Intake Total 640 Balance 640 - Medications Medications: Current Medications Aspirin (Aspirin Chewable) 81 mg PO DAILY [facility] Last Admin: 05/18/17 09:23 Dose: Not Given Calcium Acetate (Phoslo) 1,334 mg PO TIDCC [facility] Last Admin: 05/25/17 11:16 Dose: 1,334 mg Heparin Sodium (Porcine) (Heparin) 5,000 units SC Q12 [facility] Last Admin: 05/18/17 21:45 Dose: 5,000 units Hydralazine HCl (Apresoline) 25 mg PO Q8 [facility] Last Admin: 05/25/17 13:02 Dose: 25 mg Hydralazine HCl (Apresoline) 10 mg IVP Q6 PRN PRN Reason: Systolic Blood Pressure Last Admin: 05/23/17 02:53 Dose: 10 mg Hydromorphone HCl (Dilaudid) 2 mg IVP Q3H PRN PRN Reason: pain Last Admin: 05/25/17 15:00 Dose: 2 mg Desmopressin Acetate 20 mcg/ (Sodium Chloride) 55 mls @ 100 mls/hr IV ONCE PRN PRN Reason: give mechanical engineering draftsperson to OR 05/17 Last Admin: 05/17/17 13:39 Dose: 100 mls/hr Vancomycin HCl 500 mg/ Sodium (Chloride) 100 mls @ 100 mls/hr IVPB MWF [facility] Last Admin: 05/24/17 13:04 Dose: 100 mls/hr Cefepime HCl (Maxipime Iv 1 Gm Premix) 1 gm in 50 mls @ 100 mls/hr IVPB 1700 [facility] Last Admin: 05/24/17 17:14 Dose: 100 mls/hr Insulin Human Regular (Novolin R) 0 unit SC ACHS [facility] PRN Reason: Protocol Last Admin: 05/25/17 11:16 Dose: 4 unit Metoprolol Succinate (Toprol Xl) 50 mg PO DAILY [facility] Last Admin: 05/25/17 09:00 Dose: 50 mg Oxycodone HCl (Oxycontin Extended Release Tab) 20 mg PO Q12 [facility] Rosuvastatin Calcium (Crestor) 10 mg PO HS [facility] Last Admin: 05/24/17 21:20 Dose: 10 mg Sevelamer Carbonate (Renvela) 0.8 gm PO TIDCC [facility] Last Admin: 05/25/17 11:16 Dose: 0.8 gm Vitamin B Complex/Vit C/Folic Acid (Nephro-Mandy) 1 tab PO 0800 [facility] Last Admin: 05/25/17 07:59 Dose: Not Given - Labs Labs: 05/24/17 15:35 05/24/17 15:35 PT 15.5 SECONDS (9.7-12.2) H 05/17/17 14:10 INR 1.4 05/17/17 14:10 APTT 31 SECONDS (21-34) 05/17/17 14:10
[2017-05-25] MEDS: oxyCODONE 20 mg ER Tab (oxyCONTIN) PO SCH (21:40)
--- NOTE | 2017-05-25 23:22 | PN ---
FOLLOWUP RENAL CONSULTATION LOCATION: The patient is located in room 368, bed B. REQUESTING PHYSICIAN: Romulo Yoo MD REASON FOR FOLLOWUP: End-stage renal disease, for continuation of the hemodialysis and panic colitis, status post panniculectomy and anemia. HISTORY OF PRESENT ILLNESS: Mrs. Schmitz is 41 years old obese female with a past medical history significant for longstanding hypertension, diabetes, end-stage renal disease, panniculitis status post surgery 3 weeks ago in [facility], was admitted with worsening symptoms, underwent panniculectomy and also drainage of the pelvic abscess and also incision and drainage of the left thigh swelling. The patient also received multiple units of packed RBCs during her hospital stay, about 4 units. The patient is feeling better, complains of slight bleeding from the abdominal wound when she was ambulating today, not in distress. No chest pain or palpitation. No fever. No cough. PHYSICAL EXAMINATION: VITAL SIGNS: As follows, blood pressure 172/85, pulse 84, respirations 20, temperature 98.1, saturation 100%. Height 5 feet 6 inches and weight is 212 pounds. GENERAL: Mrs. Schmitz is a 41 years old middle-aged female, moderately-built, moderately-nourished, not in distress. HEENT: Pupils normal, reactive to light and accommodation. Conjunctivae pink. Sclerae anicteric. Tongue is moist. Trachea is midline. LUNGS: Symmetric on both sides. Bilateral breath sounds present. Clear on auscultation. CARDIOVASCULAR SYSTEM: [place] at the fifth intercostal space, midclavicular line. S1 and S2 audible. No murmur, no gallop. ABDOMEN: Soft, tympanic. No guarding. No rigidity. Mild tenderness in the lower abdomen. CENTRAL NERVOUS SYSTEM: The patient is alert, awake, oriented x3. Nonfocal neuro examination. Cranial nerves II through XII grossly intact. Sensory and motor system are within normal limits. EXTREMITIES: No cyanosis, no clubbing. Trace edema in both lower extremities. CURRENT MEDICATIONS: Include as follows, hydralazine 25 mg p.o. q.8 hours, aspirin on hold, Crestor 10 mg at bedtime, dilated 2 mg IV q.3 hours p.r.n., Cefepime 1 g daily, also Nephro-Mandy 1 tablet daily, OxyContin 20 mg p.o. q.12 hours, PhosLo 667 mg 2 tablets t.i.d., Renvela 800 mg p.o. t.i.d., Toprol XL 50 mg p.o. daily, vancomycin 500 mg three times a week Monday, Monday, Monday post dialysis. LABORATORY DATA: No new labs are available. Accu-Cheks 147, 250 and 115. ASSESSMENT: In summary, Mrs. Schmitz is a 41 years old middle-aged female, obese with hypertension, diabetes, end-stage renal disease, status post gastric bypass who was admitted with lower abdominal pain and also pain in both thighs and found to have worsening panniculitis, status post surgery about 3 weeks ago in [facility], now admitted with worsening symptoms. Subsequently, the patient underwent radical panniculectomy and also incision and drainage of the pelvic abscess and also drainage of left thigh swelling. 1. End-stage renal disease. Continue hemodialysis three times a week, Monday, Monday and Monday. 2. Anemia secondary to end-stage renal disease and recent surgery. 3. Secondary hyperparathyroidism. 4. Hypertension. Blood pressure is still high, continue her current medications and continue her phosphate binders, PhosLo, Renvela and continue her analgesics as per PMD. Thank you for allowing me to participate in your patient's care. Marc Jarrett MD
--- NOTE | 2017-05-25 23:40 | CP.PCM.PN ---
Subjective - Date & Time of Evaluation Date of Evaluation: 05/25/17 Time of Evaluation: 21:00 - Subjective Subjective: Pt seen and examined, c/o pain at post op site, pain meds not helping acute ppanniculituis s/p OR, no fever Objective - Vital Signs/Intake and Output Vital Signs (last 24 hours): Temp Pulse Resp BP Pulse Ox 98.1 F 84 20 172/85 H 100 05/25/17 16:00 05/25/17 16:00 05/25/17 16:00 05/25/17 16:00 05/25/17 16:00 Intake and Output: 05/25/17 05/26/17 18:59 06:59 Intake Total 640 450 Output Total 100 Balance 640 350 - Medications Medications: Current Medications Aspirin (Aspirin Chewable) 81 mg PO DAILY [facility] Last Admin: 05/18/17 09:23 Dose: Not Given Calcium Acetate (Phoslo) 1,334 mg PO TIDCC [facility] Last Admin: 05/25/17 16:27 Dose: 1,334 mg Heparin Sodium (Porcine) (Heparin) 5,000 units SC Q12 [facility] Last Admin: 05/18/17 21:45 Dose: 5,000 units Hydralazine HCl (Apresoline) 25 mg PO Q8 [facility] Last Admin: 05/25/17 21:39 Dose: 25 mg Hydralazine HCl (Apresoline) 10 mg IVP Q6 PRN PRN Reason: Systolic Blood Pressure Last Admin: 05/23/17 02:53 Dose: 10 mg Hydromorphone HCl (Dilaudid) 2 mg IVP Q3H PRN PRN Reason: pain Last Admin: 05/25/17 22:20 Dose: 2 mg Desmopressin Acetate 20 mcg/ (Sodium Chloride) 55 mls @ 100 mls/hr IV ONCE PRN PRN Reason: give certified control systems technician to OR 05/17 Last Admin: 05/17/17 13:39 Dose: 100 mls/hr Vancomycin HCl 500 mg/ Sodium (Chloride) 100 mls @ 100 mls/hr IVPB MWF [facility] Last Admin: 05/24/17 13:04 Dose: 100 mls/hr Cefepime HCl (Maxipime Iv 1 Gm Premix) 1 gm in 50 mls @ 100 mls/hr IVPB 1700 [facility] Last Admin: 05/25/17 16:26 Dose: 100 mls/hr Insulin Human Regular (Novolin R) 0 unit SC ACHS [facility] PRN Reason: Protocol Last Admin: 05/25/17 22:21 Dose: Not Given Metoprolol Succinate (Toprol Xl) 50 mg PO DAILY [facility] Last Admin: 05/25/17 09:00 Dose: 50 mg Oxycodone HCl (Oxycontin Extended Release Tab) 20 mg PO Q12 [facility] Last Admin: 05/25/17 21:40 Dose: 20 mg Rosuvastatin Calcium (Crestor) 10 mg PO HS [facility] Last Admin: 05/25/17 21:39 Dose: 10 mg Sevelamer Carbonate (Renvela) 0.8 gm PO TIDCC [facility] Last Admin: 05/25/17 16:30 Dose: 0.8 gm Vitamin B Complex/Vit C/Folic Acid (Nephro-Mandy) 1 tab PO 0800 [facility] Last Admin: 05/25/17 07:59 Dose: Not Given - Labs Labs: 05/24/17 15:35 05/24/17 15:35 PT 15.5 SECONDS (9.7-12.2) H 05/17/17 14:10 INR 1.4 05/17/17 14:10 APTT 31 SECONDS (21-34) 05/17/17 14:10 Assessment and Plan (1) Type 2 diabetes mellitus Status: Acute (2) HTN (hypertension) Status: Acute (3) ESRD (end stage renal disease) on dialysis Status: Acute (4) Panniculitis, unspecified Status: Acute
[2017-05-26 08:02] LABS: BASO # 0.1 K/uL (0.0-0.2); BASO % 0.3 % (0.0-2.0); EOS # 0.7 K/uL (0.0-0.7); EOS % 2.7 % (0.0-4.0); HEMATOCRIT 24.4 % (34.0-47.0); LYMPH # 1.2 K/uL (1.0-4.3); LYMPH % 4.9 % (20.0-40.0); MEAN CELL VOLUME 88.3 fL (81.0-99.0); MEAN CORPUSCULAR HEMOGLOBIN 27.6 pg (27.0-31.0); MEAN CORPUSCULAR HGB CONC 31.2 g/dL (33.0-37.0); MEAN PLATELET VOLUME 9.3 fL (7.2-11.7); MONO # 1.9 K/uL (0.0-0.8); MONO % 7.5 % (0.0-10.0); PLATELET COUNT 539 K/uL (130-400); RED CELL DISTRIBUTION WIDTH 18.8 % (11.5-14.5); WHITE BLOOD COUNT 25.5 K/uL (4.8-10.8)
[2017-05-26] MEDS: Sevelamer Carb 0.8 gm/Packet PO SCH ×3 (08:07→17:20)
[2017-05-26] MEDS: Multivitamin Vitamin B Complex (Nephro-Vite) Tab PO SCH ×2 (08:07→08:25)
[2017-05-26] MEDS: (Novolin R) Insulin Human Regular 100 units/ml vial SC SCH ×5 (08:11→21:56)
[2017-05-26 08:26] LABS: ALB/GLOB RATIO 0.9 (1.0-2.1); BILIRUBIN,TOTAL 1.3 mg/dL (0.2-1.3); CALCIUM 8.8 mg/dl (8.6-10.4); PHOSPHOROUS 6.2 mg/dL (2.5-4.5); TOTAL PROTEIN 8.1 g/dL (6.3-8.3)
[2017-05-26] MEDS: oxyCODONE 20 mg ER Tab (oxyCONTIN) PO SCH ×3 (09:07→21:51)
[2017-05-26] MEDS: Metoprolol Succinate 50 mg XL Tab PO SCH (09:07)
[2017-05-26 09:23] LABS: EOSINOPHIL 2 % (0-4); NEUTROPHIL 85 % (50-75); TOTAL CELLS COUNTED 100
--- NOTE | 2017-05-26 09:29 | CP.PCM.PN ---
Subjective - Date & Time of Evaluation Date of Evaluation: 05/26/17 Time of Evaluation: 09:29 - Subjective Subjective: pt is seen and examined, follow up consult is dictated #[id number] s/p hd today, recived 2 u prbc during hd Objective - Vital Signs/Intake and Output Vital Signs (last 24 hours): Temp Pulse Resp BP Pulse Ox 98.1 F 107 H 16 167/89 H 100 05/26/17 00:00 05/26/17 09:00 05/26/17 09:00 05/26/17 09:00 05/26/17 00:00 Intake and Output: 05/26/17 05/26/17 06:59 18:59 Intake Total 690 Output Total 100 Balance 590 - Medications Medications: Current Medications Aspirin (Aspirin Chewable) 81 mg PO DAILY [facility] Last Admin: 05/18/17 09:23 Dose: Not Given Calcium Acetate (Phoslo) 1,334 mg PO TIDCC [facility] Last Admin: 05/26/17 08:06 Dose: 1,334 mg Heparin Sodium (Porcine) (Heparin) 5,000 units SC Q12 [facility] Last Admin: 05/18/17 21:45 Dose: 5,000 units Hydralazine HCl (Apresoline) 25 mg PO Q8 [facility] Last Admin: 05/26/17 05:37 Dose: Not Given Hydralazine HCl (Apresoline) 10 mg IVP Q6 PRN PRN Reason: Systolic Blood Pressure Last Admin: 05/23/17 02:53 Dose: 10 mg Hydromorphone HCl (Dilaudid) 2 mg IVP Q3H PRN PRN Reason: pain Last Admin: 05/26/17 08:05 Dose: 2 mg Desmopressin Acetate 20 mcg/ (Sodium Chloride) 55 mls @ 100 mls/hr IV ONCE PRN PRN Reason: give children's institution attendant to OR 05/17 Last Admin: 05/17/17 13:39 Dose: 100 mls/hr Vancomycin HCl 500 mg/ Sodium (Chloride) 100 mls @ 100 mls/hr IVPB MWF [facility] Last Admin: 05/26/17 08:07 Dose: 100 mls/hr Cefepime HCl (Maxipime Iv 1 Gm Premix) 1 gm in 50 mls @ 100 mls/hr IVPB 1700 [facility] Last Admin: 05/25/17 16:26 Dose: 100 mls/hr Insulin Human Regular (Novolin R) 0 unit SC ACHS [facility] PRN Reason: Protocol Last Admin: 05/26/17 08:11 Dose: 2 unit Metoprolol Succinate (Toprol Xl) 50 mg PO DAILY [facility] Last Admin: 05/26/17 09:07 Dose: 50 mg Oxycodone HCl (Oxycontin Extended Release Tab) 20 mg PO Q12 [facility] Last Admin: 05/26/17 09:07 Dose: 20 mg Rosuvastatin Calcium (Crestor) 10 mg PO HS [facility] Last Admin: 05/25/17 21:39 Dose: 10 mg Sevelamer Carbonate (Renvela) 0.8 gm PO TIDCC [facility] Last Admin: 05/26/17 08:07 Dose: 0.8 gm Vitamin B Complex/Vit C/Folic Acid (Nephro-Mandy) 1 tab PO 0800 [facility] Last Admin: 05/26/17 08:25 Dose: Not Given - Labs Labs: 05/26/17 07:53 05/26/17 07:53 PT 15.5 SECONDS (9.7-12.2) H 05/17/17 14:10 INR 1.4 05/17/17 14:10 APTT 31 SECONDS (21-34) 05/17/17 14:10
[2017-05-26] MEDS ORDERED: Epoetin Alfa Dialysis 20000 UNIT/ML Inj IV SCH (10:00)
[2017-05-26] MEDS ORDERED: Ferric Sodium Gluconat Complex 62.5 mg/5 ml Vial IVPB SCH (10:00)
[2017-05-26] MEDS: Cefepime IV 1 gm in Dextrose 1 GM/50 ML BAG IVPB SCH (16:23)
--- NOTE | 2017-05-26 17:54 | PN ---
DATE: 05/26/2017 SUBJECTIVE: The patient is currently resting in bed. She continues to have issues with dark red blood draining at the mid portion of her abdominal wound. She drained a fair amount last night, but has not had any drainage since. She states her pain is less and she is feeling somewhat better. PHYSICAL EXAMINATION: VITAL SIGNS: Her temperature is 97.5, pulse is 84, BP is 177/90. LABORATORY DATA: Pertinent labs include a hemoglobin which today is 7.6 and the last one noted was 8.0 two days ago, which I do not think is a very significant change. Remainder of her labs are unremarkable. Her albumin has increased to 3.8 on nutritional supplementation. IMPRESSION AND PLAN: My impression is that she most likely has a hematoma in what was a very large abdominal wound. She had drains in the wound postoperatively, but they stopped draining probably due to clot. If she continues to drain, she may need to have the wound opened somewhat and the hematoma evacuated. She will undergo a CT scan without contrast today just to evaluate the size of the hematoma. She is not actively bleeding. José Luis Holland MD
--- NOTE | 2017-05-26 18:32 | CP.PCM.PN ---
Subjective - Date & Time of Evaluation Date of Evaluation: 05/26/17 Time of Evaluation: 08:00 - Subjective Subjective: no fever awake alert Objective - Vital Signs/Intake and Output Vital Signs (last 24 hours): Temp Pulse Resp BP Pulse Ox 97.5 F L 99 H 20 180/96 H 96 05/26/17 17:07 05/26/17 17:07 05/26/17 17:07 05/26/17 17:07 05/26/17 17:07 Intake and Output: 05/26/17 05/26/17 06:59 18:59 Intake Total 690 990 Output Total 100 Balance 590 990 - Medications Medications: Current Medications Aspirin (Aspirin Chewable) 81 mg PO DAILY [facility] Last Admin: 05/18/17 09:23 Dose: Not Given Calcium Acetate (Phoslo) 1,334 mg PO TIDCC [facility] Last Admin: 05/26/17 17:20 Dose: 1,334 mg Epoetin Loyd (Procrit) 20,[address] [facility] Stop: 06/02/17 09:01 Last Admin: 05/26/17 12:58 Dose: 20,000 unit Ferric Sodium Gluconate Complex (Ferrlecit) [address] [facility] Stop: 06/02/17 09:01 Last Admin: 05/26/17 13:56 Dose: 125 mg Heparin Sodium (Porcine) (Heparin) 5,000 units SC Q12 [facility] Last Admin: 05/18/17 21:45 Dose: 5,000 units Hydralazine HCl (Apresoline) 25 mg PO Q8 [facility] Last Admin: 05/26/17 13:48 Dose: 25 mg Hydralazine HCl (Apresoline) 10 mg IVP Q6 PRN PRN Reason: Systolic Blood Pressure Last Admin: 05/23/17 02:53 Dose: 10 mg Hydromorphone HCl (Dilaudid) 3 mg IVP Q3H PRN PRN Reason: pain Last Admin: 05/26/17 16:47 Dose: 3 mg Desmopressin Acetate 20 mcg/ (Sodium Chloride) 55 mls @ 100 mls/hr IV ONCE PRN PRN Reason: give admissions manager rn to OR 05/17 Last Admin: 05/17/17 13:39 Dose: 100 mls/hr Vancomycin HCl 500 mg/ Sodium (Chloride) 100 mls @ 100 mls/hr IVPB [facility] Last Admin: 05/26/17 08:07 Dose: 100 mls/hr Cefepime HCl (Maxipime Iv 1 Gm Premix) 1 gm in 50 mls @ 100 mls/hr IVPB 1700 [facility] Last Admin: 05/26/17 16:23 Dose: 100 mls/hr Insulin Human Regular (Novolin R) 0 unit SC ACHS [facility] PRN Reason: Protocol Last Admin: 05/26/17 17:21 Dose: 4 unit Metoprolol Succinate (Toprol Xl) 50 mg PO DAILY [facility] Last Admin: 05/26/17 09:07 Dose: 50 mg Oxycodone HCl (Oxycontin Extended Release Tab) 20 mg PO Q8 [facility] Last Admin: 05/26/17 15:17 Dose: 20 mg Rosuvastatin Calcium (Crestor) 10 mg PO HS [facility] Last Admin: 05/25/17 21:39 Dose: 10 mg Sevelamer Carbonate (Renvela) 0.8 gm PO TIDCC [facility] Last Admin: 05/26/17 17:20 Dose: 0.8 gm Vitamin B Complex/Vit C/Folic Acid (Nephro-Mandy) 1 tab PO 0800 [facility] Last Admin: 05/26/17 08:25 Dose: Not Given - Labs Labs: 05/26/17 07:53 05/26/17 07:53 PT 15.5 SECONDS (9.7-12.2) H 05/17/17 14:10 INR 1.4 05/17/17 14:10 APTT 31 SECONDS (21-34) 05/17/17 14:10 - Constitutional Appears: Non-toxic, Chronically Ill - Head Exam Head Exam: NORMOCEPHALIC - Eye Exam Eye Exam: PERRL - ENT Exam ENT Exam: Mucous Membranes Dry - Neck Exam Neck Exam: absent: Lymphadenopathy - Respiratory Exam Respiratory Exam: Decreased Breath Sounds - Cardiovascular Exam Cardiovascular Exam: REGULAR RHYTHM - GI/Abdominal Exam GI & Abdominal Exam: Distended Assessment and Plan (1) Cellulitis Status: Acute (2) Cellulitis Status: Acute (3) ESRD (end stage renal disease) on dialysis Status: Acute (4) HTN (hypertension) Status: Acute (5) Panniculitis, unspecified Status: Acute (6) Type 2 diabetes mellitus Status: Acute - Assessment and Plan (Free Text) Assessment: r/o calciphylaxis cultures all neg thus far cont IV rx as per Dr Alvarado
--- NOTE | 2017-05-26 19:20 | CT ---
PROCEDURE: CT Abdomen and Pelvis without intravenous contrast HISTORY: sp panniculectomy ro hematoma COMPARISON: None. TECHNIQUE: Axial and reformatted coronal and sagittal CT images of the abdomen and pelvis were obtained without IV or oral contrast administration P. Contrast Dose: 0 Radiation dose: Total exam DLP = 977.85 mGy-cm. This CT exam was performed using one or more of the following dose reduction techniques: Automated exposure control, adjustment of the mA and/or kV according to patient size, and/or use of iterative reconstruction technique. FINDINGS: LOWER THORAX: No acute pathology noted. LIVER: Unremarkable. No gross lesion or ductal dilatation. GALLBLADDER AND BILE DUCTS: The gallbladder is moderately distended contains small stones and/or sludge. No CT evidence of acute cholecystitis. The biliary tree is not dilated. PANCREAS: There is mild fullness noted at the pancreatic head. The main pancreatic duct is not dilated. Scattered foci of calcifications seen at the pancreas. SPLEEN: Unremarkable. ADRENALS: Diffuse enlargement of the adrenal glands noted bilaterally. KIDNEYS AND URETERS: The kidneys are small in size. Foci of calcification in the kidneys seen suggestive of vascular calcification. No evidence of hydronephrosis. VASCULATURE: Unremarkable. No aortic aneurysm. BOWEL: Scattered colonic diverticulosis are seen without evidence of diverticulitis. There is no evidence of small bowel obstruction. APPENDIX: There is no evidence of appendicitis. PERITONEUM: Unremarkable. No free fluid. No free air. LYMPH NODES: Unremarkable. No enlarged lymph nodes. BLADDER: Mild urinary bladder wall thickening. REPRODUCTIVE: Unremarkable. BONES: No acute fracture. OTHER FINDINGS: There is anterior pelvic wall subcutaneous high attenuation collection measures 22.4 centimeter in the transverse diameter and 7.4 centimeter in the AP diameter likely represent large hematoma. This subcutaneous presumed hematoma extending to the right flank region. IMPRESSION: Large subcutaneous high attenuation collection at the anterior pelvic wall extending to the right flank region suspicious for large hematoma. Adjacent multiple small foci of air seen. Moderately to markedly distended gallbladder without evidence of acute cholecystitis. Mild fullness in the pancreatic head noted.
--- NOTE | 2017-05-26 23:08 | CP.PCM.PN ---
Subjective - Date & Time of Evaluation Date of Evaluation: 05/26/17 Time of Evaluation: 18:00 - Subjective Subjective: Pt seen and examined, no fever, she has alot of pain, wound is not healing and she is on pain medications Objective - Vital Signs/Intake and Output Vital Signs (last 24 hours): Temp Pulse Resp BP Pulse Ox 98.2 F 80 20 169/82 H 96 05/26/17 22:28 05/26/17 22:28 05/26/17 22:28 05/26/17 22:28 05/26/17 17:07 Intake and Output: 05/26/17 05/27/17 18:59 06:59 Intake Total 990 Balance 990 - Medications Medications: Current Medications Aspirin (Aspirin Chewable) 81 mg PO DAILY [facility] Last Admin: 05/18/17 09:23 Dose: Not Given Calcium Acetate (Phoslo) 1,334 mg PO TIDCC [facility] Last Admin: 05/26/17 17:20 Dose: 1,334 mg Epoetin Loyd (Procrit) 20,000 unit IV [facility] Stop: 06/02/17 09:01 Last Admin: 05/26/17 12:58 Dose: 20,000 unit Ferric Sodium Gluconate Complex (Ferrlecit) 125 mg IVPB [facility] Stop: 06/02/17 09:01 Last Admin: 05/26/17 13:56 Dose: 125 mg Heparin Sodium (Porcine) (Heparin) 5,000 units SC Q12 [facility] Last Admin: 05/18/17 21:45 Dose: 5,000 units Hydralazine HCl (Apresoline) 10 mg IVP Q6 PRN PRN Reason: Systolic Blood Pressure Last Admin: 05/23/17 02:53 Dose: 10 mg Hydralazine HCl (Apresoline) 50 mg PO Q8 [facility] Last Admin: 05/26/17 21:50 Dose: 50 mg Hydromorphone HCl (Dilaudid) 3 mg IVP Q3H PRN PRN Reason: pain Last Admin: 05/26/17 22:50 Dose: 3 mg Desmopressin Acetate 20 mcg/ (Sodium Chloride) 55 mls @ 100 mls/hr IV ONCE PRN PRN Reason: give television cameraman to OR 05/17 Last Admin: 05/17/17 13:39 Dose: 100 mls/hr Vancomycin HCl 500 mg/ Sodium (Chloride) 100 mls @ 100 mls/hr IVPB MWF [facility] Last Admin: 05/26/17 08:07 Dose: 100 mls/hr Cefepime HCl (Maxipime Iv 1 Gm Premix) 1 gm in 50 mls @ 100 mls/hr IVPB 1700 [facility] Last Admin: 05/26/17 16:23 Dose: 100 mls/hr Insulin Human Regular (Novolin R) 0 unit SC ACHS [facility] PRN Reason: Protocol Last Admin: 05/26/17 21:56 Dose: 4 unit Metoprolol Succinate (Toprol Xl) 75 mg PO DAILY [facility] Oxycodone HCl (Oxycontin Extended Release Tab) 20 mg PO Q8 [facility] Last Admin: 05/26/17 21:51 Dose: 20 mg Rosuvastatin Calcium (Crestor) 10 mg PO HS [facility] Last Admin: 05/26/17 21:50 Dose: 10 mg Sevelamer Carbonate (Renvela) 0.8 gm PO TIDCC [facility] Last Admin: 05/26/17 17:20 Dose: 0.8 gm Vitamin B Complex/Vit C/Folic Acid (Nephro-Mandy) 1 tab PO 0800 [facility] Last Admin: 05/26/17 08:25 Dose: Not Given - Labs Labs: 05/26/17 07:53 05/26/17 07:53 PT 15.5 SECONDS (9.7-12.2) H 05/17/17 14:10 INR 1.4 05/17/17 14:10 APTT 31 SECONDS (21-34) 05/17/17 14:10 - Constitutional Appears: No Acute Distress, Other (pt is in lot of pain) - Head Exam Head Exam: ATRAUMATIC, NORMAL INSPECTION, NORMOCEPHALIC Assessment and Plan (1) Type 2 diabetes mellitus Status: Acute (2) HTN (hypertension) Status: Acute (3) ESRD (end stage renal disease) on dialysis Status: Acute (4) Panniculitis, unspecified Assessment & Plan: on pain medication s/p OR wound managment Status: Acute
[2017-05-27] MEDS: HYDROmorphone 1 mg/ml ISec IVP PRN ×4 (01:55→11:58)
--- NOTE | 2017-05-27 04:21 | CP.PCM.PN ---
Subjective - Date & Time of Evaluation Date of Evaluation: 05/27/17 Time of Evaluation: 09:00 - Subjective Subjective: Pt seen and examined at bedside, pt has large anterior abdominal wall hemtoma extending to left leg, surgery was consulted pain is better today, wbc trending down Objective - Vital Signs/Intake and Output Vital Signs (last 24 hours): Temp Pulse Resp BP Pulse Ox 98.3 F 89 20 162/88 H 99 05/27/17 00:20 05/27/17 00:20 05/27/17 00:20 05/27/17 00:20 05/27/17 00:20 Intake and Output: 05/26/17 05/27/17 18:59 06:59 Intake Total 990 Balance 990 - Medications Medications: Current Medications Aspirin (Aspirin Chewable) 81 mg PO DAILY [facility] Last Admin: 05/18/17 09:23 Dose: Not Given Calcium Acetate (Phoslo) 1,334 mg PO TIDCC [facility] Last Admin: 05/26/17 17:20 Dose: 1,334 mg Epoetin Loyd (Procrit) 20,000 unit IV [facility] [place] Stop: 06/02/17 09:01 Last Admin: 05/26/17 12:58 Dose: 20,000 unit Ferric Sodium Gluconate Complex (Ferrlecit) 125 mg IVPB [facility] [place] Stop: 06/02/17 09:01 Last Admin: 05/26/17 13:56 Dose: 125 mg Heparin Sodium (Porcine) (Heparin) 5,000 units SC Q12 [facility] Last Admin: 05/18/17 21:45 Dose: 5,000 units Hydralazine HCl (Apresoline) 10 mg IVP Q6 PRN PRN Reason: Systolic Blood Pressure Last Admin: 05/27/17 00:42 Dose: 10 mg Hydralazine HCl (Apresoline) 50 mg PO Q8 [facility] Last Admin: 05/26/17 21:50 Dose: 50 mg Hydromorphone HCl (Dilaudid) 3 mg IVP Q3H PRN PRN Reason: pain Last Admin: 05/27/17 01:55 Dose: 3 mg Desmopressin Acetate 20 mcg/ (Sodium Chloride) 55 mls @ 100 mls/hr IV ONCE PRN PRN Reason: give software applications designer to OR 05/17 Last Admin: 05/17/17 13:39 Dose: 100 mls/hr Vancomycin HCl 500 mg/ Sodium (Chloride) 100 mls @ 100 mls/hr IVPB MWF [facility] Last Admin: 05/26/17 08:07 Dose: 100 mls/hr Cefepime HCl (Maxipime Iv 1 Gm Premix) 1 gm in 50 mls @ 100 mls/hr IVPB 1700 [facility] Last Admin: 05/26/17 16:23 Dose: 100 mls/hr Insulin Human Regular (Novolin R) 0 unit SC ACHS [facility] PRN Reason: Protocol Last Admin: 05/26/17 21:56 Dose: 4 unit Metoprolol Succinate (Toprol Xl) 75 mg PO DAILY [facility] Oxycodone HCl (Oxycontin Extended Release Tab) 20 mg PO Q8 [facility] Last Admin: 05/26/17 21:51 Dose: 20 mg Rosuvastatin Calcium (Crestor) 10 mg PO HS [facility] Last Admin: 05/26/17 21:50 Dose: 10 mg Sevelamer Carbonate (Renvela) 0.8 gm PO TIDCC [facility] Last Admin: 05/26/17 17:20 Dose: 0.8 gm Vitamin B Complex/Vit C/Folic Acid (Nephro-Mandy) 1 tab PO 0800 [facility] Last Admin: 05/26/17 08:25 Dose: Not Given - Labs Labs: 05/26/17 07:53 05/26/17 07:53 PT 15.5 SECONDS (9.7-12.2) H 05/17/17 14:10 INR 1.4 05/17/17 14:10 APTT 31 SECONDS (21-34) 05/17/17 14:10 - Constitutional Appears: No Acute Distress - Head Exam Head Exam: ATRAUMATIC, NORMAL INSPECTION, NORMOCEPHALIC - Respiratory Exam Respiratory Exam: Clear to Ausculation Bilateral, NORMAL BREATHING PATTERN - Cardiovascular Exam Cardiovascular Exam: +S1, +S2 Additional comments: S3 positive - GI/Abdominal Exam GI & Abdominal Exam: Soft, Normal Bowel Sounds. absent: Tenderness Assessment and Plan (1) Type 2 diabetes mellitus Status: Acute (2) HTN (hypertension) Status: Acute (3) ESRD (end stage renal disease) on dialysis Status: Acute (4) Panniculitis, unspecified Status: Acute (5) Hematoma Assessment & Plan: blood loss due to abdominal hematoma Status: Acute
[2017-05-27] MEDS: oxyCODONE 20 mg ER Tab (oxyCONTIN) PO SCH ×3 (06:55→21:53)
[2017-05-27 07:43] LABS: BASO # 0.1 K/uL (0.0-0.2); BASO % 0.5 % (0.0-2.0); EOS # 0.5 K/uL (0.0-0.7); HEMATOCRIT 30.2 % (34.0-47.0); LYMPH # 1.2 K/uL (1.0-4.3); LYMPH % 4.8 % (20.0-40.0); MEAN CELL VOLUME 86.7 fL (81.0-99.0); MEAN CORPUSCULAR HEMOGLOBIN 27.7 pg (27.0-31.0); MONO % 7.9 % (0.0-10.0); PLATELET COUNT 602 K/uL (130-400); RED CELL DISTRIBUTION WIDTH 18.2 % (11.5-14.5); WHITE BLOOD COUNT 25.2 K/uL (4.8-10.8)
[2017-05-27] MEDS: (Novolin R) Insulin Human Regular 100 units/ml vial SC SCH ×4 (08:27→21:53)
[2017-05-27] MEDS: Sevelamer Carb 0.8 gm/Packet PO SCH ×3 (08:38→17:54)
[2017-05-27] MEDS: Multivitamin Vitamin B Complex (Nephro-Vite) Tab PO SCH (08:39)
[2017-05-27 09:27] LABS: NEUTROPHIL 87 % (50-75); TOTAL CELLS COUNTED 100
[2017-05-27] MEDS: Metoprolol Succinate 25 mg XL Tab PO SCH (09:27)
[2017-05-27 09:28] LABS: LARGE PLATELETS PRESENT
[2017-05-27 09:29] LABS: GIANT PLATELETS PRESENT; PLATELET CLUMPS PRESENT
[2017-05-27] MEDS: Cefepime IV 1 gm in Dextrose 1 GM/50 ML BAG IVPB SCH (17:55)
--- NOTE | 2017-05-27 18:31 | CP.PCM.PN ---
Subjective - Date & Time of Evaluation Date of Evaluation: 05/27/17 Time of Evaluation: 18:30 - Subjective Subjective: pt is seen and examined, follow up consult is dictated #[id number] s/p ct scAn c/w large hematoma 22.4 x 7 cm refused extra hd today, next tx on monday Objective - Vital Signs/Intake and Output Vital Signs (last 24 hours): Temp Pulse Resp BP Pulse Ox 98.0 F 85 20 152/82 H 96 05/27/17 16:21 05/27/17 16:21 05/27/17 16:21 05/27/17 16:21 05/27/17 16:21 Intake and Output: 05/27/17 05/27/17 06:59 18:59 Intake Total 500 Balance 500 - Medications Medications: Current Medications Aspirin (Aspirin Chewable) 81 mg PO DAILY [facility] Last Admin: 05/18/17 09:23 Dose: Not Given Calcium Acetate (Phoslo) 1,334 mg PO TIDCC [facility] Last Admin: 05/27/17 17:54 Dose: 1,334 mg Epoetin Loyd (Procrit) 20,000 unit IV [facility] [place] Stop: 06/02/17 09:01 Last Admin: 05/26/17 12:58 Dose: 20,000 unit Ferric Sodium Gluconate Complex (Ferrlecit) 125 mg IVPB [facility] [place] Stop: 06/02/17 09:01 Last Admin: 05/26/17 13:56 Dose: 125 mg Heparin Sodium (Porcine) (Heparin) 5,000 units SC Q12 [facility] Last Admin: 05/18/17 21:45 Dose: 5,000 units Hydralazine HCl (Apresoline) 10 mg IVP Q6 PRN PRN Reason: Systolic Blood Pressure Last Admin: 05/27/17 00:42 Dose: 10 mg Hydralazine HCl (Apresoline) 50 mg PO Q8 [facility] Last Admin: 05/27/17 14:01 Dose: 50 mg Hydromorphone HCl (Dilaudid) 3 mg IVP Q3H PRN PRN Reason: pain Last Admin: 05/27/17 18:20 Dose: 3 mg Desmopressin Acetate 20 mcg/ (Sodium Chloride) 55 mls @ 100 mls/hr IV ONCE PRN PRN Reason: give agronomy advisor to OR 05/17 Last Admin: 05/17/17 13:39 Dose: 100 mls/hr Vancomycin HCl 500 mg/ Sodium (Chloride) 100 mls @ 100 mls/hr IVPB [facility]WF [facility] Last Admin: 05/26/17 08:07 Dose: 100 mls/hr Cefepime HCl (Maxipime Iv 1 Gm Premix) 1 gm in 50 mls @ 100 mls/hr IVPB 1700 [facility] Last Admin: 05/27/17 17:55 Dose: 100 mls/hr Insulin Human Regular (Novolin R) 0 unit SC ACHS [facility] PRN Reason: Protocol Last Admin: 05/27/17 16:30 Dose: Not Given Metoprolol Succinate (Toprol Xl) 75 mg PO DAILY [facility] Last Admin: 05/27/17 09:27 Dose: 75 mg Oxycodone HCl (Oxycontin Extended Release Tab) 20 mg PO Q8 [facility] Last Admin: 05/27/17 14:01 Dose: 20 mg Rosuvastatin Calcium (Crestor) 10 mg PO HS [facility] Last Admin: 05/26/17 21:50 Dose: 10 mg Sevelamer Carbonate (Renvela) 0.8 gm PO TIDCC [facility] Last Admin: 05/27/17 17:54 Dose: 0.8 gm Vitamin B Complex/Vit C/Folic Acid (Nephro-Mandy) 1 tab PO 0800 [facility] Last Admin: 05/27/17 08:39 Dose: Not Given - Labs Labs: 05/27/17 07:06 05/26/17 07:53 PT 15.5 SECONDS (9.7-12.2) H 05/17/17 14:10 INR 1.4 05/17/17 14:10 APTT 31 SECONDS (21-34) 05/17/17 14:10
[2017-05-27] MEDS ORDERED: oxyCODONE 20 mg ER Tab (oxyCONTIN) PO STA (21:42)
--- NOTE | 2017-05-28 02:07 | PN ---
DATE: LOCATION: The patient is located in room 368, bed B. REQUESTED BY: Romulo Yoo MD REASON FOR FOLLOWUP: End-stage renal disease, for continuation of hemodialysis. HISTORY OF PRESENT ILLNESS: Mrs. Schmitz is a 41-year-old obese female with history of longstanding hypertension, diabetes, diabetic retinopathy, end-stage renal disease, obesity, status post gastric bypass, who [facility]. Subsequently, the patient was discharged home on antibiotics and the patient was admitted to [facility] on 05/15/2017 with worsening symptoms and severe pancolitis, status post surgery and status post evacuation of the hematoma and also drainage of the left thigh swelling. The patient also received multiple units of transfusion. Since admission, she has had about 6 units of packed RBC. Status post bleeding from the abdominal wound 2 days ago. The patient refused extra hemodialysis. The patient is not in distress. Complains of pain in abdomen on and off. PHYSICAL EXAMINATION: VITAL SIGNS: As follows, blood pressure 152/82, pulse 85, respirations 20, temperature 98, saturation 96%. Height 5 feet 6 inches and weight is about 212 pounds. GENERAL: The patient is a 41-year-old obese female with hypertension, diabetes, moderately built, moderately nourished, not in distress. HEENT: Pupils normal, reactive to light and accommodation. Conjunctivae pink. Sclerae anicteric. Tongue is moist. Trachea is midline. LUNGS: Symmetric on both sides. Bilateral breath sounds present. Clear to auscultation. CVS: [place] at the fifth intercostal space, midclavicular line. S1 and S2 audible. No murmur or gallop. ABDOMEN: Normal in appearance. Status post radical panniculectomy. Bowel sounds present. No guarding. No rigidity. Ratn-md-kwpzuktj tenderness in lower abdomen. PROFESSOR OF FINE ART: The patient is alert, awake, oriented x3. Nonfocal neuro examination. Cranial nerves II through XII grossly intact. Sensory and motor system is within normal limits. EXTREMITIES: No cyanosis, no clubbing. The patient has 2+ edema in both lower extremities. CURRENT MEDICATIONS: Include as follows: Hydralazine 10 mg IV q.6h. p.r.n. and hydralazine 50 mg q.8h., aspirin on hold, Crestor 10 mg at bedtime, hydromorphone 3 mg IV q.3h. p.r.n., Ferrlecit 125 mg IV three times a week, heparin on hold, cefepime 1 g daily, Nephro-Mandy 1 tablet daily, oxycodone 20 mg p.o. q.8h., PhosLo 667 mg 2 tablets t.i.d., Procrit 20,000 units three times a week, Renvela 800 mg p.o. t.i.d., metoprolol 75 mg p.o. daily, and vancomycin 500 mg three times a week. LABORATORY DATA: Include as follows: As of 05/27/2017, WBC 25.2, hemoglobin 9.6, hematocrit 30.0, platelets 602. Accu-Cheks this morning 153, 176, and 143. CT of the abdomen and pelvis as of 05/26/2017, there is anterior pelvic wall subcutaneous high attenuation collection, measures are 22.4 cm in transverse diameter and 7.4 cm in AP diameter, likely represents large hematoma. IMPRESSION: Large subcutaneous high attenuation collection at the anterior pelvic wall extending to the right flank region suspicious for the large hematoma adjacent to multiple small focal [id number]-vh-[id number] distended gallbladder without evidence of acute cholecystitis, mild fullness of the pancreatic head noted. In summary, the patient is a 41-year-old obese female with hypertension, diabetes, diabetic retinopathy, status post gastric bypass surgery, end-stage renal disease, secondary hyperparathyroidism, noncompliance with medication, who was admitted with severe pancolitis, status post surgery, status post decrease in the hemoglobin levels, and found to have a large hematoma of 22.4 cm in transverse diameter and 7.4 cm in AP diameter, likely representing large hematoma in the anterior pelvic wall region subcutaneous hematoma, status post transfusion of 2 units of packed RBC during dialysis yesterday. 1. End-stage renal disease. Continue hemodialysis three times a week, Monday, Monday, Monday. The patient refused an extra dialysis today due to volume overload. 2. Hypertension. Continue blood pressure medications, hydralazine and metoprolol and we will increase the metoprolol to 100 mg daily and titrate as needed and transfuse as needed. For possible surgery on Monday as the patient had discussed with the surgeon. 3. Anemia secondary to recent surgery and bleeding. 4. Diabetes. 5. Second hyperparathyroidism. Continue PhosLo, Renvela. We will follow with you. Thank you for allowing me to participate in your patient's care. Repeat CBC, CMP, and phosphorus level on Monday. We will try to coordinate with Surgery, schedule for dialysis. Marc Jarrett MD
[2017-05-28] MEDS: oxyCODONE 20 mg ER Tab (oxyCONTIN) PO SCH ×3 (05:19→22:00)
[2017-05-28] MEDS: (Novolin R) Insulin Human Regular 100 units/ml vial SC SCH ×4 (07:43→22:01)
[2017-05-28] MEDS: Multivitamin Vitamin B Complex (Nephro-Vite) Tab PO SCH (08:45)
[2017-05-28] MEDS: Sevelamer Carb 0.8 gm/Packet PO SCH ×3 (08:45→17:53)
[2017-05-28] MEDS: Metoprolol Succinate 25 mg XL Tab PO SCH (09:00)
[2017-05-28] MEDS ORDERED: Vitamins A & D Oint UD Foilpak TOP PRN (13:36)
[2017-05-28] MEDS: Cefepime IV 1 gm in Dextrose 1 GM/50 ML BAG IVPB SCH (17:00)
--- NOTE | 2017-05-28 17:19 | CP.PCM.PN ---
Subjective - Date & Time of Evaluation Date of Evaluation: 05/28/17 Time of Evaluation: 08:00 - Subjective Subjective: events noted large hematoma iv rx in progress no new cultures dr rhoades on board Objective - Vital Signs/Intake and Output Vital Signs (last 24 hours): Temp Pulse Resp BP Pulse Ox 97.9 F 78 20 116/80 97 05/28/17 16:09 05/28/17 16:09 05/28/17 16:09 05/28/17 16:09 05/28/17 16:09 Intake and Output: 05/28/17 05/28/17 06:59 18:59 Intake Total 240 Balance 240 - Medications Medications: Current Medications Aspirin (Aspirin Chewable) 81 mg PO DAILY [facility] Last Admin: 05/18/17 09:23 Dose: Not Given Calcium Acetate (Phoslo) 1,334 mg PO TIDCC [facility] Last Admin: 05/28/17 12:00 Dose: 1,334 mg Epoetin Loyd (Procrit) 20,000 unit IV [facility] [place] Stop: 06/02/17 09:01 Last Admin: 05/26/17 12:58 Dose: 20,000 unit Ferric Sodium Gluconate Complex (Ferrlecit) 125 mg IVPB [facility] [place] Stop: 06/02/17 09:01 Last Admin: 05/26/17 13:56 Dose: 125 mg Heparin Sodium (Porcine) (Heparin) 5,000 units SC Q12 [facility] Last Admin: 05/18/17 21:45 Dose: 5,000 units Hydralazine HCl (Apresoline) 10 mg IVP Q6 PRN PRN Reason: Systolic Blood Pressure Last Admin: 05/27/17 00:42 Dose: 10 mg Hydralazine HCl (Apresoline) 50 mg PO Q8 [facility] Last Admin: 05/28/17 15:16 Dose: 50 mg Hydromorphone HCl (Dilaudid) 3 mg IVP Q3H PRN PRN Reason: pain Last Admin: 05/28/17 15:14 Dose: 3 mg Desmopressin Acetate 20 mcg/ (Sodium Chloride) 55 mls @ 100 mls/hr IV ONCE PRN PRN Reason: give interventional nurse to OR 05/17 Last Admin: 05/17/17 13:39 Dose: 100 mls/hr Vancomycin HCl 500 mg/ Sodium (Chloride) 100 mls @ 100 mls/hr IVPB MWF [facility] Last Admin: 05/26/17 08:07 Dose: 100 mls/hr Cefepime HCl (Maxipime Iv 1 Gm Premix) 1 gm in 50 mls @ 100 mls/hr IVPB 1700 [facility] Last Admin: 05/27/17 17:55 Dose: 100 mls/hr Insulin Human Regular (Novolin R) 0 unit SC ACHS [facility] PRN Reason: Protocol Last Admin: 05/28/17 12:17 Dose: Not Given Metoprolol Succinate (Toprol Xl) 75 mg PO DAILY [facility] Last Admin: 05/28/17 09:00 Dose: 75 mg Mupirocin (Bactroban Ointment) 1 gm TOP BID [facility] Oxycodone HCl (Oxycontin Extended Release Tab) 20 mg PO Q8 [facility] Last Admin: 05/28/17 15:16 Dose: 20 mg Rosuvastatin Calcium (Crestor) 10 mg PO HS [facility] Last Admin: 05/27/17 21:54 Dose: 10 mg Sevelamer Carbonate (Renvela) 0.8 gm PO TIDCC [facility] Last Admin: 05/28/17 12:00 Dose: 0.8 gm Vitamin A (Vitamin A & D Oint Ud Foilpak) 0.5 ea TOP BID PRN PRN Reason: for dry lips Vitamin B Complex/Vit C/Folic Acid (Nephro-Mandy) 1 tab PO 0800 [facility] Last Admin: 05/28/17 08:45 Dose: Not Given - Labs Labs: 05/27/17 07:06 05/26/17 07:53 PT 15.5 SECONDS (9.7-12.2) H 05/17/17 14:10 INR 1.4 05/17/17 14:10 APTT 31 SECONDS (21-34) 05/17/17 14:10 - Constitutional Appears: Non-toxic, Chronically Ill - Head Exam Head Exam: NORMOCEPHALIC - Eye Exam Eye Exam: PERRL - ENT Exam ENT Exam: Mucous Membranes Dry - Neck Exam Neck Exam: absent: Lymphadenopathy - Respiratory Exam Respiratory Exam: Decreased Breath Sounds - Cardiovascular Exam Cardiovascular Exam: REGULAR RHYTHM - GI/Abdominal Exam GI & Abdominal Exam: Distended, Soft - Rectal Exam Rectal Exam: Deferred - Exam Exam: NORMAL INSPECTION - Extremities Exam Extremities Exam: absent: Pedal Edema - Back Exam Back Exam: absent: CVA tenderness (L), CVA tenderness (R) - Neurological Exam Neurological Exam: Alert, Awake, Oriented x3 Assessment and Plan (1) Cellulitis Status: Acute (2) Cellulitis Status: Acute (3) ESRD (end stage renal disease) on dialysis Status: Acute (4) HTN (hypertension) Status: Acute (5) Panniculitis, unspecified Status: Acute (6) Type 2 diabetes mellitus Status: Acute
--- NOTE | 2017-05-28 22:28 | CP.PCM.PN ---
Subjective - Date & Time of Evaluation Date of Evaluation: 05/28/17 Time of Evaluation: 13:00 - Subjective Subjective: Pt seen and examined at bedside today Objective - Vital Signs/Intake and Output Vital Signs (last 24 hours): Temp Pulse Resp BP Pulse Ox 97.9 F 78 20 116/80 97 05/28/17 16:09 05/28/17 16:09 05/28/17 16:09 05/28/17 16:09 05/28/17 16:09 Intake and Output: 05/28/17 05/29/17 18:59 06:59 Intake Total 400 Balance 400 - Medications Medications: Current Medications Aspirin (Aspirin Chewable) 81 mg PO DAILY [facility] Last Admin: 05/18/17 09:23 Dose: Not Given Calcium Acetate (Phoslo) 1,334 mg PO TIDCC [facility] Last Admin: 05/28/17 17:53 Dose: 1,334 mg Epoetin Loyd (Procrit) 20,000 unit IV [facility] [place] Stop: 06/02/17 09:01 Last Admin: 05/26/17 12:58 Dose: 20,000 unit Ferric Sodium Gluconate Complex (Ferrlecit) 125 mg IVPB [facility] [place] Stop: 06/02/17 09:01 Last Admin: 05/26/17 13:56 Dose: 125 mg Heparin Sodium (Porcine) (Heparin) 5,000 units SC Q12 [facility] Last Admin: 05/18/17 21:45 Dose: 5,000 units Hydralazine HCl (Apresoline) 10 mg IVP Q6 PRN PRN Reason: Systolic Blood Pressure Last Admin: 05/27/17 00:42 Dose: 10 mg Hydralazine HCl (Apresoline) 50 mg PO Q8 [facility] Last Admin: 05/28/17 22:02 Dose: 50 mg Hydromorphone HCl (Dilaudid) 3 mg IVP Q3H PRN PRN Reason: pain Last Admin: 05/28/17 21:15 Dose: 3 mg Desmopressin Acetate 20 mcg/ (Sodium Chloride) 55 mls @ 100 mls/hr IV ONCE PRN PRN Reason: give senior consultant to OR 05/17 Last Admin: 05/17/17 13:39 Dose: 100 mls/hr Vancomycin HCl 500 mg/ Sodium (Chloride) 100 mls @ 100 mls/hr IVPB [facility] [place] Last Admin: 05/26/17 08:07 Dose: 100 mls/hr Cefepime HCl (Maxipime Iv 1 Gm Premix) 1 gm in 50 mls @ 100 mls/hr IVPB 1700 [facility] Last Admin: 05/28/17 17:00 Dose: 100 mls/hr Insulin Human Regular (Novolin R) 0 unit SC ACHS [facility] PRN Reason: Protocol Last Admin: 05/28/17 22:01 Dose: Not Given Metoprolol Succinate (Toprol Xl) 75 mg PO DAILY [facility] Last Admin: 05/28/17 09:00 Dose: 75 mg Mupirocin (Bactroban Ointment) 1 gm TOP BID [facility] Last Admin: 05/28/17 18:11 Dose: 1 applic Oxycodone HCl (Oxycontin Extended Release Tab) 20 mg PO Q8 [facility] Last Admin: 05/28/17 22:00 Dose: 20 mg Rosuvastatin Calcium (Crestor) 10 mg PO HS [facility] Last Admin: 05/28/17 22:02 Dose: 10 mg Sevelamer Carbonate (Renvela) 0.8 gm PO TIDCC [facility] Last Admin: 05/28/17 17:53 Dose: 0.8 gm Vitamin A (Vitamin A & D Oint Ud Foilpak) 0.5 ea TOP BID PRN PRN Reason: for dry lips Vitamin B Complex/Vit C/Folic Acid (Nephro-Mandy) 1 tab PO 0800 [facility] Last Admin: 05/28/17 08:45 Dose: Not Given - Labs Labs: 05/27/17 07:06 05/26/17 07:53 PT 15.5 SECONDS (9.7-12.2) H 05/17/17 14:10 INR 1.4 05/17/17 14:10 APTT 31 SECONDS (21-34) 05/17/17 14:10 Assessment and Plan (1) Type 2 diabetes mellitus Status: Acute (2) HTN (hypertension) Status: Acute (3) ESRD (end stage renal disease) on dialysis Status: Acute (4) Panniculitis, unspecified Status: Acute (5) Hematoma Status: Acute
[2017-05-29] MEDS: oxyCODONE 20 mg ER Tab (oxyCONTIN) PO SCH ×3 (05:39→22:10)
[2017-05-29] MEDS: HYDROmorphone 1 mg/ml ISec IVP PRN ×3 (06:15→12:48)
[2017-05-29] MEDS: Sevelamer Carb 0.8 gm/Packet PO SCH ×3 (08:15→17:28)
[2017-05-29] MEDS: Multivitamin Vitamin B Complex (Nephro-Vite) Tab PO SCH ×2 (08:15→08:30)
[2017-05-29] MEDS: (Novolin R) Insulin Human Regular 100 units/ml vial SC SCH ×4 (08:16→22:15)
[2017-05-29 09:01] LABS: BASO # 0.1 K/uL (0.0-0.2); BASO % 0.4 % (0.0-2.0); EOS # 0.3 K/uL (0.0-0.7); EOS % 1.1 % (0.0-4.0); HEMATOCRIT 27.6 % (34.0-47.0); LYMPH % 4.5 % (20.0-40.0); MEAN CELL VOLUME 87.4 fL (81.0-99.0); MEAN CORPUSCULAR HEMOGLOBIN 28.2 pg (27.0-31.0); MEAN CORPUSCULAR HGB CONC 32.2 g/dL (33.0-37.0); MEAN PLATELET VOLUME 9.2 fL (7.2-11.7); MONO # 1.6 K/uL (0.0-0.8); MONO % 6.8 % (0.0-10.0); NRBC % 0.1 % (0.0-2.0); PLATELET COUNT 582 K/uL (130-400); RED CELL DISTRIBUTION WIDTH 17.3 % (11.5-14.5); WHITE BLOOD COUNT 23.3 K/uL (4.8-10.8)
[2017-05-29 09:09] LABS: INR 1.4
[2017-05-29 09:20] LABS: ALB/GLOB RATIO 0.6 (1.0-2.1); BILIRUBIN,TOTAL 1.1 mg/dL (0.2-1.3); CALCIUM 9.3 mg/dl (8.6-10.4); POTASSIUM 5.4 mmol/L (3.6-5.2); TOTAL PROTEIN 9.5 g/dL (6.3-8.3)
--- NOTE | 2017-05-29 09:22 | PN ---
DATE: FOLLOWUP RENAL CONSULTATION LOCATION: The patient is located in room 368, bed B. REQUESTING PHYSICIAN: Romulo Yoo MD. REASON FOR FOLLOWUP: End-stage renal disease, continuation of hemodialysis, anemia. SUBJECTIVE: Mrs. Schmitz is a 41 years old obese female with a past medical history significant for hypertension, diabetes, end-stage renal disease, secondary hyperparathyroidism, panniculitis status post surgery about 3 weeks ago in [facility]. Subsequently, the patient was admitted to [facility] with worsening symptoms and underwent radical panniculectomy by Dr. Holland and also requiring multiple transfusions since admission, required about 4 units. The patient was seen and examined during dialysis this morning and the patient was not in distress but restless to lie down on the bed and also complained swelling of the legs. The patient was also found to have hemoglobin 7.6, and type and cross was sent and arranged to transfuse 2 units of packed RBC if possible during dialysis, if not, at least 1 unit and another unit tomorrow. The patient is not in distress. PHYSICAL EXAMINATION: VITAL SIGNS: As follows, blood pressure 167/89, pulse 107, respirations 16, and temperature is 97.4. Height is 5 feet 6 inches and weight is 212 pounds. GENERAL: Mrs. Schmitz is a 41 years old obese female, moderately built, moderately nourished, not in distress. HEENT: Pupils normal, reactive to light and accommodation. Conjunctivae pale slightly, sclerae anicteric. Tongue is moist. Trachea is midline. LUNGS: Symmetry on both sides. Bilateral breath sounds present. Clear on auscultation. CARDIOVASCULAR SYSTEM: [place] at the fifth intercostal space, midclavicular line. S1 and S2 audible. No murmur or gallop. ABDOMEN: Normal in appearance, status post panniculectomy. Soft. Colp-xh-ygrkybwc tenderness present, lower abdomen. Bowel sounds present. No guarding. No rigidity. CENTRAL NERVOUS SYSTEM: The patient is alert, awake, oriented x3. Nonfocal neuro examination. Cranial nerves II through XII grossly intact. Sensory and motor system are within normal limits. EXTREMITIES: No cyanosis, no clubbing. The patient has 2+ edema in both lower extremities. CURRENT MEDICATIONS: Include as follows, hydralazine 25 mg p.o. q. 8 hours and 10 mg hydralazine IV q. 6 hours p.r.n.; Crestor 10 mg at bedtime; Dilaudid 3 mg IV q. 3 hours; Ferrlecit 125 mg 3 times a week; cefepime 1 g daily; Nephro-Mandy 1 tablet daily; oxycodone 20 mg p.o. q. 8 hours; PhosLo 667 mg 2 tablets t.i.d.; Procrit 20,000 units 3 times a week, Monday, Monday, and Monday; Renvela 800 mg p.o. t.i.d.; Toprol XL 50 mg p.o. daily; vancomycin 500 mg 3 times a week. LABORATORY DATA: Include as follows, WBC 25.5, hemoglobin 7.6, hematocrit is 24.4, platelets 539. Sodium 130, potassium 5.0, chloride 90, CO2 of 26, BUN 59, creatinine 6.1, glucose 168, calcium 8.8, phosphorus is 6.2. Total bili 1.3, AST 24, ALT 24, alkaline phosphatase 219, total protein 8.1, albumin is 3.8, and beta-hCG less than 2.39. ASSESSMENT AND PLAN: In summary, Mrs. Schmitz is a 41 years old obese female with a history of hypertension, diabetes, end-stage renal disease, diabetic retinopathy, and also secondary hyperparathyroidism, noncompliance with phosphate binders, was admitted with severe panniculitis status post surgery about 3 weeks ago in [facility]. Subsequently, the patient was admitted with worsening symptoms to [facility] and underwent transfusion x2 and also panniculectomy, radical and also incision and drainage of the pelvic abscess and incision of the left thigh swelling, status post bleeding yesterday from the abdominal wound as per the patient and found to have a low hemoglobin and hematocrit today, hemoglobin 7.6 during dialysis. Underwent hemodialysis today and received 3-1/2 hours of hemodialysis treatment and also had ultrafiltration about 2 liters and also had a transfusion of 2 units of packed right blood cells during dialysis. 1. End-stage renal disease. Continue hemodialysis 3 times a week; Monday, Monday, and Monday. The patient agrees. We will give an extra dialysis tomorrow due to fluid overload. 2. Uncontrolled hypertension. 3. Uncontrolled diabetes. 4. Secondary hyperparathyroidism. Continue phosphate binders. 5. Panniculitis status post radical panniculectomy. 6. Anemia secondary to recent surgery and bleeding. The patient was given 2 units of packed RBC during hemodialysis today. Repeat CBC, BMP, and phosphorus in a.m. We will follow with you. Thank you for allowing me to participate in your patient's care. Marc Jarrett MD
[2017-05-29] MEDS: Metoprolol Succinate 25 mg XL Tab PO SCH (09:35)
[2017-05-29 10:01] LABS: NEUTROPHIL 89 % (50-75); TOTAL CELLS COUNTED 100
[2017-05-29] MEDS ORDERED: Lactated Ringer's 1,000 ML IV ONE (14:19)
[2017-05-29] MEDS ORDERED: Midazolam 2 MG/2 ML VIAL ONE ×2 (14:26→15:31)
[2017-05-29] MEDS ORDERED: Propofol 10 mg/ml Inj (20 ML) ONE (14:35)
[2017-05-29] MEDS ORDERED: Bacitracin Ointment 30 GM TUBE ONE (15:07)
[2017-05-29] MEDS ORDERED: Sodium Chloride 0.9% 1,000 ML IV ONE (15:33)
[2017-05-29] MEDS ORDERED: HYDROmorphone 0.5 mg/0.5 ml ISec ONE ×2 (15:56→16:12)
[2017-05-29] MEDS: HYDROmorphone 0.5 mg/0.5 ml ISec IVP PRN ×3 (15:56→17:05)
[2017-05-29] MEDS ORDERED: Sodium Chloride 0.9% 1,000 ML IV SCH (16:00)
[2017-05-29] MEDS ORDERED: Labetalol 25mg/5ml Syringe IVP PRN (17:17)
[2017-05-29] MEDS: Cefepime IV 1 gm in Dextrose 1 GM/50 ML BAG IVPB SCH (17:30)
--- NOTE | 2017-05-29 19:26 | CP.PCM.PN ---
Subjective - Date & Time of Evaluation Date of Evaluation: 05/29/17 Time of Evaluation: 19:26 - Subjective Subjective: pt is seen and examined, follow up consult is dictated #[phone] s/p surgery Objective - Vital Signs/Intake and Output Vital Signs (last 24 hours): Temp Pulse Resp BP Pulse Ox 98 F 99 H 15 158/91 H 100 05/29/17 17:05 05/29/17 18:05 05/29/17 18:05 05/29/17 18:05 05/29/17 18:05 Intake and Output: 05/29/17 05/30/17 18:59 06:59 Intake Total 150 Balance 150 - Medications Medications: Current Medications Aspirin (Aspirin Chewable) 81 mg PO DAILY [facility] Last Admin: 05/18/17 09:23 Dose: Not Given Calcium Acetate (Phoslo) 1,334 mg PO TIDCC [facility] Last Admin: 05/29/17 17:28 Dose: Not Given Epoetin Loyd (Procrit) 20,000 [place] [facility] [place]: 06/02/17 09:01 Last Admin: 05/26/17 12:58 Dose: 20,000 unit Ferric Sodium Gluconate Complex (Ferrlecit) 125 mg IVPB [facility] Stop: 06/02/17 09:01 Last Admin: 05/26/17 13:56 Dose: 125 mg Heparin Sodium (Porcine) (Heparin) 5,000 units SC Q12 [facility] Last Admin: 05/18/17 21:45 Dose: 5,000 units Hydralazine HCl (Apresoline) 10 mg IVP Q6 PRN PRN Reason: Systolic Blood Pressure Last Admin: 05/27/17 00:42 Dose: 10 mg Hydralazine HCl (Apresoline) 50 mg PO Q8 [facility] Last Admin: 05/29/17 14:56 Dose: Not Given Hydromorphone HCl (Dilaudid) 3 mg IVP Q3H PRN PRN Reason: pain Last Admin: 05/29/17 12:48 Dose: 3 mg Desmopressin Acetate 20 mcg/ (Sodium Chloride) 55 mls @ 100 mls/hr IV ONCE PRN PRN Reason: give media production manager to OR 05/17 Last Admin: 05/17/17 13:39 Dose: 100 mls/hr Vancomycin HCl 500 mg/ Sodium (Chloride) 100 mls @ 100 mls/hr IVPB MWF [facility] Last Admin: 05/29/17 08:15 Dose: 100 mls/hr Cefepime HCl (Maxipime Iv 1 Gm Premix) 1 gm in 50 mls @ 100 mls/hr IVPB 1700 [facility] Last Admin: 05/29/17 17:30 Dose: 50 mls Sodium Chloride (Sodium Chloride 0.9%) 1,000 mls @ 50 mls/hr IV .Q20H [facility] Last Admin: 05/29/17 16:00 Dose: Not Given Insulin Human Regular (Novolin R) 0 unit SC ACHS [facility] PRN Reason: Protocol Last Admin: 05/29/17 17:28 Dose: Not Given Metoprolol Succinate (Toprol Xl) 75 mg PO DAILY [facility] Last Admin: 05/29/17 09:35 Dose: 75 mg Mupirocin (Bactroban Ointment) 1 gm TOP BID [facility] Last Admin: 05/29/17 17:28 Dose: Not Given Oxycodone HCl (Oxycontin Extended Release Tab) 20 mg PO Q8 [facility] Last Admin: 05/29/17 14:57 Dose: Not Given Rosuvastatin Calcium (Crestor) 10 mg PO HS [facility] Last Admin: 05/28/17 22:02 Dose: 10 mg Sevelamer Carbonate (Renvela) 0.8 gm PO TIDCC [facility] Last Admin: 05/29/17 17:28 Dose: Not Given Vitamin A (Vitamin A & D Oint Ud Foilpak) 0.5 ea TOP BID PRN PRN Reason: for dry lips Vitamin B Complex/Vit C/Folic Acid (Nephro-Mandy) 1 tab PO 0800 [facility] Last Admin: 05/29/17 08:30 Dose: Not Given - Labs Labs: 05/29/17 08:50 05/29/17 08:50 PT 15.9 SECONDS (9.7-12.2) H 05/29/17 08:50 INR 1.4 05/29/17 08:50 APTT 33 SECONDS (21-34) 05/29/17 08:50
--- NOTE | 2017-05-29 20:21 | CP.CCUPN ---
CCU Subjective - Physician Review Events Since Last Encounter (Free Text): 05/29/17 20:18 patient complains of pain. CCU Objective - Vital Signs / Intake & Output Vital Signs (Last 4 hours): Vital Signs Temp Pulse Resp BP Pulse Ox 05/29/17 19:00 98.2 F 108 H 19 159/77 H 97 05/29/17 18:30 110 H 12 165/56 H 100 05/29/17 18:05 99 H 15 158/91 H 100 05/29/17 17:50 106 H 23 167/82 H 97 05/29/17 17:35 100 H 17 158/48 H 98 05/29/17 17:20 96 H 18 197/53 H 96 05/29/17 17:05 98 F 95 H 16 189/66 H 99 05/29/17 16:50 96 H 17 186/66 H 99 05/29/17 16:35 95 H 16 184/88 H 99 05/29/17 16:20 92 H 12 189/90 H 99 Intake and Output (Last 8hrs): Intake & Output 05/29/17 05/29/17 05/29/17 06:59 14:59 22:59 Intake Total 0 150 Balance 0 150 Intake: Intake, IV Amount 100 Left Forearm 100 Oral 0 50 Other: # Voids Urine, Voided 0 1 - Physical Exam Head: Positive for: Atraumatic, Normocephalic Pupils: Positive for: PERRL Extroacular Muscles: Positive for: EOMI Conjunctiva: Positive for: Normal Mouth: Positive for: Dry Respiratory/Chest: Positive for: Clear to Auscultation, Good Air Exchange Cardiovascular: Positive for: Regular Rate and Rhythm, Normal S1, S2 Abdomen: Positive for: Tenderness (diffuse), Other (New dressing placed by surgery, c/d/i) Upper Extremity: Positive for: Normal Inspection Lower Extremity: Positive for: Edema, Other (left thigh necrotic wound ). Negative for: CALF TENDERNESS Neurological: Positive for: Speech Normal Psychiatric: Positive for: Alert, Oriented x 3 - Medications Active Medications: Active Medications Generic Name Dose Route Start Last Admin Trade Name Freq PRN Reason Stop Dose Admin Aspirin 81 mg 05/16/17 10:00 05/18/17 09:23 Aspirin Chewable PO Not Given DAILY [facility] Calcium Acetate 1,334 mg 05/16/17 08:00 05/29/17 17:28 Phoslo PO Not Given TIDCC [facility] Epoetin Loyd 20,000 unit 05/26/17 10:00 05/26/17 12:58 Procrit IV 06/02/17 09:01 20,000 unit [facility] Ferric Sodium Gluconate Complex 125 mg 05/26/17 10:00 05/26/17 13:56 Ferrlecit IVPB 06/02/17 09:01 125 mg [facility] Administration Heparin Sodium (Porcine) 5,000 units 05/15/17 22:00 05/18/17 21:45 Heparin SC 5,000 units Q12 [facility] Administration Hydralazine HCl 10 mg 05/18/17 15:31 05/27/17 00:42 Apresoline IVP 10 mg Q6 PRN Administration Systolic Blood Pressure Hydralazine HCl 50 mg 05/27/17 14:00 05/29/17 14:56 Apresoline PO Not Given Q8 [facility] Hydromorphone HCl 3 mg 05/29/17 06:15 05/29/17 12:48 Dilaudid IVP 3 mg Q3H PRN Administration pain Desmopressin Acetate 20 mcg/ 55 mls @ 100 mls/hr 05/17/17 07:30 05/17/17 13: 39 Sodium Chloride IV 100 mls/hr ONCE PRN Administration give land acquisition analyst to OR 05/17 Vancomycin HCl 500 mg/ Sodium 100 mls @ 100 mls/hr 05/24/17 09:00 05/29/17 08 :15 Chloride IVPB 100 mls/hr [facility] [place] Cefepime HCl 1 gm in 50 mls @ 100 mls/hr 05/22/17 17:00 05/29/17 17:30 Maxipime Iv 1 Gm Premix IVPB 50 mls 1700 [facility] Administration Sodium Chloride 1,000 mls @ 50 mls/hr 05/29/17 16:00 05/29/17 16:00 Sodium Chloride 0.9% IV Not Given .Q20H [facility] Insulin Human Regular 0 unit 05/22/17 07:30 05/29/17 17:28 Novolin R SC Not Given ACHS [facility] Protocol Metoprolol Succinate 75 mg 05/26/17 19:22 05/29/17 09:35 Toprol Xl PO 75 mg DAILY [facility] Administration Mupirocin 1 gm 05/28/17 18:00 05/29/17 17:28 Bactroban Ointment TOP Not Given BID TG Oxycodone HCl 20 mg 05/26/17 14:00 05/29/17 14:57 Oxycontin Extended Release Tab PO Not Given Q8 [facility] Rosuvastatin Calcium 10 mg 05/15/17 22:00 05/28/17 22:02 Crestor PO 10 mg HS [facility] Administration Sevelamer Carbonate 0.8 gm 05/17/17 08:00 05/29/17 17:28 Renvela PO Not Given TIDCC TG Vitamin A 0.5 ea 05/28/17 13:36 Vitamin A & D Oint Ud Foilpak TOP BID PRN for dry lips Vitamin B Complex/Vit C/Folic Acid 1 tab 05/16/17 08:00 05/29/17 08:30 Nephro-Mandy PO Not Given 0800 [facility] - Patient Studies Lab Studies: Lab Studies 05/29/17 05/29/17 05/29/17 Range/Units 18:14 11:48 11:29 WBC (4.8-10.8) K/uL RBC (3.80-5.20) Mil/uL Hgb (11.0-16.0) g/dL Hct (34.0-47.0) % MCV (81.0-99.0) fL MCH (27.0-31.0) pg MCHC (33.0-37.0) g/dL RDW (11.5-14.5) % Plt Count (130-400) K/uL MPV (7.2-11.7) fL Neut % (Auto) (50.0-75.0) % Lymph % (Auto) (20.0-40.0) % Roosevelt % (Auto) (0.0-10.0) % Eos % (Auto) (0.0-4.0) % Baso % (Auto) (0.0-2.0) % Neut # (1.8-7.0) K/uL Lymph # (1.0-4.3) K/uL Roosevelt # (0.0-0.8) K/uL Eos # (0.0-0.7) K/uL Baso # (0.0-0.2) K/uL Neutrophils % (Manual) (50-75) % Lymphocytes % (Manual) (20-40) % Monocytes % (Manual) (0-10) % Platelet Estimate (NORMAL) Anisocytosis (manual) Haptoglobin (43-212) mg/dL PT (9.7-12.2) SECONDS INR APTT (21-34) SECONDS Sodium (132-148) mmol/L Potassium (3.6-5.2) mmol/L Chloride (98-107) mmol/L Carbon Dioxide (22-30) mmol/L Anion Gap (10-20) BUN (7-17) mg/dL Creatinine (0.7-1.2) mg/dL Est GFR ( Amer) Est GFR (Non-Af Amer) POC Glucose (mg/dL) 138 H 144 H (65-110) mg/dL Random Glucose (65-105) mg/dL Calcium (8.6-10.4) mg/dl Total Bilirubin (0.2-1.3) mg/dL AST (14-36) U/L ALT (9-52) U/L Alkaline Phosphatase (38-126) U/L Total Protein (6.3-8.3) g/dL Albumin (3.5-5.0) g/dL Globulin (2.2-3.9) gm/dL Albumin/Globulin Ratio (1.0-2.1) Beta HCG, Quant mIU/ML Blood Type O POSITIVE Antibody Screen Negative 05/29/17 05/29/17 05/29/17 Range/Units 08:50 08:50 08:50 WBC (4.8-10.8) K/uL RBC (3.80-5.20) Mil/uL Hgb (11.0-16.0) g/dL Hct (34.0-47.0) % MCV (81.0-99.0) fL MCH (27.0-31.0) pg MCHC (33.0-37.0) g/dL RDW (11.5-14.5) % Plt Count (130-400) K/uL MPV (7.2-11.7) fL Neut % (Auto) (50.0-75.0) % Lymph % (Auto) (20.0-40.0) % Roosevelt % (Auto) (0.0-10.0) % Eos % (Auto) (0.0-4.0) % Baso % (Auto) (0.0-2.0) % Neut # (1.8-7.0) K/uL Lymph # (1.0-4.3) K/uL Roosevelt # (0.0-0.8) K/uL Eos # (0.0-0.7) K/uL Baso # (0.0-0.2) K/uL Neutrophils % (Manual) (50-75) % Lymphocytes % (Manual) (20-40) % Monocytes % (Manual) (0-10) % Platelet Estimate (NORMAL) Anisocytosis (manual) Haptoglobin (43-212) mg/dL PT 15.9 H (9.7-12.2) SECONDS INR 1.4 APTT 33 (21-34) SECONDS Sodium 131 L (132-148) mmol/L Potassium 5.4 H (3.6-5.2) mmol/L Chloride 92 L (98-107) mmol/L Carbon Dioxide 20 L (22-30) mmol/L Anion Gap 24 H (10-20) BUN 68 H (7-17) mg/dL Creatinine 6.9 H (0.7-1.2) mg/dL Est GFR ( Amer) 8 Est GFR (Non-Af Amer) 7 POC Glucose (mg/dL) (65-110) mg/dL Random Glucose 141 H (65-105) mg/dL Calcium 9.3 (8.6-10.4) mg/dl Total Bilirubin 1.1 (0.2-1.3) mg/dL AST 22 (14-36) U/L ALT 21 (9-52) U/L Alkaline Phosphatase 231 H (38-126) U/L Total Protein 9.5 H (6.3-8.3) g/dL Albumin 3.7 (3.5-5.0) g/dL Globulin 5.7 H (2.2-3.9) gm/dL Albumin/Globulin Ratio 0.6 L (1.0-2.1) Beta HCG, Quant < 2.39 mIU/ML Blood Type Antibody Screen 05/29/17 05/29/17 05/29/17 Range/Units 08:50 07:20 02:33 WBC 23.3 H (4.8-10.8) K/uL RBC 3.16 L (3.80-5.20) Mil/uL Hgb 8.9 L (11.0-16.0) g/dL Hct 27.6 L (34.0-47.0) % MCV 87.4 (81.0-99.0) fL MCH 28.2 (27.0-31.0) pg MCHC 32.2 L (33.0-37.0) g/dL RDW 17.3 H (11.5-14.5) % Plt Count 582 H (130-400) K/uL MPV 9.2 (7.2-11.7) fL Neut % (Auto) 87.2 H (50.0-75.0) % Lymph % (Auto) 4.5 L (20.0-40.0) % Roosevelt % (Auto) 6.8 (0.0-10.0) % Eos % (Auto) 1.1 (0.0-4.0) % Baso % (Auto) 0.4 (0.0-2.0) % Neut # 20.3 H (1.8-7.0) K/uL Lymph # 1.0 (1.0-4.3) K/uL Roosevelt # 1.6 H (0.0-0.8) K/uL Eos # 0.3 (0.0-0.7) K/uL Baso # 0.1 (0.0-0.2) K/uL Neutrophils % (Manual) 89 H (50-75) % Lymphocytes % (Manual) 5 L (20-40) % Monocytes % (Manual) 6 (0-10) % Platelet Estimate Increased H (NORMAL) Anisocytosis (manual) Slight Haptoglobin (43-212) mg/dL PT (9.7-12.2) SECONDS INR APTT (21-34) SECONDS Sodium (132-148) mmol/L Potassium (3.6-5.2) mmol/L Chloride (98-107) mmol/L Carbon Dioxide (22-30) mmol/L Anion Gap (10-20) BUN (7-17) mg/dL Creatinine (0.7-1.2) mg/dL Est GFR ( Amer) Est GFR (Non-Af Amer) POC Glucose (mg/dL) 156 H 148 H (65-110) mg/dL Random Glucose (65-105) mg/dL Calcium (8.6-10.4) mg/dl Total Bilirubin (0.2-1.3) mg/dL AST (14-36) U/L ALT (9-52) U/L Alkaline Phosphatase (38-126) U/L Total Protein (6.3-8.3) g/dL Albumin (3.5-5.0) g/dL Globulin (2.2-3.9) gm/dL Albumin/Globulin Ratio (1.0-2.1) Beta HCG, Quant mIU/ML Blood Type Antibody Screen 05/28/17 05/27/17 Range/Units 21:09 07:06 WBC (4.8-10.8) K/uL RBC (3.80-5.20) Mil/uL Hgb (11.0-16.0) g/dL Hct (34.0-47.0) % MCV (81.0-99.0) fL MCH (27.0-31.0) pg MCHC (33.0-37.0) g/dL RDW (11.5-14.5) % Plt Count (130-400) K/uL MPV (7.2-11.7) fL Neut % (Auto) (50.0-75.0) % Lymph % (Auto) (20.0-40.0) % Roosevelt % (Auto) (0.0-10.0) % Eos % (Auto) (0.0-4.0) % Baso % (Auto) (0.0-2.0) % Neut # (1.8-7.0) K/uL Lymph # (1.0-4.3) K/uL Roosevelt # (0.0-0.8) K/uL Eos # (0.0-0.7) K/uL Baso # (0.0-0.2) K/uL Neutrophils % (Manual) (50-75) % Lymphocytes % (Manual) (20-40) % Monocytes % (Manual) (0-10) % Platelet Estimate (NORMAL) Anisocytosis (manual) Haptoglobin 238 H (43-212) mg/dL PT (9.7-12.2) SECONDS INR APTT (21-34) SECONDS Sodium (132-148) mmol/L Potassium (3.6-5.2) mmol/L Chloride (98-107) mmol/L Carbon Dioxide (22-30) mmol/L Anion Gap (10-20) BUN (7-17) mg/dL Creatinine (0.7-1.2) mg/dL Est GFR ( Amer) Est GFR (Non-Af Amer) POC Glucose (mg/dL) 117 H (65-110) mg/dL Random Glucose (65-105) mg/dL Calcium (8.6-10.4) mg/dl Total Bilirubin (0.2-1.3) mg/dL AST (14-36) U/L ALT (9-52) U/L Alkaline Phosphatase (38-126) U/L Total Protein (6.3-8.3) g/dL Albumin (3.5-5.0) g/dL Globulin (2.2-3.9) gm/dL Albumin/Globulin Ratio (1.0-2.1) Beta HCG, Quant mIU/ML Blood Type Antibody Screen Laboratory Results - last 24 hr 05/27/17 05/28/17 05/29/17 07:06 21:09 02:33 WBC RBC Hgb Hct MCV MCH MCHC RDW Plt Count MPV Neut % (Auto) Lymph % (Auto) Roosevelt % (Auto) Eos % (Auto) Baso % (Auto) Neut # Lymph # Roosevelt # Eos # Baso # Neutrophils % (Manual) Lymphocytes % (Manual) Monocytes % (Manual) Platelet Estimate Anisocytosis (manual) Haptoglobin 238 H PT INR APTT Sodium Potassium Chloride Carbon Dioxide Anion Gap BUN Creatinine Est GFR ( Amer) Est GFR (Non-Af Amer) POC Glucose (mg/dL) 117 H 148 H Random Glucose Calcium Total Bilirubin AST ALT Alkaline Phosphatase Total Protein Albumin Globulin Albumin/Globulin Ratio Beta HCG, Quant Blood Type Antibody Screen 05/29/17 05/29/17 05/29/17 07:20 08:50 08:50 WBC 23.3 H RBC 3.16 L Hgb 8.9 L Hct 27.6 L MCV 87.4 MCH 28.2 MCHC 32.2 L RDW 17.3 H Plt Count 582 H MPV 9.2 Neut % (Auto) 87.2 H Lymph % (Auto) 4.5 L Roosevelt % (Auto) 6.8 Eos % (Auto) 1.1 Baso % (Auto) 0.4 Neut # 20.3 H Lymph # 1.0 Roosevelt # 1.6 H Eos # 0.3 Baso # 0.1 Neutrophils % (Manual) 89 H Lymphocytes % (Manual) 5 L Monocytes % (Manual) 6 Platelet Estimate Increased H Anisocytosis (manual) Slight Haptoglobin PT 15.9 H INR 1.4 APTT 33 Sodium Potassium Chloride Carbon Dioxide Anion Gap BUN Creatinine Est GFR ( Amer) Est GFR (Non-Af Amer) POC Glucose (mg/dL) 156 H Random Glucose Calcium Total Bilirubin AST ALT Alkaline Phosphatase Total Protein Albumin Globulin Albumin/Globulin Ratio Beta HCG, Quant Blood Type Antibody Screen 05/29/17 05/29/17 05/29/17 08:50 08:50 11:29 WBC RBC Hgb Hct MCV MCH MCHC RDW Plt Count MPV Neut % (Auto) Lymph % (Auto) Roosevelt % (Auto) Eos % (Auto) Baso % (Auto) Neut # Lymph # Roosevelt # Eos # Baso # Neutrophils % (Manual) Lymphocytes % (Manual) Monocytes % (Manual) Platelet Estimate Anisocytosis (manual) Haptoglobin PT INR APTT Sodium 131 L Potassium 5.4 H Chloride 92 L Carbon Dioxide 20 L Anion Gap 24 H BUN 68 H Creatinine 6.9 H Est GFR ( Amer) 8 Est GFR (Non-Af Amer) 7 POC Glucose (mg/dL) 144 H Random Glucose 141 H Calcium 9.3 Total Bilirubin 1.1 AST 22 ALT 21 Alkaline Phosphatase 231 H Total Protein 9.5 H Albumin 3.7 Globulin 5.7 H Albumin/Globulin Ratio 0.6 L Beta HCG, Quant < 2.39 Blood Type Antibody Screen 05/29/17 05/29/17 11:48 18:14 WBC RBC Hgb Hct MCV MCH MCHC RDW Plt Count MPV Neut % (Auto) Lymph % (Auto) Roosevelt % (Auto) Eos % (Auto) Baso % (Auto) Neut # Lymph # Roosevelt # Eos # Baso # Neutrophils % (Manual) Lymphocytes % (Manual) Monocytes % (Manual) Platelet Estimate Anisocytosis (manual) Haptoglobin PT INR APTT Sodium Potassium Chloride Carbon Dioxide Anion Gap BUN Creatinine Est GFR ( Amer) Est GFR (Non-Af Amer) POC Glucose (mg/dL) 138 H Random Glucose Calcium Total Bilirubin AST ALT Alkaline Phosphatase Total Protein Albumin Globulin Albumin/Globulin Ratio Beta HCG, Quant Blood Type O POSITIVE Antibody Screen Negative Fingerstick Blood Sugar Results: 168 Review of Systems - Review of Systems All systems: reviewed and no additional remarkable complaints except - Gastrointestinal Gastrointestinal: Abdominal Pain Critical Care Progress Note - Nutrition Nutrition: Nutrition Category Date Time Status Renal Diet [DIET] Diets 05/29/17 Dinner Active Assessment/Plan (1) Panniculitis, unspecified Assessment and plan: 41yo F. PMHx ESRD and Panniculitis s/p radical panniculectomy with repeated debridements. Neuro: alert and oriented, pain controlled with dilaudid prn and oxycodone po q8h. Pulm: no acute issues, breathing spontaneously on room air CV: hemodynamically stable. HTN controlled with Hydralazine po q8h, metoprolol po qd. Hem: no acute issues. Holding ASA with recurrent surgical interventions. Anemia of chronic disease continue Procrit. Renal: ESRD n HD (MWF), Endo: DM type 2, RISS qac/qhs. Secondary hyperparathyroidism, continue sevelamer and Phoslo. GI: renal diet ID: sepsis from paniculitis, continue Cefepime and Vanocmycin. DVT proph - heparin sq GI proph - not currently indicated Code status - full code Critical Care Time spent 35 minutes The documented time is cumulative and includes review of patient data/exams/labs /chart review and examination of the patient on rounds and throughout the day; time is exclusive of any procedures or teaching time. Current Visit: Yes Status: Acute Comment: Continue IV antibiotics as per infectious disease
[2017-05-30] MEDS: HYDROmorphone 1 mg/ml ISec IVP PRN ×5 (00:01→19:43)
--- NOTE | 2017-05-30 00:43 | CP.PCM.PN ---
Subjective - Date & Time of Evaluation Date of Evaluation: 05/29/17 Time of Evaluation: 16:00 - Subjective Subjective: Pt seen and examined , she is s/p OR, wound cleaising done, lost alot of skin on ant abdominal wallm, hematoma was drained, i spoke with her and also with heading saw operator who thinks she has calphylaxis and has bad prognois, i spoke to pateint about experimental options of treatment Objective - Vital Signs/Intake and Output Vital Signs (last 24 hours): Temp Pulse Resp BP Pulse Ox 98.5 F 108 H 13 161/38 H 96 05/29/17 20:00 05/29/17 23:33 05/29/17 23:33 05/29/17 23:33 05/29/17 22:16 Intake and Output: 05/29/17 05/30/17 18:59 06:59 Intake Total 150 100 Output Total 105 Balance 150 -5 - Medications Medications: Current Medications Aspirin (Aspirin Chewable) 81 mg PO DAILY [facility] Last Admin: 05/18/17 09:23 Dose: Not Given Calcium Acetate (Phoslo) 1,334 mg PO TIDCC [facility] Last Admin: 05/29/17 17:28 Dose: Not Given Epoetin Loyd (Procrit) 20,000 unit IV [facility] Stop: 06/02/17 09:01 Last Admin: 05/26/17 12:58 Dose: 20,000 unit Ferric Sodium Gluconate Complex (Ferrlecit) 125 mg IVPB [facility] Stop: 06/02/17 09:01 Last Admin: 05/26/17 13:56 Dose: 125 mg Heparin Sodium (Porcine) (Heparin) 5,000 units SC Q12 [facility] Last Admin: 05/18/17 21:45 Dose: 5,000 units Hydralazine HCl (Apresoline) 10 mg IVP Q6 PRN PRN Reason: Systolic Blood Pressure Last Admin: 05/27/17 00:42 Dose: 10 mg Hydralazine HCl (Apresoline) 50 mg PO Q8 [facility] Last Admin: 05/29/17 22:10 Dose: 50 mg Hydromorphone HCl (Dilaudid) 3 mg IVP Q3H PRN PRN Reason: pain Last Admin: 05/30/17 00:01 Dose: 3 mg Desmopressin Acetate 20 mcg/ (Sodium Chloride) 55 mls @ 100 mls/hr IV ONCE PRN PRN Reason: give seed cone picker to OR 05/17 Last Admin: 05/17/17 13:39 Dose: 100 mls/hr Vancomycin HCl 500 mg/ Sodium (Chloride) 100 mls @ 100 mls/hr IVPB MWF [facility] Last Admin: 05/29/17 08:15 Dose: 100 mls/hr Cefepime HCl (Maxipime Iv 1 Gm Premix) 1 gm in 50 mls @ 100 mls/hr IVPB 1700 [facility] Last Admin: 05/29/17 17:30 Dose: 50 mls Insulin Human Regular (Novolin R) 0 unit SC ACHS [facility] PRN Reason: Protocol Last Admin: 05/29/17 22:15 Dose: Not Given Metoprolol Succinate (Toprol Xl) 75 mg PO DAILY [facility] Last Admin: 05/29/17 09:35 Dose: 75 mg Mupirocin (Bactroban Ointment) 1 gm TOP BID [facility] Last Admin: 05/29/17 17:28 Dose: Not Given Oxycodone HCl (Oxycontin Extended Release Tab) 20 mg PO Q8 [facility] Last Admin: 05/29/17 22:10 Dose: 20 mg Rosuvastatin Calcium (Crestor) 10 mg PO HS [facility] Last Admin: 05/29/17 22:10 Dose: 10 mg Sevelamer Carbonate (Renvela) 0.8 gm PO TIDCC [facility] Last Admin: 05/29/17 17:28 Dose: Not Given Vitamin A (Vitamin A & D Oint Ud Foilpak) 0.5 ea TOP BID PRN PRN Reason: for dry lips Vitamin B Complex/Vit C/Folic Acid (Nephro-Mandy) 1 tab PO 0800 [facility] Last Admin: 05/29/17 08:30 Dose: Not Given - Labs Labs: 05/29/17 08:50 05/29/17 08:50 PT 15.9 SECONDS (9.7-12.2) H 05/29/17 08:50 INR 1.4 05/29/17 08:50 APTT 33 SECONDS (21-34) 05/29/17 08:50 - Constitutional Appears: No Acute Distress - Head Exam Head Exam: ATRAUMATIC, NORMAL INSPECTION, NORMOCEPHALIC - Eye Exam Eye Exam: EOMI, Normal appearance, PERRL Pupil Exam: NORMAL ACCOMODATION, PERRL - Respiratory Exam Respiratory Exam: Clear to Ausculation Bilateral - Cardiovascular Exam Cardiovascular Exam: REGULAR RHYTHM, +S1, +S2. absent: Murmur Assessment and Plan (1) Type 2 diabetes mellitus Status: Acute (2) HTN (hypertension) Status: Acute (3) ESRD (end stage renal disease) on dialysis Status: Acute (4) Panniculitis, unspecified Assessment & Plan: 41yo F. PMHx ESRD and Panniculitis s/p radical panniculectomy with repeated debridements. Neuro: alert and oriented, pain controlled with dilaudid prn and oxycodone po q8h. Pulm: no acute issues, breathing spontaneously on room air CV: hemodynamically stable. HTN controlled with Hydralazine po q8h, metoprolol po qd. Hem: no acute issues. Holding ASA with recurrent surgical interventions. Anemia of chronic disease continue Procrit. Renal: ESRD n HD (MWF), Endo: DM type 2, RISS qac/qhs. Secondary hyperparathyroidism, continue sevelamer and Phoslo. GI: renal diet ID: sepsis from paniculitis, continue Cefepime and Vanocmycin. DVT proph - heparin sq GI proph - not currently indicated Code status - full code Status: Acute (5) Hematoma Status: Acute
--- NOTE | 2017-05-30 02:01 | PN ---
FOLLOWUP RENAL CONSULTATION The patient is located in ICU, bed #9. REQUESTED BY: Dr. Romulo Yoo. REASON FOR FOLLOWUP: End-stage renal disease for continuation of hemodialysis. HISTORY OF PRESENT ILLNESS: Mrs. Schmitz is a 41 years old obese female with a history of longstanding hypertension, diabetes, end-stage renal disease, diabetic retinopathy, who underwent gastric bypass few years ago, was admitted with severe panniculitis requiring multiple transfusions and multiple surgeries. The patient was found recently with subcutaneous hematoma, underwent surgery today with nonhealing wound as per Dr. Holland requesting initiation of TPN. The patient is not in acute distress, resting comfortably in ICU. No chest pain. No palpitation. No nausea or vomiting. PHYSICAL EXAMINATION VITAL SIGNS: As follows; blood pressure 161/38, pulse 102, respiration 21 and temperature 98.5. Height 5 feet 6 inches, weight is 212 pounds. GENERAL: Mrs. Schmitz is a 41 years old obese female, not in distress. HEENT: Pupils are normal, reactive to light and accommodation. Conjunctivae pink. Sclerae anicteric. Tongue is moist. Trachea is midline. LUNGS: Symmetric on both sides. Bilateral breath sounds present. Clear on auscultation. CARDIOVASCULAR SYSTEM: [place] at the fifth intercostal space, midclavicular line. S1, S2 audible. No murmur or gallop. ABDOMEN. The patient has a dressing to the lower abdomen. Abdomen is soft, nontender. Bowel sounds present. No guarding. No rigidity. No hepatosplenomegaly. CENTRAL NERVOUS SYSTEM: The patient is alert, awake, oriented x3, nonfocal neuro examination. Cranial nerves II through XII grossly intact. Sensory and motor system is within normal limits. EXTREMITIES: No cyanosis, no clubbing. The patient has 1 to 2+ edema in both lower extremities. CURRENT MEDICATIONS: Include as follows; hydralazine 50 mg p.o. q.8 hours, Bactroban ointment topical b.i.d., Crestor 10 mg at bedtime, Dilaudid 3 mg IV q.3 hours p.r.n., Ferrlecit 125 mg 3 times a week, cefepime 1 g daily, Nephro-Mandy 1 tablet daily, OxyContin extended release 20 mg p.o. q.8 hours, PhosLo 667 mg 2 tablets t.i.d., Procrit 20,000 units 3 times a week, Renvela 800 mg p.o. t.i.d., metoprolol 75 mg p.o. daily, vancomycin 500 mg 3 times a week and A and D ointment topical b.i.d. LABORATORY DATA: Include as follows as of 05/29/2017; WBC 23.3, hemoglobin 8.9, hematocrit is 27.6 and platelets 582. PT 15.9, PTT 33, INR 1.4. Sodium 131, potassium 5.4, chloride 92 CO of 20, BUN 68, creatinine 6.9, glucose 144, calcium 9.3, total bili 1.1, AST 22, ALT 21, alkaline phos is 231, total protein 9.5, albumin is 3.5 and beta-hCG less than 2.39. ASSESSMENT: In summary, Mrs. Schmitz is a 41 years old obese female with hypertension, diabetes, end-stage renal disease, status post gastric bypass, status post surgery to panniculitis about 3 or 4 weeks ago in [facility] was admitted to [facility] with worsening symptoms and severe panniculitis requiring multiple surgeries and also evacuation of the hematoma today and nonhealing wound with poor granulation tissue as per Dr. Holland. 1. End-stage renal disease. Continue hemodialysis 3 times a week Monday, Monday, Monday. 1. Hypertension. Blood pressure is stable. 3. Anemia secondary to multiple surgeries and bleeding. Continue Epogen and Ferrlecit and case discussed with Dr. Holland and also Dr. Romulo Yoo. We will start TPN during the hemodialysis Monday, Monday, Monday and also add Pro-Stat 30 mL p.o. b.i.d. and also multivitamin 1 tablet daily. The patient is refusing Nephro-Mandy. We will follow with you. Thank you for allowing me to participate in your patient's care. Marc Jarrett MD
--- NOTE | 2017-05-30 02:37 | OP ---
PROCEDURE DATE: 05/29/2017 PREOPERATIVE DIAGNOSIS: Hematoma of abdominal flaps. POSTOPERATIVE DIAGNOSIS: 1.Hematoma with extensive necrosis of abdominal wall, groin, pelvis, and thighs. 2. Systemic Calciphylaxis SURGEON: José Luis Holland MD ANESTHESIA: General. BLOOD LOSS: 20 mL. POSTOPERATIVE CONDITION: Stable. INDICATIONS FOR SURGERY: This is a 41-year-old female, 2 weeks status post a lower panniculectomy for gangrene of the lower panniculus. Postoperatively, she did well initially. She was brought to the ICU. She subsequently had necrosis of the thigh which was present preoperatively but was dealt with 2 or 3 days postoperatively, which she underwent multiple debridements, drainage, and closure. Her [place]-Pandya drains had stopped draining about 3 or 4 days postoperatively and were removed. She subsequently began to drain a darkish blood consistent with a hematoma and a CAT scan revealed a large hematoma of the abdominal wound. She has also subsequently developed necrosis of some of the skin flaps, especially on the right lateral area along with necrosis of the skin of both thighs. She has been treated aggressively with nutrition. Her albumin has risen from 3.1 to 3.7 postoperatively. Her cultures have consistently been negative, but she has been treated nonetheless with antibiotics. As for the reason for the extensive necrosis, it is most likely Calciphylaxis due to calcification of her arterioles resulting in a low-flow state with microvascular disease secondary to renal failure and calcium-phosphate imbalance. GROSS FINDINGS. There was a hematoma beneath the flap, which was especially large but due to large size of the wound, there was a lot of hematoma that was drained. The area opened, was an area of skin necrosis and that skin necrosis was found to be relatively superficial involving only the epidermis and a portion of the dermis. There was no skin debridements carried out. The thigh wound, which had been aggressively treated in the left thigh last week, the dressing was taken down, was found to have absolutely no healing whatsoever; was not infected, however. DESCRIPTION OF THE PROCEDURE: The patient was taken to the operating room, general anesthesia was administered. The abdomen was prepped and draped. The right lateral skin clips were removed and subsequently the area of necrotic skin in the wound was opened. The hematoma was aggressively debrided medially through the midline and laterally into the left flank along with the right flank. The wound was aggressively debrided and pulse irrigated and all abdominal collection was drained, 3 liters of saline were pulse irrigated into the wound until as much hematoma can be removed as possible. A partial tissue transfer closure was performed and the wound was packed open with wet saline gauze. Next, attention was turned to the left thigh. The left thigh open wound was aggressively debrided until it was bleeding adequately. Blood vessels were repaired and controlled with saline. The wound was packed open with wet saline gauze. The patient tolerated procedure well. Returned to recovery room in stable condition. José Luis Holland MD MTDDev
[2017-05-30] MEDS: oxyCODONE 20 mg ER Tab (oxyCONTIN) PO SCH ×2 (06:40→14:56)
[2017-05-30] MEDS: Multivitamin Vitamin B Complex (Nephro-Vite) Tab PO SCH ×2 (08:27→08:38)
[2017-05-30] MEDS: Sevelamer Carb 0.8 gm/Packet PO SCH ×3 (08:28→18:17)
[2017-05-30] MEDS: (Novolin R) Insulin Human Regular 100 units/ml vial SC SCH ×4 (08:32→21:17)
[2017-05-30] MEDS: Metoprolol Succinate 25 mg XL Tab PO SCH (12:14)
--- NOTE | 2017-05-30 12:34 | CP.PCM.PN ---
Subjective - Date & Time of Evaluation Date of Evaluation: 05/30/17 Time of Evaluation: 08:00 - Subjective Subjective: events noted grave prognosis Objective - Vital Signs/Intake and Output Vital Signs (last 24 hours): Temp Pulse Resp BP Pulse Ox 98.2 F 91 H 15 146/53 L 88 L 05/30/17 04:00 05/30/17 07:00 05/30/17 07:00 05/30/17 06:36 05/30/17 05:00 Intake and Output: 05/30/17 05/30/17 06:59 18:59 Intake Total 250 0 Output Total 250 20 Balance 0 -20 - Medications Medications: Current Medications Aspirin (Aspirin Chewable) 81 mg PO DAILY [facility] Last Admin: 05/18/17 09:23 Dose: Not Given Calcium Acetate (Phoslo) 1,334 mg PO TIDCC [facility] Last Admin: 05/30/17 12:20 Dose: 1,334 mg Epoetin Loyd (Procrit) 20,000 unit IV [facility] Stop: 06/02/17 09:01 Last Admin: 05/26/17 12:58 Dose: 20,000 unit Ferric Sodium Gluconate Complex (Ferrlecit) 125 mg IVPB [facility] Stop: 06/02/17 09:01 Last Admin: 05/26/17 13:56 Dose: 125 mg Heparin Sodium (Porcine) (Heparin) 5,000 units SC Q12 [facility] Last Admin: 05/18/17 21:45 Dose: 5,000 units Hydralazine HCl (Apresoline) 10 mg IVP Q6 PRN PRN Reason: Systolic Blood Pressure Last Admin: 05/27/17 00:42 Dose: 10 mg Hydralazine HCl (Apresoline) 50 mg PO Q8 [facility] Last Admin: 05/30/17 06:40 Dose: 50 mg Hydromorphone HCl (Dilaudid) 3 mg IVP Q3H PRN PRN Reason: pain Last Admin: 05/30/17 08:27 Dose: 3 mg Desmopressin Acetate 20 mcg/ (Sodium Chloride) 55 mls @ 100 mls/hr IV ONCE PRN PRN Reason: give framing consultant to OR 05/17 Last Admin: 05/17/17 13:39 Dose: 100 mls/hr Vancomycin HCl 500 mg/ Sodium (Chloride) 100 mls @ 100 mls/hr IVPB [facility] Last Admin: 05/29/17 08:15 Dose: 100 mls/hr Cefepime HCl (Maxipime Iv 1 Gm Premix) 1 gm in 50 mls @ 100 mls/hr IVPB 1700 [facility] Last Admin: 05/29/17 17:30 Dose: 50 mls Insulin Human Regular (Novolin R) 0 unit SC ACHS [facility] PRN Reason: Protocol Last Admin: 05/30/17 12:23 Dose: Not Given Metoprolol Succinate (Toprol Xl) 75 mg PO DAILY [facility] Last Admin: 05/30/17 12:14 Dose: 75 mg Mupirocin (Bactroban Ointment) 1 gm TOP BID [facility] Last Admin: 05/30/17 12:23 Dose: 1 applic Oxycodone HCl (Oxycontin Extended Release Tab) 20 mg PO Q8 [facility] Last Admin: 05/30/17 06:40 Dose: 20 mg Rosuvastatin Calcium (Crestor) 10 mg PO HS [facility] Last Admin: 05/29/17 22:10 Dose: 10 mg Sevelamer Carbonate (Renvela) 0.8 gm PO TIDCC [facility] Last Admin: 05/30/17 12:19 Dose: 0.8 gm Vitamin A (Vitamin A & D Oint Ud Foilpak) 0.5 ea TOP BID PRN PRN Reason: for dry lips Vitamin B Complex/Vit C/Folic Acid (Nephro-Mandy) 1 tab PO 0800 [facility] Last Admin: 05/30/17 08:38 Dose: Not Given - Labs Labs: 05/29/17 08:50 05/29/17 08:50 PT 15.9 SECONDS (9.7-12.2) H 05/29/17 08:50 INR 1.4 05/29/17 08:50 APTT 33 SECONDS (21-34) 05/29/17 08:50 - Constitutional Appears: Non-toxic - Head Exam Head Exam: NORMOCEPHALIC - Eye Exam Eye Exam: absent: Scleral icterus - ENT Exam ENT Exam: Mucous Membranes Dry - Neck Exam Neck Exam: absent: Lymphadenopathy - Respiratory Exam Respiratory Exam: Decreased Breath Sounds - Cardiovascular Exam Cardiovascular Exam: REGULAR RHYTHM - GI/Abdominal Exam GI & Abdominal Exam: Distended, Soft - Rectal Exam Rectal Exam: Deferred Assessment and Plan (1) Cellulitis Status: Acute (2) Cellulitis Status: Acute (3) ESRD (end stage renal disease) on dialysis Status: Acute (4) HTN (hypertension) Status: Acute (5) Panniculitis, unspecified Status: Acute (6) Type 2 diabetes mellitus Status: Acute - Assessment and Plan (Free Text) Assessment: severe calcyphylaxis poor prognosis
[2017-05-30 13:23] LABS: CALCIUM 8.8 mg/dl (8.6-10.4); POTASSIUM 5.1 mmol/L (3.6-5.2)
[2017-05-30] MEDS ORDERED: Sodium Chloride 0.9% 500 ML IV ONE (14:10)
[2017-05-30] MEDS ORDERED: Midazolam 2 MG/2 ML VIAL ONE (14:12)
[2017-05-30] MEDS ORDERED: Propofol 10 mg/ml Inj (20 ML) ONE (14:12)
[2017-05-30] MEDS ORDERED: Silver Sulfadiazine 1% Cream (20 gm) ONE (14:28)
[2017-05-30] MEDS ORDERED: Lidocaine Hydrochloride 5 ML INJ ONE (14:47)
[2017-05-30] MEDS ORDERED: HYDROmorphone 0.5 mg/0.5 ml ISec IVP PRN (15:07)
[2017-05-30 17:02] VITALS: O2SAT 100
--- NOTE | 2017-05-30 18:43 | CP.PCM.CON ---
<Inessa Dumont DO - Last Filed: 05/30/17 18:34> History of Present Illness - History of Present Illness History of Present Illness: Consult note for Dr. Mclean: Patient is a 41 year old female with PMHx HTN, DM, anemia, CAD, ESRD on HD MWF who presents to the hospital with panniculitis. Patient has history of anemia for the past two years which coincided with her ESRD and HD. Patient also reports history of gastric bypass 3.5 years ago with over 100 pounds of weight loss. Patient is having debridement of pannus infection and is currently being followed by infectious disease. Patient routinely receives procrit as outpatient. Hematology consulted for evaluation of anemia. PMHx: HTN, DM, anemia, CAD, ESRD PSHx: gastric bypass, retinal detachment FamHx: father with prostate cancer allergies: fioricet Review of Systems - Constitutional Constitutional: absent: Chills, Fever - Cardiovascular Cardiovascular: absent: Chest Pain - Respiratory Respiratory: absent: Cough, Dyspnea - Gastrointestinal Gastrointestinal: Abdominal Pain - Musculoskeletal Musculoskeletal: Back Pain - Integumentary Integumentary: Swelling - Neurological Neurological: absent: Weakness Past Patient History - Past Social History Smoking Status: Never Smoked - CARDIAC Hx Hypertension: Yes - RENAL Date of Last Dialysis Treatment: 05/15/17 - ENDOCRINE/METABOLIC Hx Endocrine Disorders: Yes Hx Diabetes Mellitus Type 2: Yes - INTEGUMENTARY Other/Comment: infection left lower abdomen - MUSCULOSKELETAL/RHEUMATOLOGICAL Hx Falls: No - PSYCHIATRIC Hx Substance Use: No - SURGICAL HISTORY Other/Comment: I&D LEFT LOWER ABDOMEN. - ANESTHESIA Hx Anesthesia: Yes Hx Anesthesia Reactions: No Hx Malignant Hyperthermia: No Has any member of the family had a problem w/ anesthesia?: No Meds Allergies/Adverse Reactions: Allergies Allergy/AdvReac Type Severity Reaction Status Date / Time acetaminophen [From Vicodin] Allergy Verified 05/15/17 10:59 hydrocodone [From Vicodin] Allergy Verified 05/15/17 10:59 - Medications Medications: Current Medications Aspirin (Aspirin Chewable) 81 mg PO DAILY [facility] Last Admin: 05/18/17 09:23 Dose: Not Given Calcium Acetate (Phoslo) 1,334 mg PO TIDCC [facility] Last Admin: 05/30/17 18:17 Dose: 1,334 mg Epoetin Loyd (Procrit) 20,000 unit IV [facility] Stop: 06/02/17 09:01 Last Admin: 05/26/17 12:58 Dose: 20,000 unit Ferric Sodium Gluconate Complex (Ferrlecit) 125 mg IVPB [facility] Stop: 06/02/17 09:01 Last Admin: 05/26/17 13:56 Dose: 125 mg Heparin Sodium (Porcine) (Heparin) 5,000 units SC Q12 [facility] Last Admin: 05/18/17 21:45 Dose: 5,000 units Hydralazine HCl (Apresoline) 10 mg IVP Q6 PRN PRN Reason: Systolic Blood Pressure Last Admin: 05/27/17 00:42 Dose: 10 mg Hydralazine HCl (Apresoline) 50 mg PO Q8 [facility] Last Admin: 05/30/17 14:55 Dose: Not Given Hydromorphone HCl (Dilaudid) 3 mg IVP Q3H PRN PRN Reason: pain Last Admin: 05/30/17 18:10 Dose: 3 mg Desmopressin Acetate 20 mcg/ (Sodium Chloride) 55 mls @ 100 mls/hr IV ONCE PRN PRN Reason: give surface to air weapons officer to OR 05/17 Last Admin: 05/17/17 13:39 Dose: 100 mls/hr Vancomycin HCl 500 mg/ Sodium (Chloride) 100 mls @ 100 mls/hr IVPB [facility] Last Admin: 05/29/17 08:15 Dose: 100 mls/hr Cefepime HCl (Maxipime Iv 1 Gm Premix) 1 gm in 50 mls @ 100 mls/hr IVPB 1700 [facility] Last Admin: 05/29/17 17:30 Dose: 50 mls Insulin Human Regular (Novolin R) 0 unit SC ACHS [facility] PRN Reason: Protocol Last Admin: 05/30/17 17:00 Dose: Not Given Metoprolol Succinate (Toprol Xl) 75 mg PO DAILY [facility] Last Admin: 05/30/17 12:14 Dose: 75 mg Mupirocin (Bactroban Ointment) 1 gm TOP BID [facility] Last Admin: 05/30/17 18:18 Dose: 1 applic Rosuvastatin Calcium (Crestor) 10 mg PO HS [facility] Last Admin: 05/29/17 22:10 Dose: 10 mg Sevelamer Carbonate (Renvela) 0.8 gm PO TIDCC [facility] Last Admin: 05/30/17 18:17 Dose: 0.8 gm Vitamin A (Vitamin A & D Oint Ud Foilpak) 0.5 ea TOP BID PRN PRN Reason: for dry lips Vitamin B Complex/Vit C/Folic Acid (Nephro-Mandy) 1 tab PO 0800 [facility] Last Admin: 05/30/17 08:38 Dose: Not Given Physical Exam - Constitutional Appears: No Acute Distress - Head Exam Head Exam: ATRAUMATIC - Eye Exam Eye Exam: EOMI - ENT Exam ENT Exam: Mucous Membranes Moist - Respiratory Exam Respiratory Exam: Decreased Breath Sounds - Cardiovascular Exam Cardiovascular Exam: +S1, +S2 - GI/Abdominal Exam Additional comments: abdominal wound with clean and dry dressing - Extremities Exam Extremities exam: Positive for: pedal edema - Neurological Exam Neurological exam: Alert, Oriented x3 - Psychiatric Exam Psychiatric exam: Normal Affect - Skin Skin Exam: Warm Results - Vital Signs Recent Vital Signs: Last Vital Signs Temp 97.3 F L 05/30/17 16:05 Pulse 89 05/30/17 16:05 Resp 20 05/30/17 16:05 BP 146/77 05/30/17 18:05 Pulse Ox 100 05/30/17 16:05 - Labs Result Diagrams: 05/29/17 08:50 05/30/17 12:44 Labs: Laboratory Results - last 24 hr 05/29/17 05/30/17 05/30/17 21:13 08:31 12:12 Retic Count Sodium Potassium Chloride Carbon Dioxide Anion Gap BUN Creatinine Est GFR ( Amer) Est GFR (Non-Af Amer) POC Glucose (mg/dL) 202 H 134 H 132 H Random Glucose Calcium Stool Occult Blood 05/30/17 05/30/17 05/30/17 12:44 16:31 16:55 Retic Count 2.3 H Sodium 130 L Potassium 5.1 Chloride 92 L Carbon Dioxide 22 Anion Gap 21 H BUN 82 H Creatinine 7.5 H* Est GFR ( Amer) 7 Est GFR (Non-Af Amer) 6 POC Glucose (mg/dL) 120 H Random Glucose 129 H Calcium 8.8 Stool Occult Blood 05/30/17 17:38 Retic Count Sodium Potassium Chloride Carbon Dioxide Anion Gap BUN Creatinine Est GFR ( Amer) Est GFR (Non-Af Amer) POC Glucose (mg/dL) Random Glucose Calcium Stool Occult Blood Negative Assessment & Plan - Assessment and Plan (Free Text) Assessment: 41 year old female with Hx anemia, ESRD on HD, gastric bypass, recent OR debridement for panniculitis Anemia likely related to anemia of CKD and chronic disease due to current infection will check ferritin, folate, B12 globulin also noted to be elevated- will check protein electrophoresis, kappa/ lambda light chains, serum immunofixation Patient should continue procrit with dialysis sessions will continue to follow Plan as per Dr. Mclean <Alvarado Mclean - Last Filed: 05/30/17 20:38> Meds - Medications Medications: Current Medications Aspirin (Aspirin Chewable) 81 mg PO DAILY [facility] Last Admin: 05/18/17 09:23 Dose: Not Given Calcium Acetate (Phoslo) 1,334 mg PO TIDCC [facility] Last Admin: 05/30/17 18:17 Dose: 1,334 mg Epoetin Loyd (Procrit) 20,000 unit IV [facility] Stop: 06/02/17 09:01 Last Admin: 05/26/17 12:58 Dose: 20,000 unit Ferric Sodium Gluconate Complex (Ferrlecit) 125 mg IVPB [facility] Stop: 06/02/17 09:01 Last Admin: 05/26/17 13:56 Dose: 125 mg Heparin Sodium (Porcine) (Heparin) 5,000 units SC Q12 [facility] Last Admin: 05/18/17 21:45 Dose: 5,000 units Hydralazine HCl (Apresoline) 10 mg IVP Q6 PRN PRN Reason: Systolic Blood Pressure Last Admin: 05/27/17 00:42 Dose: 10 mg Hydralazine HCl (Apresoline) 50 mg PO Q8 [facility] Last Admin: 05/30/17 14:55 Dose: Not Given Hydromorphone HCl (Dilaudid) 3 mg IVP Q3H PRN PRN Reason: pain Last Admin: 05/30/17 19:43 Dose: 3 mg Desmopressin Acetate 20 mcg/ (Sodium Chloride) 55 mls @ 100 mls/hr IV ONCE PRN PRN Reason: give surface to air weapons officer to OR 05/17 Last Admin: 05/17/17 13:39 Dose: 100 mls/hr Vancomycin HCl 500 mg/ Sodium (Chloride) 100 mls @ 100 mls/hr IVPB [facility] Last Admin: 05/29/17 08:15 Dose: 100 mls/hr Cefepime HCl (Maxipime Iv 1 Gm Premix) 1 gm in 50 mls @ 100 mls/hr IVPB 1700 [facility] Last Admin: 05/29/17 17:30 Dose: 50 mls Insulin Human Regular (Novolin R) 0 unit SC ACHS [facility] PRN Reason: Protocol Last Admin: 05/30/17 17:00 Dose: Not Given Metoprolol Succinate (Toprol Xl) 75 mg PO DAILY [facility] Last Admin: 05/30/17 12:14 Dose: 75 mg Mupirocin (Bactroban Ointment) 1 gm TOP BID [facility] Last Admin: 05/30/17 18:18 Dose: 1 applic Rosuvastatin Calcium (Crestor) 10 mg PO HS [facility] Last Admin: 05/29/17 22:10 Dose: 10 mg Sevelamer Carbonate (Renvela) 0.8 gm PO TIDCC [facility] Last Admin: 05/30/17 18:17 Dose: 0.8 gm Vitamin A (Vitamin A & D Oint Ud Foilpak) 0.5 ea TOP BID PRN PRN Reason: for dry lips Vitamin B Complex/Vit C/Folic Acid (Nephro-Mandy) 1 tab PO 0800 [facility] Last Admin: 05/30/17 08:38 Dose: Not Given Results - Vital Signs Recent Vital Signs: Last Vital Signs Temp 98 F 05/30/17 19:25 Pulse 108 H 05/30/17 19:25 Resp 13 05/30/17 19:25 BP 166/90 H 05/30/17 19:25 Pulse Ox 100 05/30/17 19:25 - Labs Result Diagrams: 05/29/17 08:50 05/30/17 12:44 Labs: Laboratory Results - last 24 hr 05/29/17 05/30/17 05/30/17 21:13 08:31 12:12 Retic Count Sodium Potassium Chloride Carbon Dioxide Anion Gap BUN Creatinine Est GFR ( Amer) Est GFR (Non-Af Amer) POC Glucose (mg/dL) 202 H 134 H 132 H Random Glucose Calcium Ferritin Vitamin B12 Folate Stool Occult Blood 05/30/17 05/30/17 05/30/17 12:44 16:31 16:55 Retic Count 2.3 H Sodium 130 L Potassium 5.1 Chloride 92 L Carbon Dioxide 22 Anion Gap 21 H BUN 82 H Creatinine 7.5 H* Est GFR ( Amer) 7 Est GFR (Non-Af Amer) 6 POC Glucose (mg/dL) 120 H Random Glucose 129 H Calcium 8.8 Ferritin Vitamin B12 Folate Stool Occult Blood 05/30/17 05/30/17 16:55 17:38 Retic Count Sodium Potassium Chloride Carbon Dioxide Anion Gap BUN Creatinine Est GFR ( Amer) Est GFR (Non-Af Amer) POC Glucose (mg/dL) Random Glucose Calcium Ferritin 2170.0 Vitamin B12 433 Folate 11.1 Stool Occult Blood Negative Assessment & Plan - Assessment and Plan (Free Text) Assessment: Pt seen and examined, agree with Dr. Dumont assessment and plan. 41 year old female with a history of ESRD on HD, gastric bypass, admitted for panniculitis debridement, with anemia and elevated globulin gap. Will rule out iron, b12, folate, copper deficiency. Anemia of CKD on EPO per renal. Anemia of chronic disease from infection. Transfusion support PRN. Rule out monoclonal protein given elevated globulin gap. Thank you for this interesting consult.
--- NOTE | 2017-05-30 18:49 | CP.PCM.PN ---
Subjective - Date & Time of Evaluation Date of Evaluation: 05/30/17 Time of Evaluation: 18:49 - Subjective Subjective: pt is seen and examined, follow up consult is dictated #[id number] pt is being dialyzed Objective - Vital Signs/Intake and Output Vital Signs (last 24 hours): Temp Pulse Resp BP Pulse Ox 97.3 F L 89 20 146/77 100 05/30/17 16:05 05/30/17 16:05 05/30/17 16:05 05/30/17 18:05 05/30/17 16:05 Intake and Output: 05/30/17 05/30/17 06:59 18:59 Intake Total 250 0 Output Total 250 20 Balance 0 -20 - Medications Medications: Current Medications Aspirin (Aspirin Chewable) 81 mg PO DAILY [facility] Last Admin: 05/18/17 09:23 Dose: Not Given Calcium Acetate (Phoslo) 1,334 mg PO TIDCC [facility] Last Admin: 05/30/17 18:17 Dose: 1,334 mg Epoetin Loyd (Procrit) 20,000 unit IV [facility] Stop: 06/02/17 09:01 Last Admin: 05/26/17 12:58 Dose: 20,000 unit Ferric Sodium Gluconate Complex (Ferrlecit) 125 mg IVPB [facility] Stop: 06/02/17 09:01 Last Admin: 05/26/17 13:56 Dose: 125 mg Heparin Sodium (Porcine) (Heparin) 5,000 units SC Q12 [facility] Last Admin: 05/18/17 21:45 Dose: 5,000 units Hydralazine HCl (Apresoline) 10 mg IVP Q6 PRN PRN Reason: Systolic Blood Pressure Last Admin: 05/27/17 00:42 Dose: 10 mg Hydralazine HCl (Apresoline) 50 mg PO Q8 [facility] Last Admin: 05/30/17 14:55 Dose: Not Given Hydromorphone HCl (Dilaudid) 3 mg IVP Q3H PRN PRN Reason: pain Last Admin: 05/30/17 18:10 Dose: 3 mg Desmopressin Acetate 20 mcg/ (Sodium Chloride) 55 mls @ 100 mls/hr IV ONCE PRN PRN Reason: give supervisor dimension warehouse to OR 05/17 Last Admin: 05/17/17 13:39 Dose: 100 mls/hr Vancomycin HCl 500 mg/ Sodium (Chloride) 100 mls @ 100 mls/hr IVPB MWF [facility] Last Admin: 05/29/17 08:15 Dose: 100 mls/hr Cefepime HCl (Maxipime Iv 1 Gm Premix) 1 gm in 50 mls @ 100 mls/hr IVPB 1700 [facility] Last Admin: 05/29/17 17:30 Dose: 50 mls Insulin Human Regular (Novolin R) 0 unit SC ACHS [facility] PRN Reason: Protocol Last Admin: 05/30/17 17:00 Dose: Not Given Metoprolol Succinate (Toprol Xl) 75 mg PO DAILY [facility] Last Admin: 05/30/17 12:14 Dose: 75 mg Mupirocin (Bactroban Ointment) 1 gm TOP BID [facility] Last Admin: 05/30/17 18:18 Dose: 1 applic Rosuvastatin Calcium (Crestor) 10 mg PO HS [facility] Last Admin: 05/29/17 22:10 Dose: 10 mg Sevelamer Carbonate (Renvela) 0.8 gm PO TIDCC [facility] Last Admin: 05/30/17 18:17 Dose: 0.8 gm Vitamin A (Vitamin A & D Oint Ud Foilpak) 0.5 ea TOP BID PRN PRN Reason: for dry lips Vitamin B Complex/Vit C/Folic Acid (Nephro-Mandy) 1 tab PO 0800 [facility] Last Admin: 05/30/17 08:38 Dose: Not Given - Labs Labs: 05/29/17 08:50 05/30/17 12:44 PT 15.9 SECONDS (9.7-12.2) H 05/29/17 08:50 INR 1.4 05/29/17 08:50 APTT 33 SECONDS (21-34) 05/29/17 08:50
[2017-05-30 20:33] LABS: FOLATE 11.1 ng/mL
[2017-05-30] MEDS: Cefepime IV 1 gm in Dextrose 1 GM/50 ML BAG IVPB SCH (20:57)
[2017-05-31 01:20] VITALS: BP 175/81
[2017-05-31 01:32] VITALS: PULSE 79; RESP 18; TEMP 98.8
--- NOTE | 2017-05-31 02:23 | OP ---
PROCEDURE DATE: 05/30/2017 PREOPERATIVE DIAGNOSES: Chronic abdominal wound with abscess and necrotic thigh wound with abscess. PROCEDURE PERFORMED: Drainage of abdominal abscess, debridement of abdominal wall wound, partial flap closure, and debridement and drainage of left thigh abscess. SURGEON: José Luis Holland MD ANESTHESIA: General. BLOOD LOSS: 40 mL. POSTOPERTIVE CONDITION: Stable. INDICATIONS FOR SURGERY: This is a 41-year-old female with calciphylaxis secondary to renal failure. She has undergone a panniculectomy for a necrotic panniculus, subsequently developed diffuse necrosis of the lower abdomen, pelvis, and proximal portions of the extremities. A diagnosis of calciphylaxis has been made and the patient is taken back to the OR prior to transfer to [facility] for treatment. DESCRIPTION OF THE PROCEDURE: Patient was taken to the operative room and general anesthesia was administered. The previous packing, deep within the abdominal cavity, was removed. The wound was pulse irrigated and aggressively debrided. Bleeding was controlled using the Bovie. Larger abdominal vessels were repaired. The wound was irrigated with copious amounts of saline solution. A partial tissue flap closure was performed peripherally. The central portion was dressed using a wound VAC. The left thigh wound was reopened, debrided, drained, cultured, and packed with wet saline gauze. The remaining open wounds were dressed with Silvadene. Patient tolerated the procedure well. Returned to recovery room in stable condition. José Luis Holland MD
--- NOTE | 2017-05-31 02:59 | PN ---
FOLLOWUP RENAL CONSULTATION LOCATION: The patient is located in ICU, bed 9. REQUESTING PHYSICIAN: MD TARAS Jasso FOR FOLLOWUP: End-stage renal disease, continuation of hemodialysis. HISTORY OF PRESENT ILLNESS: Mrs. Schmitz is a 41 years old obese female with past medical history significant for longstanding hypertension, diabetes, diabetic retinopathy, end-stage renal disease, secondary hyperparathyroidism, noncompliance with phosphate binders for long-time and also status post gastric bypass, was recently found to have panniculitis, lower abdominal pain, was admitted to [facility] status post surgery about 3 to 4 weeks ago, and then the patient was admitted to [facility] on 05/15/2017 with persistent abdominal pain and worsening symptoms and found to have severe panniculitis and underwent surgery, multiple operations since admission requiring multiple transfusions about 6 units of packed RBC. The patient underwent debridement again this morning. The patient was seen and examined during dialysis, UF goal is about 2 L. The patient is slightly restless to lie down during dialysis. The patient wants to sit up during dialysis, not in distress, complains of lower abdominal pain. PHYSICAL EXAMINATION: VITAL SIGNS: As follows, blood pressure 166/90, pulse 108, respirations 20, temperature 98, saturation 100%. Height 5 feet 6 inches, weight is 209 pounds. GENERAL: Mrs. Schmitz is a 41 years old obese female, moderately-built, moderately-nourished, not in acute distress. HEENT: Pupils normal, reactive to light and accommodation. Conjunctivae pink. Sclerae anicteric. Tongue is moist and trachea is midline. LUNGS: Symmetric on both sides. Bilateral breath sounds present. Clear on auscultation. CARDIOVASCULAR SYSTEM: [place] at the fifth intercostal space, midclavicular line. S1 and S2 audible. No murmur or gallop. ABDOMEN: The patient has a dressing to the lower abdomen. Abdomen is soft, tympanic, [id number] tenderness in the lower abdomen. Bowel sounds present. No guarding. No rigidity. CENTRAL NERVOUS SYSTEM: The patient is alert, awake and oriented x3. Nonfocal neuro examination. Cranial nerves II through XII grossly intact. Sensory and motor system are within normal limits. EXTREMITIES: No cyanosis, no clubbing. The patient has 1+ to 2+ edema in both lower extremities. LABORATORY DATA: Include as follows; pathology report from the surgery from the radical panniculectomy. Final diagnosis: Skin showing patchy superficial ulceration subcutaneous and fibroadipose tissue showing marked acute and chronic inflammation with abscess formation and areas of necrosis with dystrophic calcification, special strand for fungal organism is negative. As of 05/17/2017 and another one as of 05/18/2017; report again skin showing superficial ulceration and vascular congestion, subcutaneous and adipose tissue showing areas of marked acute and chronic inflammation with abscess formation, necrosis and dystrophic calcification, special strand for fungal organism is negative from left thigh inflammatory mass. Other laboratory data as of 05/30/2017, sodium 130, potassium 5.1, chloride 92, CO2 of 22, BUN 82, creatinine 7.5, glucose 132, calcium 8.8, reticulocyte count is 2.3, ferritin level 2170, B12 is 433 folic acid is 11.1. Stool for occult blood is negative. ASSESSMENT AND PLAN: In summary, Mrs. Nadir Yost is a 41 years old obese female with history of hypertension, diabetes, end-stage renal disease, diabetic retinopathy, gastric bypass, end-stage renal disease, secondary hyperparathyroidism, hyperphosphatemia, noncompliant with binders for long-time, was admitted with severe panniculitis, status post radical panniculectomy and status post drainage of the left thigh mass consistent with acute and chronic inflammation abscess formation and also dystrophic calcification. 1. End-stage renal disease. Continue hemodialysis three times a week. The patient was not able to receive hemodialysis last night and scheduled for hemodialysis today after debridement again today this evening and UF goal is about 2 liters. 2. Anemia secondary to renal failure. Continue Epogen three times a week. 3. Secondary hyperparathyroidism. Continue phosphate binders, calcium acetate and Renvela. The patient claims that she cannot tolerate Renvela 3 tablets three times a day. The patient preferred to take calcium acetate. 4. Status post radical panniculectomy and multiple debridements. 5. Rule out uremic calcific arteriolopathy secondary to secondary hyperparathyroidism, noncompliance with dietary restrictions and noncompliance with phosphate binders. As per the primary team, the patient is scheduled to transfer to [facility] for further management. The patient may need sodium thiosulfate for dystrophic calcification if no other improvement and healing. We will follow with you. Thank you for allowing me to participate in your patient's care. Discussed with Dr. Romulo Yoo in rounds last night. Marc Jarrett MD
[2017-06-01 02:04] LABS: TOTAL PROTEIN, SERUM 7.2 g/dL (6.1-8.1)
== END 2017-05-30 21:30 | DRG 570 ==
LOC: C.ER 10:04 → C.9E 14:28 → C.3T 15:54 → C.9I 05-17 17:26 → C.3T 05-24 22:48 → C.9I 05-29 16:25 → C.9S 05-29 16:36 → C.9I 05-29 20:10
PROVIDERS: ADMIT Surgery; ATTEND Surgery
PROC: 5A1D70Z Performance of Urinary Filtration, Intermittent, Less than 6 Hours Per Day (ICD-10-PCS; 2017-05-15)
PROC: 0JX80ZZ Transfer Abdomen Subcutaneous Tissue and Fascia, Open Approach (ICD-10-PCS; 2017-05-17)
PROC: 0HB7XZZ Excision of Abdomen Skin, External Approach (ICD-10-PCS; principal; 2017-05-17 15:00)
PROC: 0JBC0ZZ Excision of Pelvic Region Subcutaneous Tissue and Fascia, Open Approach (ICD-10-PCS; 2017-05-18)
PROC: 0JXC0ZZ Transfer Pelvic Region Subcutaneous Tissue and Fascia, Open Approach (ICD-10-PCS; 2017-05-18)
PROC: 0J9C0ZZ Drainage of Pelvic Region Subcutaneous Tissue and Fascia, Open Approach (ICD-10-PCS; 2017-05-19)
PROC: 0JXC0ZZ Transfer Pelvic Region Subcutaneous Tissue and Fascia, Open Approach (ICD-10-PCS; 2017-05-20)
PROC: 0J9C0ZZ Drainage of Pelvic Region Subcutaneous Tissue and Fascia, Open Approach (ICD-10-PCS; 2017-05-20)
PROC: 0JC80ZZ Extirpation of Matter from Abdomen Subcutaneous Tissue and Fascia, Open Approach (ICD-10-PCS; 2017-05-29)
PROC: 0HDJXZZ Extraction of Left Upper Leg Skin, External Approach (ICD-10-PCS; 2017-05-29)
PROC: 0W9F0ZZ Drainage of Abdominal Wall, Open Approach (ICD-10-PCS; 2017-05-30)
PROC: 0Y9D0ZZ Drainage of Left Upper Leg, Open Approach (ICD-10-PCS; 2017-05-30)
DX: M79.3 Panniculitis, unspecified (principal); N18.6 End stage renal disease; E11.22 Type 2 diabetes mellitus with diabetic chronic kidney disease; I12.0 Hypertensive chronic kidney disease with stage 5 chronic kidney disease or end stage renal disease; L02.211 Cutaneous abscess of abdominal wall; L02.416 Cutaneous abscess of left lower limb; N25.81 Secondary hyperparathyroidism of renal origin; L76.32 Postprocedural hematoma of skin and subcutaneous tissue following other procedure; E11.319 Type 2 diabetes mellitus with unspecified diabetic retinopathy without macular edema; E83.39 Other disorders of phosphorus metabolism; D63.1 Anemia in chronic kidney disease; E11.65 Type 2 diabetes mellitus with hyperglycemia; E66.9 Obesity, unspecified; Z68.33 Body mass index [BMI] 33.0-33.9, adult; E78.5 Hyperlipidemia, unspecified; E83.59 Other disorders of calcium metabolism; H54.7 Unspecified visual loss; I25.10 Atherosclerotic heart disease of native coronary artery without angina pectoris; Z98.84 Bariatric surgery status; Z99.2 Dependence on renal dialysis; Z91.14 Patient's other noncompliance with medication regimen; Z79.899 Other long term (current) drug therapy; Z79.82 Long term (current) use of aspirin; Z89.422 Acquired absence of other left toe(s); Y83.8 Other surgical procedures as the cause of abnormal reaction of the patient, or of later complication, without mention of misadventure at the time of the procedure; N73.9 Female pelvic inflammatory disease, unspecified